=== PATIENT | female | born 1970 | race Two or more races ===

== ENCOUNTER 2024-02-08 14:56 | Inpatient (IN) | payer MEDICAID, OTHER ==
[~2024-02-08] VITALS: Ht 147.3 cm; Wt 56.4 kg
--- NOTE | 2024-02-08 15:16 | ED.PDOC ---
History of Present Illness(SKN HPI Comments A 53 YEAR OLD FEMALE PRESENTS TO THE ED WITH COMPLAINT OF WOUND OF LEFT FOOT. PATIENT STATES SHE HAS A HISTORY OF DIABETES AND HAS HAD A WOUND ON THE TOP AND BOTTOM OF HER LEFT FOOT FOR THE PAST 2 WEEKS. PATIENT REPORTS SHE IS NOT SURE HOW SHE SUSTAINED THE WOUND, BUT NOTES SHE IS NOW EXPERIENCING REDNESS, SWELLING, DISCOLORATION TO HER LEFT FOOT. PATIENT DENIES FEVER, CHILLS, SHORTNESS OF BREATH, CHEST PAIN, ABDOMINAL PAIN, NAUSEA, VOMITING, HEADACHE, OR OTHER COMPLAINTS. NO OTHER SYMPTOMS OR MODIFYING FACTORS AT THIS TIME. PATIENT IS ALERT, ORIENTED X 4, AND HAS STEADY GAIT. Chief Complaint: Lower Extremity Time Seen by MD: 14:58 History of Present Illness: Nurses Notes, Medications, Allergies Information Source: Patient Mode of Arrival: Ambulatory Severity: Moderate Timing: Weeks Duration: Since onset Prehospital treatment: None Location: Foot (LEFT FOOT) Mechanism: Preceding Wound Occurence: Indoors Object: None Condition of Object: None Retained Foreign Body: No Wound Type: Other (DIABETIC FOOT ULCER) Immunization Status of Animal: NA Tetanus: Unknown History of: Diabetes Associated Signs and Symptoms: Redness, Swelling, Pain Past Medical History PAST MEDICAL HISTORY: DM, ESRD Surgical History: Denies all surgeries GAS DESULFURIZER History: No Pertinent GAS DESULFURIZER History Family History Family History: Reviewed,noncontributory to illness Social History Smoker: Non-Smoker Alcohol: Denies ETOH Use Drugs: Denies Drug Use Lives In: Home Constitutional: denies: chills, diaphoresis, fatigue, fever, malaise, sweats, weakness, others EENTM: denies: blurred vision, double vision, ear bleeding, ear discharge, ear drainage, ear pain, ear ringing, eye pain, eye redness, hearing loss, mouth pain, mouth swelling, nasal discharge, nose bleeding, nose congestion, nose pain, photophobia, tearing, throat pain, throat swelling, voice changes, others Respiratory: denies: cough, hemoptysis, orthopnea, SOB at rest, shortness of breath, SOB with excertion, stridor, wheezing, others Cardiovascular: denies: chest pain, dizzy spells, diaphoresis, Dyspnea on exertion, edema, irregular heart beat, left arm pain, lightheadedness, pa lpitations, PND, syncope, others Gastrointestinal: denies: abdomen distended, abdominal pain, blood streaked bowels, constipated, diarrhea, dysphagia, difficulty swallowing, hematemesis, melena, nausea, poor appetite, poor fluid intake, rectal bleeding, rectal pain, vomiting, others Genitourinary: denies: abnormal vagina bleeding, burning, dyspareunia, dysuria, flank pain, frequency, hematuria, incontinence, pain, , vagina discharge, urgency, others Neurological: denies: dizziness, fainting, headache, left sided numbness, left sided weakness, numbness, paresthesia, pre-existing deficit, right sided numbness, right sided weakness, seizure, speech problems, tingling, tremors, weakness, others Musculoskeletal: denies: back pain, gout, joint pain, joint swelling, muscle pain, muscle stiffness, neck pain, others Integumetry: reports: wounds (DIABETIC FOOT ULCER OF LEFT FOOT); denies: bruises, change in color, change in hair/nails, dryness, laceration, lesions, lumps, rash, others Allergic/Immunocompromised: denies: Difficulty Healing, Frequent Infections, Hives, Itching, others Hematologic/Lymphatic: denies: anemia, blood clots, easy bleeding, easy bruising, swollen glands, others Endocrine: denies: excessive hunger, excessive sweating, excessive thirst, excessive urination, flushing, intolerance to cold, intolerance to heat, unexplained weight gain, unexplained weight loss, others Psychiatric: denies: anxiety, bipolar disorder, depression, hopeless, panic disorder, schizophrenia, sleepless, suicidal, others All Other Systems: Reviewed and Negative Physical Exam General Appearance: No Apparent Distress, Normal HEENT: Normal ENT Inspection, PERRL/EOMI, Pharynx Normal, TMs Normal Neck: Full Range of Motion, Non-Tender, Normal, Normal Inspection Respiratory: Chest Non-Tender, Lungs Clear, No Accessory Muscle Use, No Respiratory Distress, Normal Breath Sounds Cardiovascular: No Edema, No JVD, No Murmur, No Gallop, Normal Peripheral Pulses, Regular Rate/Rhythm Breast Exam: Deferred Gastrointestinal: No Organomegaly, Non Tender, No Pulsatile Mass, Normal Bowel Sounds, Soft Genitalia: Deferred Pelvic: Deferred Rectal: Deferred Extremities: Decreased range of motion, No calf tenderness, Normal capillary refill, No pedal edema, Swelling (ERYTHEMA AND SWELLING ON LEFT DORSAL FOOT WITH BRUISING.), Tender (WITH REDNESS AND BRUSING ON LEFT 4TH TOE REGION, NO OPEN WOUND SEEN, +DM FOOT ULCER AND CELLITIS OF LEFT FOOT. ) Musculoskeletal : Apperance: Normal Neurologic: Alert, marketing operations assistant II-XII nml as Tested, No Motor Deficits, Normal Affect, Normal Mood, No Sensory Deficits Cerebellar Function: Normal Reflexes: Normal Skin: Dry, Warm, Wounds (BLACKENING OF SKIN NOTED TO LEFT PLANTAR ASPECT OF FOOT, DRIED OPEN WOUND, NO DRAINAGE NOTED.) Peripheral Pulses: 2+ carotid (R), 2+ carotid (L), 2+ dorsalis pedis (R), 2+ dorsalis pedis (L) Lymphatic: No Adenopathy Was a procedure done? Was a procedure done?: No Differential Diagnosis (INTG) Differential Diagnosis: Cellulitis, Insect Envenomation, Puncture Wound, Other (DIABETIC FOOT ULCER) Differential Diagnosis: Abscess, Cellulitis, Erysipelas Differential Diagnosis: Other Abscess: N/A Differential Diagnosis: N/A X-Ray, Labs, Meds, VS Vital Signs Date Time Temp Pulse Resp B/P (MAP) Pulse Ox O2 Delivery O2 Flow Rate FiO2 02/08/24 15:36 98.5 79 16 161/61 (94) 79 98.5 02/08/24 15:36 79 97 Room Air 02/08/24 15:15 98.4 79 16 161/61 (94) 97 Lab Test 02/08/24 15:16 Range/Units White Blood Count 16.1 H 4.4-10.8 10^3/uL Red Blood Count 3.44 L 4.0-5.20 10^6/uL Hemoglobin 10.8 L 12.2-16.2 g/dL Hematocrit 32.7 L 36.0-46.0 % Mean Corpuscular Volume 95.3 80.0-100.0 fL Mean Corpuscular Hemoglobin 31.5 28.0-32.0 pg Mean Corpuscular Hemoglobin Concent 33.0 32.0-36.0 g/dL Red Cell Distribution Width 14.2 11.8-14.3 % Platelet Count 306 140-450 10^3/uL Mean Platelet Volume 9.6 6.9-10.8 fL Neutrophils (%) (Auto) 85.2 H 37.0-80.0 % Lymphocytes (%) (Auto) 7.0 L 10.0-50.0 % Monocytes (%) (Auto) 6.5 0.0-12.0 % Eosinophils (%) (Auto) 0.7 0.0-7.0 % Basophils (%) (Auto) 0.6 0.0-2.0 % Neutrophils # (Auto) 13.7 H 1.6-8.6 10 ^3/uL Lymphocytes # (Auto) 1.1 0.4-5.4 10 ^3/uL Monocytes # (Auto) 1.0 0-1.3 10 ^3/uL Eosinophils # (Auto) 0.1 0-0.8 10 ^3/uL Basophils # (Auto) 0.1 0-0.2 10 ^3/uL Nucleated Red Blood Cells 0.1 % Sodium Level 135 L 136-145 mmol/L Potassium Level 4.0 3.5-5.1 mmol/L Chloride Level 99 98-107 mmol/L Carbon Dioxide Level 25 20-31 mmol/L Anion Gap 11 5-15 Blood Urea Nitrogen 27 H 9-23 mg/dL Creatinine 4.45 H 0.550-1.02 mg/dL Glomerular Filtration Rate Calc 11 >90 mL/min BUN/Creatinine Ratio 6.1 L 10.0-20.0 Serum Glucose 315 H 74-106 mg/dL Lactic Acid Level 1.3 0.4-2.0 mmol/L Calcium Level 9.7 8.7-10.4 mg/dL Current Medications Medications (Trade) Dose Ordered Sig/Latonia Route Start Time Stop Time Status Last Admin Ceftriaxone Sodium 50 ml @ 100 mls/hr ONCE ONCE IV 02/08/24 15:45 02/08/24 16:14 DC 02/08/24 16:02 Vancomycin HCl 200 ml @ 200 mls/hr ONCE ONCE IV 02/08/24 15:45 02/08/24 16:44 DC 02/08/24 16:17 Sodium Chloride 1,000 ml @ 1,000 mls/hr Q1H ONCE IV 02/08/24 16:00 02/08/24 16:59 DC 02/08/24 16:03 CLINICAL INDICATION: DM FOOT ULCER TECHNIQUE: XY L FOOT 3 VIEW XRAY Comparison: None FINDINGS/IMPRESSION: : There is no evidence of acute fracture or dislocation. Small to moderate volume subcutaneous emphysema at the distal 4th digit. No appreciable radiopaque foreign body. Vascular atherosclerotic disease is present. ATED BY: ADOLPH BELL MD DICTATED DATE/TIME: 02/08/241542 SIGNED BY: ADOLPH BELL MD SIGNED DATE/TIME: 02/08/241542 CC: X-Ray, Labs, Meds, VS Comment LABS ORDERED: CBC, BMP, UA, LACTIC ACID W/REFLEX, BLOOD CULTURE REVIEWED AND INTERPRETED RESULTS: WBC 16.1, RBC 3.44, HGB 10.8, NA 135, BUN 27, CREATININE 4.45, GLUCOSE 315 TREATMENT: ROCEPHIN 1 G IV, VANCOMYCIN 1 G IV, NS 1L IV BOLUS, INSULIN 8 UNITS IV ACCUCHECK WAS DONE AND PATIENT'S BLOOD SUGAR MEASURED 414. A 53 YEAR OLD FEMALE PRESENTED TO THE ED C/O DIABETIC FOOT ULCER OF LEFT FOOT FOR THE PAST 2 WEEKS. UPON MY PHYSICAL EXAMINATION, THE PATIENT HAD REDNESS, SWELLING, AND BLACKENING OF THE SKIN ON HER LEFT PLANTAR ASPECT OF HER FOOT AND BRUISING OF THE TOP OF HER LEFT FOOT, BUT NO PUS DRAINAGE OR OPEN WOUND NOTED AT THIS TIME. MY DIFFERENTIAL DIAGNOSIS INCLUDES, DIABETIC FOOT ULCER, CELLULITIS, OSTEOMYELITIS, ERYSIPELAS, WOUND INFECTION, HYPERGLYCEMIA. LABS WERE ORDERED FOR THE PATIENT WHICH REVEALED AN ELEVATED WHITE BLOOD COUNT OF 16.1, BUN OF 27, CREATININE OF 4.45, AND GLUCOSE OF 315, HOWEVER THE PATIENT HAS A HISTORY OF ESRD AND IS CURRENTLY UNDERGOING DIALYSIS. AN X-RAY OF THE PATIENT'S LEFT FOOT WAS DONE AND THERE WAS NO ACUTE FINDING. PATIENT WAS MEDICATED HERE IN THE ED WITH ROCEPHIN 1 G IV AND VANCOMYCIN 1 G IV. DUE TO THE PATIENT HAVING A DIABETIC FOOT ULCER, I HAVE DETERMINED THE PATIENT SHOULD BE ADMITTED FOR FURTHER TREATMENT AND EVALUATION. THE ON-CALL ADMITTING PHYSICIAN WILL BE CONTACTED FOR ADMISSION OF THIS PATIENT. Images Reviewed?: Images reviewed and evaluated by me Time of 1ST Reevaluation: 17:00 Reevaluation 1ST: Unchanged Patient Education/Counseling: Diagnosis, Treatment Family Education/Counseling: Diagnosis, Treatment Departure 1 Departure Time of Disposition: 17:00 Impression: Primary Impression: Diabetic ulcer of left foot Qualified Codes: E11.621 - Type 2 diabetes mellitus with foot ulcer; L97.521 - Non-pressure chronic ulcer of other part of left foot limited to breakdown of skin Additional Impressions: Uncontrolled diabetes mellitus Qualified Codes: E11.65 - Type 2 diabetes mellitus with hyperglycemia ESRD (end stage renal disease) on dialysis Disposition: ADMITTED INPATIENT Admit to: Med Surg Condition: Serious Critical Care Note Critical Care Time?: No Stability Stability form required: No I personally scribed for JOSLYN HEADLEY ([email or web address]) on 02/08/24 at 15:16. Electronically submitted by Dionisio Thakkar [email or web address]). I personally scribed for JOSLYN HEADLEY ([email or web address]) on 02/08/24 at 15:35. Electronically submitted by Dionisio Thakkar ([email or web address]). I personally scribed for JOSLYN HEADLEY ([email or web address]) on 02/08/24 at 16:02. Electronically submitted by Dionisio Thakkar ([email or web address]). I personally scribed for JOSLYN HEADLEY ([email or web address]) on 02/08/24 at 16:48. Electronically submitted by Dionisio Thakkar ([email or web address]). JOSLYN HEADLEY Feb 08, 2024 15:16
[2024-02-08 15:40] LABS: Basophils # (auto) 0.1 10 ^3/uL (0-0.2); Basophils % (auto) 0.6 % (0.0-2.0); Eosinophils # (auto) 0.1 10 ^3/uL (0-0.8); Eosinophils % (auto) 0.7 % (0.0-7.0); Hematocrit 32.7 % (36.0-46.0); Hemoglobin 10.8 g/dL (12.2-16.2); Lymphocytes # (auto) 1.1 10 ^3/uL (0.4-5.4); Mean Corpuscular Hemoglobin 31.5 pg (28.0-32.0); Mean Corpuscular Volume 95.3 fL (80.0-100.0); Monocytes % (auto) 6.5 % (0.0-12.0); Neutrophils # (auto) 13.7 10 ^3/uL (1.6-8.6); Neutrophils % (auto) 85.2 % (37.0-80.0); Nucleated Red Blood Cells % 0.1 %; Platelet Count (auto) 306 10^3/uL (140-450); Red Blood Cells 3.44 10^6/uL (4.0-5.20); Red Cell Distribution Width 14.2 % (11.8-14.3); White Blood Cell 16.1 10^3/uL (4.4-10.8)
--- NOTE | 2024-02-08 15:46 | DVH ---
CLINICAL INDICATION: DM FOOT ULCER TECHNIQUE: XY L FOOT 3 VIEW XRAY Comparison: None FINDINGS/IMPRESSION: : There is no evidence of acute fracture or dislocation. Small to moderate volume subcutaneous emphysema at the distal 4th digit. No appreciable radiopaque foreign body. Vascular atherosclerotic disease is present.
[2024-02-08 15:47] LABS: Chloride 99 mmol/L (98-107); Sodium 135 mmol/L (136-145)
[2024-02-08 15:48] LABS: Anion Gap 11 (5-15); Carbon Dioxide 25 mmol/L (20-31)
[2024-02-08 15:49] LABS: Calcium 9.7 mg/dL (8.7-10.4)
[2024-02-08 15:54] LABS: BUN/Creatinine Ratio 6.1 (10.0-20.0); Blood Urea Nitrogen 27 mg/dL (9-23); Glucose 315 mg/dL (74-106)
[2024-02-08] MEDS: cefTRIAXone 1GM/50ML D5W 50 ML IV ONE (16:02)
[2024-02-08] MEDS: SODIUM CHLORIDE 0.9% 1,000 ML IV ONE (16:03)
[2024-02-08] MEDS: VANCOMYCIN 1GM/200ML PREMIX 200 ML IV ONE (16:17)
[2024-02-08] MEDS: InsuLIN REG 1unit/0.01ml Soln (100units/ml) IV ONE (18:02)
--- NOTE | 2024-02-08 23:25 | DVHHP2 ---
History of Present Illness Reason for Visit: ESRD (end stage renal disease) on dialysis History of Present Illness Patient is a 53-year-old female with past medical history of hypertension, DM, and end-stage renal disease on hemodialysis presented to [facility] ED for evaluation of left foot wound. Patient reports she has had a wound on the top and bottom of her left foot for the past 2 weeks, not sure how she sustained the wound, but notes redness, swelling, discoloration to the foot, getting worse that prompted this visit. Patient was seen and evaluated in the ED, laboratory data shows WBC 16.1, hemoglobin 10.8, hematocrit 32.7, platelets 306, sodium 135, potassium 4.0, BUN 27, creatinine 4.45, glucose 315, blood pressure 160/62, heart rate 78, temperature 98.5 F, O2 saturation 97% on room air. Left foot x- ray showed no evidence of acute fracture or dislocation. Patient was started on IV antibiotic regimen vancomycin, please see medication orders section in the computer. On my assessment, patient denied chest pain, no headache, no dizziness, no shortness of breath, no nausea, no vomiting, no fever, no chills. Patient was admitted for further evaluation medical management. Past Medical History DM, ESRD, hypertension Past Surgical History Denies all surgeries Family History Reviewed, noncontributory to the management of this case. Past Social History The patient lives at home, denies smoking, alcohol or illicit drugs abuse. Review of Systems Constitutional: No: Fever, Chills, Sweats, Weakness, Malaise, Other Eyes: No: Pain, Vision change, Conjunctivae inflammation, Eyelid inflammation, Other, Redness ENT: No: Ear pain, Ear discharge, Nose pain, Nose discharge, Nose congestion, Mouth pain, Mouth swelling, Throat pain, Throat swelling, Other Respiratory: No: Cough, Dry, Shortness of breath, SOB with excertion, Wheezing, Hemoptysis, Pleuritic Pain, Sputum, Wheezing, Other Cardiovascular: No: Chest Pain, Palpitations, Orthopnea, Paroxysmal Noc. Dyspnea, Edema, Lt Headedness, Other Gastrointestinal: No: Nausea, Vomiting, Abdominal Pain, Diarrhea, Constipation, Melena, Hematochezia, Other Genitourinary: No Dysuria, No Frequency, No Incontinence, No Hematuria, No Retention, No Other Musculoskeletal: other (Diabetic ulcer of left foot.); No: neck pain, shoulder pain, arm pain, back pain, hand pain, leg pain, foot pain Skin: No: Rash, Lesions, Jaundice, Bruising, Other Neurological: No: Weakness, Numbness, Incoordination, Change in speech, Confusion, Seizures, Other Exam Vital Signs Vital Signs Date Time Temp Pulse Resp B/P (MAP) Pulse Ox O2 Delivery O2 Flow Rate FiO2 02/08/24 15:36 98.5 79 16 161/61 (94) 79 98.5 02/08/24 15:36 Room Air General Appearance: Alert, Oriented X3, Cooperative, No acute distress HEENT: Atraumatic, PERRLA, EOMI, Mucous membr. moist/pink Respiratory: Clear to auscultation, Normal air movement Cardiovascular: Regular rate, Normal S1, Normal S2, No murmurs Abdominal: Normal bowel sounds, Soft, No tenderness, No hepatospenomegaly, No masses Extremities: No clubbing, No cyanosis, No edema, Normal pulses, No tenderness /swelling Skin: No rashes, No breakdown, No significant lesion Neuro: Normal speech, Normal tone, Sensation intact, Cranial nerves 3-12 NL, Reflexes 2+ Psych/Mental Status: Mental status NL, Mood NL Labs/Xrays Labs Test 02/08/24 17:56 02/08/24 15:16 Range/Units POC Glucose 426 *H 70-106 mg/dl White Blood Count 16.1 H 4.4-10.8 10^3/uL Red Blood Count 3.44 L 4.0-5.20 10^6/uL Hemoglobin 10.8 L 12.2-16.2 g/dL Hematocrit 32.7 L 36.0-46.0 % Mean Corpuscular Volume 95.3 80.0-100.0 fL Mean Corpuscular Hemoglobin 31.5 28.0-32.0 pg Mean Corpuscular Hemoglobin Concent 33.0 32.0-36.0 g/dL Red Cell Distribution Width 14.2 11.8-14.3 % Platelet Count 306 140-450 10^3/uL Mean Platelet Volume 9.6 6.9-10.8 fL Neutrophils (%) (Auto) 85.2 H 37.0-80.0 % Lymphocytes (%) (Auto) 7.0 L 10.0-50.0 % Monocytes (%) (Auto) 6.5 0.0-12.0 % Eosinophils (%) (Auto) 0.7 0.0-7.0 % Basophils (%) (Auto) 0.6 0.0-2.0 % Neutrophils # (Auto) 13.7 H 1.6-8.6 10 ^3/uL Lymphocytes # (Auto) 1.1 0.4-5.4 10 ^3/uL Monocytes # (Auto) 1.0 0-1.3 10 ^3/uL Eosinophils # (Auto) 0.1 0-0.8 10 ^3/uL Basophils # (Auto) 0.1 0-0.2 10 ^3/uL Nucleated Red Blood Cells 0.1 % Sodium Level 135 L 136-145 mmol/L Potassium Level 4.0 3.5-5.1 mmol/L Chloride Level 99 98-107 mmol/L Carbon Dioxide Level 25 20-31 mmol/L Anion Gap 11 5-15 Blood Urea Nitrogen 27 H 9-23 mg/dL Creatinine 4.45 H 0.550-1.02 mg/dL Glomerular Filtration Rate Calc 11 >90 mL/min BUN/Creatinine Ratio 6.1 L 10.0-20.0 Serum Glucose 315 H 74-106 mg/dL Lactic Acid Level 1.3 0.4-2.0 mmol/L Calcium Level 9.7 8.7-10.4 mg/dL PATIENT: JUVENAL GRANDA ACCT: [id number] UNIT: [id number] : 1970 LOC: ER ROOM / BED: / AGE / SEX: 53 / F ADM STATUS: REG ER SERVICE 1503 ORDERING PHYSICIAN: JOSLYN HEDALEY PROCEDURE(s): LFOOT - L FOOT 3 VIEW XRAY REASON: DM FOOT ULCER ORDER NUMBER(s): [id number], ACCESSION NUMBER(s): [id number] CLINICAL INDICATION: DM FOOT ULCER TECHNIQUE: XY L FOOT 3 VIEW XRAY Comparison: None FINDINGS/IMPRESSION: : There is no evidence of acute fracture or dislocation. Small to moderate volume subcutaneous emphysema at the distal 4th digit. No appreciable radiopaque foreign body. Vascular atherosclerotic disease is present. Assessment/Plan Assessment/Plan Diabetic ulcer of left foot Leukocytosis, unspecified Hypertension Type 2 diabetes mellitus with foot ulcer Uncontrolled diabetes mellitus Type 2 diabetes mellitus with hyperglycemia ESRD (end stage renal disease) on dialysis Plan 1. Admit to telemetry unit 2. Breathing treatment 3. Pain control management 4. IV antibiotic management 5. Management of fluids and electrolytes 6. Consultation for Nephrology 7. Diagnostic test foot x-ray 8. DVT prophylaxis-on aspirin 9. Repeat labs CBC, CMP in a.m. 10. Home medication reviewed and reconciled 11. Continue with current medical management 12. Treatment plan discussed with patient and RN. Patient verbalized understanding. Plan discussed with: Patient, Other (RN) Problem List: (1) Diabetic ulcer of left foot (2) Type 2 diabetes mellitus with foot ulcer (3) Hypertension (4) Leukocytosis, unspecified (5) Uncontrolled diabetes mellitus (6) ESRD (end stage renal disease) on dialysis (7) Type 2 diabetes mellitus with hyperglycemia Date of Service: Feb 08, 2024 Billing Provider: SRAVANI RUIZ DNP Common Visit Codes: [id number] INP/OBS CARE (HIGH) SRAVANI RUZI DNP Feb 08, 2024 23:25
[2024-02-08] MEDS ORDERED: hydrALAZINE HCL 20 MG/ML VL IV PRN (23:30)
[2024-02-08] MEDS ORDERED: VANCOMYCIN PER PHARMACY 0 MG IV SCH (23:30)
[2024-02-08] MEDS ORDERED: ONDANSETRON HCL 4 MG/2 ML VIAL IV PRN (23:30)
[2024-02-08] MEDS ORDERED: NITROGLYCERIN 0.4 MG SL TAB SL PRN (23:30)
[2024-02-08] MEDS ORDERED: DOCUSATE SOD 100 MG CAP PO PRN (23:30)
[2024-02-08] MEDS ORDERED: DEXTROSE (50%) 50ML SYRG IV PRN (23:30)
[2024-02-08] MEDS ORDERED: MORPHINE SULFATE INJ 2 MG/ml SYRG IV PRN (23:30)
[2024-02-09] VITALS (9 sets, daily range): BP systolic 148–207; BP diastolic 61–90; PULSE 67–75; RESP 18–20; TEMP 98.5–99.9; O2SAT 92–98
[2024-02-09] MEDS ORDERED: FERR1TAB17 PO (04:11)
[2024-02-09] MEDS ORDERED: CHOL500021 OR (04:11)
[2024-02-09] MEDS ORDERED: AMLO1TAB22 PO (04:11)
[2024-02-09] MEDS ORDERED: CARV-214 OR (04:11)
[2024-02-09] MEDS ORDERED: HYDR100T10 PO (04:11)
[2024-02-09] MEDS ORDERED: ONDA-155 PO (04:11)
[2024-02-09 05:36] LABS: Basophils # (auto) 0.1 10 ^3/uL (0-0.2); Basophils % (auto) 0.5 % (0.0-2.0); Eosinophils # (auto) 0.2 10 ^3/uL (0-0.8); Eosinophils % (auto) 1.1 % (0.0-7.0); Hematocrit 29.5 % (36.0-46.0); Hemoglobin 9.8 g/dL (12.2-16.2); Lymphocytes # (auto) 1.1 10 ^3/uL (0.4-5.4); Lymphocytes % (auto) 7.7 % (10.0-50.0); Mean Corpuscular Hemoglobin 31.5 pg (28.0-32.0); Mean Corpuscular Hgb Conc. 33.1 g/dL (32.0-36.0); Mean Corpuscular Volume 94.9 fL (80.0-100.0); Monocytes # (auto) 1.2 10 ^3/uL (0-1.3); Monocytes % (auto) 8.6 % (0.0-12.0); Neutrophils # (auto) 11.8 10 ^3/uL (1.6-8.6); Neutrophils % (auto) 82.1 % (37.0-80.0); Platelet Count (auto) 282 10^3/uL (140-450); Red Blood Cells 3.11 10^6/uL (4.0-5.20); Red Cell Distribution Width 14.3 % (11.8-14.3); White Blood Cell 14.4 10^3/uL (4.4-10.8)
[2024-02-09 05:56] LABS: Alanine Aminotransferase 17 U/L (7-40); Alkaline Phosphatase 111 U/L (46-116); Anion Gap 14 (5-15); BUN/Creatinine Ratio 7.2 (10.0-20.0); Blood Urea Nitrogen 36 mg/dL (9-23); Calcium 9.4 mg/dL (8.7-10.4); Carbon Dioxide 20 mmol/L (20-31); Chloride 103 mmol/L (98-107); Glucose 266 mg/dL (74-106); Potassium 3.8 mmol/L (3.5-5.1); Sodium 137 mmol/L (136-145)
[2024-02-09 05:57] LABS: Albumin 3.6 g/dL (3.2-4.8); Aspartate Aminotransferase 12 U/L (13-40); Bilirubin, Total 0.2 mg/dL (0.2-1.0); Total Protein 6.7 g/dL (5.7-8.2)
[2024-02-09] MEDS: SODIUM CHLOR 0.9% PF (SALINE LOCK) 10ML VIAL/SYR IV SCH (06:00)
[2024-02-09] MEDS: ACCU-CHEK COMFORT CURVE STRIP VI SCH (07:00)
[2024-02-09] MEDS: InsuLIN REG 1unit/0.01ml Soln (100units/ml) SC SCH ×2 (07:00→22:17)
[2024-02-09] MEDS: SEVELAMER 800 MG TAB PO SCH (08:00)
[2024-02-09] MEDS ORDERED: cefTRIAXone 1GM/50ML D5W 50 ML IV SCH (09:00)
--- NOTE | 2024-02-09 09:07 | DVH ---
CHEST RADIOGRAPH Indication: sob Technique: Single frontal view of the chest was obtained COMPARISON: None FINDINGS: Lines and Tubes: Right tunneled central venous catheter in satisfactory position. Lungs: Congestion. Pleura: No effusion. No pneumothorax. Cardiomediastinal contours: Unremarkable Bones: Unremarkable IMPRESSION: Mild congestion.
[2024-02-09] MEDS: INSULIN LANTUS (GLARGINE) 1 /0.01ml (100units/ml) SC SCH (09:45)
[2024-02-09] MEDS: CARVEDILOL 3.125 MG TAB PO SCH (10:00)
[2024-02-09] MEDS: amLODIPine BESYLATE 5 MG TAB PO SCH (10:00)
[2024-02-09 10:48] LABS: INR 1.03 (0.9-1.15); Partial Thromboplastin Time 32.7 SEC (24.5-34.5); Prothrombin Time 10.9 sec (9.3-11.8)
[2024-02-09] MEDS: PIPERACILLIN-TAZOB 2.25GM 50 ML IV SCH (11:09)
[2024-02-09] MEDS: ASPirin 81 mg TAB PO SCH (11:10)
[2024-02-09] MEDS: B-COMPLEX W/ C & FOLIC ACID(NEPHROVITE TAB) PO SCH (11:10)
[2024-02-09] MEDS: SODIUM CHL 0.9% 1000 ML BAG XX ONE (12:15)
[2024-02-09] MEDS ORDERED: hydrALAZINE HCL 20 MG/ML VL IV PRN (13:00)
--- NOTE | 2024-02-09 13:28 | DVHPNRES ---
Progress Note Date Seen: Feb 09, 2024 Resident Creating Document: GIULIANO BAR RESIDENT Medical Necessity Reason Pt with a Central, PICC or Fol: No Subjective Review of Systems JUVENAL GRANDA is a 53 years old female with a PMH of HTN, type 2 DM, ESRD on HD MWF presented to the ED for the evaluation of left foot wound ( left 4th toe and base of 4th toe metatarsal head ). Patient noted she has been noticed wound on her left foot 15 days ago but unable to recall what lead to that happened, since 1 week she has been having mild pain which is getting worse prompted her to visit ED. patient does report chills and nausea but denies fever, headache, diaphoresis, abdominal pain, shortness of breaths and other associated symptoms PMH:HTN, type 2 DM, ESRD on HD MWF PSH: Denies Family history: Reviewed, noncontributory Social history: Patient lives at home. Denies smoking, alcohol and other drug abuse Allergies: No known allergies Patient seen and examined at the bedside. Patient is reported improvement in pain since admission. Left foot x-ray showed no evidence of acute fracture or dislocation but small to moderate subcutaneous emphysema at the distal 4th digit, vascular atherosclerotic disease is present. ordered MRI left foot. Consulted Podiatry for possible surgical evaluation. Patient is currently on Zosyn and vancomycin. Continuously monitoring blood glucose. Patient reports: Feels better Objective vital signs Vital Sign Date Time Temp Pulse Resp B/P (MAP) Pulse Ox O2 Delivery O2 Flow Rate FiO2 02/09/24 10:00 74 181/78 02/09/24 09:00 98.5 18 97 98.5 02/09/24 08:00 Room Air* 0 21 Total Intake and Output 02/08/24 02/08/24 02/09/24 15:00 23:00 07:00 Intake Total 0 ml Balance 0 ml medications Current Medications Medications Dose Ordered Sig/Latonia Route Start Time Stop Time Status Last Admin Dose Admin Vancomycin HCl 0 ml @ 0 mls/hr UD IV 02/08/24 23:30 Multivit/Ca Carb/ B Cmplx/FA/Prenat 1 tab DAILY PO 02/09/24 10:00 02/09/24 11:10 1 TAB Sevelamer HCl 800 mg TIDWM PO 02/09/24 08:00 02/09/24 11:52 800 MG Amlodipine Besylate 5 mg DAILY PO 02/09/24 10:00 02/09/24 10:00 5 MG Carvedilol 3.125 mg Q12HR PO 02/09/24 10:00 02/09/24 10:00 3.125 MG Diagnostic Test (Pha) 1 strip ACHS 02/09/24 07:00 02/09/24 11:51 1 STRIP Insulin Human Regular HS SC 02/09/24 22:00 Insulin Human Regular AC SC 02/09/24 07:00 02/09/24 11:30 15 UNITS Dextrose 50 ml UD PRN IV 02/08/24 23:30 Sodium Chloride 10 ml Q8HR IV 02/09/24 06:00 Acetaminophen/ Hydrocodone Bitart 1 tab Q4HP PRN PO 02/08/24 23:30 Ondansetron HCl 4 mg Q4HP PRN IV 02/08/24 23:30 Docusate Sodium 100 mg BIDPRN PRN PO 02/08/24 23:30 Acetaminophen 650 mg Q6HP PRN PO 02/08/24 23:30 Morphine Sulfate 2 mg Q4HPRN PRN IV 02/08/24 23:30 Nitroglycerin 0.4 mg Q5MINP PRN SL 02/08/24 23:30 Morphine Sulfate 2 mg Q30M PRN IV 02/08/24 23:30 Aspirin 81 mg DAILY PO 02/09/24 10:00 02/09/24 11:10 81 MG Piperacillin Sod/ Tazobactam Sod 50 ml @ 12.5 mls/hr Q8H IV 02/09/24 10:00 02/09/24 11:09 12.5 MLS/HR Insulin Glargine 15 units QAM SC 02/09/24 09:45 02/09/24 09:45 15 UNITS Insulin Human Lispro 3 units TID SC 02/09/24 14:00 Hydralazine HCl 10 mg Q6HP PRN IV 02/09/24 13:00 Examination Pt is lying on bed General Appearance: Alert, Oriented X3, Cooperative, Not in acute distress HEENT: Atraumatic, Mucous membranes moist/pink Respiratory: Clear to auscultation, Normal air movement, No added sounds Cardiovascular: Regular rate, Normal S1, Normal S2, No murmurs Abdominal: Active bowel sounds, Soft, no distention, no tenderness Extremities: Left 4th toe and 4th metatarsal head is black, foul-smelling, warmth, tender and decreased sensation Skin: No Significant rash, except past surgical scars Neuro: Normal speech, sensorimotor deficits none Psych/Mental Status: Mental status NL, Mood NL Nurse was there as phillyne during examination laboratory and microbiology Laboratory Tests 02/09/24 05:08 Test 02/09/24 05:08 Range/Units Serum Glucose 266 H 74-106 mg/dL Labs and/or images reviewed: Labs reviewed by me, Image(s) reviewed by me Problem List/Assessment/Plan Problem List/Assessment/Plan # Left foot diabetic ulcer # left foot wet gangrene 4th toe # ? sepsis from ulcer - continuously monitor lab - currently on Zosyn and vancomycin - ordered wound culture and wound consult - ordered podiatry consult for possible surgical evaluation - NPO after midnight - ordered MRI left foot # uncontrolled type 2 diabetes mellitus With the HbA1c 11.2 - continuously monitor blood glucose - currently on 15 units Lantus and 3 units lispro t.i.d. - on moderate sliding scale # ESRD on HD MWF - consulted Nephrology it for possible dialysis # hypertensive urgency - continuously monitor - resumed home meds - giving hydralazine 10 mg p.r.n. if SBP more than 180 SCDs for now No GI be PPX NPO after midnight reconciled home meds goals of care discussed with the patient and family for more than 27 minutes: Full code status Case management discussed with Dr Martinez, patient and nurse Plan discussed with: Patient My Orders My Orders Orders - GIULIANO ABR RESIDENT Procedure Category Date Status Time Vitamin D, 25-Hydroxy LAB 02/09/24 In Process 07:58 Vitamin B12 LAB 02/09/24 In Process 07:58 Drug Screen LAB 02/09/24 Logged 07:58 * Wound Consult CONS 02/09/24 Transmitted Wound Culture W/ Gs NAGI 02/09/24 In Process 07:59 Chest Xray 1 View XY 02/09/24 Resulted 08:01 Piperacillin-Tazob PHA 02/09/24 In Process 2.25gm (Zosyn 2.25gm) 10:00 Insulin Lantus PHA 02/09/24 In Process (Glargine) (Lantus) 09:45 Mri L Foot Wo W MRI 02/09/24 Logged Contrast 11:20 *Podiatry Consult CONS 02/09/24 Transmitted Musson(Dvmg) 12:21 Npo After Midnight DIET 02/09/24 Transmitted Lunch Insulin Lispro PHA 02/09/24 In Process (Human) (Humalog) 14:00 Hydralazine Injection PHA 02/09/24 In Process (Apresoline Inject 13:00 Lactic Acid W/ Reflex LAB 02/09/24 Logged Order 13:21 Date of Service: Feb 09, 2024 Billing Provider: BISI MARTINEZ MD Common Visit Codes: [id number] INP/OBS CARE(HIGH) GIULIANO BAR RESIDENT Feb 09, 2024 13:28 BISI MARTINEZ MD Feb 09, 2024 21:38
[2024-02-09] MEDS: INSULIN LISPRO (HUMAN) 100 UNITS/ML ML SC SCH (14:00)
--- NOTE | 2024-02-09 17:06 | DVHINCON2 ---
Date of service: Feb 09, 2024 Referring Physician Shahnaz Reason for Consultation ESRD on dialysis History of Present Illness 53 y/o female with hx of ESRD on hemodialysis, HTN, and DM type 2, who presented for wound to the L foot. Hemodialysis schedule M/W/F has not missed tx. Has R chest tunneled cath. Labs upon arrival Na 135, K 4.0, BUN 27, creat 4.45. Denies cardiopulmonary issues. Past Medical History ESRD on hemodialysis, HTN, DM type 2 Allergies: Coded Allergies: No Known Drug Allergy (Verified Allergy, Unknown, 02/09/24) Home Meds Reported Medications Hydralazine Hcl (Hydralazine Hcl) 100 Mg Tab, 1 TAB PO TID, #90 TAB 5 Refills 02/09/24 Ferric Citrate (Auryxia) 210 Mg Tab, 210 MG PO, TAB 02/09/24 Cholecalciferol (VITAMIN D) 5,000 Unit Tab, 5000 UNIT OR, TAB 02/09/24 Amlodipine Besylate (Amlodipine Besylate) 5 Mg Tab, 1 TAB PO DAILY, #30 TAB 5 Refills 02/09/24 Carvedilol (COREG) 3.125 Mg Tab, 3.125 MG OR, TAB 02/09/24 Ondansetron HCl (Ondansetron) 4 Mg Tab, 4 MG PO, TAB 02/09/24 Current Medications Current Medications Medications (Trade) Dose Ordered Sig/Latonia Route PRN Reason Start Time Stop Time Status Last Admin Vancomycin HCl 0 ml @ 0 mls/hr UD IV 02/08/24 23:30 Ceftriaxone Sodium 50 ml @ 100 mls/hr DAILY@09 IV 02/09/24 09:00 02/09/24 09:42 DC Multivit/Ca Carb/ B Cmplx/FA/Prenat (Nephro-Kaylee Tablet) 1 tab DAILY PO 02/09/24 10:00 02/09/24 11:10 Sevelamer HCl (Renagel) 800 mg TIDWM PO 02/09/24 08:00 02/09/24 11:52 Amlodipine Besylate (Norvasc Tablet) 5 mg DAILY PO 02/09/24 10:00 02/09/24 10:00 Carvedilol (Coreg Tablet) 3.125 mg Q12HR PO 02/09/24 10:00 02/09/24 10:00 Hydralazine HCl (Apresoline Injection) 10 mg Q6HP PRN IV SBP>150 02/08/24 23:30 02/09/24 12:54 DC Diagnostic Test (Pha) (Accu-Chek Comfort Curve T) 1 strip ACHS 02/09/24 07:00 02/09/24 11:51 Insulin Human Regular (InsuLIN R) HS SC 02/09/24 22:00 Insulin Human Regular (InsuLIN R) AC SC 02/09/24 07:00 02/09/24 11:30 Dextrose 50 ml UD PRN IV Blood Sugar LESS THAN 60 02/08/24 23:30 Sodium Chloride (Saline Lock Ns) 10 ml Q8HR IV 02/09/24 06:00 02/09/24 14:00 Acetaminophen/ Hydrocodone Bitart ([place] 5/325MG Tab) 1 tab Q4HP PRN PO MODERATE PAIN (4-6 PAIN SCALE) 02/08/24 23:30 Ondansetron HCl (Zofran) 4 mg Q4HP PRN IV NAUSEA / VOMITING 02/08/24 23:30 Docusate Sodium (Colace Capsule) 100 mg BIDPRN PRN PO FOR CONSTIPATION 02/08/24 23:30 Acetaminophen (Tylenol Tablet) 650 mg Q6HP PRN PO PAIN SCALE 1-3 OR TEMP>100.4 02/08/24 23:30 Morphine Sulfate 2 mg Q4HPRN PRN IV SEVERE PAIN (7-10 PAIN SCALE) 02/08/24 23:30 Nitroglycerin (Ntrostat Sublingual) 0.4 mg Q5MINP PRN SL FOR CHEST PAIN 02/08/24 23:30 Morphine Sulfate 2 mg Q30M PRN IV FOR CHEST PAIN 02/08/24 23:30 Aspirin 81 mg DAILY PO 02/09/24 10:00 02/09/24 11:10 Piperacillin Sod/ Tazobactam Sod 50 ml @ 12.5 mls/hr Q8H IV 02/09/24 10:00 02/09/24 11:09 Insulin Glargine (Lantus) 15 units QAM SC 02/09/24 09:45 02/09/24 09:45 Insulin Human Lispro (HumaLOG) 3 units TID SC 02/09/24 14:00 02/09/24 14:00 Hydralazine HCl (Apresoline Injection) 10 mg Q6HP PRN IV SBP>180 02/09/24 13:00 Family History: Patient reports no known family medical history. Review of Systems 10 systems reviewed and negative except as per HPI H&P Exam Vital Signs/I&O Vital Sign Date Time Temp Pulse Resp B/P (MAP) Pulse Ox O2 Delivery O2 Flow Rate FiO2 02/09/24 15:00 68 18 148/71 (96) 97 02/09/24 13:00 98.8 98.8 02/09/24 08:00 Room Air* 0 21 Intake and Output 02/08/24 02/09/24 19:00 07:00 Intake Total 0 ml Balance 0 ml Intake Oral 0 ml Physical Exam Gen: No acute distress, appears stated age HEENT: pupils equal and reactive to light and accommodation Pulm: CTA bilaterally CVS: RRR, no rub Abd: normoactive bowel sounds, soft, nontender Ext: No edema Neuro: Alert and oriented x 4 Labs/Diagnostic Data Labs/Diagnostic Data Laboratory Tests Test 02/09/24 15:14 02/09/24 11:29 02/09/24 10:14 02/09/24 05:08 Range/Units Lactic Acid Level 1.3 0.4-2.0 mmol/L POC Glucose 391 H 70-106 mg/dl Prothrombin Time 10.9 9.3-11.8 sec Prothrombin Time INR 1.03 0.9-1.15 Activated Partial Thromboplast Time 32.7 24.5-34.5 SEC Hemoglobin A1c 11.2 H <5.7 % A1C B-Type Natriuretic Peptide 799.72 0-100 pg/mL Thyroid Stimulating Hormone (TSH) 1.37 0.55-4.78 uIU/mL Random Vancomycin Level 21.3 H 5-10 ug/mL White Blood Count 14.4 H 4.4-10.8 10^3/uL Red Blood Count 3.11 L 4.0-5.20 10^6/uL Hemoglobin 9.8 L 12.2-16.2 g/dL Hematocrit 29.5 L 36.0-46.0 % Mean Corpuscular Volume 94.9 80.0-100.0 fL Mean Corpuscular Hemoglobin 31.5 28.0-32.0 pg Mean Corpuscular Hemoglobin Concent 33.1 32.0-36.0 g/dL Red Cell Distribution Width 14.3 11.8-14.3 % Platelet Count 282 140-450 10^3/uL Mean Platelet Volume 9.8 6.9-10.8 fL Neutrophils (%) (Auto) 82.1 H 37.0-80.0 % Lymphocytes (%) (Auto) 7.7 L 10.0-50.0 % Monocytes (%) (Auto) 8.6 0.0-12.0 % Eosinophils (%) (Auto) 1.1 0.0-7.0 % Basophils (%) (Auto) 0.5 0.0-2.0 % Neutrophils # (Auto) 11.8 H 1.6-8.6 10 ^3/uL Lymphocytes # (Auto) 1.1 0.4-5.4 10 ^3/uL Monocytes # (Auto) 1.2 0-1.3 10 ^3/uL Eosinophils # (Auto) 0.2 0-0.8 10 ^3/uL Basophils # (Auto) 0.1 0-0.2 10 ^3/uL Nucleated Red Blood Cells 0.0 % Sodium Level 137 136-145 mmol/L Potassium Level 3.8 3.5-5.1 mmol/L Chloride Level 103 98-107 mmol/L Carbon Dioxide Level 20 20-31 mmol/L Anion Gap 14 5-15 Blood Urea Nitrogen 36 H 9-23 mg/dL Creatinine 5.02 H 0.550-1.02 mg/dL Glomerular Filtration Rate Calc 10 >90 mL/min BUN/Creatinine Ratio 7.2 L 10.0-20.0 Serum Glucose 266 H 74-106 mg/dL Calcium Level 9.4 8.7-10.4 mg/dL Total Bilirubin 0.2 0.2-1.0 mg/dL Aspartate Amino Transferase (AST) 12 L 13-40 U/L Alanine Aminotransferase (ALT) 17 7-40 U/L Alkaline Phosphatase 111 46-116 U/L Total Protein 6.7 5.7-8.2 g/dL Albumin 3.6 3.2-4.8 g/dL Test 02/08/24 17:56 02/08/24 17:53 02/08/24 15:16 Range/Units POC Glucose 426 *H 414 *H 70-106 mg/dl White Blood Count 16.1 H 4.4-10.8 10^3/uL Red Blood Count 3.44 L 4.0-5.20 10^6/uL Hemoglobin 10.8 L 12.2-16.2 g/dL Hematocrit 32.7 L 36.0-46.0 % Mean Corpuscular Volume 95.3 80.0-100.0 fL Mean Corpuscular Hemoglobin 31.5 28.0-32.0 pg Mean Corpuscular Hemoglobin Concent 33.0 32.0-36.0 g/dL Red Cell Distribution Width 14.2 11.8-14.3 % Platelet Count 306 140-450 10^3/uL Mean Platelet Volume 9.6 6.9-10.8 fL Neutrophils (%) (Auto) 85.2 H 37.0-80.0 % Lymphocytes (%) (Auto) 7.0 L 10.0-50.0 % Monocytes (%) (Auto) 6.5 0.0-12.0 % Eosinophils (%) (Auto) 0.7 0.0-7.0 % Basophils (%) (Auto) 0.6 0.0-2.0 % Neutrophils # (Auto) 13.7 H 1.6-8.6 10 ^3/uL Lymphocytes # (Auto) 1.1 0.4-5.4 10 ^3/uL Monocytes # (Auto) 1.0 0-1.3 10 ^3/uL Eosinophils # (Auto) 0.1 0-0.8 10 ^3/uL Basophils # (Auto) 0.1 0-0.2 10 ^3/uL Nucleated Red Blood Cells 0.1 % Sodium Level 135 L 136-145 mmol/L Potassium Level 4.0 3.5-5.1 mmol/L Chloride Level 99 98-107 mmol/L Carbon Dioxide Level 25 20-31 mmol/L Anion Gap 11 5-15 Blood Urea Nitrogen 27 H 9-23 mg/dL Creatinine 4.45 H 0.550-1.02 mg/dL Glomerular Filtration Rate Calc 11 >90 mL/min BUN/Creatinine Ratio 6.1 L 10.0-20.0 Serum Glucose 315 H 74-106 mg/dL Lactic Acid Level 1.3 0.4-2.0 mmol/L Calcium Level 9.7 8.7-10.4 mg/dL Plan/Recommendation IMP 1.) ESRD on hemodialysis M/W/F- last tx F 2.) hx HTN 3.) hx DM type 2 with hyperglycemia 4.) L foot wound REC -Hemodialysis today -Will monitor blood pressures, chemistry panels -Strict I&O -Continue phos binders -Dose vanco to desired level -Will continue to follow Thank you for the consultation Plan discussed with: Patient, Other (Dr. Alexander) EDGARDO CABRAL [facility] Feb 09, 2024 17:06
[2024-02-09] MEDS: VANCOMYCIN 500mg/100mL 100 ML IV ONE (21:47)
[2024-02-10] VITALS (9 sets, daily range): BP systolic 107–143; BP diastolic 47–67; PULSE 63–82; RESP 15–18; TEMP 98.3–101.4; O2SAT 94–100
[2024-02-10] MEDS: ACETAMINOPHEN 325 MG TAB PO PRN (01:31)
[2024-02-10 06:59] LABS: Basophils # (auto) 0.1 10 ^3/uL (0-0.2); Basophils % (auto) 0.4 % (0.0-2.0); Eosinophils # (auto) 0.2 10 ^3/uL (0-0.8); Eosinophils % (auto) 1.5 % (0.0-7.0); Hematocrit 30.3 % (36.0-46.0); Lymphocytes # (auto) 1.4 10 ^3/uL (0.4-5.4); Lymphocytes % (auto) 10.6 % (10.0-50.0); Mean Corpuscular Hemoglobin 31.7 pg (28.0-32.0); Mean Corpuscular Hgb Conc. 33.1 g/dL (32.0-36.0); Mean Corpuscular Volume 95.7 fL (80.0-100.0); Monocytes # (auto) 1.2 10 ^3/uL (0-1.3); Monocytes % (auto) 8.8 % (0.0-12.0); Neutrophils # (auto) 10.5 10 ^3/uL (1.6-8.6); Neutrophils % (auto) 78.7 % (37.0-80.0); Platelet Count (auto) 284 10^3/uL (140-450); Red Blood Cells 3.17 10^6/uL (4.0-5.20); Red Cell Distribution Width 14.1 % (11.8-14.3); White Blood Cell 13.4 10^3/uL (4.4-10.8)
[2024-02-10 07:06] LABS: Chloride 102 mmol/L (98-107); Potassium 3.9 mmol/L (3.5-5.1); Sodium 137 mmol/L (136-145)
[2024-02-10 07:07] LABS: Anion Gap 11 (5-15); Carbon Dioxide 24 mmol/L (20-31)
[2024-02-10 07:12] LABS: BUN/Creatinine Ratio 6.7 (10.0-20.0); Glucose 257 mg/dL (74-106)
[2024-02-10 07:15] LABS: Phosphorus 3.2 mg/dL (2.4-5.1)
[2024-02-10 07:21] LABS: Blood Urea Nitrogen 26 mg/dL (9-23)
--- NOTE | 2024-02-10 09:27 | DVH ---
CLINICAL INDICATION: 53 years old, Female; R/O OSTEIO. COMPARISON: Radiographs of the left foot dated 02/08/2024 TECHNIQUE: Multiplanar, multisequence MRI of the left foot was performed without intravenous contrast . Contrast: None. INTERPRETATION: Bones: No evidence of acute fracture. There is T1 hypointensity in the 4th proximal phalanx with cor responding edema, consistent with osteomyelitis. Bone marrow signal is otherwise unremarkable in the visualized foot. Joints: Joint spaces are maintained. No significant joint effusion. Soft tissues: There is soft tissue swelling about the 4th digit. There are low signal intensity foci within the soft tissues which may be related to postprocedural change or gas /ulceration. Please cor relate clinically. No obvious fluid collection. No high-grade tendon or ligament injury. Edema within the intrinsic muscles of the foot may be related to myositis or denervation. IMPRESSION: 1. Osteomyelitis in the 4th proximal phalanx of the left foot. Soft tissue swelling about the 4th dig it with additional low signal intensity foci within the soft tissues representing either postprocedur al change or ulceration and gas. Please correlate clinically. No fluid collection. 2. Edema within the intrinsic muscles of the foot may be related to myositis or denervation.
[2024-02-10 10:41] LABS: Hepatitis B Surface Antigen Negative (Negative)
[2024-02-10 11:02] LABS: Hepatitis B Core IgM Negative; Hepatitis C Antibody Negative (Negative)
[2024-02-10 11:04] LABS: Hepatitis A Ab IgM Negative
[2024-02-10] MEDS: InsuLIN REG 1unit/0.01ml Soln (100units/ml) SC SCH (11:30)
--- NOTE | 2024-02-10 11:36 | DVHPN2 ---
Progress Note Date Seen: Feb 10, 2024 Medical Necessity Reason Pt with a Central, PICC or Fol: No Subjective Patient reports: No new complaints Other Systems: Patient seen and examined by myself in follow-up today Objective vital signs Vital Sign Date Time Temp Pulse Resp B/P (MAP) Pulse Ox O2 Delivery O2 Flow Rate FiO2 02/10/24 10:27 63 138/57 02/10/24 09:22 98.3 17 96 98.3 02/09/24 20:00 Room Air* 0 21 Total Intake and Output 02/09/24 02/09/24 02/10/24 15:00 23:00 07:00 Intake Total 50 ml 1280 ml 0 ml Balance 50 ml 1280 ml 0 ml medications Current Medications Medications Dose Ordered Sig/[place] Route Start Time Stop Time Status Last Admin Dose Admin Vancomycin HCl 0 ml @ 0 mls/hr UD IV 02/08/24 23:30 Multivit/Ca Carb/ B Cmplx/FA/Prenat 1 tab DAILY PO 02/09/24 10:00 02/10/24 10:26 1 TAB Sevelamer HCl 800 mg TIDWM PO 02/09/24 08:00 02/10/24 08:23 800 MG Amlodipine Besylate 5 mg DAILY PO 02/09/24 10:00 02/10/24 10:27 5 MG Carvedilol 3.125 mg Q12HR PO 02/09/24 10:00 02/10/24 10:27 3.125 MG Diagnostic Test (Pha) 1 strip ACHS 02/09/24 07:00 02/10/24 06:03 1 STRIP Dextrose 50 ml UD PRN IV 02/08/24 23:30 Sodium Chloride 10 ml Q8HR IV 02/09/24 06:00 02/10/24 06:03 10 ML Acetaminophen/ Hydrocodone Bitart 1 tab Q4HP PRN PO 02/08/24 23:30 Ondansetron HCl 4 mg Q4HP PRN IV 02/08/24 23:30 Docusate Sodium 100 mg BIDPRN PRN PO 02/08/24 23:30 Acetaminophen 650 mg Q6HP PRN PO 02/08/24 23:30 02/10/24 01:31 650 MG Morphine Sulfate 2 mg Q4HPRN PRN IV 02/08/24 23:30 Nitroglycerin 0.4 mg Q5MINP PRN SL 02/08/24 23:30 Morphine Sulfate 2 mg Q30M PRN IV 02/08/24 23:30 Aspirin 81 mg DAILY PO 02/09/24 10:00 02/10/24 10:26 81 MG Piperacillin Sod/ Tazobactam Sod 50 ml @ 12.5 mls/hr Q8H IV 02/09/24 10:00 02/10/24 10:26 12.5 MLS/HR Insulin Glargine 17 units QAM SC 02/11/24 07:00 Insulin Human Lispro 3 units TID SC 02/10/24 14:00 Insulin Human Regular ACHS SC 02/10/24 11:30 Examination: LUNGS:Normal, CVS:Normal, MSK:Abnormal laboratory and microbiology Laboratory Tests 02/10/24 06:09 Test 02/10/24 06:09 Range/Units Serum Glucose 257 H 74-106 mg/dL Microbiology Date/Time Source Procedure Growth Status 02/08/24 15:16 Blood Blood Culture - Preliminary NO GROWTH AFTER 24 HOURS OF INCUBATION. Resulted Problem List/Assessment/Plan Problem List/Assessment/Plan ESRD on hemodialysis last hemodialysis 02/08 Diabetes mellitus type 2 Peripheral arterial disease Left foot diabetic ulcers Anemia of chronic kidney disease Recommendations Hemodialysis tomorrow Epogen 03374 IV post hemodialysis Resume home medication Fluid restrictions Renal diet Podiatry consult We will continue to follow up Plan discussed with: Patient MEY COLES MD Feb 10, 2024 11:36
--- NOTE | 2024-02-10 13:12 | DVHINCON2 ---
Date Seen: Feb 10, 2024 Reason for Consultation Left foot wound History of Present Illness Patient is a 53-year-old female with past medical history of hypertension, DM, and end-stage renal disease on hemodialysis presented to [facility] ED for evaluation of left foot wound. Patient reports she has had a wound on the top and bottom of her left foot for the past 2 weeks, not sure how she sustained the wound, but notes redness, swelling, discoloration to the foot, getting worse that prompted this visit. Patient was seen and evaluated in the ED, laboratory data shows WBC 16.1, hemoglobin 10.8, hematocrit 32.7, platelets 306, sodium 135, potassium 4.0, BUN 27, creatinine 4.45, glucose 315, blood pressure 160/62, heart rate 78, temperature 98.5 F, O2 saturation 97% on room air. Left foot x- ray showed no evidence of acute fracture or dislocation. Patient was started on IV antibiotic regimen vancomycin, please see medication orders section in the computer. On my assessment, patient denied chest pain, no headache, no dizziness, no shortness of breath, no nausea, no vomiting, no fever, no chills. Patient was admitted for further evaluation medical management. Past Medical History See H&P Past Surgical History See H&P Family History: Patient reports no known family medical history. Allergies: Coded Allergies: No Known Drug Allergy (Verified Allergy, Unknown, 02/09/24) Home Meds Reported Medications Hydralazine Hcl (Hydralazine Hcl) 100 Mg Tab, 1 TAB PO TID, #90 TAB 5 Refills 02/09/24 Ferric Citrate (Auryxia) 210 Mg Tab, 210 MG PO, TAB 02/09/24 Cholecalciferol (VITAMIN D) 5,000 Unit Tab, 5000 UNIT OR, TAB 02/09/24 Amlodipine Besylate (Amlodipine Besylate) 5 Mg Tab, 1 TAB PO DAILY, #30 TAB 5 Refills 02/09/24 Carvedilol (COREG) 3.125 Mg Tab, 3.125 MG OR, TAB 02/09/24 Ondansetron HCl (Ondansetron) 4 Mg Tab, 4 MG PO, TAB 02/09/24 Current Medications Current Medications Medications (Trade) Dose Ordered Sig/[place] Route PRN Reason Start Time Stop Time Status Last Admin Insulin Human Regular (InsuLIN R) HS SC 02/09/24 22:00 02/10/24 08:33 DC 02/09/24 22:17 Insulin Human Lispro (HumaLOG) 3 units TID DE 02/09/24 14:00 02/10/24 08:32 DC 02/10/24 06:00 Insulin Glargine (Lantus) 17 units QAM DE 02/11/24 07:00 Insulin Human Lispro (HumaLOG) 3 units TID DE 02/10/24 14:00 Insulin Human Regular (InsuLIN R) ACHS DE 02/10/24 11:30 Vital Signs Vital Signs Date Time Temp Pulse Resp B/P (MAP) Pulse Ox O2 Delivery O2 Flow Rate FiO2 02/10/24 10:27 63 138/57 02/10/24 09:22 98.3 17 96 98.3 02/10/24 08:00 Room Air* 0 21 Physical Exam DERMATOLOGIC EXAM: - Skin is dry and cool to the touch dry bilaterally. - Nails 1-5 of the bilateral foot are thickened, discolored, dystrophic, and tender to palpate with subungual debris - Hair loss noted to bilateral feet - farzaneh necrosis of the left 4th toe with malodor and purulent drainage VASCULAR EXAM: - DP and PT pulses are palpable bilaterally. - ON SITE NURSE is brisk to all digits. - Feet are cool to touch compared to lower legs bilaterally. NEUROLOGIC EXAM: - Normal light touch sensation to the superficial peroneal, deep peroneal, sural, saphenous, and tibial nerve branches. - Protective sensation is diminished as tested with a 5.07 10g Arrey-Giorgio bilaterally. MUSCULOSKELETAL EXAM: - No gross deformities - Muscle strength is 5/5 and active motion is pain-free and symmetrical bilaterally - No pain or crepitation with passive range of motion bilaterally to all major pedal joints Labs/Diagnostic Data Labs Test 02/10/24 12:05 02/10/24 06:09 02/09/24 15:14 02/09/24 10:14 Range/Units POC Glucose 83 70-106 mg/dl White Blood Count 13.4 H 4.4-10.8 10^3/uL Red Blood Count 3.17 L 4.0-5.20 10^6/uL Hemoglobin 10.0 L 12.2-16.2 g/dL Hematocrit 30.3 L 36.0-46.0 % Mean Corpuscular Volume 95.7 80.0-100.0 fL Mean Corpuscular Hemoglobin 31.7 28.0-32.0 pg Mean Corpuscular Hemoglobin Concent 33.1 32.0-36.0 g/dL Red Cell Distribution Width 14.1 11.8-14.3 % Platelet Count 284 140-450 10^3/uL Mean Platelet Volume 9.6 6.9-10.8 fL Neutrophils (%) (Auto) 78.7 37.0-80.0 % Lymphocytes (%) (Auto) 10.6 10.0-50.0 % Monocytes (%) (Auto) 8.8 0.0-12.0 % Eosinophils (%) (Auto) 1.5 0.0-7.0 % Basophils (%) (Auto) 0.4 0.0-2.0 % Neutrophils # (Auto) 10.5 H 1.6-8.6 10 ^3/uL Lymphocytes # (Auto) 1.4 0.4-5.4 10 ^3/uL Monocytes # (Auto) 1.2 0-1.3 10 ^3/uL Eosinophils # (Auto) 0.2 0-0.8 10 ^3/uL Basophils # (Auto) 0.1 0-0.2 10 ^3/uL Nucleated Red Blood Cells 0.0 % Sodium Level 137 136-145 mmol/L Potassium Level 3.9 3.5-5.1 mmol/L Chloride Level 102 98-107 mmol/L Carbon Dioxide Level 24 20-31 mmol/L Anion Gap 11 5-15 Blood Urea Nitrogen 26 #H 9-23 mg/dL Creatinine 3.90 H 0.550-1.02 mg/dL Glomerular Filtration Rate Calc 13 >90 mL/min BUN/Creatinine Ratio 6.7 L 10.0-20.0 Serum Glucose 257 H 74-106 mg/dL Calcium Level 9.0 8.7-10.4 mg/dL Phosphorus Level 3.2 2.4-5.1 mg/dL Random Vancomycin Level 26.0 H 5-10 ug/mL Lactic Acid Level 1.3 0.4-2.0 mmol/L Prothrombin Time 10.9 9.3-11.8 sec Prothrombin Time INR 1.03 0.9-1.15 Activated Partial Thromboplast Time 32.7 24.5-34.5 SEC Hemoglobin A1c 11.2 H <5.7 % A1C B-Type Natriuretic Peptide 799.72 0-100 pg/mL Thyroid Stimulating Hormone (TSH) 1.37 0.55-4.78 uIU/mL Test 02/09/24 05:08 Range/Units Total Bilirubin 0.2 0.2-1.0 mg/dL Aspartate Amino Transferase (AST) 12 L 13-40 U/L Alanine Aminotransferase (ALT) 17 7-40 U/L Alkaline Phosphatase 111 46-116 U/L Total Protein 6.7 5.7-8.2 g/dL Albumin 3.6 3.2-4.8 g/dL Hepatitis A IgM Antibody Negative Hepatitis B Surface Antigen Negative Negative Hepatitis B Core IgM Antibody Negative Hepatitis C Antibody Negative Negative Microbiology Date/Time Source Procedure Growth Status 02/09/24 09:30 Foot Gram Stain - Final Resulted 02/09/24 09:30 Foot Wound Culture - Preliminary Resulted 02/08/24 15:16 Blood Blood Culture - Preliminary NO GROWTH AFTER 24 HOURS OF INCUBATION. Resulted Problems(with codes): (1) Diabetic ulcer of left foot (2) Uncontrolled diabetes mellitus (3) ESRD (end stage renal disease) on dialysis (4) Hypertension (5) Leukocytosis, unspecified (6) Type 2 diabetes mellitus with foot ulcer (7) Type 2 diabetes mellitus with hyperglycemia Plan/Recommendation ASSESSMENT: Patient is a 53 year old who was seen on the floor for a gangrenous left 4th toe PLAN: - The patients chart was reviewed, clinical findings were discussed with the patient, the etiologies of the conditions were discussed in detail, and a treatment plan was agreed to at this time, with both oral and written instructions provided. - discussed with the patient there was farzaneh necrosis of the left 4th toe - discussed that there is no salvaging the toe - recommend that we take the patient to the OR today for left 4th toe amputation - patient has been NPO since midnight - we will get cultures - patient will go back on was a for a closure All questions were answered and concerns addressed to the patient's satisfaction. The patient was given the phone number to the clinic and was told how to make contact with the clinic should any concerns or questions arise. Patient understands that if any questions or concerns arise prior to the next appointment, we should be contacted immediately. FOLLOW-UP: Continue to follow while inpatient Plan discussed with: Patient Date of Service: Feb 10, 2024 Billing Provider: SANA EMMANUEL DPM Common Visit Codes: [id number] INP/OBS CARE (MOD) SANA EMMANUEL DPM Feb 10, 2024 13:12
[2024-02-10] MEDS ORDERED: PROPOFOL 10 MG/ML 20 ML IV ONE (13:24)
[2024-02-10] MEDS ORDERED: fentaNYL CITRATE 100 MCG/2 ML VL ONE (13:24)
[2024-02-10] MEDS: INSULIN LISPRO (HUMAN) 100 UNITS/ML ML SC SCH (14:00)
[2024-02-10] MEDS ORDERED: ONDANSETRON HCL 4 MG/2 ML VIAL ONE (14:33)
--- NOTE | 2024-02-10 15:15 | DVHPNRES ---
Progress Note Date Seen: Feb 10, 2024 Resident Creating Document: GIULIANO BAR RESIDENT Medical Necessity Reason Pt with a Central, PICC or Fol: No Subjective Review of Systems JUVENAL GRANDA is a 53 years old female with a PMH of HTN, type 2 DM, ESRD on HD MWF presented to the ED for the evaluation of left foot wound ( left 4th toe and base of 4th toe metatarsal head ). Patient seen and examined at the bedside. Patient is reported improvement in pain since admission. Preliminary wound culture showing possible staph aureus and Enterococcus species ordered MRI left foot. Consulted Podiatry for possible surgical evaluation. Patient is currently on Zosyn and vancomycin. Continuously monitoring blood glucose. Objective vital signs Vital Sign Date Time Temp Pulse Resp B/P (MAP) Pulse Ox O2 Delivery O2 Flow Rate FiO2 02/10/24 13:00 98.6 68 17 107/65 (79) 94 98.6 02/10/24 08:00 Room Air* 0 21 Total Intake and Output 02/09/24 02/09/24 02/10/24 15:00 23:00 07:00 Intake Total 50 ml 1280 ml 0 ml Balance 50 ml 1280 ml 0 ml medications Current Medications Medications Dose Ordered Sig/Latonia Route Start Time Stop Time Status Last Admin Dose Admin Vancomycin HCl 0 ml @ 0 mls/hr UD IV 02/08/24 23:30 Multivit/Ca Carb/ B Cmplx/FA/Prenat 1 tab DAILY PO 02/09/24 10:00 02/10/24 10:26 1 TAB Sevelamer HCl 800 mg TIDWM PO 02/09/24 08:00 02/10/24 12:12 800 MG Amlodipine Besylate 5 mg DAILY PO 02/09/24 10:00 02/10/24 10:27 5 MG Carvedilol 3.125 mg Q12HR PO 02/09/24 10:00 02/10/24 10:27 3.125 MG Diagnostic Test (Pha) 1 strip ACHS 02/09/24 07:00 02/10/24 12:15 1 STRIP Dextrose 50 ml UD PRN IV 02/08/24 23:30 Sodium Chloride 10 ml Q8HR IV 02/09/24 06:00 02/10/24 14:00 10 ML Acetaminophen/ Hydrocodone Bitart 1 tab Q4HP PRN PO 02/08/24 23:30 Ondansetron HCl 4 mg Q4HP PRN IV 02/08/24 23:30 Docusate Sodium 100 mg BIDPRN PRN PO 02/08/24 23:30 Acetaminophen 650 mg Q6HP PRN PO 02/08/24 23:30 02/10/24 01:31 650 MG Morphine Sulfate 2 mg Q4HPRN PRN IV 02/08/24 23:30 Nitroglycerin 0.4 mg Q5MINP PRN SL 02/08/24 23:30 Morphine Sulfate 2 mg Q30M PRN IV 02/08/24 23:30 Aspirin 81 mg DAILY PO 02/09/24 10:00 02/10/24 10:26 81 MG Piperacillin Sod/ Tazobactam Sod 50 ml @ 12.5 mls/hr Q8H IV 02/09/24 10:00 02/10/24 10:26 12.5 MLS/HR Insulin Glargine 17 units QAM SC 02/11/24 07:00 Insulin Human Lispro 3 units TID SC 02/10/24 14:00 Insulin Human Regular ACHS SC 02/10/24 11:30 Examination Pt is lying on bed General Appearance: Alert, Oriented X3, Cooperative, Not in acute distress HEENT: Atraumatic, Mucous membranes moist/pink Respiratory: Clear to auscultation, Normal air movement, No added sounds Cardiovascular: Regular rate, Normal S1, Normal S2, No murmurs Abdominal: Active bowel sounds, Soft, no distention, no tenderness Extremities: Left 4th toe and 4th metatarsal head is black, foul-smelling, warmth, tender and decreased sensation Skin: No Significant rash, except past surgical scars Neuro: Normal speech, sensorimotor deficits none Psych/Mental Status: Mental status NL, Mood NL Nurse was there as sharperone during examination laboratory and microbiology Laboratory Tests 02/10/24 06:09 Test 02/10/24 06:09 Range/Units Serum Glucose 257 H 74-106 mg/dL Microbiology Date/Time Source Procedure Growth Status 02/09/24 09:30 Foot Gram Stain - Final Resulted 02/09/24 09:30 Foot Wound Culture - Preliminary Resulted 02/08/24 15:16 Blood Blood Culture - Preliminary NO GROWTH AFTER 24 HOURS OF INCUBATION. Resulted Labs and/or images reviewed: Labs reviewed by me, Image(s) reviewed by me Problem List/Assessment/Plan Problem List/Assessment/Plan # Left foot diabetic ulcer # left foot wet gangrene 4th toe # ? sepsis from ulcer # Peripheral arterial disease # Osteomyelitis in the 4th proximal phalanx of the left foot. - continuously monitor lab - currently on Zosyn and vancomycin - ordered wound culture and wound consult - preliminary wound culture showing possible staph aureus and Enterococcus species - podiatry consult for possible surgical evaluation - MRI left foot showe Osteomyelitis in the 4th proximal phalanx of the left foot. Soft tissue swelling representing either postprocedural change or ulceration and gas. # uncontrolled type 2 diabetes mellitus With the HbA1c 11.2 - continuously monitor blood glucose - currently on 17 units Lantus and 3 units lispro t.i.d. - on moderate sliding scale # Anemia of chronic kidney disease # ESRD on HD MWF - consulted Nephrology it for possible dialysis - finishing 1 session yesterday and scheduled for tomorrow - Epogen 63057 IV post hemodialysis # hypertensive urgency - continuously monitor - resumed home meds - giving hydralazine 10 mg p.r.n. if SBP more than 180 SCDs for now No GI be PPX NPO after midnight Reconciled home meds Goals of care discussed with the patient and family for more than 27 minutes: Full code status Case management discussed with Dr Martinez, patient and nurse Plan discussed with: Patient My Orders My Orders Orders - GIULIANO BAR Procedure Category Date Status Time Discontinue Tele REJI 02/10/24 In Process 08:18 Transfer Orders XFER 02/10/24 Transmitted 08:18 Date of Service: Feb 10, 2024 Billing Provider: BISI MARTINEZ MD Common Visit Codes: [id number] INP/OBS CARE(HIGH) GIULIANO BAR Feb 10, 2024 15:15 BISI MARTINEZ MD Feb 10, 2024 20:00
--- NOTE | 2024-02-10 15:54 | DVHOP2 ---
Operative Report - 2 Report Details Date: 02/10/24 Preop Diagnosis: 1. Left foot gas gangrene 2. Left foot osteoemyelitis 3. Left foot abscess 4. Left foot wound Postop Diagnosis: Same as preop Surgeon: Sana Emmanuel MD Anesthesiologist: Anesthesia Anesthesia: General Consent: The patient was informed of the risks and benefits of the procedure. These include but are not limited to complications of anesthesia, postoperative infection, incomplete relief of symptoms, recurrence of symptoms, damage to blood vessels, nerves and tendons, deep venous thrombosis, pulmonary embolism and possible need for repeat surgery in the future. Complications: None Estimated Blood Loss: Minimal Fluids: See anesthesia Findings: Approximately 5 cc of purulent drainage Indications for Surgery: Worsening left foot wound Name of Procedure Performed 1. Left foot I&D bone (60278) 2. Left foot 4th toe amputation (04012) 3. Left foot bone biopsy () Procedure Details Procedure Details: PRE-PROCEDURE INFORMATION: In the pre-op holding area, the extremity to be operated on was clearly marked and the patient verified correct laterality of the marking. The patient was transferred to the OR table and placed in a supine position. A timeout was performed in which identification of the correct patient, procedure, location, and materials was done. The left foot and leg were prepped and draped in normal sterile fashion. DESCRIPTION OF PROCEDURE: Attention was directed to the left 4th toe area of fluctuance was noted. An incision was made over this area and was deepened through blunt dissection. The incision was deepened to the level of abscess and bone. Care was taken to the dissection to avoid any neurovascular and tendinous structures. The incision was deepened to the abscess. The abscess appeared to be purulent fluid consistent with pus, proximally 3 cc. After the abscess was drained, the area was irrigated with 3 L normal saline using cysto tubing. Deep cultures were then obtained from the toe. At that time it was recommended that we amputate the toe at the MPJ. Using a #15 blade, the toe was then excised at the level of the 1st MPJ. The bone was then sent to pathology to determine osteomyelitis. Using a rongeur the remaining necrotic tissue was then removed. The wound was packed we closed with a later date All surgical wounds were irrigated copiously with saline and closed in layers with the aforementioned suture material. A dry sterile dressing was placed on the surgical extremity. The patient was placed in a post shoe. POSTOPERATIVE INFORMATION: The patient tolerated the above noted procedure and anesthesia well and was transferred to the PACU with vital signs stable, and vascular status intact with capillary refill intact to all digits. Patient will return to the floor and continue IV antibiotics. Cultures were taken. Patient will have to go back on Saturday for another follow up procedure. Condition Good Disposition Still a Patient SANA EMMANUEL DPM Feb 10, 2024 15:54
[2024-02-10] MEDS: MORPHINE SULFATE INJ 2 MG/ml SYRG IV PRN (17:42)
[2024-02-11] VITALS (9 sets, daily range): BP systolic 122–187; BP diastolic 54–84; PULSE 61–95; RESP 16–18; TEMP 97.8–102.8; O2SAT 93–97
[2024-02-11 06:16] LABS: Basophils # (auto) 0.1 10 ^3/uL (0-0.2); Basophils % (auto) 0.4 % (0.0-2.0); Eosinophils # (auto) 0.2 10 ^3/uL (0-0.8); Eosinophils % (auto) 1.2 % (0.0-7.0); Hematocrit 30.7 % (36.0-46.0); Hemoglobin 10.2 g/dL (12.2-16.2); Lymphocytes # (auto) 0.9 10 ^3/uL (0.4-5.4); Lymphocytes % (auto) 6.1 % (10.0-50.0); Mean Corpuscular Hemoglobin 31.5 pg (28.0-32.0); Mean Corpuscular Hgb Conc. 33.1 g/dL (32.0-36.0); Mean Corpuscular Volume 95.1 fL (80.0-100.0); Monocytes # (auto) 0.9 10 ^3/uL (0-1.3); Neutrophils # (auto) 12.9 10 ^3/uL (1.6-8.6); Neutrophils % (auto) 86.3 % (37.0-80.0); Platelet Count (auto) 299 10^3/uL (140-450); Red Blood Cells 3.22 10^6/uL (4.0-5.20); Red Cell Distribution Width 13.7 % (11.8-14.3)
[2024-02-11] MEDS: INSULIN LANTUS (GLARGINE) 1 /0.01ml (100units/ml) SC SCH (07:07)
[2024-02-11 07:12] LABS: Chloride 100 mmol/L (98-107); Potassium 4.2 mmol/L (3.5-5.1); Sodium 134 mmol/L (136-145)
[2024-02-11 07:13] LABS: Anion Gap 11 (5-15); Calcium 9.2 mg/dL (8.7-10.4); Carbon Dioxide 23 mmol/L (20-31)
[2024-02-11 07:18] LABS: BUN/Creatinine Ratio 7.1 (10.0-20.0); Glucose 277 mg/dL (74-106)
[2024-02-11 07:20] LABS: Blood Urea Nitrogen 38 mg/dL (9-23)
--- NOTE | 2024-02-11 08:43 | DVHPNRES ---
Progress Note Date Seen: Feb 11, 2024 Resident Creating Document: GIULIANO BAR RESIDENT Medical Necessity Reason Pt with a Central, PICC or Fol: No Subjective Review of Systems JUVENAL GRANDA is a 53 years old female with a PMH of HTN, type 2 DM, ESRD on HD MWF presented to the ED for the evaluation of left foot wound ( left 4th toe and base of 4th toe metatarsal head ). Patient seen and examined at the bedside. Postoperative day 1 status post Left foot I&D bone with 4th toe amputation, sent to bone biopsy, patient tolerated the procedure well. Patient reported improvement in the pain since admission.culture showing possible staph aureus and Enterococcus species. Patient is currently on Zosyn and vancomycin. Continuously monitoring blood glucose. Patient will have to go back on Saturday for another follow up procedure. Patient reports: No new complaints, Feels better Objective vital signs Vital Sign Date Time Temp Pulse Resp B/P (MAP) Pulse Ox O2 Delivery O2 Flow Rate FiO2 02/11/24 05:00 98.0 69 18 164/68 (100) 96 98.0 02/10/24 20:00 Room Air* 0 21 Total Intake and Output 02/10/24 02/10/24 02/11/24 15:00 23:00 07:00 Intake Total 50 ml 74 ml 600 ml Balance 50 ml 74 ml 600 ml medications Current Medications Medications Dose Ordered Sig/Latonia Route Start Time Stop Time Status Last Admin Dose Admin Vancomycin HCl 0 ml @ 0 mls/hr UD IV 02/08/24 23:30 Multivit/Ca Carb/ B Cmplx/FA/Prenat 1 tab DAILY PO 02/09/24 10:00 02/10/24 10:26 1 TAB Sevelamer HCl 800 mg TIDWM PO 02/09/24 08:00 02/11/24 08:20 800 MG Amlodipine Besylate 5 mg DAILY PO 02/09/24 10:00 02/10/24 10:27 5 MG Carvedilol 3.125 mg Q12HR PO 02/09/24 10:00 02/10/24 10:27 3.125 MG Diagnostic Test (Pha) 1 strip ACHS 02/09/24 07:00 02/11/24 07:08 1 STRIP Dextrose 50 ml UD PRN IV 02/08/24 23:30 Sodium Chloride 10 ml Q8HR IV 02/09/24 06:00 02/11/24 07:01 10 ML Acetaminophen/ Hydrocodone Bitart 1 tab Q4HP PRN PO 02/08/24 23:30 Ondansetron HCl 4 mg Q4HP PRN IV 02/08/24 23:30 Docusate Sodium 100 mg BIDPRN PRN PO 02/08/24 23:30 Acetaminophen 650 mg Q6HP PRN PO 02/08/24 23:30 02/10/24 16:48 650 MG Morphine Sulfate 2 mg Q4HPRN PRN IV 02/08/24 23:30 02/10/24 17:42 2 MG Nitroglycerin 0.4 mg Q5MINP PRN SL 02/08/24 23:30 Morphine Sulfate 2 mg Q30M PRN IV 02/08/24 23:30 Aspirin 81 mg DAILY PO 02/09/24 10:00 02/10/24 10:26 81 MG Piperacillin Sod/ Tazobactam Sod 50 ml @ 12.5 mls/hr Q8H IV 02/09/24 10:00 02/11/24 01:41 12.5 MLS/HR Insulin Glargine 17 units QAM SC 02/11/24 07:00 02/11/24 07:07 17 UNITS Insulin Human Lispro 3 units TID SC 02/10/24 14:00 02/11/24 06:59 3 UNITS Insulin Human Regular ACHS SC 02/10/24 11:30 02/11/24 07:00 8 UNITS Examination Pt is lying on bed General Appearance: Alert, Oriented X3, Cooperative, Not in acute distress HEENT: Atraumatic, Mucous membranes moist/pink Respiratory: Clear to auscultation, Normal air movement, No added sounds Cardiovascular: Regular rate, Normal S1, Normal S2, No murmurs Abdominal: Active bowel sounds, Soft, no distention, no tenderness Extremities: Surgery was done yesterday, wound is wrapped in sterile dressing Skin: No Significant rash, except past surgical scars Neuro: Normal speech, sensorimotor deficits none Psych/Mental Status: Mental status NL, Mood NL Nurse was there as sharperone during examination laboratory and microbiology Laboratory Tests 02/11/24 05:48 02/11/24 05:41 Test 02/11/24 05:41 Range/Units Serum Glucose 277 H 74-106 mg/dL Microbiology Date/Time Source Procedure Growth Status 02/09/24 09:30 Foot Gram Stain - Final Resulted 02/09/24 09:30 Foot Wound Culture - Preliminary Resulted 02/08/24 15:16 Blood Blood Culture - Preliminary NO GROWTH AFTER 48 HOURS OF INCUBATION. Resulted Labs and/or images reviewed: Labs reviewed by me, Image(s) reviewed by me Problem List/Assessment/Plan Problem List/Assessment/Plan # Left foot diabetic ulcer and abscess # Left foot wet/gas gangrene 4th toe # ? Sepsis from ulcer # Peripheral arterial disease # Osteomyelitis in the 4th proximal phalanx of the left foot. - continuously monitor lab - currently on Zosyn and vancomycin - preliminary wound culture showing possible staph aureus and Enterococcus species - MRI left foot showe Osteomyelitis in the 4th proximal phalanx of the left foot. Soft tissue swelling representing either postprocedural change or ulceration and gas. - Postoperative day 1 status post Left foot I&D bone with 4th toe amputation, sent to bone biopsy, patient tolerated the procedure well. - Patient will have to go back on Saturday for another follow up procedure # Uncontrolled type 2 diabetes mellitus With the HbA1c 11.2 - continuously monitor blood glucose - currently on 17 units Lantus and 3 units lispro t.i.d. - on moderate sliding scale # Anemia of chronic kidney disease # ESRD on HD MWF - consulted Nephrology it for possible dialysis - finishing 1 session yesterday and scheduled for tomorrow - Epogen 01536 IV post hemodialysis # hypertensive urgency - continuously monitor - resumed home meds - giving hydralazine 10 mg p.r.n. if SBP more than 180 SCDs for now No GI be PPX NPO after midnight Reconciled home meds Goals of care discussed with the patient and family for more than 27 minutes: Full code status Case management discussed with Dr Martinez, patient and nurse. Postoperative day 1 status post Left foot I&D bone with 4th toe amputation, sent to bone biopsy, patient tolerated the procedure well. Patient will have to go back on Saturday for another follow up procedure. Plan discussed with: Patient My Orders My Orders Orders - GIULIANO BAR RESIDENT Procedure Category Date Status Time * Picc Line Consult CONS 02/10/24 Transmitted 19:20 Date of Service: Feb 11, 2024 Billing Provider: BISI MARTINEZ MD Common Visit Codes: [id number] INP/OBS CARE(HIGH) GIULIANO BAR RESIDENT Feb 11, 2024 08:43 BISI MARTINEZ MD Feb 13, 2024 22:04
[2024-02-11] MEDS: SODIUM CHL 0.9% 1000 ML BAG XX ONE (12:00)
--- NOTE | 2024-02-11 12:29 | DVHPN2 ---
Progress Note Date Seen: Feb 11, 2024 Medical Necessity Reason Pt with a Central, PICC or Fol: No Subjective Patient reports: No new complaints Other Systems: Patient seen and examined by myself on follow-up today Patient examined hemodialysis, blood pressure stable Objective vital signs Vital Sign Date Time Temp Pulse Resp B/P (MAP) Pulse Ox O2 Delivery O2 Flow Rate FiO2 02/11/24 09:00 98.4 66 16 133/55 (81) 96 98.4 02/10/24 20:00 Room Air* 0 21 Total Intake and Output 02/10/24 02/10/24 02/11/24 14:59 22:59 06:59 Intake Total 50 ml 74 ml 600 ml Balance 50 ml 74 ml 600 ml medications Current Medications Medications Dose Ordered Sig/[place] Route Start Time Stop Time Status Last Admin Dose Admin Vancomycin HCl 0 ml @ 0 mls/hr UD IV 02/08/24 23:30 Multivit/Ca Carb/ B Cmplx/FA/Prenat 1 tab DAILY PO 02/09/24 10:00 02/11/24 10:43 1 TAB Sevelamer HCl 800 mg TIDWM PO 02/09/24 08:00 02/11/24 08:20 800 MG Amlodipine Besylate 5 mg DAILY PO 02/09/24 10:00 02/10/24 10:27 5 MG Carvedilol 3.125 mg Q12HR PO 02/09/24 10:00 02/10/24 10:27 3.125 MG Diagnostic Test (Pha) 1 strip ACHS 02/09/24 07:00 02/11/24 07:08 1 STRIP Dextrose 50 ml UD PRN IV 02/08/24 23:30 Sodium Chloride 10 ml Q8HR IV 02/09/24 06:00 02/11/24 07:01 10 ML Acetaminophen/ Hydrocodone Bitart 1 tab Q4HP PRN PO 02/08/24 23:30 Ondansetron HCl 4 mg Q4HP PRN IV 02/08/24 23:30 Docusate Sodium 100 mg BIDPRN PRN PO 02/08/24 23:30 Acetaminophen 650 mg Q6HP PRN PO 02/08/24 23:30 02/10/24 16:48 650 MG Morphine Sulfate 2 mg Q4HPRN PRN IV 02/08/24 23:30 02/10/24 17:42 2 MG Nitroglycerin 0.4 mg Q5MINP PRN SL 02/08/24 23:30 Morphine Sulfate 2 mg Q30M PRN IV 02/08/24 23:30 Aspirin 81 mg DAILY PO 02/09/24 10:00 02/11/24 10:54 81 MG Piperacillin Sod/ Tazobactam Sod 50 ml @ 12.5 mls/hr Q8H IV 02/09/24 10:00 02/11/24 10:44 12.5 MLS/HR Insulin Glargine 17 units QAM HI 02/11/24 07:00 02/11/24 07:07 17 UNITS Insulin Human Lispro 3 units TID HI 02/10/24 14:00 02/11/24 06:59 3 UNITS Insulin Human Regular ACHS HI 02/10/24 11:30 02/11/24 07:00 8 UNITS Examination: LUNGS:Normal, CVS:Normal, MSK:Abnormal laboratory and microbiology Laboratory Tests 02/11/24 05:48 02/11/24 05:41 Test 02/11/24 05:41 Range/Units Serum Glucose 277 H 74-106 mg/dL Microbiology Date/Time Source Procedure Growth Status 02/10/24 14:40 Foot Left Gram Stain - Final Resulted 02/10/24 14:40 Foot Left Anaerobic Culture - Preliminary Resulted 02/10/24 14:40 Foot Left Aerobic Culture - Preliminary Resulted 02/08/24 15:16 Blood Blood Culture - Preliminary NO GROWTH AFTER 48 HOURS OF INCUBATION. Resulted Problem List/Assessment/Plan Problem List/Assessment/Plan ESRD on hemodialysis last hemodialysis 02/08 Diabetes mellitus type 2 Peripheral arterial disease Left foot diabetic ulcers Anemia of chronic kidney disease Recommendations Continue with UF to 3 L as tolerated Epogen 00987 IV post hemodialysis Resume home medication Fluid restrictions Renal diet Podiatry consult We will continue to follow up Plan discussed with: Patient My Orders My Orders Orders - MEY COLES MD Procedure Category Date Status Time Communication Order ORDERS 02/10/24 Transmitted 19:35 MEY COLES MD Feb 11, 2024 12:29
--- NOTE | 2024-02-11 13:31 | DVHPN2 ---
Subjective Patient is a 53-year-old female with past medical history of hypertension, DM, and end-stage renal disease on hemodialysis presented to [facility] ED for evaluation of left foot wound. Patient reports she has had a wound on the top and bottom of her left foot for the past 2 weeks, not sure how she sustained the wound, but notes redness, swelling, discoloration to the foot, getting worse that prompted this visit. Patient was seen and evaluated in the ED, laboratory data shows WBC 16.1, hemoglobin 10.8, hematocrit 32.7, platelets 306, sodium 135, potassium 4.0, BUN 27, creatinine 4.45, glucose 315, blood pressure 160/62, heart rate 78, temperature 98.5 F, O2 saturation 97% on room air. Left foot x- ray showed no evidence of acute fracture or dislocation. Patient was started on IV antibiotic regimen vancomycin, please see medication orders section in the computer. On my assessment, patient denied chest pain, no headache, no dizziness, no shortness of breath, no nausea, no vomiting, no fever, no chills. Patient was admitted for further evaluation medical management. Changes from previous H/P or p: No Changes Eyes: No Pain, No Vision change, No Conjunctivae inflammation, No Eyelid inflammation, No Other, No Redness ENT: No Ear pain, No Ear discharge, No Nose pain, No Nose discharge, No Nose congestion, No Mouth pain, No Mouth swelling, No Throat pain, No Throat swelling, No Other Cardiovascular: No Chest Pain, No Palpitations, No Orthopnea, No Paroxysmal Noc. Dyspnea, No Edema, No Lt Headedness, No Other Respiratory: No Cough, No Dry, No Shortness of breath, No SOB with excertion, No Wheezing, No Hemoptysis, No Pleuritic Pain, No Sputum, No Other Gastrointestinal: No Nausea, No Vomiting, No Abdominal Pain, No Diarrhea, No Constipation, No Melena, No Hematochezia, No Other Genitourinary: No Dysuria, No Frequency, No Incontinence, No Hematuria, No Retention, No Other Musculoskeletal: other (Diabetic ulcer of left foot.); No neck pain, No shoulder pain, No arm pain, No back pain, No hand pain, No leg pain, No foot pain Skin: No Rash, No Lesions, No Jaundice, No Bruising, No Other Objective Vitals Vital Signs Date Time Temp Pulse Resp B/P (MAP) Pulse Ox O2 Delivery O2 Flow Rate FiO2 02/11/24 09:00 98.4 66 16 133/55 (81) 96 98.4 02/10/24 20:00 Room Air* 0 21 Intake/Output Intake and Output 02/11/24 07:00 Intake Total 724 ml Balance 724 ml Intake Oral 600 ml IV Total 124 ml # Bowel Movements 1 Exam DERMATOLOGIC EXAM: - Skin is dry and cool to the touch dry bilaterally. - Nails 1-5 of the bilateral foot are thickened, discolored, dystrophic, and tender to palpate with subungual debris - Hair loss noted to bilateral feet - farzaneh necrosis of the left 4th toe with malodor and purulent drainage VASCULAR EXAM: - DP and PT pulses are palpable bilaterally. - COLLECTIONS REP is brisk to all digits. - Feet are cool to touch compared to lower legs bilaterally. NEUROLOGIC EXAM: - Normal light touch sensation to the superficial peroneal, deep peroneal, sural, saphenous, and tibial nerve branches. - Protective sensation is diminished as tested with a 5.07 10g [place] bilaterally. MUSCULOSKELETAL EXAM: - No gross deformities - Muscle strength is 5/5 and active motion is pain-free and symmetrical bilaterally - No pain or crepitation with passive range of motion bilaterally to all major pedal joints Medications Current Medications Medications Dose Ordered Sig/[place] Route Start Time Stop Time Status Last Admin Dose Admin Vancomycin HCl 0 ml @ 0 mls/hr UD IV 02/08/24 23:30 Multivit/Ca Carb/ B Cmplx/FA/Prenat 1 tab DAILY PO 02/09/24 10:00 02/11/24 10:43 1 TAB Sevelamer HCl 800 mg TIDWM PO 02/09/24 08:00 02/11/24 08:20 800 MG Amlodipine Besylate 5 mg DAILY PO 02/09/24 10:00 02/10/24 10:27 5 MG Carvedilol 3.125 mg Q12HR PO 02/09/24 10:00 02/10/24 10:27 3.125 MG Diagnostic Test (Pha) 1 strip ACHS 02/09/24 07:00 02/11/24 12:36 1 STRIP Dextrose 50 ml UD PRN IV 02/08/24 23:30 Sodium Chloride 10 ml Q8HR IV 02/09/24 06:00 02/11/24 07:01 10 ML Acetaminophen/ Hydrocodone Bitart 1 tab Q4HP PRN PO 02/08/24 23:30 Ondansetron HCl 4 mg Q4HP PRN IV 02/08/24 23:30 Docusate Sodium 100 mg BIDPRN PRN PO 02/08/24 23:30 Acetaminophen 650 mg Q6HP PRN PO 02/08/24 23:30 02/10/24 16:48 650 MG Morphine Sulfate 2 mg Q4HPRN PRN IV 02/08/24 23:30 02/10/24 17:42 2 MG Nitroglycerin 0.4 mg Q5MINP PRN SL 02/08/24 23:30 Morphine Sulfate 2 mg Q30M PRN IV 02/08/24 23:30 Aspirin 81 mg DAILY PO 02/09/24 10:00 02/11/24 10:54 81 MG Piperacillin Sod/ Tazobactam Sod 50 ml @ 12.5 mls/hr Q8H IV 02/09/24 10:00 02/11/24 10:44 12.5 MLS/HR Insulin Glargine 17 units QAM SC 02/11/24 07:00 02/11/24 07:07 17 UNITS Insulin Human Lispro 3 units TID SC 02/10/24 14:00 02/11/24 06:59 3 UNITS Insulin Human Regular ACHS SC 02/10/24 11:30 02/11/24 12:39 4 UNITS Laboratory Results Laboratory Tests 02/11/24 05:41 02/11/24 05:48 Chemistry Test 02/11/24 05:41 Calcium Level 9.2 mg/dL (8.7-10.4) Microbiology Microbiology Date/Time Source Procedure Growth Status 02/10/24 14:40 Foot Left Gram Stain - Final Resulted 02/10/24 14:40 Foot Left Anaerobic Culture - Preliminary Resulted 02/10/24 14:40 Foot Left Aerobic Culture - Preliminary Resulted 02/08/24 15:16 Blood Blood Culture - Preliminary NO GROWTH AFTER 48 HOURS OF INCUBATION. Resulted Assessment/Plan Assessment/Plan ASSESSMENT: Patient is a 53 year old who was seen on the floor follow up from a 1 day s/p for left 4th toe amputation PLAN: - The patients chart was reviewed, clinical findings were discussed with the patient, the etiologies of the conditions were discussed in detail, and a treatment plan was agreed to at this time, with both oral and written instructions provided. - discussed with the patient that the plan is to take her back tomorrow to closer - discussed that the surgery went well - patient will be NPO at midnight - we will take her back for surgery around noon - patient can weightbear as tolerated in a postoperative shoe All questions were answered and concerns addressed to the patient's satisfaction. The patient was given the phone number to the clinic and was told how to make contact with the clinic should any concerns or questions arise. Patient understands that if any questions or concerns arise prior to the next appointment, we should be contacted immediately. FOLLOW-UP: Continue to follow while inpatient Plan discussed with: Patient My Orders Orders - SANA EMMANUEL DPM Procedure Category Date Status Time Anaerobic Culture NAGI 02/10/24 In Process 14:43 Routine Bacterial NAGI 02/10/24 In Process Culture 14:43 Gram Stain NAGI 02/10/24 In Process 14:43 Consistent DIET 02/10/24 Transmitted Carb(Ccho)Diabetes Dinner Problem List: (1) Diabetic ulcer of left foot (2) Uncontrolled diabetes mellitus (3) ESRD (end stage renal disease) on dialysis (4) Hypertension (5) Leukocytosis, unspecified (6) Type 2 diabetes mellitus with foot ulcer (7) Type 2 diabetes mellitus with hyperglycemia Date of Service: Feb 11, 2024 Billing Provider: SANA EMMANUEL DPM Common Visit Codes: [id number] INP/OBS CARE(MOD) SANA EMMANUEL DPM Feb 11, 2024 13:31
[2024-02-11] MEDS ORDERED: VANCOMYCIN 500mg/100mL 100 ML IV ONE (14:00)
--- NOTE | 2024-02-11 15:01 | MEDREC ---
[facility] ASP Intervention Section I [facility] ASP Intervention: Deescalate AB based on CS (PLEASE CONSIDER DE-ESCALATION BASED ON CULTURE RESULTS) JANINE PISANO PHARMACIST Feb 11, 2024 15:01
[2024-02-11] MEDS: VANCOMYCIN 500mg/100mL 100 ML IV ONE (16:20)
[2024-02-11] MEDS: EPOETIN ALFA-EPBX 10,000 UNIT/1ML VIAL SC ONE (21:30)
[2024-02-12] VITALS (9 sets, daily range): BP systolic 113–168; BP diastolic 55–77; PULSE 67–78; RESP 13–20; TEMP 98.1–98.9; O2SAT 94–97
[2024-02-12] MEDS: INSULIN LANTUS (GLARGINE) 1 /0.01ml (100units/ml) SC SCH (05:55)
[2024-02-12] MEDS: INSULIN LISPRO (HUMAN) 100 UNITS/ML ML SC SCH (06:00)
[2024-02-12] MEDS: hydrALAZINE HCL 20 MG/ML VL IV PRN (06:39)
[2024-02-12 07:05] LABS: Anion Gap 12 (5-15); Calcium 9.5 mg/dL (8.7-10.4); Carbon Dioxide 22 mmol/L (20-31); Chloride 99 mmol/L (98-107); Potassium 4.2 mmol/L (3.5-5.1); Sodium 133 mmol/L (136-145)
[2024-02-12 07:11] LABS: BUN/Creatinine Ratio 7.2 (10.0-20.0); Blood Urea Nitrogen 33 mg/dL (9-23); Glucose 224 mg/dL (74-106)
[2024-02-12 07:15] LABS: Basophils # (auto) 0.1 10 ^3/uL (0-0.2); Basophils % (auto) 0.4 % (0.0-2.0); Eosinophils # (auto) 0.2 10 ^3/uL (0-0.8); Hemoglobin 9.6 g/dL (12.2-16.2); Lymphocytes # (auto) 1.5 10 ^3/uL (0.4-5.4); Lymphocytes % (auto) 9.6 % (10.0-50.0); Mean Corpuscular Hemoglobin 31.6 pg (28.0-32.0); Mean Corpuscular Hgb Conc. 33.2 g/dL (32.0-36.0); Mean Corpuscular Volume 95.2 fL (80.0-100.0); Monocytes # (auto) 1.5 10 ^3/uL (0-1.3); Monocytes % (auto) 9.7 % (0.0-12.0); Neutrophils # (auto) 12.4 10 ^3/uL (1.6-8.6); Neutrophils % (auto) 79.3 % (37.0-80.0); Nucleated Red Blood Cells % 0.1 %; Platelet Count (auto) 318 10^3/uL (140-450); Red Blood Cells 3.05 10^6/uL (4.0-5.20); Red Cell Distribution Width 13.6 % (11.8-14.3); White Blood Cell 15.7 10^3/uL (4.4-10.8)
[2024-02-12] MEDS: amLODIPine BESYLATE 5 MG TAB PO SCH (09:46)
[2024-02-12] MEDS: CARVEDILOL 3.125 MG TAB PO SCH (09:46)
[2024-02-12] MEDS: BUPIVACAINE 0.5% P/F INJ 10 ML VIAL ONE (11:17)
--- NOTE | 2024-02-12 11:50 | DVHPN2 ---
Progress Note Date Seen: Feb 12, 2024 Medical Necessity Reason Pt with a Central, PICC or Fol: No Subjective Patient reports: No new complaints Other Systems: Patient seen and examined by myself today in follow-up Objective vital signs Vital Sign Date Time Temp Pulse Resp B/P (MAP) Pulse Ox O2 Delivery O2 Flow Rate FiO2 02/12/24 08:39 98.2 71 20 126/55 (78) 95 98.2 02/11/24 20:30 Room Air* 0 21 Total Intake and Output 02/11/24 02/11/24 02/12/24 15:00 23:00 07:00 Intake Total 300 ml 730 ml 240 ml Balance 300 ml 730 ml 240 ml medications Current Medications Medications Dose Ordered Sig/[place] Route Start Time Stop Time Status Last Admin Dose Admin Vancomycin HCl 0 ml @ 0 mls/hr UD IV 02/08/24 23:30 Multivit/Ca Carb/ B Cmplx/FA/Prenat 1 tab DAILY PO 02/09/24 10:00 02/11/24 10:43 1 TAB Sevelamer HCl 800 mg TIDWM PO 02/09/24 08:00 02/11/24 18:58 800 MG Diagnostic Test (Pha) 1 strip ACHS 02/09/24 07:00 02/12/24 06:00 1 STRIP Dextrose 50 ml UD PRN IV 02/08/24 23:30 Sodium Chloride 10 ml Q8HR IV 02/09/24 06:00 02/12/24 06:01 10 ML Acetaminophen/ Hydrocodone Bitart 1 tab Q4HP PRN PO 02/08/24 23:30 Ondansetron HCl 4 mg Q4HP PRN IV 02/08/24 23:30 Docusate Sodium 100 mg BIDPRN PRN PO 02/08/24 23:30 Acetaminophen 650 mg Q6HP PRN PO 02/08/24 23:30 02/12/24 00:03 650 MG Morphine Sulfate 2 mg Q4HPRN PRN IV 02/08/24 23:30 02/11/24 23:55 2 MG Nitroglycerin 0.4 mg Q5MINP PRN SL 02/08/24 23:30 Morphine Sulfate 2 mg Q30M PRN IV 02/08/24 23:30 Aspirin 81 mg DAILY PO 02/09/24 10:00 02/11/24 10:54 81 MG Piperacillin Sod/ Tazobactam Sod 50 ml @ 12.5 mls/hr Q8H IV 02/09/24 10:00 02/12/24 09:42 12.5 MLS/HR Insulin Human Regular ACHS SC 02/10/24 11:30 02/11/24 21:46 6 UNITS Insulin Glargine 20 units QAM SC 02/12/24 07:00 02/12/24 05:55 20 UNITS Insulin Human Lispro 5 units TID SC 02/12/24 06:00 Amlodipine Besylate 10 mg DAILY PO 02/12/24 10:00 Carvedilol 6.25 mg Q12HR PO 02/12/24 10:00 Examination: LUNGS:Normal, CVS:Normal, MSK:Abnormal laboratory and microbiology Laboratory Tests 02/12/24 06:14 Test 02/12/24 06:14 Range/Units Serum Glucose 224 H 74-106 mg/dL Microbiology Date/Time Source Procedure Growth Status 02/10/24 14:40 Foot Left Gram Stain - Final Resulted 02/10/24 14:40 Foot Left Anaerobic Culture - Preliminary Resulted 02/10/24 14:40 Foot Left Aerobic Culture - Preliminary Resulted 02/08/24 15:16 Blood Blood Culture - Preliminary NO GROWTH AFTER 72 HOURS OF INCUBATION. Resulted Problem List/Assessment/Plan Problem List/Assessment/Plan ESRD on hemodialysis last hemodialysis 02/08 Diabetes mellitus type 2 Peripheral arterial disease Left foot diabetic ulcers, infection Anemia of chronic kidney disease Recommendations Hemodialysis tomorrow Epogen 70304 IV post hemodialysis Resume home medication Fluid restrictions Renal diet Podiatry consult Patient was cleared from Nephrology for discharge on follow-up her outpatient hemodialysis schedule Plan discussed with: Patient MEY COLES MD Feb 12, 2024 11:50
[2024-02-12] MEDS ORDERED: fentaNYL CITRATE 100 MCG/2 ML VL ONE (12:05)
[2024-02-12] MEDS ORDERED: MIDAZOLAM HCL 2MG/2ML 2ml VIAL (1mg/ml) ONE (12:05)
[2024-02-12] MEDS ORDERED: PROPOFOL 10 MG/ML 20 ML IV ONE (12:21)
[2024-02-12] MEDS ORDERED: DexAMETHasone SOD PHOS 10MG/1ML VIAL INJ ONE (12:21)
[2024-02-12] MEDS: VANCOMYCIN HCL 1000 MG VL ONE (12:30)
--- NOTE | 2024-02-12 12:37 | DVHPN2 ---
Subjective Patient is a 53-year-old female with past medical history of hypertension, DM, and end-stage renal disease on hemodialysis presented to [facility] ED for evaluation of left foot wound. Patient reports she has had a wound on the top and bottom of her left foot for the past 2 weeks, not sure how she sustained the wound, but notes redness, swelling, discoloration to the foot, getting worse that prompted this visit. Patient was seen and evaluated in the ED, laboratory data shows WBC 16.1, hemoglobin 10.8, hematocrit 32.7, platelets 306, sodium 135, potassium 4.0, BUN 27, creatinine 4.45, glucose 315, blood pressure 160/62, heart rate 78, temperature 98.5 F, O2 saturation 97% on room air. Left foot x- ray showed no evidence of acute fracture or dislocation. Patient was started on IV antibiotic regimen vancomycin, please see medication orders section in the computer. On my assessment, patient denied chest pain, no headache, no dizziness, no shortness of breath, no nausea, no vomiting, no fever, no chills. Patient was admitted for further evaluation medical management. Changes from previous H/P or p: No Changes Eyes: No Pain, No Vision change, No Conjunctivae inflammation, No Eyelid inflammation, No Other, No Redness ENT: No Ear pain, No Ear discharge, No Nose pain, No Nose discharge, No Nose congestion, No Mouth pain, No Mouth swelling, No Throat pain, No Throat swelling, No Other Cardiovascular: No Chest Pain, No Palpitations, No Orthopnea, No Paroxysmal Noc. Dyspnea, No Edema, No Lt Headedness, No Other Respiratory: No Cough, No Dry, No Shortness of breath, No SOB with excertion, No Wheezing, No Hemoptysis, No Pleuritic Pain, No Sputum, No Other Gastrointestinal: No Nausea, No Vomiting, No Abdominal Pain, No Diarrhea, No Constipation, No Melena, No Hematochezia, No Other Genitourinary: No Dysuria, No Frequency, No Incontinence, No Hematuria, No Retention, No Other Musculoskeletal: other (Diabetic ulcer of left foot.); No neck pain, No shoulder pain, No arm pain, No back pain, No hand pain, No leg pain, No foot pain Skin: No Rash, No Lesions, No Jaundice, No Bruising, No Other Objective Vitals Vital Signs Date Time Temp Pulse Resp B/P (MAP) Pulse Ox O2 Delivery O2 Flow Rate FiO2 02/12/24 08:39 98.2 71 20 126/55 (78) 95 98.2 02/11/24 20:30 Room Air* 0 21 Intake/Output Intake and Output 02/12/24 07:00 Intake Total 1270 ml Balance 1270 ml Intake Oral 1040 ml IV Total 230 ml # Voids 1 Exam DERMATOLOGIC EXAM: - Skin is dry and cool to the touch dry bilaterally. - Nails 1-5 of the bilateral foot are thickened, discolored, dystrophic, and tender to palpate with subungual debris - Hair loss noted to bilateral feet - farzaneh necrosis of the left 4th toe with malodor and purulent drainage VASCULAR EXAM: - DP and PT pulses are palpable bilaterally. 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 - Feet are cool to touch compared to lower legs bilaterally. NEUROLOGIC EXAM: - Normal light touch sensation to the superficial peroneal, deep peroneal, sural, saphenous, and tibial nerve branches. - Protective sensation is diminished as tested with a 5.07 10g [place] bilaterally. MUSCULOSKELETAL EXAM: - No gross deformities - Muscle strength is 5/5 and active motion is pain-free and symmetrical bilaterally - No pain or crepitation with passive range of motion bilaterally to all major pedal joints Medications Current Medications Medications Dose Ordered Sig/[place] Route Start Time Stop Time Status Last Admin Dose Admin Vancomycin HCl 0 ml @ 0 mls/hr UD IV 02/08/24 23:30 Multivit/Ca Carb/ B Cmplx/FA/Prenat 1 tab DAILY PO 02/09/24 10:00 02/11/24 10:43 1 TAB Sevelamer HCl 800 mg TIDWM PO 02/09/24 08:00 02/11/24 18:58 800 MG Diagnostic Test (Pha) 1 strip ACHS 02/09/24 07:00 02/12/24 11:30 1 STRIP Dextrose 50 ml UD PRN IV 02/08/24 23:30 Sodium Chloride 10 ml Q8HR IV 02/09/24 06:00 02/12/24 06:01 10 ML Acetaminophen/ Hydrocodone Bitart 1 tab Q4HP PRN PO 02/08/24 23:30 Ondansetron HCl 4 mg Q4HP PRN IV 02/08/24 23:30 Docusate Sodium 100 mg BIDPRN PRN PO 02/08/24 23:30 Acetaminophen 650 mg Q6HP PRN PO 02/08/24 23:30 02/12/24 00:03 650 MG Morphine Sulfate 2 mg Q4HPRN PRN IV 02/08/24 23:30 02/11/24 23:55 2 MG Nitroglycerin 0.4 mg Q5MINP PRN SL 02/08/24 23:30 Morphine Sulfate 2 mg Q30M PRN IV 02/08/24 23:30 Aspirin 81 mg DAILY PO 02/09/24 10:00 02/11/24 10:54 81 MG Piperacillin Sod/ Tazobactam Sod 50 ml @ 12.5 mls/hr Q8H IV 02/09/24 10:00 02/12/24 09:42 12.5 MLS/HR Insulin Human Regular ACHS SC 02/10/24 11:30 02/12/24 11:30 3 UNITS Insulin Glargine 20 units QAM SC 02/12/24 07:00 02/12/24 05:55 20 UNITS Insulin Human Lispro 5 units TID SC 02/12/24 06:00 Amlodipine Besylate 10 mg DAILY PO 02/12/24 10:00 Carvedilol 6.25 mg Q12HR PO 02/12/24 10:00 Laboratory Results Laboratory Tests 02/12/24 06:14 Chemistry Test 02/12/24 06:14 Calcium Level 9.5 mg/dL (8.7-10.4) Microbiology Microbiology Date/Time Source Procedure Growth Status 02/10/24 14:40 Foot Left Gram Stain - Final Resulted 02/10/24 14:40 Foot Left Anaerobic Culture - Preliminary Resulted 02/10/24 14:40 Foot Left Aerobic Culture - Preliminary Resulted 02/08/24 15:16 Blood Blood Culture - Preliminary NO GROWTH AFTER 72 HOURS OF INCUBATION. Resulted Assessment/Plan Assessment/Plan ASSESSMENT: Patient is a 53 year old who was seen on the floor follow up from a 2 day s/p for left 4th toe amputation PLAN: - The patients chart was reviewed, clinical findings were discussed with the patient, the etiologies of the conditions were discussed in detail, and a treatment plan was agreed to at this time, with both oral and written instructions provided. - discussed with the patient that the plan is to take her back tomorrow to closer - discussed that the surgery went well - patient will be NPO since midnight - we will take her back for surgery around noon today - patient can weightbear as tolerated in a postoperative shoe All questions were answered and concerns addressed to the patient's satisfaction. The patient was given the phone number to the clinic and was told how to make contact with the clinic should any concerns or questions arise. Patient understands that if any questions or concerns arise prior to the next appointment, we should be contacted immediately. FOLLOW-UP: Continue to follow while inpatient Plan discussed with: Patient My Orders Orders - SANA EMMANUEL DPM Procedure Category Date Status Time Npo After Midnight DIET 02/11/24 Transmitted Dinner Obtain Consent For: ORDERS 02/11/24 Transmitted 13:36 Problem List: (1) Diabetic ulcer of left foot (2) Uncontrolled diabetes mellitus (3) ESRD (end stage renal disease) on dialysis (4) Hypertension (5) Leukocytosis, unspecified (6) Type 2 diabetes mellitus with foot ulcer (7) Type 2 diabetes mellitus with hyperglycemia Date of Service: Feb 12, 2024 Billing Provider: SANA EMMANUEL DPM Common Visit Codes: [id number] INP/OBS CARE (MOD) SANA EMMANUEL DPM Feb 12, 2024 12:37
--- NOTE | 2024-02-12 12:41 | DVHOP2 ---
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 Left foot abscess 4. Left foot wound Postop Diagnosis: Same as preop Surgeon: Sana Emmanuel MD Anesthesiologist: Anesthesia Anesthesia: Mac Consent: The patient was informed of the risks and benefits of the procedure. These include but are not limited to complications of anesthesia, postoperative infection, incomplete relief of symptoms, recurrence of symptoms, damage to blood vessels, nerves and tendons, deep venous thrombosis, pulmonary embolism and possible need for repeat surgery in the future. Complications: None Estimated Blood Loss: Minimal Fluids: See anesthesia Findings: Consistent with diagnosis Indications for Surgery: Worsening left foot wound Name of Procedure Performed 1. Left foot I&D bone (73513) 2. Left foot 4th metatarsal head (69321) 3. Left foot delayed closure (17225) Procedure Details Procedure Details: PRE-PROCEDURE INFORMATION: In the pre-op holding area, the extremity to be operated on was clearly marked and the patient verified correct laterality of the marking. The patient was transferred to the OR table and placed in a supine position. A timeout was performed in which identification of the correct patient, procedure, location, and materials was done. The left foot and leg were prepped and draped in normal sterile fashion. DESCRIPTION OF PROCEDURE: Attention was directed to the left 4th toe area where previous incision was made An incision was made over this area and was deepened through blunt dissection. The incision was deepened to the level of abscess and bone. Care was taken to the dissection to avoid any neurovascular and tendinous structures. The incision was deepened to the abscess. The abscess appeared to be purulent fluid consistent with pus, proximally 3 cc. After the abscess was drained, the area was irrigated with 3 L normal saline using cysto tubing. The remaining 4th metatarsal head appeared to be dry and necrotic so partial head amputation was performed. A delayed closure was then performed with a 2. 0 nylon. Approximately 1 g of vancomycin powder. Patient was placed in a postop shoe All surgical wounds were irrigated copiously with saline and closed in layers with the aforementioned suture material. A dry sterile dressing was placed on the surgical extremity. The patient was placed in a post shoe. POSTOPERATIVE INFORMATION: The patient tolerated the above noted procedure and anesthesia well and was transferred to the PACU with vital signs stable, and vascular status intact with capillary refill intact to all digits. Patient will return to the floor and continue IV antibiotics. Recommend patient has 6 weeks of IV antibiotics. Patient will follow up with me a week after procedure Condition Good Disposition Still a Patient SANA EMMANUEL DPM Feb 12, 2024 12:41
--- NOTE | 2024-02-12 18:09 | DVHPNRES ---
Progress Note Date Seen: Feb 12, 2024 Resident Creating Document: GIULIANO BAR RESIDENT Medical Necessity Reason Pt with a Central, PICC or Fol: No Subjective Review of Systems JUVENAL GRANDA is a 53 years old female with a PMH of HTN, type 2 DM, ESRD on HD MWF presented to the ED for the evaluation of left foot wound ( left 4th toe and base of 4th toe metatarsal head ). Patient seen and examined at the bedside. Postoperative day 0(second procedure) status post Left foot I&D bone with 4th toe amputation, delayed closure, patient tolerated the procedure well. Patient reported improvement in the pain since admission. Final culture showing possible staph aureus and Enterococcus faecalis sensitive to vancomycin, discontinued Zosyn. Continuously monitoring blood glucose. Recommend patient has 6 weeks of IV antibiotics, we will get antibiotics during hemodialysis session through the catheter. Consulted social worker assistant. Patient will follow up podiatry after a week after. Objective vital signs Vital Sign Date Time Temp Pulse Resp B/P (MAP) Pulse Ox O2 Delivery O2 Flow Rate FiO2 02/12/24 17:09 98.9 67 20 138/66 (90) 94 98.9 02/12/24 12:40 Room Air 0 97 Total Intake and Output 02/11/24 02/11/24 02/12/24 15:00 23:00 07:00 Intake Total 300 ml 730 ml 240 ml Balance 300 ml 730 ml 240 ml medications Current Medications Medications Dose Ordered Sig/Latonia Route Start Time Stop Time Status Last Admin Dose Admin Vancomycin HCl 0 ml @ 0 mls/hr UD IV 02/08/24 23:30 Multivit/Ca Carb/ B Cmplx/FA/Prenat 1 tab DAILY PO 02/09/24 10:00 02/11/24 10:43 1 TAB Sevelamer HCl 800 mg TIDWM PO 02/09/24 08:00 02/11/24 18:58 800 MG Diagnostic Test (Pha) 1 strip ACHS 02/09/24 07:00 02/12/24 11:30 1 STRIP Dextrose 50 ml UD PRN IV 02/08/24 23:30 Sodium Chloride 10 ml Q8HR IV 02/09/24 06:00 02/12/24 14:00 10 ML Acetaminophen/ Hydrocodone Bitart 1 tab Q4HP PRN PO 02/08/24 23:30 Ondansetron HCl 4 mg Q4HP PRN IV 02/08/24 23:30 Docusate Sodium 100 mg BIDPRN PRN PO 02/08/24 23:30 Acetaminophen 650 mg Q6HP PRN PO 02/08/24 23:30 02/12/24 00:03 650 MG Morphine Sulfate 2 mg Q4HPRN PRN IV 02/08/24 23:30 02/11/24 23:55 2 MG Nitroglycerin 0.4 mg Q5MINP PRN SL 02/08/24 23:30 Morphine Sulfate 2 mg Q30M PRN IV 02/08/24 23:30 Aspirin 81 mg DAILY PO 02/09/24 10:00 02/11/24 10:54 81 MG Piperacillin Sod/ Tazobactam Sod 50 ml @ 12.5 mls/hr Q8H IV 02/09/24 10:00 02/12/24 09:42 12.5 MLS/HR Insulin Human Regular ACHS SC 02/10/24 11:30 02/12/24 11:30 3 UNITS Insulin Glargine 20 units QAM SC 02/12/24 07:00 02/12/24 05:55 20 UNITS Insulin Human Lispro 5 units TID SC 02/12/24 06:00 02/12/24 14:00 5 UNITS Amlodipine Besylate 10 mg DAILY PO 02/12/24 10:00 Carvedilol 6.25 mg Q12HR PO 02/12/24 10:00 Examination Pt is lying on bed General Appearance: Alert, Oriented X3, Cooperative, Not in acute distress HEENT: Atraumatic, Mucous membranes moist/pink Respiratory: Clear to auscultation, Normal air movement, No added sounds Cardiovascular: Regular rate, Normal S1, Normal S2, No murmurs Abdominal: Active bowel sounds, Soft, no distention, no tenderness Extremities: Surgery was done yesterday, wound is wrapped in sterile dressing Skin: No Significant rash, except past surgical scars Neuro: Normal speech, sensorimotor deficits none Psych/Mental Status: Mental status NL, Mood NL Nurse was there as sharperone during examination laboratory and microbiology Laboratory Tests 02/12/24 06:14 Test 02/12/24 06:14 Range/Units Serum Glucose 224 H 74-106 mg/dL Microbiology Date/Time Source Procedure Growth Status 02/10/24 14:40 Foot Left Gram Stain - Final Resulted 02/10/24 14:40 Foot Left Anaerobic Culture - Preliminary Resulted 02/10/24 14:40 Aerobic Culture - Final Staphylococcus aureus Enterococcus faecalis Resulted 02/08/24 15:16 Blood Blood Culture - Preliminary NO GROWTH AFTER 72 HOURS OF INCUBATION. Resulted Labs and/or images reviewed: Labs reviewed by me, Image(s) reviewed by me Problem List/Assessment/Plan Problem List/Assessment/Plan # Left foot diabetic ulcer and abscess # Left foot wet/gas gangrene 4th toe # ? Sepsis from ulcer # Peripheral arterial disease # Osteomyelitis in the 4th proximal phalanx of the left foot. - continuously monitor lab - Final culture showing possible staph aureus and Enterococcus faecalis sensitive to vancomycin, discontinued Zosyn. - MRI left foot showe Osteomyelitis in the 4th proximal phalanx of the left foot. Soft tissue swelling representing either postprocedural change or ulceration and gas. - Postoperative day 2 ( 1st procedure) status post Left foot I&D bone with 4th toe amputation, sent to bone biopsy, patient tolerated the procedure well. - Postoperative day 0(second procedure) status post Left foot I&D bone with 4th toe amputation, delayed closure, patient tolerated the procedure well. - Recommend patient has 6 weeks of IV antibiotics, we will get antibiotics during hemodialysis session through the catheter. Consulted social worker assistant. # Uncontrolled type 2 diabetes mellitus With the HbA1c 11.2 - continuously monitor blood glucose - currently on 17 units Lantus and 3 units lispro t.i.d. - on moderate sliding scale # Anemia of chronic kidney disease # ESRD on HD MWF - consulted Nephrology it for possible dialysis - Epogen 15810 IV post hemodialysis # hypertensive urgency - continuously monitor - resumed home meds - giving hydralazine 10 mg p.r.n. if SBP more than 180 SCDs for now No GI be PPX NPO after midnight Reconciled home meds Goals of care discussed with the patient and family for more than 27 minutes: Full code status Case management discussed with Dr Martinez, patient and nurse. Plan discussed with: Patient My Orders My Orders Orders - GIULIANO BAR Procedure Category Date Status Time * Financial Aid Officer CONS 02/12/24 Transmitted Consult Date of Service: Feb 14, 2024 Billing Provider: BISI MARTINEZ MD Common Visit Codes: [id number] INP/OBS CARE(HIGH) GIULIANO BAR RESIDENT Feb 12, 2024 18:09 BISI MARTINEZ MD Feb 13, 2024 22:04
[2024-02-12] MEDS: HYDROcodone-ACET 5/325MG TAB PO PRN (18:29)
[2024-02-13] VITALS (8 sets, daily range): BP systolic 143–163; BP diastolic 66–81; PULSE 63–79; RESP 13–17; TEMP 97.9–98.3; O2SAT 93–100
[2024-02-13] MEDS ORDERED: DEXTROSE (50%) 50ML SYRG IV PRN (01:45)
[2024-02-13] MEDS: INSULIN LISPRO (HUMAN) 100 UNITS/ML ML SC ONE (02:05)
[2024-02-13 06:04] LABS: Basophils # (auto) 0.1 10 ^3/uL (0-0.2); Basophils % (auto) 0.5 % (0.0-2.0); Eosinophils # (auto) 0 10 ^3/uL (0-0.8); Hematocrit 31.3 % (36.0-46.0); Hemoglobin 10.3 g/dL (12.2-16.2); Lymphocytes # (auto) 0.9 10 ^3/uL (0.4-5.4); Lymphocytes % (auto) 4.6 % (10.0-50.0); Mean Corpuscular Hemoglobin 31.4 pg (28.0-32.0); Monocytes # (auto) 1.5 10 ^3/uL (0-1.3); Monocytes % (auto) 7.9 % (0.0-12.0); Neutrophils # (auto) 16.7 10 ^3/uL (1.6-8.6); Platelet Count (auto) 369 10^3/uL (140-450); Red Blood Cells 3.29 10^6/uL (4.0-5.20); Red Cell Distribution Width 13.8 % (11.8-14.3); White Blood Cell 19.3 10^3/uL (4.4-10.8)
[2024-02-13 06:20] LABS: Potassium 4.2 mmol/L (3.5-5.1)
[2024-02-13 06:21] LABS: Anion Gap 12 (5-15); Calcium 9.6 mg/dL (8.7-10.4); Carbon Dioxide 22 mmol/L (20-31)
[2024-02-13 06:26] LABS: BUN/Creatinine Ratio 8.6 (10.0-20.0)
[2024-02-13 06:45] LABS: Blood Urea Nitrogen 52 mg/dL (9-23); Chloride 97 mmol/L (98-107); Glucose 363 mg/dL (74-106); Sodium 131 mmol/L (136-145)
[2024-02-13] MEDS: InsuLIN REG 1unit/0.01ml Soln (100units/ml) SC SCH ×2 (06:53→21:43)
[2024-02-13] MEDS: SODIUM CHL 0.9% 1000 ML BAG XX ONE (07:00)
--- NOTE | 2024-02-13 14:31 | DVHPN2 ---
Progress Note Date Seen: Feb 13, 2024 Medical Necessity Reason Pt with a Central, PICC or Fol: No Subjective Patient reports: No new complaints Review of Systems: HEENT:Normal, CVS:Normal, RESPIRATORY:Normal, GI:Normal, :Normal, MSK:Abnormal, NEURO:Normal Objective vital signs Vital Sign Date Time Temp Pulse Resp B/P (MAP) Pulse Ox O2 Delivery O2 Flow Rate FiO2 02/13/24 11:03 70 189/70 02/13/24 08:45 98.3 17 99 98.3 02/13/24 08:00 Room Air* 0 21 Total Intake and Output 02/12/24 02/12/24 02/13/24 15:00 23:00 07:00 Intake Total 60 ml 105 ml 345 ml Balance 60 ml 105 ml 345 ml medications Current Medications Medications Dose Ordered Sig/Lat[place] Route Start Time Stop Time Status Last Admin Dose Admin Vancomycin HCl 0 ml @ 0 mls/hr UD IV 02/08/24 23:30 Multivit/Ca Carb/ B Cmplx/FA/Prenat 1 tab DAILY PO 02/09/24 10:00 02/13/24 10:00 1 TAB Sevelamer HCl 800 mg TIDWM PO 02/09/24 08:00 02/13/24 13:24 800 MG Sodium Chloride 10 ml Q8HR IV 02/09/24 06:00 02/13/24 13:24 10 ML Acetaminophen/ Hydrocodone Bitart 1 tab Q4HP PRN PO 02/08/24 23:30 02/12/24 18:29 1 TAB Ondansetron HCl 4 mg Q4HP PRN IV 02/08/24 23:30 Docusate Sodium 100 mg BIDPRN PRN PO 02/08/24 23:30 Acetaminophen 650 mg Q6HP PRN PO 02/08/24 23:30 02/12/24 00:03 650 MG Morphine Sulfate 2 mg Q4HPRN PRN IV 02/08/24 23:30 02/11/24 23:55 2 MG Nitroglycerin 0.4 mg Q5MINP PRN SL 02/08/24 23:30 Morphine Sulfate 2 mg Q30M PRN IV 02/08/24 23:30 Aspirin 81 mg DAILY PO 02/09/24 10:00 02/13/24 10:03 81 MG Insulin Human Lispro 5 units TID SC 02/12/24 06:00 02/13/24 13:28 5 UNITS Amlodipine Besylate 10 mg DAILY PO 02/12/24 10:00 02/13/24 10:04 10 MG Carvedilol 6.25 mg Q12HR PO 02/12/24 10:00 02/13/24 10:03 6.25 MG Insulin Human Regular HS SC 02/13/24 22:00 Insulin Human Regular AC SC 02/13/24 07:00 02/13/24 13:26 9 UNITS Dextrose 50 ml UD PRN IV 02/13/24 01:45 Insulin Glargine 30 units QAM SC 02/14/24 07:00 Examination: GENERAL:Normal, HEENT:Normal, NECK:Normal, LUNGS:Normal, CVS:Normal, ABDOMEN:Normal, MSK:Abnormal, SKIN:Abnormal, NEURO:Normal, :Normal laboratory and microbiology Laboratory Tests 02/13/24 05:39 Test 02/13/24 05:39 Range/Units Serum Glucose 363 H 74-106 mg/dL Microbiology Date/Time Source Procedure Growth Status 02/10/24 14:40 Foot Left Gram Stain - Final Resulted 02/10/24 14:40 Foot Left Anaerobic Culture - Preliminary Resulted 02/10/24 14:40 Aerobic Culture - Final Staphylococcus aureus Enterococcus faecalis Resulted 02/08/24 15:16 Blood Blood Culture - Preliminary NO GROWTH AFTER 72 HOURS OF INCUBATION. Resulted Problem List/Assessment/Plan Problem List/Assessment/Plan ESRD on hemodialysis Diabetes mellitus type 2 Peripheral arterial disease Left foot diabetic ulcers, Anemia of chronic kidney disease recs seen on HD today iv abx gfr dosing recommended Plan discussed with: Patient, Other MIKAYLA FERRARI MD Feb 13, 2024 14:31
--- NOTE | 2024-02-13 15:28 | DVHPNRES ---
Progress Note Date Seen: Feb 13, 2024 Resident Creating Document: GIULIANO BAR RESIDENT Medical Necessity Reason Pt with a Central, PICC or Fol: No Subjective Review of Systems JUVENAL GRANDA is a 53 years old female with a PMH of HTN, type 2 DM, ESRD on HD MWF presented to the ED for the evaluation of left foot wound ( left 4th toe and base of 4th toe metatarsal head ). Patient seen and examined at the bedside. Postoperative day 1(second procedure) status post Left foot I&D bone with 4th toe amputation, delayed closure, patient tolerated the procedure well. Patient reported improvement in the pain since admission. Final culture showing possible staph aureus and Enterococcus faecalis sensitive to vancomycin, discontinued Zosyn. Continuously monitoring blood glucose. Recommend patient has 6 weeks of IV antibiotics, we will get antibiotics during hemodialysis session through the catheter. Consulted director of social media marketing. Patient will follow up podiatry after a week after. Hemodialysis today Due to uncontrolled diabetes mellitus we added 10 units more insulin to current regimen Patient reports: No new complaints Objective vital signs Vital Sign Date Time Temp Pulse Resp B/P (MAP) Pulse Ox O2 Delivery O2 Flow Rate FiO2 02/13/24 13:00 63 155/76 (102) 02/13/24 08:45 98.3 17 99 98.3 02/13/24 08:00 Room Air* 0 21 Total Intake and Output 02/12/24 02/12/24 02/13/24 15:00 23:00 07:00 Intake Total 60 ml 105 ml 345 ml Balance 60 ml 105 ml 345 ml medications Current Medications Medications Dose Ordered Sig/Latonia Route Start Time Stop Time Status Last Admin Dose Admin Vancomycin HCl 0 ml @ 0 mls/hr UD IV 02/08/24 23:30 Multivit/Ca Carb/ B Cmplx/FA/Prenat 1 tab DAILY PO 02/09/24 10:00 02/13/24 10:00 1 TAB Sevelamer HCl 800 mg TIDWM PO 02/09/24 08:00 02/13/24 13:24 800 MG Sodium Chloride 10 ml Q8HR IV 02/09/24 06:00 02/13/24 13:24 10 ML Acetaminophen/ Hydrocodone Bitart 1 tab Q4HP PRN PO 02/08/24 23:30 02/12/24 18:29 1 TAB Ondansetron HCl 4 mg Q4HP PRN IV 02/08/24 23:30 Docusate Sodium 100 mg BIDPRN PRN PO 02/08/24 23:30 Acetaminophen 650 mg Q6HP PRN PO 02/08/24 23:30 02/12/24 00:03 650 MG Morphine Sulfate 2 mg Q4HPRN PRN IV 02/08/24 23:30 02/11/24 23:55 2 MG Nitroglycerin 0.4 mg Q5MINP PRN SL 02/08/24 23:30 Morphine Sulfate 2 mg Q30M PRN IV 02/08/24 23:30 Aspirin 81 mg DAILY PO 02/09/24 10:00 02/13/24 10:03 81 MG Insulin Human Lispro 5 units TID SC 02/12/24 06:00 02/13/24 13:28 5 UNITS Amlodipine Besylate 10 mg DAILY PO 02/12/24 10:00 02/13/24 10:04 10 MG Carvedilol 6.25 mg Q12HR PO 02/12/24 10:00 02/13/24 10:03 6.25 MG Insulin Human Regular HS SC 02/13/24 22:00 Insulin Human Regular AC SC 02/13/24 07:00 02/13/24 13:26 9 UNITS Dextrose 50 ml UD PRN IV 02/13/24 01:45 Insulin Glargine 30 units QAM SC 02/14/24 07:00 Examination Pt is lying on bed General Appearance: Alert, Oriented X3, Cooperative, Not in acute distress HEENT: Atraumatic, Mucous membranes moist/pink Respiratory: Clear to auscultation, Normal air movement, No added sounds Cardiovascular: Regular rate, Normal S1, Normal S2, No murmurs Abdominal: Active bowel sounds, Soft, no distention, no tenderness Extremities: wound is wrapped in sterile dressing Skin: No Significant rash, except past surgical scars Neuro: Normal speech, sensorimotor deficits none Psych/Mental Status: Mental status NL, Mood NL Nurse was there as phillyne during examination laboratory and microbiology Laboratory Tests 02/13/24 05:39 Test 02/13/24 05:39 Range/Units Serum Glucose 363 H 74-106 mg/dL Microbiology Date/Time Source Procedure Growth Status 02/10/24 14:40 Foot Left Gram Stain - Final Resulted 02/10/24 14:40 Foot Left Anaerobic Culture - Preliminary Resulted 02/10/24 14:40 Aerobic Culture - Final Staphylococcus aureus Enterococcus faecalis Resulted 02/08/24 15:16 Blood Blood Culture - Preliminary NO GROWTH AFTER 72 HOURS OF INCUBATION. Resulted Labs and/or images reviewed: Labs reviewed by me, Image(s) reviewed by me Problem List/Assessment/Plan Problem List/Assessment/Plan # Left foot diabetic ulcer and abscess # Left foot wet/gas gangrene 4th toe # ? Sepsis from ulcer # Peripheral arterial disease # Osteomyelitis in the 4th proximal phalanx of the left foot. - Continuously monitor lab - Final culture showing possible staph aureus and Enterococcus faecalis sensitive to vancomycin, discontinued Zosyn. - MRI left foot showe Osteomyelitis in the 4th proximal phalanx of the left foot. Soft tissue swelling representing either postprocedural change or ulceration and gas. - Postoperative day 3 ( 1st procedure) status post Left foot I&D bone with 4th toe amputation, sent to bone biopsy, patient tolerated the procedure well. - Postoperative day 1(second procedure) status post Left foot I&D bone with 4th toe amputation, delayed closure, patient tolerated the procedure well. - Recommend patient has 6 weeks of IV antibiotics, we will get antibiotics during hemodialysis session through the catheter. - Consulted director of social media marketing. # Uncontrolled type 2 diabetes mellitus With the HbA1c 11.2 - continuously monitor blood glucose - currently on 17 units Lantus and 3 units lispro t.i.d. - on moderate sliding scale # Anemia of chronic kidney disease # ESRD on HD MWF - consulted Nephrology it for possible dialysis - Epogen 88000 IV post hemodialysis - HD today # hypertensive urgency - continuously monitor - resumed home meds - giving hydralazine 10 mg p.r.n. if SBP more than 180 SCDs for now No GI be PPX NPO after midnight Reconciled home meds Goals of care discussed with the patient and family for more than 27 minutes: Full code status Case management discussed with Dr Martinez, patient and nurse. Plan discussed with: Patient Date of Service: Feb 13, 2024 Billing Provider: BISI MARTINEZ MD Common Visit Codes: [id number] INP/OBS CARE(HIGH) GIULIANO BAR RESIDENT Feb 13, 2024 15:28 BISI MARTINEZ MD Feb 13, 2024 22:05
[2024-02-13] MEDS: EPOETIN ALFA-EPBX 10,000 UNIT/1ML VIAL SC ONE (21:00)
[2024-02-14] VITALS (8 sets, daily range): BP systolic 130–151; BP diastolic 62–71; PULSE 65–74; RESP 12–20; TEMP 97.8–98.8; O2SAT 96–98
[2024-02-14 06:57] LABS: Basophils # (auto) 0.1 10 ^3/uL (0-0.2); Basophils % (auto) 0.4 % (0.0-2.0); Eosinophils # (auto) 0.2 10 ^3/uL (0-0.8); Eosinophils % (auto) 1.4 % (0.0-7.0); Hematocrit 29.2 % (36.0-46.0); Hemoglobin 9.7 g/dL (12.2-16.2); Lymphocytes # (auto) 1.9 10 ^3/uL (0.4-5.4); Lymphocytes % (auto) 13.8 % (10.0-50.0); Mean Corpuscular Hemoglobin 31.8 pg (28.0-32.0); Mean Corpuscular Hgb Conc. 33.3 g/dL (32.0-36.0); Mean Corpuscular Volume 95.3 fL (80.0-100.0); Monocytes # (auto) 1.3 10 ^3/uL (0-1.3); Monocytes % (auto) 9.3 % (0.0-12.0); Neutrophils # (auto) 10.3 10 ^3/uL (1.6-8.6); Neutrophils % (auto) 75.1 % (37.0-80.0); Platelet Count (auto) 394 10^3/uL (140-450); Red Blood Cells 3.06 10^6/uL (4.0-5.20); Red Cell Distribution Width 13.8 % (11.8-14.3); White Blood Cell 13.8 10^3/uL (4.4-10.8)
[2024-02-14 07:09] LABS: Chloride 99 mmol/L (98-107); Potassium 4.5 mmol/L (3.5-5.1); Sodium 137 mmol/L (136-145)
[2024-02-14 07:10] LABS: Anion Gap 10 (5-15); Calcium 9.3 mg/dL (8.7-10.4); Carbon Dioxide 28 mmol/L (20-31)
[2024-02-14 07:15] LABS: BUN/Creatinine Ratio 9.1 (10.0-20.0)
[2024-02-14] MEDS: INSULIN LANTUS (GLARGINE) 1 /0.01ml (100units/ml) SC SCH (07:16)
[2024-02-14 07:17] LABS: Blood Urea Nitrogen 38 mg/dL (9-23); Glucose 222 mg/dL (74-106)
--- NOTE | 2024-02-14 15:49 | DVHPNRES ---
Progress Note Date Seen: Feb 14, 2024 Resident Creating Document: GIULIANO BAR RESIDENT Medical Necessity Reason Pt with a Central, PICC or Fol: No Subjective Review of Systems JUVENAL GRANDA is a 53 years old female with a PMH of HTN, type 2 DM, ESRD on HD MWF presented to the ED for the evaluation of left foot wound ( left 4th toe and base of 4th toe metatarsal head ). Patient seen and examined at the bedside. Postoperative day 1(second procedure) status post Left foot I&D bone with 4th toe amputation, delayed closure, patient tolerated the procedure well. Patient reported improvement in the pain since admission. Currently on vancomycin. Continuously monitoring blood glucose. Recommend patient has 6 weeks of IV antibiotics, we will get antibiotics during hemodialysis session through the catheter. Consulted medical social consultant, pending case management work for home health for IV antibiotics Patient reports: No new complaints Changes from previous H/P or p: No Changes Objective vital signs Vital Sign Date Time Temp Pulse Resp B/P (MAP) Pulse Ox O2 Delivery O2 Flow Rate FiO2 02/14/24 13:00 98.1 71 18 151/69 (96) 98 98.1 02/14/24 08:00 Room Air* 0 21 Total Intake and Output 02/13/24 02/13/24 02/14/24 15:00 23:00 07:00 Intake Total 600 ml 150 ml Output Total 0 ml Balance 600 ml 150 ml medications Current Medications Medications Dose Ordered Sig/Lat[place] Route Start Time Stop Time Status Last Admin Dose Admin Vancomycin HCl 0 ml @ 0 mls/hr UD IV 02/08/24 23:30 Multivit/Ca Carb/ B Cmplx/FA/Prenat 1 tab DAILY PO 02/09/24 10:00 02/14/24 09:08 1 TAB Sevelamer HCl 800 mg TIDWM PO 02/09/24 08:00 02/14/24 12:00 800 MG Sodium Chloride 10 ml Q8HR IV 02/09/24 06:00 02/14/24 11:24 10 ML Acetaminophen/ Hydrocodone Bitart 1 tab Q4HP PRN PO 02/08/24 23:30 02/13/24 21:45 1 TAB Ondansetron HCl 4 mg Q4HP PRN IV 02/08/24 23:30 Docusate Sodium 100 mg BIDPRN PRN PO 02/08/24 23:30 Acetaminophen 650 mg Q6HP PRN PO 02/08/24 23:30 02/12/24 00:03 650 MG Morphine Sulfate 2 mg Q4HPRN PRN IV 02/08/24 23:30 02/11/24 23:55 2 MG Nitroglycerin 0.4 mg Q5MINP PRN SL 02/08/24 23:30 Morphine Sulfate 2 mg Q30M PRN IV 02/08/24 23:30 Aspirin 81 mg DAILY PO 02/09/24 10:00 02/14/24 09:09 81 MG Insulin Human Lispro 5 units TID SC 02/12/24 06:00 02/14/24 07:15 5 UNITS Amlodipine Besylate 10 mg DAILY PO 02/12/24 10:00 02/14/24 09:09 10 MG Carvedilol 6.25 mg Q12HR PO 02/12/24 10:00 02/14/24 09:09 6.25 MG Insulin Human Regular HS SC 02/13/24 22:00 02/13/24 21:43 6 UNITS Insulin Human Regular AC SC 02/13/24 07:00 02/14/24 07:14 6 UNITS Dextrose 50 ml UD PRN IV 02/13/24 01:45 Insulin Glargine 30 units QAM SC 02/14/24 07:00 02/14/24 07:16 30 UNITS Examination Pt is lying on bed General Appearance: Alert, Oriented X3, Cooperative, Not in acute distress HEENT: Atraumatic, Mucous membranes moist/pink Respiratory: Clear to auscultation, Normal air movement, No added sounds Cardiovascular: Regular rate, Normal S1, Normal S2, No murmurs Abdominal: Active bowel sounds, Soft, no distention, no tenderness Extremities: wound is wrapped in sterile dressing Skin: No Significant rash, except past surgical scars Neuro: Normal speech, sensorimotor deficits none Psych/Mental Status: Mental status NL, Mood NL Nurse was there as sharpm[place]ne during examination laboratory and microbiology Laboratory Tests 02/14/24 06:04 Test 02/14/24 06:04 Range/Units Serum Glucose 222 H 74-106 mg/dL Microbiology Date/Time Source Procedure Growth Status 02/10/24 14:40 Foot Left Gram Stain - Final Resulted 02/10/24 14:40 Foot Left Anaerobic Culture - Preliminary Resulted 02/10/24 14:40 Aerobic Culture - Final Staphylococcus aureus Enterococcus faecalis Resulted 02/08/24 15:16 Blood Blood Culture - Final NO GROWTH AFTER 5 DAYS OF INCUBATION. Complete Labs and/or images reviewed: Labs reviewed by me, Image(s) reviewed by me Problem List/Assessment/Plan Problem List/Assessment/Plan # Left foot diabetic ulcer and abscess # Left foot wet/gas gangrene 4th toe # ? Sepsis from ulcer # Peripheral arterial disease # Osteomyelitis in the 4th proximal phalanx of the left foot. - Continuously monitor lab - Final culture showing possible staph aureus and Enterococcus faecalis sensitive to vancomycin, discontinued Zosyn. - MRI left foot showe Osteomyelitis in the 4th proximal phalanx of the left foot. Soft tissue swelling representing either postprocedural change or ulceration and gas. - Postoperative day 4 ( 1st procedure) status post Left foot I&D bone with 4th toe amputation, sent to bone biopsy, patient tolerated the procedure well. - Postoperative day 2(second procedure) status post Left foot I&D bone with 4th toe amputation, delayed closure, patient tolerated the procedure well. - Recommend patient has 6 weeks of IV antibiotics, we will get antibiotics during hemodialysis session through the catheter. - Consulted medical social consultant. # Uncontrolled type 2 diabetes mellitus With the HbA1c 11.2 - continuously monitor blood glucose - currently on 30 units Lantus and 3 units lispro t.i.d. - on moderate sliding scale # Anemia of chronic kidney disease # ESRD on HD MWF - consulted Nephrology it for possible dialysis - Epogen 50362 IV post hemodialysis - HD today # hypertensive urgency - continuously monitor - resumed home meds - giving hydralazine 10 mg p.r.n. if SBP more than 180 SCDs for now No GI be PPX NPO after midnight Reconciled home meds Goals of care discussed with the patient and family for more than 27 minutes: Full code status Case management discussed with Dr Martinez, patient and nurse. pending case management work for home health for IV antibiotics Plan discussed with: Patient Date of Service: Feb 14, 2024 Billing Provider: BISI MARTINEZ MD Common Visit Codes: [id number] INP/OBS CARE(HIGH) DIPIKAPAYAL MARTINEZKHADIJAH RESIDENT Feb 14, 2024 15:49 BISI MARTINEZ MD Feb 15, 2024 23:03
[2024-02-14] MEDS: VANCOMYCIN 500mg/100mL 100 ML IV ONE ×3 (17:45→22:19)
--- NOTE | 2024-02-14 21:02 | DVHPN2 ---
Progress Note Date Seen: Feb 14, 2024 Medical Necessity Reason Pt with a Central, PICC or Fol: No Subjective Patient reports: No new complaints Review of Systems: Deferred Objective vital signs Vital Sign Date Time Temp Pulse Resp B/P (MAP) Pulse Ox O2 Delivery O2 Flow Rate FiO2 02/14/24 17:00 98.1 73 18 138/68 (91) 96 98.1 02/14/24 08:00 Room Air* 0 21 Total Intake and Output 02/13/24 02/13/24 02/14/24 15:00 23:00 07:00 Intake Total 600 ml 150 ml Output Total 0 ml Balance 600 ml 150 ml medications Current Medications Medications Dose Ordered Sig/[place] Route Start Time Stop Time Status Last Admin Dose Admin Vancomycin HCl 0 ml @ 0 mls/hr UD IV 02/08/24 23:30 Multivit/Ca Carb/ B Cmplx/FA/Prenat 1 tab DAILY PO 02/09/24 10:00 02/14/24 09:08 1 TAB Sevelamer HCl 800 mg TIDWM PO 02/09/24 08:00 02/14/24 17:39 800 MG Sodium Chloride 10 ml Q8HR IV 02/09/24 06:00 02/14/24 11:24 10 ML Acetaminophen/ Hydrocodone Bitart 1 tab Q4HP PRN PO 02/08/24 23:30 02/14/24 16:03 1 TAB Ondansetron HCl 4 mg Q4HP PRN IV 02/08/24 23:30 Docusate Sodium 100 mg BIDPRN PRN PO 02/08/24 23:30 Acetaminophen 650 mg Q6HP PRN PO 02/08/24 23:30 02/12/24 00:03 650 MG Morphine Sulfate 2 mg Q4HPRN PRN IV 02/08/24 23:30 02/11/24 23:55 2 MG Nitroglycerin 0.4 mg Q5MINP PRN SL 02/08/24 23:30 Morphine Sulfate 2 mg Q30M PRN IV 02/08/24 23:30 Aspirin 81 mg DAILY PO 02/09/24 10:00 02/14/24 09:09 81 MG Insulin Human Lispro 5 units TID SC 02/12/24 06:00 02/14/24 07:15 5 UNITS Amlodipine Besylate 10 mg DAILY PO 02/12/24 10:00 02/14/24 09:09 10 MG Carvedilol 6.25 mg Q12HR PO 02/12/24 10:00 02/14/24 09:09 6.25 MG Insulin Human Regular HS SC 02/13/24 22:00 02/13/24 21:43 6 UNITS Insulin Human Regular AC SC 02/13/24 07:00 02/14/24 16:06 9 UNITS Dextrose 50 ml UD PRN IV 02/13/24 01:45 Insulin Glargine 30 units QAM SC 02/14/24 07:00 02/14/24 07:16 30 UNITS Examination: MSK:Abnormal, SKIN:Abnormal, NEURO:Normal laboratory and microbiology Laboratory Tests 02/14/24 06:04 Test 02/14/24 06:04 Range/Units Serum Glucose 222 H 74-106 mg/dL Microbiology Date/Time Source Procedure Growth Status 02/10/24 14:40 Foot Left Gram Stain - Final Resulted 02/10/24 14:40 Foot Left Anaerobic Culture - Preliminary Resulted 02/10/24 14:40 Aerobic Culture - Final Staphylococcus aureus Enterococcus faecalis Resulted 02/08/24 15:16 Blood Blood Culture - Final NO GROWTH AFTER 5 DAYS OF INCUBATION. Complete Problem List/Assessment/Plan Problem List/Assessment/Plan ESRD on hemodialysis Diabetes mellitus type 2 Peripheral arterial disease Left foot diabetic ulcers, Anemia of chronic kidney disease recs HD tomorrow iv abx gfr dosing recommended Plan discussed with: Patient Dietary Evaluation Review Recommendations by RD: Protein Supplementation, Add Supplement Feedings Comments: 1. Consider a renal standard, CCHO 60g diet. 2. Add Prostat @ 1 pk bid. Expected Outcomes/Goals: Patient labs and appetite to improve Patient wound to improve MIKAYLA FERRARI MD Feb 14, 2024 21:02
[2024-02-14] MEDS ORDERED: VANCOMYCIN 500mg/100mL 100 ML IV ONE (21:45)
[2024-02-15] VITALS (11 sets, daily range): BP systolic 131–161; BP diastolic 56–75; PULSE 64–78; RESP 16–18; TEMP 97.9–98.9; O2SAT 95–100
[2024-02-15 06:13] LABS: Basophils # (auto) 0.1 10 ^3/uL (0-0.2); Basophils % (auto) 0.6 % (0.0-2.0); Eosinophils # (auto) 0.2 10 ^3/uL (0-0.8); Eosinophils % (auto) 1.2 % (0.0-7.0); Hematocrit 28.1 % (36.0-46.0); Hemoglobin 9.3 g/dL (12.2-16.2); Lymphocytes # (auto) 1.6 10 ^3/uL (0.4-5.4); Lymphocytes % (auto) 12.7 % (10.0-50.0); Mean Corpuscular Hemoglobin 31.5 pg (28.0-32.0); Mean Corpuscular Hgb Conc. 33.3 g/dL (32.0-36.0); Mean Corpuscular Volume 94.7 fL (80.0-100.0); Monocytes # (auto) 1.3 10 ^3/uL (0-1.3); Monocytes % (auto) 9.8 % (0.0-12.0); Neutrophils # (auto) 9.7 10 ^3/uL (1.6-8.6); Neutrophils % (auto) 75.7 % (37.0-80.0); Nucleated Red Blood Cells % 0.1 %; Platelet Count (auto) 387 10^3/uL (140-450); Red Blood Cells 2.96 10^6/uL (4.0-5.20); Red Cell Distribution Width 13.7 % (11.8-14.3); White Blood Cell 12.8 10^3/uL (4.4-10.8)
[2024-02-15 06:22] LABS: Anion Gap 14 (5-15); Carbon Dioxide 23 mmol/L (20-31); Chloride 98 mmol/L (98-107)
[2024-02-15 06:24] LABS: Calcium 8.8 mg/dL (8.7-10.4)
[2024-02-15 06:28] LABS: BUN/Creatinine Ratio 11.8 (10.0-20.0)
[2024-02-15 06:36] LABS: Blood Urea Nitrogen 61 mg/dL (9-23); Glucose 139 mg/dL (74-106); Sodium 135 mmol/L (136-145)
[2024-02-15 06:37] LABS: Potassium 5.6 mmol/L (3.5-5.1)
--- NOTE | 2024-02-15 09:09 | DVHPNRES ---
Progress Note Date Seen: Feb 15, 2024 Resident Creating Document: GIULIANO BAR RESIDENT Medical Necessity Reason Pt with a Central, PICC or Fol: No Subjective Review of Systems JUVENAL GRANDA is a 53 years old female with a PMH of HTN, type 2 DM, ESRD on HD MWF presented to the ED for the evaluation of left foot wound ( left 4th toe and base of 4th toe metatarsal head ). Patient seen and examined at the bedside. Postoperative day 1(second procedure) status post Left foot I&D bone with 4th toe amputation, delayed closure, patient tolerated the procedure well. Patient reported improvement in the pain since admission. Currently on vancomycin. Continuously monitoring blood glucose. Recommend patient has 6 weeks of IV antibiotics, we will get antibiotics during hemodialysis session through the catheter. Consulted social media assistant, pending case management work for home health for IV antibiotics. Patient reports: No new complaints, Feels better Objective vital signs Vital Sign Date Time Temp Pulse Resp B/P (MAP) Pulse Ox O2 Delivery O2 Flow Rate FiO2 02/15/24 08:56 64 166/69 02/15/24 05:00 98.8 18 97 98.8 02/14/24 20:00 Room Air* 0 21 Total Intake and Output 02/14/24 02/14/24 02/15/24 15:00 23:00 07:00 Intake Total 1594 ml 800 ml Balance 1594 ml 800 ml medications Current Medications Medications Dose Ordered Sig/Latonia Route Start Time Stop Time Status Last Admin Dose Admin Vancomycin HCl 0 ml @ 0 mls/hr UD IV 02/08/24 23:30 Multivit/Ca Carb/ B Cmplx/FA/Prenat 1 tab DAILY PO 02/09/24 10:00 02/15/24 08:56 1 TAB Sevelamer HCl 800 mg TIDWM PO 02/09/24 08:00 02/15/24 08:56 800 MG Sodium Chloride 10 ml Q8HR IV 02/09/24 06:00 02/15/24 06:29 10 ML Acetaminophen/ Hydrocodone Bitart 1 tab Q4HP PRN PO 02/08/24 23:30 02/15/24 07:03 1 TAB Ondansetron HCl 4 mg Q4HP PRN IV 02/08/24 23:30 Docusate Sodium 100 mg BIDPRN PRN PO 02/08/24 23:30 Acetaminophen 650 mg Q6HP PRN PO 02/08/24 23:30 02/12/24 00:03 650 MG Morphine Sulfate 2 mg Q4HPRN PRN IV 02/08/24 23:30 02/11/24 23:55 2 MG Nitroglycerin 0.4 mg Q5MINP PRN SL 02/08/24 23:30 Morphine Sulfate 2 mg Q30M PRN IV 02/08/24 23:30 Aspirin 81 mg DAILY PO 02/09/24 10:00 02/15/24 08:56 81 MG Insulin Human Lispro 5 units TID SC 02/12/24 06:00 02/15/24 06:34 5 UNITS Amlodipine Besylate 10 mg DAILY PO 02/12/24 10:00 02/15/24 08:56 10 MG Carvedilol 6.25 mg Q12HR PO 02/12/24 10:00 02/15/24 08:56 6.25 MG Insulin Human Regular HS SC 02/13/24 22:00 02/14/24 22:54 8 UNITS Insulin Human Regular AC SC 02/13/24 07:00 02/15/24 06:37 2 UNITS Dextrose 50 ml UD PRN IV 02/13/24 01:45 Insulin Glargine 30 units QAM SC 02/14/24 07:00 02/15/24 06:41 30 UNITS Examination Pt is lying on bed General Appearance: Alert, Oriented X3, Cooperative, Not in acute distress HEENT: Atraumatic, Mucous membranes moist/pink Respiratory: Clear to auscultation, Normal air movement, No added sounds Cardiovascular: Regular rate, Normal S1, Normal S2, No murmurs Abdominal: Active bowel sounds, Soft, no distention, no tenderness Extremities: wound is wrapped in sterile dressing Skin: No Significant rash, except past surgical scars Neuro: Normal speech, sensorimotor deficits none Psych/Mental Status: Mental status NL, Mood NL Nurse was there as sharperone during examination laboratory and microbiology Laboratory Tests 02/15/24 05:46 Test 02/15/24 05:46 Range/Units Serum Glucose 139 H 74-106 mg/dL Microbiology Date/Time Source Procedure Growth Status 02/10/24 14:40 Foot Left Gram Stain - Final Resulted 02/10/24 14:40 Foot Left Anaerobic Culture - Preliminary Resulted 11/25/24 14:40 Aerobic Culture - Final Staphylococcus aureus Enterococcus faecalis Resulted 02/08/24 15:16 Blood Blood Culture - Final NO GROWTH AFTER 5 DAYS OF INCUBATION. Complete Labs and/or images reviewed: Labs reviewed by me, Image(s) reviewed by me Problem List/Assessment/Plan Problem List/Assessment/Plan # Left foot diabetic ulcer and abscess # Left foot wet/gas gangrene 4th toe # ? Sepsis from ulcer # Peripheral arterial disease # Osteomyelitis in the 4th proximal phalanx of the left foot. - Continuously monitor lab - Final culture showing possible staph aureus and Enterococcus faecalis sensitive to vancomycin, discontinued Zosyn. - MRI left foot showe Osteomyelitis in the 4th proximal phalanx of the left foot. Soft tissue swelling representing either postprocedural change or ulceration and gas. - Postoperative day 4 ( 1st procedure) status post Left foot I&D bone with 4th toe amputation, sent to bone biopsy, patient tolerated the procedure well. - Postoperative day 2(second procedure) status post Left foot I&D bone with 4th toe amputation, delayed closure, patient tolerated the procedure well. - Recommend patient has 6 weeks of IV antibiotics, we will get antibiotics during hemodialysis session through the catheter. - Consulted social media assistant. # Uncontrolled type 2 diabetes mellitus With the HbA1c 11.2 - continuously monitor blood glucose - currently on 30 units Lantus and 3 units lispro t.i.d. - on moderate sliding scale # Anemia of chronic kidney disease # ESRD on HD MWF # Hyperkalemia - consulted Nephrology it for possible dialysis - Epogen [id number] IV post hemodialysis - HD today # hypertensive urgency - continuously monitor - resumed home meds - giving hydralazine 10 mg p.r.n. if SBP more than 180 SCDs for now No GI be PPX NPO after midnight Reconciled home meds Goals of care discussed with the patient and family for more than 27 minutes: Full code status Case management discussed with Dr Stinson, patient and nurse. Pending case management work for home health for IV antibiotics Plan discussed with: Patient My Orders My Orders Orders - GIULIANO BAR RESIDENT Procedure Category Date Status Time Notify Provider NOTICE 02/14/24 Transmitted Malnutrition 16:28 Dietary NOTICE 02/14/24 Transmitted Recommendations 16:28 Dietary Evaluation Review Recommendations by RD: Protein Supplementation, Add Supplement Feedings Comments: 1. Consider a renal standard, CCHO 60g diet. 2. Add Prostat @ 1 pk bid. Expected Outcomes/Goals: Patient labs and appetite to improve Patient wound to improve Date of Service: Feb 15, 2024 Billing Provider: DOT STINSON MD Common Visit Codes: [id number] INP/OBS CARE(HIGH) GIULIANO BAR RESIDENT Feb 15, 2024 09:09 DOT STINSON MD Feb 15, 2024 21:22
[2024-02-15] MEDS: ALBUTEROL SULF 2.5 MG/0.5ML(0.5%) NEB SOLN NEB ONE (09:15)
[2024-02-15] MEDS: InsuLIN REG 1unit/0.01ml Soln (100units/ml) IV ONE (09:15)
[2024-02-15] MEDS: ALBUTEROL SULF 2.5 MG/0.5ML(0.5%) NEB SOLN ONE (09:21)
--- NOTE | 2024-02-15 17:03 | DVHSR ---
APPROVED REPORT EXAM: Two-dimensional and M-mode echocardiogram with Doppler and color Doppler. Blood Pressure: 156/62 mmHg INDICATION SOB RISK FACTORS Height: 4'10", Weight: 123 DIMENSIONS LVDd3.9 (3.8-5.7cm)LA (2D)3.8 (1.9-4.0cm)Aortic Root2.6 (2.0-3.7cm) LVDs2.4 (2.5-4.0cm)LA (MM) (1.9-4.0cm)Aortic Cusp Exc1.3 (1.5-2.0cm) EF (%) 60.0 (55-70%)Rt. Atrium3.2 (1.9-4.0cm)Asc. Aorta cm IVSd1.5 (0.7-1.1cm)RV (D)3.1 (1.8-2.4cm) PWd1.3 (0.7-1.1cm) Mitral Valve MitralMitral Stenosis E wave1.19m/sMV Mean GR.3mmHg A wave1.16m/sMV Peak GR.6mmHg E/A ratio1.02D MVAcm2 DECEL [id number] 1/2 [id number] IVRTmsDop MVA2.90cm2 Aortic Valve Aortic ValveAortic Stenosis V11.60m/Kd Mean GR.12mmHg V22.20m/Kd Peak GR.19mmHg LVOT Diameter1.7 (1.8-2.4cm)Doppler AVA1.65cm2 Pulmonic Valve V21.16m/s Tricuspid Valve TR Velocity2.72m/s [id number] Conclusion lvef 70% by visual estimate severe LVH mild aortic stenosis no severe valve abnormalities noted normal rv function trivial to small pericardial effusion noted
--- NOTE | 2024-02-15 19:53 | DVHPN2 ---
Progress Note Date Seen: Feb 15, 2024 Medical Necessity Reason Pt with a Central, PICC or Fol: No Subjective Patient reports: No new complaints Review of Systems: HEENT:Normal, CVS:Normal, RESPIRATORY:Normal, GI:Normal, :Normal, MSK:Normal, NEURO:Normal Objective vital signs Vital Sign Date Time Temp Pulse Resp B/P (MAP) Pulse Ox O2 Delivery O2 Flow Rate FiO2 02/15/24 17:00 97.9 64 17 131/56 (81) 95 97.9 02/15/24 10:00 Room Air 0.0 02/15/24 09:24 21 Total Intake and Output 02/14/24 02/14/24 02/15/24 15:00 23:00 07:00 Intake Total 1594 ml 800 ml Balance 1594 ml 800 ml medications Current Medications Medications Dose Ordered Sig/Latonia Route Start Time Stop Time Status Last Admin Dose Admin Vancomycin HCl 0 ml @ 0 mls/hr UD IV 02/08/24 23:30 Multivit/Ca Carb/ B Cmplx/FA/Prenat 1 tab DAILY PO 02/09/24 10:00 02/15/24 08:56 1 TAB Sevelamer HCl 800 mg TIDWM PO 02/09/24 08:00 02/15/24 16:36 800 MG Sodium Chloride 10 ml Q8HR IV 02/09/24 06:00 02/15/24 14:27 10 ML Acetaminophen/ Hydrocodone Bitart 1 tab Q4HP PRN PO 02/08/24 23:30 02/15/24 11:47 1 TAB Ondansetron HCl 4 mg Q4HP PRN IV 02/08/24 23:30 Docusate Sodium 100 mg BIDPRN PRN PO 02/08/24 23:30 Acetaminophen 650 mg Q6HP PRN PO 02/08/24 23:30 02/12/24 00:03 650 MG Morphine Sulfate 2 mg Q4HPRN PRN IV 02/08/24 23:30 02/11/24 23:55 2 MG Nitroglycerin 0.4 mg Q5MINP PRN SL 02/08/24 23:30 Morphine Sulfate 2 mg Q30M PRN IV 02/08/24 23:30 Aspirin 81 mg DAILY PO 02/09/24 10:00 02/15/24 08:56 81 MG Insulin Human Lispro 5 units TID SC 02/12/24 06:00 02/15/24 14:28 5 UNITS Amlodipine Besylate 10 mg DAILY PO 02/12/24 10:00 02/15/24 08:56 10 MG Carvedilol 6.25 mg Q12HR PO 02/12/24 10:00 02/15/24 08:56 6.25 MG Insulin Human Regular HS SC 02/13/24 22:00 02/14/24 22:54 8 UNITS Insulin Human Regular AC SC 02/13/24 07:00 02/15/24 16:41 3 UNITS Dextrose 50 ml UD PRN IV 02/13/24 01:45 Insulin Glargine 30 units QAM SC 02/14/24 07:00 02/15/24 06:41 30 UNITS Examination: GENERAL:Normal, HEENT:Normal, NECK:Normal, LUNGS:Normal, CVS:Normal, ABDOMEN:Normal, MSK:Abnormal, SKIN:Normal, NEURO:Normal, :Normal laboratory and microbiology Laboratory Tests 02/15/24 13:00 02/15/24 05:46 Test 02/15/24 05:46 Range/Units Serum Glucose 139 H 74-106 mg/dL Microbiology Date/Time Source Procedure Growth Status 02/10/24 14:40 Foot Left Gram Stain - Final Resulted 02/10/24 14:40 Foot Left Anaerobic Culture - Preliminary Resulted 02/10/24 14:40 Aerobic Culture - Final Staphylococcus aureus Enterococcus faecalis Resulted 02/08/24 15:16 Blood Blood Culture - Final NO GROWTH AFTER 5 DAYS OF INCUBATION. Complete Problem List/Assessment/Plan Problem List/Assessment/Plan ESRD on hemodialysis Diabetes mellitus type 2 Peripheral arterial disease Left foot diabetic ulcers, Anemia of chronic kidney disease Hyperkalemia recs HD today iv abx gfr dosing recommended Plan discussed with: Patient My Orders My Orders Orders - MIKAYLA FERRARI MD Procedure Category Date Status Time Hemodialysis Orders ORDERS 02/15/24 Transmitted 04:00 Epoetin Damian-Epbx PHA 02/15/24 In Process (Retacrit) 21:00 Dietary Evaluation Review Recommendations by RD: Protein Supplementation, Add Supplement Feedings Comments: 1. Consider a renal standard, CCHO 60g diet. 2. Add Prostat @ 1 pk bid. Expected Outcomes/Goals: Patient labs and appetite to improve Patient wound to improve MIKAYLA FERRARI MD Feb 15, 2024 19:53
[2024-02-15] MEDS: EPOETIN ALFA-EPBX 4,000 UNIT/ML VIAL SC ONE (21:00)
[2024-02-15] MEDS: SODIUM CHL 0.9% 1000 ML BAG XX ONE (21:26)
[2024-02-16] VITALS (11 sets, daily range): BP systolic 128–161; BP diastolic 58–85; PULSE 70–84; RESP 16–20; TEMP 98.3–99.2; O2SAT 93–98
[2024-02-16 06:58] LABS: Basophils # (auto) 0.1 10 ^3/uL (0-0.2); Basophils % (auto) 0.4 % (0.0-2.0); Eosinophils # (auto) 0.1 10 ^3/uL (0-0.8); Eosinophils % (auto) 0.7 % (0.0-7.0); Hematocrit 28.8 % (36.0-46.0); Hemoglobin 9.4 g/dL (12.2-16.2); Lymphocytes # (auto) 1.4 10 ^3/uL (0.4-5.4); Lymphocytes % (auto) 11.2 % (10.0-50.0); Mean Corpuscular Hemoglobin 31.3 pg (28.0-32.0); Mean Corpuscular Hgb Conc. 32.5 g/dL (32.0-36.0); Mean Corpuscular Volume 96.2 fL (80.0-100.0); Monocytes % (auto) 7.9 % (0.0-12.0); Neutrophils # (auto) 10.2 10 ^3/uL (1.6-8.6); Neutrophils % (auto) 79.8 % (37.0-80.0); Nucleated Red Blood Cells % 0.2 %; Platelet Count (auto) 410 10^3/uL (140-450); Red Blood Cells 2.99 10^6/uL (4.0-5.20); Red Cell Distribution Width 13.7 % (11.8-14.3); White Blood Cell 12.8 10^3/uL (4.4-10.8)
[2024-02-16 07:09] LABS: Anion Gap 9 (5-15); Sodium 138 mmol/L (136-145)
[2024-02-16 07:10] LABS: Calcium 8.8 mg/dL (8.7-10.4)
[2024-02-16 07:15] LABS: BUN/Creatinine Ratio 11.1 (10.0-20.0)
[2024-02-16 07:34] LABS: Blood Urea Nitrogen 45 mg/dL (9-23); Carbon Dioxide 33 mmol/L (20-31); Chloride 96 mmol/L (98-107); Glucose 315 mg/dL (74-106); Potassium 5.5 mmol/L (3.5-5.1)
[2024-02-16] MEDS: BUPIVACAINE 0.5% P/F INJ 10 ML VIAL ONE (08:02)
[2024-02-16] MEDS: ALBUTEROL SULF 2.5 MG/0.5ML(0.5%) NEB SOLN NEB ONE (09:39)
[2024-02-16] MEDS: DEXTROSE (50%) 50ML SYRG IV ONE (12:21)
[2024-02-16] MEDS: SODIUM BICARB 8.4% 50Meq/50ml SYR INJ IV ONE (12:21)
[2024-02-16] MEDS: InsuLIN REG 1unit/0.01ml Soln (100units/ml) IV ONE (12:40)
[2024-02-16] MEDS: VANCOMYCIN 500mg/100mL 100 ML IV ONE (13:18)
--- NOTE | 2024-02-16 14:52 | DVHPNRES ---
Progress Note Date Seen: Feb 16, 2024 Resident Creating Document: KELLY VU RESIDENT Medical Necessity Reason Pt with a Central, PICC or Fol: No Subjective Review of Systems Mesha Crouch is a 53 year-old female patient who presents to ED with chief complaint of painful and nonhealing left foot wound. Denies any trauma, palpitation, syncope, chest pain, dyspnea, abdominal pain, nausea, vomiting, diarrhea, constipation, recent travel, sick contacts, dysuria, bleeding and motor or sensory deficits. Past medical history: HTN, type 2 DM, ESRD on HD MWF Surgical history: Right tunneled catheter placed in internal jugular vein Family history: Noncontributory Social history: Lives in [place] with family. Denies current tobacco, alcohol and other drug abuse Allergies: Denies Home medication: Per EMR Patient seen and examined at the bedside. Currently status post left 4th toe amputation and posterior delayed closure intervention, continue with IV antibiotic (vancomycin). Arranging for IV antibiotics as outpatient (she will receive vancomycin during her hemodialysis session for six weeks) Objective vital signs Vital Sign Date Time Temp Pulse Resp B/P (MAP) Pulse Ox O2 Delivery O2 Flow Rate FiO2 02/16/24 09:50 84 18 96 02/16/24 09:40 Room Air* 0 21 02/16/24 09:00 99.2 144/66 (92) 99.2 Total Intake and Output 02/15/24 02/15/24 02/16/24 15:00 23:00 07:00 Intake Total 1000 ml 105 ml Output Total 350 ml Balance 1000 ml -245 ml medications Current Medications Medications Dose Ordered Sig/Latonia Route Start Time Stop Time Status Last Admin Dose Admin Vancomycin HCl 0 ml @ 0 mls/hr UD IV 02/08/24 23:30 Multivit/Ca Carb/ B Cmplx/FA/Prenat 1 tab DAILY PO 02/09/24 10:00 02/16/24 08:54 1 TAB Sevelamer HCl 800 mg TIDWM PO 02/09/24 08:00 02/16/24 12:20 800 MG Sodium Chloride 10 ml Q8HR IV 02/09/24 06:00 02/16/24 06:20 10 ML Acetaminophen/ Hydrocodone Bitart 1 tab Q4HP PRN PO 02/08/24 23:30 02/16/24 11:22 1 TAB Ondansetron HCl 4 mg Q4HP PRN IV 02/08/24 23:30 Docusate Sodium 100 mg BIDPRN PRN PO 02/08/24 23:30 Acetaminophen 650 mg Q6HP PRN PO 02/08/24 23:30 02/12/24 00:03 650 MG Morphine Sulfate 2 mg Q4HPRN PRN IV 02/08/24 23:30 02/11/24 23:55 2 MG Nitroglycerin 0.4 mg Q5MINP PRN SL 02/08/24 23:30 Morphine Sulfate 2 mg Q30M PRN IV 02/08/24 23:30 Aspirin 81 mg DAILY PO 02/09/24 10:00 02/16/24 08:56 81 MG Insulin Human Lispro 5 units TID SC 02/12/24 06:00 02/16/24 06:22 5 UNITS Amlodipine Besylate 10 mg DAILY PO 02/12/24 10:00 02/16/24 08:55 10 MG Carvedilol 6.25 mg Q12HR PO 02/12/24 10:00 02/16/24 08:55 6.25 MG Insulin Human Regular HS SC 02/13/24 22:00 02/14/24 22:54 8 UNITS Insulin Human Regular AC SC 02/13/24 07:00 02/16/24 12:41 4 UNITS Dextrose 50 ml UD PRN IV 02/13/24 01:45 Insulin Glargine 30 units QAM SC 02/14/24 07:00 02/16/24 06:19 30 UNITS Examination Patient lying in bed, in no acute distress General: Lucid, afebrile, mucosae are moist Cardiovascular: Normal S1 and S2. No murmurs, gallops or rubs Respiratory: Normal ventilation mechanics. Clear lung sounds on auscultation Abdomen: Soft, nontender, no organomegaly, normal bowel sounds MSK/skin: Mobilizes 4 limbs. Skin is dry and warm. Fourth left toe amputation, no signs of erythema nor secretion. Presents right internal jugular vein tunneled catheter Neurological: Oriented in 3 spheres. No motor no sensitive deficits. Pupils are isocoric and reactive laboratory and microbiology Laboratory Tests 02/16/24 13:37 02/16/24 05:47 Test 02/16/24 05:47 Range/Units Serum Glucose 315 H 74-106 mg/dL Microbiology Date/Time Source Procedure Growth Status 02/10/24 14:40 Foot Left Gram Stain - Final Complete 02/10/24 14:40 Foot Left Anaerobic Culture - Final Complete 02/10/24 14:40 Aerobic Culture - Final Staphylococcus aureus Enterococcus faecalis Complete 02/08/24 15:16 Blood Blood Culture - Final NO GROWTH AFTER 5 DAYS OF INCUBATION. Complete Problem List/Assessment/Plan Problem List/Assessment/Plan Left foot diabetic foot complicated with gangrene and osteomyelitis of 4th toe - status post amputation and delayed closure Completed x-ray and MRI of foot which evidence osteomyelitis 4th proximal phalanx of left foot, soft tissue swelling representing either postprocedural change or ulceration and gas. Podiatry on board: Completed left foot incision and drainage and amputation of 4th toe. Posteriorly completed delayed closure. Procedure well-tolerated Surgical and wound culture present Staphylococcus aureus and Enterococcus faecalis Identity Management Consultant on board: Planning discharge with home health for prolonged IV treatment with vancomycin. Patient should receive IV vancomycin during the last hour of her hemodialysis session through hemodialysis catheter, with weekly troughs of serum vancomycin. Sepsis from left foot osteomyelitis due to Staphylococcus aureus and Enterococcus faecalis Continue prolonged adjusted IV antibiotic (vancomycin) Peripheral arterial disease Currently on aspirin atorvastatin Uncontrolled type 2 diabetes mellitus (HbA1c 11.2) Currently on 30 units Lantus and 3 units lispro t.i.d. On moderate sliding scale Anemia of chronic kidney disease Monitor Nephrology on board: Epogen [id number] IV post hemodialysis ESRD on HD MWF Nephrology on board. Planning discharge to receive IV antibiotics during hemodialysis session through hemodialysis catheter Hyperkalemia Patient is dependent on hemodialysis. Indicated in multiple occasions hyperkalemia protocol Last session of hemodialysis on 02/15/2024 Hypertensive urgency Resumed home meds Giving hydralazine 10 mg p.r.n. if SBP more than 180 Goals of care discussed with the patient and family for more than 27 minutes: Full code status Case management discussed with Dr Stinson, patient and nurse: Patient currently status post 4th toe amputation and delayed closure, medically cleared to be discharged home. Pending arrangement of IV antibiotic for six weeks due to osteomyelitis, we will indicate antibiotics through tunneled catheter during last hour of hemodialysis session. Have discussed plan with patient, agrees with plan of care Plan discussed with: Patient, Spouse, Other (Nurses) My Orders My Orders Orders - KELLY VU RESIDENT Procedure Category Date Status Time * Identity Management Consultant CONS 02/16/24 Transmitted Consult 11:00 Dietary Evaluation Review Recommendations by RD: Protein Supplementation, Add Supplement Feedings Comments: 1. Consider a renal standard, CCHO 60g diet. 2. Add Prostat @ 1 pk bid. Expected Outcomes/Goals: Patient labs and appetite to improve Patient wound to improve Date of Service: Feb 16, 2024 Billing Provider: DOT STINSON MD Common Visit Codes: [id number] INP/OBS CARE(HIGH) KELLY VU RESIDENT Feb 16, 2024 14:52 DOT STINSON MD Feb 16, 2024 23:05
--- NOTE | 2024-02-16 17:17 | DVHPN2 ---
Progress Note Date Seen: Feb 16, 2024 Medical Necessity Reason Pt with a Central, PICC or Fol: No Subjective Patient reports: No new complaints Review of Systems: Deferred Objective vital signs Vital Sign Date Time Temp Pulse Resp B/P (MAP) Pulse Ox O2 Delivery O2 Flow Rate FiO2 02/16/24 14:32 128/58 (81) 02/16/24 13:00 99.1 82 16 95 99.1 02/16/24 09:40 Room Air* 0 21 Total Intake and Output 02/15/24 02/15/24 02/16/24 15:00 23:00 07:00 Intake Total 1000 ml 105 ml Output Total 350 ml Balance 1000 ml -245 ml medications Current Medications Medications Dose Ordered Sig/Latonia Route Start Time Stop Time Status Last Admin Dose Admin Vancomycin HCl 0 ml @ 0 mls/hr UD IV 02/08/24 23:30 Multivit/Ca Carb/ B Cmplx/FA/Prenat 1 tab DAILY PO 02/09/24 10:00 02/16/24 08:54 1 TAB Sevelamer HCl 800 mg TIDWM PO 02/09/24 08:00 02/16/24 12:20 800 MG Sodium Chloride 10 ml Q8HR IV 02/09/24 06:00 02/16/24 15:19 10 ML Acetaminophen/ Hydrocodone Bitart 1 tab Q4HP PRN PO 02/08/24 23:30 02/16/24 11:22 1 TAB Ondansetron HCl 4 mg Q4HP PRN IV 02/08/24 23:30 Docusate Sodium 100 mg BIDPRN PRN PO 02/08/24 23:30 Acetaminophen 650 mg Q6HP PRN PO 02/08/24 23:30 02/12/24 00:03 650 MG Morphine Sulfate 2 mg Q4HPRN PRN IV 02/08/24 23:30 02/11/24 23:55 2 MG Nitroglycerin 0.4 mg Q5MINP PRN SL 02/08/24 23:30 Morphine Sulfate 2 mg Q30M PRN IV 02/08/24 23:30 Aspirin 81 mg DAILY PO 02/09/24 10:00 02/16/24 08:56 81 MG Insulin Human Lispro 5 units TID SC 02/12/24 06:00 02/16/24 15:49 5 UNITS Amlodipine Besylate 10 mg DAILY PO 02/12/24 10:00 02/16/24 08:55 10 MG Carvedilol 6.25 mg Q12HR PO 02/12/24 10:00 02/16/24 08:55 6.25 MG Insulin Human Regular HS SC 02/13/24 22:00 02/14/24 22:54 8 UNITS Insulin Human Regular AC SC 02/13/24 07:00 02/16/24 12:41 4 UNITS Dextrose 50 ml UD PRN IV 02/13/24 01:45 Insulin Glargine 30 units QAM SC 02/14/24 07:00 02/16/24 06:19 30 UNITS Atorvastatin Calcium 20 mg HS PO 02/16/24 22:00 Examination: LUNGS:Abnormal, MSK:Abnormal, SKIN:Abnormal laboratory and microbiology Laboratory Tests 02/16/24 13:37 02/16/24 05:47 Test 02/16/24 05:47 Range/Units Serum Glucose 315 H 74-106 mg/dL Microbiology Date/Time Source Procedure Growth Status 02/10/24 14:40 Foot Left Gram Stain - Final Complete 02/10/24 14:40 Foot Left Anaerobic Culture - Final Complete 02/10/24 14:40 Aerobic Culture - Final Staphylococcus aureus Enterococcus faecalis Complete 02/08/24 15:16 Blood Blood Culture - Final NO GROWTH AFTER 5 DAYS OF INCUBATION. Complete Problem List/Assessment/Plan Problem List/Assessment/Plan ESRD on hemodialysis Diabetes mellitus type 2 Peripheral arterial disease Left foot diabetic ulcers, Anemia of chronic kidney disease Hyperkalemia recs HD next tomorrow vs saturday iv abx gfr dosing recommended Plan discussed with: Patient My Orders My Orders Orders - MIKAYLA FERRARI MD Procedure Category Date Status Time Consistent DIET 02/16/24 Transmitted Carb(Ccho)Diabetes Breakfast Dietary Evaluation Review Recommendations by RD: Protein Supplementation, Add Supplement Feedings Comments: 1. Consider a renal standard, CCHO 60g diet. 2. Add Prostat @ 1 pk bid. Expected Outcomes/Goals: Patient labs and appetite to improve Patient wound to improve MIKAYLA FERRARI MD Feb 16, 2024 17:17
[2024-02-16] MEDS: BUMETANIDE 2.5mg/10ml (0.25 mg/ml) INJ IV SCH (19:34)
[2024-02-16] MEDS: ATORVASTATIN 20 MG TAB PO SCH (21:26)
[2024-02-17] VITALS (8 sets, daily range): BP systolic 119–155; BP diastolic 56–74; PULSE 64–79; RESP 16–20; TEMP 98–98.8; O2SAT 95–97
[2024-02-17 06:58] LABS: Basophils # (auto) 0.1 10 ^3/uL (0-0.2); Basophils % (auto) 0.5 % (0.0-2.0); Eosinophils # (auto) 0.1 10 ^3/uL (0-0.8); Eosinophils % (auto) 1.1 % (0.0-7.0); Hematocrit 28.9 % (36.0-46.0); Hemoglobin 9.6 g/dL (12.2-16.2); Lymphocytes # (auto) 1.2 10 ^3/uL (0.4-5.4); Lymphocytes % (auto) 10.5 % (10.0-50.0); Mean Corpuscular Hemoglobin 31.6 pg (28.0-32.0); Mean Corpuscular Hgb Conc. 33.2 g/dL (32.0-36.0); Mean Corpuscular Volume 95.1 fL (80.0-100.0); Monocytes # (auto) 0.7 10 ^3/uL (0-1.3); Monocytes % (auto) 5.6 % (0.0-12.0); Neutrophils # (auto) 9.8 10 ^3/uL (1.6-8.6); Neutrophils % (auto) 82.3 % (37.0-80.0); Nucleated Red Blood Cells % 0.1 %; Platelet Count (auto) 374 10^3/uL (140-450); Red Blood Cells 3.04 10^6/uL (4.0-5.20); Red Cell Distribution Width 13.8 % (11.8-14.3); White Blood Cell 11.9 10^3/uL (4.4-10.8)
[2024-02-17 07:07] LABS: Anion Gap 8 (5-15); Potassium 3.7 mmol/L (3.5-5.1); Sodium 140 mmol/L (136-145)
[2024-02-17 07:09] LABS: Calcium 9.4 mg/dL (8.7-10.4)
[2024-02-17 07:14] LABS: BUN/Creatinine Ratio 10.6 (10.0-20.0)
[2024-02-17 07:23] LABS: Blood Urea Nitrogen 23 mg/dL (9-23); Carbon Dioxide 35 mmol/L (20-31); Chloride 97 mmol/L (98-107); Glucose 132 mg/dL (74-106); Phosphorus 1.8 mg/dL (2.4-5.1)
--- NOTE | 2024-02-17 09:34 | DVHPN2 ---
Progress Note - Dictate Date Seen: Feb 17, 2024 Medical Necessity Reason Pt with a Central, PICC or Fol: No Subjective tolerated treatment vital signs Vital Sign Date Time Temp Pulse Resp B/P (MAP) Pulse Ox O2 Delivery O2 Flow Rate FiO2 02/17/24 09:08 71 130/70 02/17/24 08:30 16 Room Air* 0 21 02/17/24 00:56 98.0 96 98.0 Total Intake and Output 02/16/24 02/16/24 02/17/24 15:00 23:00 07:00 Intake Total 100 ml 940 ml 100 ml Balance 100 ml 940 ml 100 ml medications Current Medications Medications Dose Ordered Sig/Latonia Route Start Time Stop Time Status Last Admin Dose Admin Vancomycin HCl 0 ml @ 0 mls/hr UD IV 02/08/24 23:30 Multivit/Ca Carb/ B Cmplx/FA/Prenat 1 tab DAILY PO 02/09/24 10:00 02/17/24 09:04 1 TAB Sevelamer HCl 800 mg TIDWM PO 02/09/24 08:00 02/17/24 09:04 800 MG Sodium Chloride 10 ml Q8HR IV 02/09/24 06:00 02/17/24 05:25 10 ML Acetaminophen/ Hydrocodone Bitart 1 tab Q4HP PRN PO 02/08/24 23:30 02/16/24 11:22 1 TAB Ondansetron HCl 4 mg Q4HP PRN IV 02/08/24 23:30 Docusate Sodium 100 mg BIDPRN PRN PO 02/08/24 23:30 Acetaminophen 650 mg Q6HP PRN PO 02/08/24 23:30 02/12/24 00:03 650 MG Morphine Sulfate 2 mg Q4HPRN PRN IV 02/08/24 23:30 02/11/24 23:55 2 MG Nitroglycerin 0.4 mg Q5MINP PRN SL 02/08/24 23:30 Morphine Sulfate 2 mg Q30M PRN IV 02/08/24 23:30 Aspirin 81 mg DAILY PO 02/09/24 10:00 02/17/24 09:04 81 MG Insulin Human Lispro 5 units TID SC 02/12/24 06:00 02/17/24 06:47 5 UNITS Amlodipine Besylate 10 mg DAILY PO 02/12/24 10:00 02/17/24 09:05 10 MG Carvedilol 6.25 mg Q12HR PO 02/12/24 10:00 02/17/24 09:08 6.25 MG Insulin Human Regular HS SC 02/13/24 22:00 02/16/24 21:26 3 UNITS Insulin Human Regular AC SC 02/13/24 07:00 02/17/24 06:48 3 UNITS Dextrose 50 ml UD PRN IV 02/13/24 01:45 Insulin Glargine 30 units QAM SC 02/14/24 07:00 02/17/24 06:49 30 UNITS Atorvastatin Calcium 20 mg HS PO 02/16/24 22:00 02/16/24 21:26 20 MG Bumetanide 2 mg BIDD IV 02/16/24 18:00 02/16/24 19:34 2 MG objective LUNGS:Abnormal, MSK:Abnormal, SKIN:Abnormal laboratory and microbiology Laboratory Tests 02/17/24 05:58 Test 02/17/24 05:58 Range/Units Serum Glucose 132 H 74-106 mg/dL Assessment/Plan ESRD on hemodialysis Diabetes mellitus type 2 Peripheral arterial disease Left foot diabetic ulcers, Anemia of chronic kidney disease Hyperkalemia hd today ABX epogen if hb < 10 Dietary Evaluation Review Recommendations by RD: Protein Supplementation, Add Supplement Feedings Comments: 1. Consider a renal standard, CCHO 60g diet. 2. Add Prostat @ 1 pk bid. Expected Outcomes/Goals: Patient labs and appetite to improve Patient wound to improve Plan discussed with: Patient LIV RODRIGUEZ MD Feb 17, 2024 09:34
[2024-02-17] MEDS: hydrALAZINE HCL 20 MG/ML VL IV ONE (13:15)
--- NOTE | 2024-02-17 13:20 | DVHDSRES ---
Discharge Summary Date of Admission Resident Creating Document: GIULIANO BAR RESIDENT Feb 08, 2024 at 23:18 Date of Discharge: Feb 17, 2024 Admitting Diagnosis Left 4th toe wound Labs/Diagnostic Data: Laboratory Results Test 02/17/24 11:19 02/17/24 05:58 02/16/24 05:47 02/09/24 15:14 POC Glucose 281 mg/dl (70-106) White Blood Count 11.9 10^3/uL (4.4-10.8) Red Blood Count 3.04 10^6/uL (4.0-5.20) Hemoglobin 9.6 g/dL (12.2-16.2) Hematocrit 28.9 % (36.0-46.0) Mean Corpuscular Volume 95.1 fL (80.0-100.0) Mean Corpuscular Hemoglobin 31.6 pg (28.0-32.0) Mean Corpuscular Hemoglobin Concent 33.2 g/dL (32.0-36.0) Red Cell Distribution Width 13.8 % (11.8-14.3) Platelet Count 374 10^3/uL (140-450) Mean Platelet Volume 8.9 fL (6.9-10.8) Neutrophils (%) (Auto) 82.3 % (37.0-80.0) Lymphocytes (%) (Auto) 10.5 % (10.0-50.0) Monocytes (%) (Auto) 5.6 % (0.0-12.0) Eosinophils (%) (Auto) 1.1 % (0.0-7.0) Basophils (%) (Auto) 0.5 % (0.0-2.0) Neutrophils # (Auto) 9.8 10 ^3/uL (1.6-8.6) Lymphocytes # (Auto) 1.2 10 ^3/uL (0.4-5.4) Monocytes # (Auto) 0.7 10 ^3/uL (0-1.3) Eosinophils # (Auto) 0.1 10 ^3/uL (0-0.8) Basophils # (Auto) 0.1 10 ^3/uL (0-0.2) Nucleated Red Blood Cells 0.1 % Sodium Level 140 mmol/L (136-145) Potassium Level 3.7 mmol/L (3.5-5.1) Chloride Level 97 mmol/L (98-107) Carbon Dioxide Level 35 mmol/L (20-31) Anion Gap 8 (5-15) Blood Urea Nitrogen 23 mg/dL (9-23) Creatinine 2.16 mg/dL (0.550-1.02) Glomerular Filtration Rate Calc 27 mL/min (>90) BUN/Creatinine Ratio 10.6 (10.0-20.0) Serum Glucose 132 mg/dL (74-106) Calcium Level 9.4 mg/dL (8.7-10.4) Phosphorus Level 1.8 mg/dL (2.4-5.1) Magnesium Level 2.0 mg/dL (1.6-2.6) Random Vancomycin Level 14.1 ug/mL (5-10) Lactic Acid Level 1.3 mmol/L (0.4-2.0) Test 02/09/24 10:14 02/09/24 05:08 Prothrombin Time 10.9 sec (9.3-11.8) Prothrombin Time INR 1.03 (0.9-1.15) Activated Partial Thromboplast Time 32.7 SEC (24.5-34.5) Hemoglobin A1c 11.2 % A1C (<5.7) B-Type Natriuretic Peptide 799.72 pg/mL (0-100) Vitamin B12 Level 1887 pg/mL (211-911) Vitamin D 25-Hydroxy 14.2 ng/mL (30.0-100) Thyroid Stimulating Hormone (TSH) 1.37 uIU/mL (0.55-4.78) Total Bilirubin 0.2 mg/dL (0.2-1.0) Aspartate Amino Transferase (AST) 12 U/L (13-40) Alanine Aminotransferase (ALT) 17 U/L (7-40) Alkaline Phosphatase 111 U/L (46-116) Total Protein 6.7 g/dL (5.7-8.2) Albumin 3.6 g/dL (3.2-4.8) Hepatitis A IgM Antibody Negative Hepatitis B Surface Antigen Negative (Negative) Hepatitis B Core IgM Antibody Negative Hepatitis C Antibody Negative (Negative) Other Laboratory Tests 02/17/24 05:58 Brief Hx & Hospital Course: JUVENAL GRANDA is a 53 years old female with a PMH of HTN, type 2 DM, ESRD on HD MWF presented to the ED for the evaluation of left foot wound ( left 4th toe and base of 4th toe metatarsal head ). Patient noted she has been noticed wound on her left foot 15 days ago but unable to recall what lead to that happened, since 1 week she has been having mild pain which is getting worse prompted her to visit ED. patient does report chills and nausea but denies fever, headache, diaphoresis, abdominal pain, shortness of breaths and other associated symptoms. Patient required hospital admission for further evaluation and management of wound. MRI left foot showed Osteomyelitis in the 4th proximal phalanx of the left foot. Soft tissue swelling representing either postprocedural change or ulceration and gas. And preliminary wound culture showed Staph aureus and Enterococcus Initially given Zosyn and vancomycin, after final wound culture results which showed Staph aureus and Enterococcus faecalis which is sensitive to vancomycin so discontinued Zosyn. Podiatric economic consultant evaluated the patient performed incision and drainage, with 4th toe amputation, sent to bone biopsy, and wound closure was in 2 sessions on 02/10/24 and 02/12/2024 , advised 6 weeks antibiotic course and follow up on outpatient. Due to uncontrolled type 2 diabetes mellitus and hypertension we continuously monitored, adjusted insulin dose as needed. Continuously monitored the lab. Due to ESRD on HD we consulted Nephrology for continuity of care. Patient condition was improved, hemodynamically stable and in condition to be discharged home with IV vancomycin for 6 weeks. Discharge plan discussed with the patient and agreed with the plan. Patient advised about healthy lifestyle habits including diet and exercise and to follow up with PCP and Podiatry. Pt is lying on bed General Appearance: Alert, Oriented X3, Cooperative, Not in acute distress HEENT: Atraumatic, Mucous membranes moist/pink Respiratory: Clear to auscultation, Normal air movement, No added sounds Cardiovascular: Regular rate, Normal S1, Normal S2, No murmurs Abdominal: Active bowel sounds, Soft, no distention, no tenderness Extremities: wound is wrapped in sterile dressing Skin: No Significant rash, except past surgical scars Neuro: Normal speech, sensorimotor deficits none Psych/Mental Status: Mental status NL, Mood NL Nurse was there as sharperone during examination Operations or Procedures Date: 02/10/24 Preop Diagnosis: 1. Left foot gas gangrene 2. Left foot osteoemyelitis 3. Left foot abscess 4. Left foot wound Postop Diagnosis: Same as preop Surgeon: Liu Ortiz MD Name of Procedure Performed 1. Left foot I&D bone (04624) 2. Left foot 4th toe amputation (92155) 3. Left foot bone biopsy () DESCRIPTION OF PROCEDURE: Attention was directed to the left 4th toe area of fluctuance was noted. An incision was made over this area and was deepened through blunt dissection. The incision was deepened to the level of abscess and bone. Care was taken to the dissection to avoid any neurovascular and tendinous structures. The incision was deepened to the abscess. The abscess appeared to be purulent fluid consistent with pus, proximally 3 cc. After the abscess was drained, the area was irrigated with 3 L normal saline using cysto tubing. Deep cultures were then obtained from the toe. At that time it was recommended that we amputate the toe at the MPJ. Using a #15 blade, the toe was then excised at the level of the 1st MPJ. The bone was then sent to pathology to determine osteomyelitis. Using a rongeur the remaining necrotic tissue was then removed. The wound was packed we closed with a later date All surgical wounds were irrigated copiously with saline and closed in layers with the aforementioned suture material. A dry sterile dressing was placed on the surgical extremity. The patient was placed in a post shoe. POSTOPERATIVE INFORMATION: The patient tolerated the above noted procedure and anesthesia well and was transferred to the PACU with vital signs stable, and vascular status intact with capillary refill intact to all digits. Patient will return to the floor and continue IV antibiotics. Cultures were taken. Patient will have to go back on Saturday for another follow up procedure. 02/12/24 Preop Diagnosis: 1. Left foot gas gangrene 2. Left foot osteoemyelitis 3. Left foot abscess 4. Left foot wound Postop Diagnosis: Same as preop Surgeon: Liu Ortiz MD Name of Procedure Performed 1. Left foot I&D bone (35766) 2. Left foot 4th metatarsal head (23738) 3. Left foot delayed closure ([id number]) Procedure Details DESCRIPTION OF PROCEDURE: Attention was directed to the left 4th toe area where previous incision was made An incision was made over this area and was deepened through blunt dissection. The incision was deepened to the level of abscess and bone. Care was taken to the dissection to avoid any neurovascular and tendinous structures. The incision was deepened to the abscess. The abscess appeared to be purulent fluid consistent with pus, proximally 3 cc. After the abscess was drained, the area was irrigated with 3 L normal saline using cysto tubing. The remaining 4th metatarsal head appeared to be dry and necrotic so partial head amputation was performed. A delayed closure was then performed with a 2. 0 nylon. Approximately 1 g of vancomycin powder. Patient was placed in a postop shoe All surgical wounds were irrigated copiously with saline and closed in layers with the aforementioned suture material. A dry sterile dressing was placed on the surgical extremity. The patient was placed in a post shoe. POSTOPERATIVE INFORMATION: The patient tolerated the above noted procedure and anesthesia well and was transferred to the PACU with vital signs stable, and vascular status intact with capillary refill intact to all digits. Patient will return to the floor and continue IV antibiotics. Recommend patient has 6 weeks of IV antibiotics. Patient will follow up with me a week after procedure FOOT MRI 1. Osteomyelitis in the 4th proximal phalanx of the left foot. Soft tissue swelling about the 4th digit with additional low signal intensity foci within the soft tissues representing either postprocedural change or ulceration and gas. Please correlate clinically. No fluid collection. 2. Edema within the intrinsic muscles of the foot may be related to myositis or denervation. TECHNIQUE: XY L FOOT 3 VIEW XRAY FINDINGS/IMPRESSION: : There is no evidence of acute fracture or dislocation. Small to moderate volume subcutaneous emphysema at the distal 4th digit. No appreciable radiopaque foreign body. Vascular atherosclerotic disease is present. ECHO Conclusion lvef 70% by visual estimate severe LVH mild aortic stenosis no severe valve abnormalities noted normal rv function trivial to small pericardial effusion noted Condition at Discharge: Stable Final Diagnosis/Problems List # Left foot diabetic foot complicated with gangrene and osteomyelitis of 4th toe - status post amputation and delayed closure # Left foot wet/gas gangrene 4th toe # ? Sepsis from ulcer(Staphylococcus aureus and Enterococcus faecalis) # Peripheral arterial disease # Osteomyelitis in the 4th proximal phalanx of the left foot. # Uncontrolled type 2 diabetes mellitus With the HbA1c 11.2 # Anemia of chronic kidney disease # ESRD on HD MWF # Hyperkalemia # hypertensive urgency Discharge Disposition: Home with Health Services Discharge Instruct/Medications Diet: Consistent carbohydrate, Cardiac 2g Na,low cholest Activity: No Restrictions, As Tolerated Follow Up/Referral: PCP and nephro for HD Medications: Vancomycin IV while dialysis and continue home meds as prescribed Discharge Statement: "Patient was advised to return to the ER or call 911 if any headaches, dizziness, shortness of breath, chest pain, abdominal pain, bleeding, fevers, or worsening of medical condition. Patient was counseled about treatment plan, medications, possible side effects, patientverbalized understanding. All questions were answered to the best of my ability. This discharge took greater then 30 minutes in planning, reviewing documentation, counseling the patient, and discussing with other team members." ASSESSMENT ASSESSMENT Assessment Left toe osteomyelitis and gangrene GIULIANO BAR RESIDENT Feb 17, 2024 13:20
[2024-02-17] MEDS ORDERED: AML5T PO (13:39)
[2024-02-17] MEDS ORDERED: INSLANTI SC (13:39)
[2024-02-17] MEDS ORDERED: ASPI-325 PO (13:39)
[2024-02-17] MEDS ORDERED: ATOR20TA50 PO (13:39)
[2024-02-17] MEDS ORDERED: CARV-214 PO (13:39)
[2024-02-17] MEDS ORDERED: INSLISPI SC (13:39)
[2024-02-17] MEDS ORDERED: ACET-1882 PO (13:39)
[2024-02-17] MEDS ORDERED: SEVE800T7 PO (13:39)
[2024-02-17] MEDS ORDERED: VANCOMYCIN 500mg/100mL 100 ML IV ONE (18:00)
== END 2024-02-17 16:32 | disposition home or self-care (01) | DRG 710 ==
LOC: ER 14:56 → TELE 23:18 → TELE-E-ADS 02-09 03:51 → EAST 02-10 16:23 → TELE-E-ADS 02-11 22:47 → TELE-CENTR 02-11 23:26 → CENTRAL 02-17 08:06
PROVIDERS: ADMIT Internal Medicine Geriatric Medicine; ATTEND Internal Medicine Geriatric Medicine
PROC: 5A1D70Z Performance of Urinary Filtration, Intermittent, Less than 6 Hours Per Day (ICD-10-PCS; 2024-02-09)
PROC: 0Y6W0Z0 Detachment at Left 4th Toe, Complete, Open Approach (ICD-10-PCS; 2024-02-10)
PROC: 5A1D70Z Performance of Urinary Filtration, Intermittent, Less than 6 Hours Per Day (ICD-10-PCS; 2024-02-11)
PROC: 0Y6N0ZD Detachment at Left Foot, Partial 4th Ray, Open Approach (ICD-10-PCS; principal; 2024-02-12 12:08)
DX: A41.01 Sepsis due to Methicillin susceptible Staphylococcus aureus (principal); E11.52 Type 2 diabetes mellitus with diabetic peripheral angiopathy with gangrene; I12.0 Hypertensive chronic kidney disease with stage 5 chronic kidney disease or end stage renal disease; A48.0 Gas gangrene; D63.1 Anemia in chronic kidney disease; N18.6 End stage renal disease; M86.8X7 Other osteomyelitis, ankle and foot; E11.22 Type 2 diabetes mellitus with diabetic chronic kidney disease; E11.621 Type 2 diabetes mellitus with foot ulcer; E11.65 Type 2 diabetes mellitus with hyperglycemia; I16.0 Hypertensive urgency; E11.69 Type 2 diabetes mellitus with other specified complication; L02.612 Cutaneous abscess of left foot; E87.5 Hyperkalemia; Z99.2 Dependence on renal dialysis
CPT/HCPCS: 36415; 71045; 73630; 73718; 80048; 80053; 80074; 80202; 82306; 82607; 82962; 83036; 83605; 83735; 83880; 84100; 84132; 84443; 85025; 85610; 85730; 86850; 86900; 86901; 87040; 87070; 87075; 87077; 87186; 87205; 90935; 93306; 94640; G0378; J1100; J1642; J1815; J2250; J2405; J2543; J2704; J3490

== ENCOUNTER 2024-03-10 21:47 | Inpatient (IN) | payer MEDICAID ==
[~2024-03-10] VITALS: Ht 157.5 cm; Wt 57.2 kg
[~2024-03-10 21:47] MED LIST: ACET-1882 PO; AML5T PO; ASPI-325 PO; ATOR20TA50 PO; CARV-214 PO; CHOL500021 OR; FERR1TAB17 PO; HYDR100T10 PO; INSLANTI SC; INSLISPI SC; ONDA-155 PO; SEVE800T7 PO
--- NOTE | 2024-03-10 22:01 | ED.PDOC ---
History of Present Illness HPI Comments 53 y/o F, Hx of DM type II, ESRD on HD MWF, HTN, and previous left foot digit amputation, is BIBA for hospital transfer, today. Per EMS report, patient is a Georgian speaker and is being transferred from [facility] ED after being evaluated, initially, for uncontrolled left-foot wound bleeding following complication during in-office appointment toe-amputation procedure with her container packer operator, earlier today. Patient is stated to have been transfer for hospital admission and surgery, due to her container packer operator being associated with [facility],.Prior to transfer, patient was stated to have been given pain medications and Tylenol and wound stitched and bleeding controlled at [facility] facility. EMS notes on finding the patient, initially, with a temperature of 103.1F and a blood pressure of 160/82. At time of assessment, patient denies having any pain, numbness, tingling, active bleeding, or other associated symptoms or modifiers at this time. Time Seen by MD: 21:45 Reviewed Notes: Nurses Notes, Auto Clutch Rebuilder Notes, Medications, Allergies Allergies: Coded Allergies: No Known Drug Allergy (Verified Allergy, Unknown, 02/09/24) Home Meds Active Scripts Sevelamer Hydrochloride (Renagel) 800 Mg Tab, 800 MG PO TIDWM for 10 Days, #30 TAB Prov:KELLY VU 02/17/24 Insulin Lispro (Human) (Humalog) 100 Unit/Ml Inj, 5 UNITS SC TID for 30 Days, #10 INJ Prov:KELLY VU 02/17/24 Insulin Glargine (Lantus) 100 Unit/Ml Inj, 30 UNITS SC QAM for 30 Days, #10 INJ Prov:KELLY VU 02/17/24 Carvedilol (COREG) 3.125 Mg Tab, 6.25 MG PO Q12HR for 30 Days, #120 TAB Prov:KELLY VU 02/17/24 Atorvastatin Calcium (ATORVASTATIN CALCIUM) 20 Mg Tab, 20 MG PO HS for 30 Days, #30 TAB Prov:KELLY VU 02/17/24 Aspirin (Aspirin Low Dose) 81 Mg Tab, 81 MG PO DAILY for 30 Days, #30 TAB Prov:KELLY VU 02/17/24 Amlodipine Besylate (NORVASC TABLET) 5 Mg Tb, 10 MG PO DAILY for 30 Days, #60 TAB Prov:KELLY VU RESIDENT 02/17/24 Acetaminophen (Acetaminophen) 325 Mg Tab, 650 MG PO Q6HP PRN for 10 Days, #80 TAB Prov:TIKAYARELYKELLY MIDDLETON RESIDENT 02/17/24 Reported Medications Hydralazine Hcl (Hydralazine Hcl) 100 Mg Tab, 1 TAB PO TID, #90 TAB 5 Refills 02/09/24 Ferric Citrate (Auryxia) 210 Mg Tab, 210 MG PO, TAB 02/09/24 Cholecalciferol (VITAMIN D) 5,000 Unit Tab, 5000 UNIT OR, TAB 02/09/24 Ondansetron HCl (Ondansetron) 4 Mg Tab, 4 MG PO, TAB 02/09/24 Information Source: Patient, Emergency Med Personnel Mode of Arrival: EMS Severity: Moderate Timing: Hours Duration: Since onset Prehospital treatment: 12 Lead EKG, Freezer Worker Past Medical History PAST MEDICAL HISTORY: DM, ESRD, HTN Surgical History (Other): previous digit amputation to left foot CAR RENTAL CLERK History: No Pertinent CAR RENTAL CLERK History Family History Family History: Reviewed,noncontributory to illness Social History Smoker: Non-Smoker Alcohol: Denies ETOH Use Drugs: Denies Drug Use Lives In: Home Integumetry: reports: wounds (left foot) All Other Systems: Reviewed and Negative (negative unless otherwise stated above or in HPI) Physical Exam General Appearance: No Apparent Distress, Normal HEENT: Normal ENT Inspection, Pharynx Normal, TMs Normal Neck: Full Range of Motion, Non-Tender, Normal, Normal Inspection Respiratory: Chest Non-Tender, Lungs Clear, No Accessory Muscle Use, No Respiratory Distress, Normal Breath Sounds Cardiovascular: No Edema, No JVD, No Murmur, No Gallop, Normal Peripheral Pulses, Regular Rate/Rhythm Breast Exam: Deferred Gastrointestinal: No Organomegaly, Non Tender, No Pulsatile Mass, Normal Bowel Sounds, Soft Genitalia: Deferred Pelvic: Deferred Rectal: Deferred Extremities: Other (Left foot with 4 toe amputation, necrotic other toes, erythema warmth) Musculoskeletal : Apperance: Normal Neurologic: Alert, substation operator II-XII nml as Tested, No Motor Deficits, Normal Affect, Normal Mood, No Sensory Deficits Cerebellar Function: Normal Reflexes: Normal Skin: Dry, Normal Color, Warm Lymphatic: No Adenopathy Was a procedure done? Was a procedure done?: No Differential Dx Considerations may include: post-op complication, sepsis, hospital transfer X-Ray, Labs, Meds, VS Vital Signs Date Time Temp Pulse Resp B/P (MAP) Pulse Ox O2 Delivery O2 Flow Rate FiO2 03/10/24 22:48 101.4 82 17 154/67 (96) 92 101.4 03/10/24 21:58 103.1 85 17 160/82 (108) 89 Lab Test 03/10/24 23:59 03/10/24 22:29 03/10/24 22:20 Range/Units Troponin I High Sensitivity 58 *H 56 *H </=34 ng/L White Blood Count 13.1 H 4.4-10.8 10^3/uL Red Blood Count 2.72 L 4.0-5.20 10^6/uL Hemoglobin 8.3 L 12.2-16.2 g/dL Hematocrit 25.5 L 36.0-46.0 % Mean Corpuscular Volume 93.8 80.0-100.0 fL Mean Corpuscular Hemoglobin 30.5 28.0-32.0 pg Mean Corpuscular Hemoglobin Concent 32.6 32.0-36.0 g/dL Red Cell Distribution Width 14.8 H 11.8-14.3 % Platelet Count 224 140-450 10^3/uL Mean Platelet Volume 10.2 6.9-10.8 fL Neutrophils (%) (Auto) 87.8 H 37.0-80.0 % Lymphocytes (%) (Auto) 4.9 L 10.0-50.0 % Monocytes (%) (Auto) 6.5 0.0-12.0 % Eosinophils (%) (Auto) 0.4 0.0-7.0 % Basophils (%) (Auto) 0.4 0.0-2.0 % Neutrophils # (Auto) 11.5 H 1.6-8.6 10 ^3/uL Lymphocytes # (Auto) 0.6 0.4-5.4 10 ^3/uL Monocytes # (Auto) 0.9 0-1.3 10 ^3/uL Eosinophils # (Auto) 0 0-0.8 10 ^3/uL Basophils # (Auto) 0 0-0.2 10 ^3/uL Nucleated Red Blood Cells 0.0 % Sodium Level 137 136-145 mmol/L Potassium Level 4.1 3.5-5.1 mmol/L Chloride Level 101 98-107 mmol/L Carbon Dioxide Level 22 20-31 mmol/L Anion Gap 14 5-15 Blood Urea Nitrogen 62 H 9-23 mg/dL Creatinine 6.20 H 0.550-1.02 mg/dL Glomerular Filtration Rate Calc 8 >90 mL/min BUN/Creatinine Ratio 10.0 10.0-20.0 Serum Glucose 218 H 74-106 mg/dL Calcium Level 8.9 8.7-10.4 mg/dL Lactic Acid Level 0.8 0.4-2.0 mmol/L Current Medications Medications (Trade) Dose Ordered Sig/[place] Route Start Time Stop Time Status Last Admin Ketorolac Tromethamine (Toradol Injection) 15 mg ONCE ONCE IV 03/10/24 23:00 03/10/24 23:01 DC 03/10/24 22:55 Time of 1ST Reevaluation: 22:15 Reevaluation 1ST: Unchanged Patient Education/Counseling: Diagnosis, Treatment Family Education/Counseling: No Family Present Additional Information - I reviewed the following notes from patient's past medical encounters: previous hospital admission discharge summary on 02/17/24 - The following tests were ordered, and results were reviewed by me: microbiology blood culture, troponin, urinalysis, lactic acid, CBC, BMP, left foot X-ray, CXR - Additional information was gathered from interviewing the following independent Historian: EMT - I reviewed and agreed with the following test results read by other provider: left foot X-ray, CXR - I discussed treatments and results with medical personnel Departure 1 Departure Time of Disposition: 00:49 (Patient with worsening infection of her foot. Patient was transferred here from [facility] for admission have antibiotics and podiatry consult.) Impression: Primary Impression: Ulcer of foot with necrosis of muscle Qualified Codes: L97.523 - Non-pressure chronic ulcer of other part of left foot with necrosis of muscle Additional Impressions: Fever Qualified Codes: R50.9 - Fever, unspecified Cellulitis Qualified Codes: L03.116 - Cellulitis of left lower limb Disposition: ADMITTED INPATIENT Admit to: Med Surg Condition: Serious Critical Care Note Critical Care Time?: No Stability Stability form required: No Heart Score Heart Score: Heart Score Response (Comments) Value History N/A 0 EKG N/A 0 Age N/A 0 Risk Factors N/A 0 Troponin N/A 0 Total 0 I personally scribed for LITA GOMEZ MD ([email or web address]) on 03/10/24 at 22:01. Electronically submitted by Marco Arroyo ([email or web address]). I personally scribed for LITA GOMEZ MD ([email or web address]) on 03/10/24 at 22:07. Electronically submitted by Marco Arroyo ([email or web address]). LITA GOEMZ MD Mar 10, 2024 22:01
--- NOTE | 2024-03-10 22:18 | DVH ---
EXAM: XY CHEST PORTABLE CLINICAL HISTORY: fever TECHNIQUE: Single AP view of the chest WID: COMPARISON: XY CHEST XRAY 1 VIEW on DOS: 02/09/24 FINDINGS: Lines and tubes: Right IJ central venous catheter projects over the upper right atrium. Chest: Mild cardiomegaly and pulmonary vascular congestion. No pleural effusion, pneumothorax, or consolidation. The osseous structures are grossly intact. Multilevel thoracic spondylosis. IMPRESSION: Mild cardiomegaly and pulmonary vascular congestion.
--- NOTE | 2024-03-10 22:22 | DVH ---
CLINICAL INDICATION: left foot pain s/p toe amputation TECHNIQUE: XY L FOOT 3 VIEW XRAY Comparison: XY L FOOT 3 VIEW XRAY on DOS: 02/08/24 report from left foot radiograph dated 02/24/2024 FINDINGS/IMPRESSION: : 1. Interval amputation of the 4th digit at the level of the mid 4th metatarsal. Smooth bony margins. 2. There appears to be impacted mildly displaced fracture of the base of the 5th proximal phalanx. 3. Calcified atherosclerosis. 4. Normal mineralization and alignment. Joint spaces preserved.
[2024-03-10 22:54] LABS: Basophils % (auto) 0.4 % (0.0-2.0); Eosinophils # (auto) 0 10 ^3/uL (0-0.8); Hemoglobin 8.3 g/dL (12.2-16.2); Lymphocytes # (auto) 0.6 10 ^3/uL (0.4-5.4); Mean Corpuscular Hemoglobin 30.5 pg (28.0-32.0); Red Blood Cells 2.72 10^6/uL (4.0-5.20); White Blood Cell 13.1 10^3/uL (4.4-10.8)
[2024-03-10] MEDS: KETOROLAC TROMETH 30 MG/ML 1ML VIAL IV ONE (22:55)
[2024-03-10 22:56] LABS: Basophils # (auto) 0 10 ^3/uL (0-0.2); Eosinophils % (auto) 0.4 % (0.0-7.0); Hematocrit 25.5 % (36.0-46.0); Lymphocytes % (auto) 4.9 % (10.0-50.0); Mean Corpuscular Hgb Conc. 32.6 g/dL (32.0-36.0); Mean Corpuscular Volume 93.8 fL (80.0-100.0); Monocytes # (auto) 0.9 10 ^3/uL (0-1.3); Monocytes % (auto) 6.5 % (0.0-12.0); Neutrophils # (auto) 11.5 10 ^3/uL (1.6-8.6); Neutrophils % (auto) 87.8 % (37.0-80.0); Platelet Count (auto) 224 10^3/uL (140-450); Red Cell Distribution Width 14.8 % (11.8-14.3)
[2024-03-10 22:57] LABS: Chloride 101 mmol/L (98-107); Potassium 4.1 mmol/L (3.5-5.1); Sodium 137 mmol/L (136-145)
[2024-03-10 22:58] LABS: Anion Gap 14 (5-15); Carbon Dioxide 22 mmol/L (20-31)
[2024-03-10 22:59] LABS: Calcium 8.9 mg/dL (8.7-10.4)
[2024-03-10 23:23] LABS: Glucose 218 mg/dL (74-106)
[2024-03-10 23:24] LABS: Blood Urea Nitrogen 62 mg/dL (9-23)
[2024-03-11] VITALS (8 sets, daily range): BP systolic 109–133; BP diastolic 40–66; PULSE 69–74; RESP 17–19; TEMP 97.6–98.2; O2SAT 94–100
[2024-03-11] MEDS ORDERED: VANCOMYCIN PER PHARMACY 0 MG IV SCH (03:15)
[2024-03-11] MEDS ORDERED: DEXTROSE (50%) 50ML SYRG IV PRN (03:15)
--- NOTE | 2024-03-11 03:19 | DVHHPRES ---
History of Present Illness Resident Creating Document: CLAUDIA WYATT RESIDENT History of Present Illness This is a 53-year-old female with past medical history of hypertension, type 2 diabetes mellitus, ESRD on hemodialysis 3 times a week, osteomyelitis and status post left 4th digit amputation brought in hospital by EMS for hospital transfer from [place]. Patient is being transferred from [facility] ED after being evaluated for uncontrolled left foot wound bleeding started status post in office wound debridement with her sales property manager clint alfaro today. She also mentioned she has been transferred for hospital admission and surgery due to her sales property manager being associated with [facility]. Prior to transfer, patient was given pain medications and Tylenol and wound stitched and bleeding controlled at previous hospital facility . Past Medical History Hypertension, type 2 diabetes mellitus, ESRD on hemodialysis, osteomyelitis Past Surgical History Left foot 4th digit amputation Family History None Past Social History Lives with family Nonsmoker, nonalcoholic and never tried any drugs Review of Systems Constitutional: Yes: Fever, Malaise; No: Chills, Sweats, Weakness, Other Eyes: No: Pain, Vision change, Conjunctivae inflammation, Eyelid inflammation, Other, Redness ENT: No: Ear pain, Ear discharge, Nose pain, Nose discharge, Nose congestion, Mouth pain, Mouth swelling, Throat pain, Throat swelling, Other Respiratory: No: Cough, Dry, Shortness of breath, SOB with excertion, Wheezing, Hemoptysis, Pleuritic Pain, Sputum, Wheezing, Other Cardiovascular: No: Chest Pain, Palpitations, Orthopnea, Paroxysmal Noc. Dyspnea, Edema, Lt Headedness, Other Gastrointestinal: No: Nausea, Vomiting, Abdominal Pain, Diarrhea, Constipation, Melena, Hematochezia, Other Genitourinary: No Dysuria, No Frequency, No Incontinence, No Hematuria, No Retention, No Other Musculoskeletal: foot pain; No: other, neck pain, shoulder pain, arm pain, back pain, hand pain, leg pain Skin: No: Rash, Lesions, Jaundice, Bruising, Other Neurological: No: Weakness, Numbness, Incoordination, Change in speech, Confusion, Seizures, Other Allergies: Coded Allergies: No Known Drug Allergy (Verified Allergy, Unknown, 02/09/24) Medications Current Medications Medications Dose Ordered Sig/Latonia Route Start Time Stop Time Status Last Admin Dose Admin Cefepime HCl 50 ml @ 12.5 mls/hr DAILY IV 03/12/24 10:00 UNV Vancomycin HCl 0 ml @ 0 mls/hr UD IV 03/11/24 03:15 UNV Atorvastatin Calcium 40 mg HS PO 03/11/24 22:00 Diagnostic Test (Pha) 1 strip ACHS 03/11/24 07:00 Insulin Human Regular HS SC 03/11/24 22:00 Insulin Human Regular AC SC 03/11/24 07:00 Dextrose 50 ml UD PRN IV 03/11/24 03:15 Insulin Glargine 30 units QAM SC 03/11/24 07:00 UNV Exam Vital Signs Vital Signs Date Time Temp Pulse Resp B/P (MAP) Pulse Ox O2 Delivery O2 Flow Rate FiO2 03/11/24 00:52 98.6 68 16 138/64 (88) 100 98.6 03/11/24 00:43 Nasal Cannula* 2 28 Exam Physical examination: General Appearance: Alert, Oriented X3, Cooperative, No acute distress HEENT: Atraumatic, PERRLA, EOMI, Mucous membrane moist/pink Respiratory: Clear to auscultation, Normal air movement Cardiovascular: Regular rate, Normal S1, Normal S2, No murmurs, no chest wall tenderness Abdominal: Normal bowel sounds, Soft, No tenderness, No hepatospenomegaly, No masses Extremities: Surgical dressing on the left foot, No clubbing, No cyanosis, No edema, Normal pulses. Skin: No rashes, No breakdown, No significant lesion Neuro: Normal gait, Normal speech, Strength at 5/5 X4 ext, Normal tone, Sensation intact, Cranial nerves 3-12 NL, Reflexes 2+ Psych/Mental Status: Mental status NL, Mood NL Labs/Xrays Labs Test 03/11/24 02:10 03/10/24 22:29 03/10/24 22:20 Range/Units White Blood Count 13.1 H 4.4-10.8 10^3/uL Red Blood Count 2.72 L 4.0-5.20 10^6/uL Hemoglobin 8.3 L 12.2-16.2 g/dL Hematocrit 25.5 L 36.0-46.0 % Mean Corpuscular Volume 93.8 80.0-100.0 fL Mean Corpuscular Hemoglobin 30.5 28.0-32.0 pg Mean Corpuscular Hemoglobin Concent 32.6 32.0-36.0 g/dL Red Cell Distribution Width 14.8 H 11.8-14.3 % Platelet Count 224 140-450 10^3/uL Mean Platelet Volume 10.2 6.9-10.8 fL Neutrophils (%) (Auto) 87.8 H 37.0-80.0 % Lymphocytes (%) (Auto) 4.9 L 10.0-50.0 % Monocytes (%) (Auto) 6.5 0.0-12.0 % Eosinophils (%) (Auto) 0.4 0.0-7.0 % Basophils (%) (Auto) 0.4 0.0-2.0 % Neutrophils # (Auto) 11.5 H 1.6-8.6 10 ^3/uL Lymphocytes # (Auto) 0.6 0.4-5.4 10 ^3/uL Monocytes # (Auto) 0.9 0-1.3 10 ^3/uL Eosinophils # (Auto) 0 0-0.8 10 ^3/uL Basophils # (Auto) 0 0-0.2 10 ^3/uL Nucleated Red Blood Cells 0.0 % Sodium Level 137 136-145 mmol/L Potassium Level 4.1 3.5-5.1 mmol/L Chloride Level 101 98-107 mmol/L Carbon Dioxide Level 22 20-31 mmol/L Anion Gap 14 5-15 Blood Urea Nitrogen 62 H 9-23 mg/dL Creatinine 6.20 H 0.550-1.02 mg/dL Glomerular Filtration Rate Calc 8 >90 mL/min BUN/Creatinine Ratio 10.0 10.0-20.0 Serum Glucose 218 H 74-106 mg/dL Calcium Level 8.9 8.7-10.4 mg/dL Lactic Acid Level 0.8 0.4-2.0 mmol/L Assessment/Plan Assessment/Plan Assessment and plan: # Sepsis likely due to diabetic foot ulcer, s/p amputation of Lt 4th digit - Ordered U/A, urine C/S and blood C/S - IV cefepime 1 g daily and IV vancomycin as per pharmacy - Monitor vitals closely. # History of osteomyelitis of the left foot, s/p amputation of Lt 4th digit - MRI of the Lt foot on 02/08 revealed Osteomyelitis in the 4th proximal phalanx of the left foot and Soft tissue swelling about the 4th digit with additional low signal intensity foci within the soft tissues representing either postprocedural change or ulceration and gas. - Consulted podiatry # NSTEMI type 2 secondary to above - EKG revealed normal study - Troponin trends are 56>57>62 # ESRD on hemodialysis 3 times a week - Serum creatinine is 6.2 - Continue Sevelamer 800 mg PO TID - Consulted nephrology # Uncontrolled type 2 diabetes mellitus, HbA1C 11.2 on 02/08 - Started Lantus 30 units at q.a.m. - Moderate sliding scale of insulin # Hypertensive urgency - IV hydralazine 10 mg q.6 p.r.n. - Continue amlodipine 10 mg p.o. daily and carvedilol 6.25 mg p.o. b.i.d. # Possible anemia of chronic disease - Ordered iron panel and ferritin - Monitor CBC # PUD prophylaxis - Protonix 40 mg PO daily. # DVT prophylaxis - Heparin 5000 units SC b.i.d. Goal of care discussed with the patient for more than 17 minutes full code Plan of treatment discussed with Dr. Canela Plan discussed with: Patient, Other My Orders Orders - CLAUDIA WYATT RESIDENT Procedure Category Date Status Time Admit ADMIT 03/11/24 Transmitted 03:01 Cefepime 2gm/50ml Ns PHA 03/11/24 Logged (Maxipime 2gm/50ml) 03:15 Cefepime 1gm/ 50ml PHA 03/12/24 Logged (Maxipime 1gm/50ml) 10:00 Vancomycin Per PHA 03/11/24 Logged Pharmacy 03:15 Urine Bacterial NAGI 03/11/24 Logged Culture 03:09 Atorvastatin (Lipitor) PHA 03/11/24 In Process 22:00 *Podiatry Consult CONS 03/11/24 Transmitted [facility](Dvmg) 03:09 *[facility] CONS 03/11/24 Transmitted -[place] 03:09 Glucose Blood PHA 03/11/24 In Process (Accu-Chek Comfort 07:00 Insulin R (Human) PHA 03/11/24 In Process (Insulin R) 22:00 Insulin R (Human) PHA 03/11/24 In Process (Insulin R) 07:00 Dextrose 50% Syringe PHA 03/11/24 In Process 03:15 Insulin Lantus PHA 03/11/24 Logged (Glargine) (Lantus) 07:00 Amlodipine Tablet PHA 03/11/24 Transmitted (Norvasc Tablet) 10:00 Carvedilol Tablet PHA 03/11/24 Transmitted (Coreg Tablet) 10:00 Sevelamer (Renagel) PHA 03/11/24 Transmitted 08:00 Date of Service: Mar 11, 2024 Billing Provider: KADIE CANELA MD Common Visit Codes: [id number] INP/OBS CARE (HIGH) GINOPABLOSAGRARIOCLAUDIA RESIDENT Mar 11, 2024 03:19 KADIE CANELA MD Mar 11, 2024 11:19
[2024-03-11] MEDS ORDERED: VANCOMYCIN 1.75GM/350ML 350 ML IV ONE (03:45)
[2024-03-11] MEDS ORDERED: VANCOMYCIN 1.75GM/350ML 350 ML IV PRN (03:45)
[2024-03-11] MEDS: CEFEPIME 1GM/ 50ML 50 ML IV ONE (04:53)
[2024-03-11] MEDS: CEFEPIME HCL-DEXTROSE 50 ML IV ONE (04:53)
[2024-03-11] MEDS: hydrALAZINE HCL 20 MG/ML VL IV PRN (05:15)
[2024-03-11] MEDS: INSULIN LANTUS (GLARGINE) 1 /0.01ml (100units/ml) SC SCH (06:20)
[2024-03-11] MEDS: InsuLIN REG 1unit/0.01ml Soln (100units/ml) SC SCH ×2 (06:20→22:59)
[2024-03-11] MEDS: ACCU-CHEK COMFORT CURVE STRIP VI SCH (06:20)
--- NOTE | 2024-03-11 06:39 | ECG ---
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
[2024-03-11 06:59] LABS: Basophils # (auto) 0.1 10 ^3/uL (0-0.2); Basophils % (auto) 0.5 % (0.0-2.0); Eosinophils # (auto) 0.1 10 ^3/uL (0-0.8); Eosinophils % (auto) 0.8 % (0.0-7.0); Mean Corpuscular Hgb Conc. 32.8 g/dL (32.0-36.0); Nucleated Red Blood Cells % 0.1 %; Platelet Count (auto) 202 10^3/uL (140-450)
[2024-03-11 07:01] LABS: Calcium 9.1 mg/dL (8.7-10.4); Potassium 3.7 mmol/L (3.5-5.1)
[2024-03-11 07:02] LABS: Anion Gap 13 (5-15); Carbon Dioxide 22 mmol/L (20-31); Hemoglobin 8.2 g/dL (12.2-16.2); Lymphocytes # (auto) 1.3 10 ^3/uL (0.4-5.4); Lymphocytes % (auto) 11.2 % (10.0-50.0); Mean Corpuscular Hemoglobin 31.3 pg (28.0-32.0); Mean Corpuscular Volume 95.3 fL (80.0-100.0); Monocytes # (auto) 0.8 10 ^3/uL (0-1.3); Monocytes % (auto) 7.2 % (0.0-12.0); Neutrophils # (auto) 9.2 10 ^3/uL (1.6-8.6); Neutrophils % (auto) 80.3 % (37.0-80.0); Red Blood Cells 2.63 10^6/uL (4.0-5.20); Red Cell Distribution Width 14.5 % (11.8-14.3); White Blood Cell 11.5 10^3/uL (4.4-10.8)
[2024-03-11 07:07] LABS: % Iron Saturation 18.4 % (15-50); BUN/Creatinine Ratio 9.4 (10.0-20.0)
[2024-03-11 07:10] LABS: Chloride 98 mmol/L (98-107); Sodium 133 mmol/L (136-145)
[2024-03-11 07:23] LABS: Blood Urea Nitrogen 64 mg/dL (9-23); Glucose 411 mg/dL (74-106)
--- NOTE | 2024-03-11 09:13 | DVHINCON2 ---
Date of service: Mar 11, [address] Ridley Reason for Consultation End-stage renal disease to manage hemodialysis History of Present Illness Patient is a 53-year-old female with past medical history of end-stage renal disease on hemodialysis every Saturday and Saturday, diabetes mellitus, hypertension and peripheral arterial disease who had outpatient procedure left foot subsequently patient was bleeding profusely patient was seen at [place] [facility] for bleeding with stabilize and stopped patient was admitted to [facility] for further evaluation Past Medical History PAST MEDICAL HISTORY: DM, ESRD, HTN Past Surgical History Surgical History (Other): previous digit amputation to left foot Tunneled IJ hemodialysis catheter Allergies: Coded Allergies: No Known Drug Allergy (Verified Allergy, Unknown, 02/09/24) Home Meds Active Scripts Sevelamer Hydrochloride (Renagel) 800 Mg Tab, 800 MG PO TIDWM for 10 Days, #30 TAB Prov:[facility] 02/17/24 Insulin Lispro (Human) (Humalog) 100 Unit/Ml Inj, 5 UNITS SC TID for 30 Days, #10 INJ Prov:[facility] 02/17/24 Insulin Glargine (Lantus) 100 Unit/Ml Inj, 30 UNITS SC QAM for 30 Days, #10 INJ Prov:[facility] 02/17/24 Carvedilol (COREG) 3.125 Mg Tab, 6.25 MG PO Q12HR for 30 Days, #120 TAB Prov:[facility] 02/17/24 Atorvastatin Calcium (ATORVASTATIN CALCIUM) 20 Mg Tab, 20 MG PO HS for 30 Days, #30 TAB Prov:[facility] 02/17/24 Aspirin (Aspirin Low Dose) 81 Mg Tab, 81 MG PO DAILY for 30 Days, #30 TAB Prov:[facility] 02/17/24 Amlodipine Besylate (NORVASC TABLET) 5 Mg Tb, 10 MG PO DAILY for 30 Days, #60 TAB Prov:[facility] 02/17/24 Acetaminophen (Acetaminophen) 325 Mg Tab, 650 MG PO Q6HP PRN for 10 Days, #80 TAB Prov:[facility] 02/17/24 Reported Medications Hydralazine Hcl (Hydralazine Hcl) 100 Mg Tab, 1 TAB PO TID, #90 TAB 5 Refills 02/09/24 Ferric Citrate (Auryxia) 210 Mg Tab, 210 MG PO, TAB 02/09/24 Cholecalciferol (VITAMIN D) 5,000 Unit Tab, 5000 UNIT OR, TAB 02/09/24 Ondansetron HCl (Ondansetron) 4 Mg Tab, 4 MG PO, TAB 02/09/24 Current Medications Current Medications Medications (Trade) Dose Ordered Sig/Latonia Route PRN Reason Start Time Stop Time Status Last Admin Cefepime HCl 50 ml @ 12.5 mls/hr DAILY IV 03/12/24 10:00 Vancomycin HCl 0 ml @ 0 mls/hr UD IV 03/11/24 03:15 UNV Atorvastatin Calcium (Lipitor) 40 mg HS PO 03/11/24 22:00 Diagnostic Test (Pha) (Accu-Chek Comfort Curve T) 1 strip ACHS 03/11/24 07:00 03/11/24 06:20 Insulin Human Regular (InsuLIN R) HS SC 03/11/24 22:00 Insulin Human Regular (InsuLIN R) AC SC 03/11/24 07:00 03/11/24 06:20 Dextrose 50 ml UD PRN IV Blood Sugar LESS THAN 60 03/11/24 03:15 Insulin Glargine (Lantus) 30 units QAM SC 03/11/24 07:00 03/11/24 06:20 Amlodipine Besylate (Norvasc Tablet) 10 mg DAILY PO 03/11/24 10:00 Carvedilol (Coreg Tablet) 6.25 mg Q12HR PO 03/11/24 10:00 Sevelamer HCl (Renagel) 800 mg TIDWM PO 03/11/24 08:00 Vancomycin HCl 350 ml @ 233.333 mls/hr ONCE PRN IV AFTER DIALYSIS 03/11/24 03:45 Hydralazine HCl (Apresoline Injection) 10 mg Q6HP PRN IV SBP>150 03/11/24 05:15 03/11/24 05:15 Heparin Sodium (Porcine) 5,000 units Q12HR SC 03/11/24 10:00 Pantoprazole Sodium (Protonix Tablet) 40 mg DAILY PO 03/11/24 10:00 Iron Sucrose 110 ml @ 110 mls/hr DAILY@1200 IV 03/11/24 12:00 03/15/24 12:59 Family History: Patient reports no known family medical history. Review of Systems All 12 item review of systems reviewed with the patient nonsignificant except what is mentioned in the history of present illness H&P Exam Vital Signs/I&O Vital Sign Date Time Temp Pulse Resp B/P (MAP) Pulse Ox O2 Delivery O2 Flow Rate FiO2 03/11/24 07:50 Room Air* 0 21 03/11/24 05:15 169/73 03/11/24 04:52 69 03/11/24 04:35 14 100 03/11/24 03:00 98.6 98.6 Physical Exam Patient is awake alert appeared in no acute distress Lungs clear to auscultation bilaterally Cardiac exam regular rate and rhythm GI soft nontender was normal Extremity dressing over left foot Neuro nonfocal Labs/Diagnostic Data Labs/Diagnostic Data Laboratory Tests Test 03/11/24 06:13 03/11/24 06:09 03/11/24 02:10 03/10/24 23:59 Range/Units White Blood Count 11.5 H 4.4-10.8 10^3/uL Red Blood Count 2.63 L 4.0-5.20 10^6/uL Hemoglobin 8.2 L 12.2-16.2 g/dL Hematocrit 25.0 L 36.0-46.0 % Mean Corpuscular Volume 95.3 80.0-100.0 fL Mean Corpuscular Hemoglobin 31.3 28.0-32.0 pg Mean Corpuscular Hemoglobin Concent 32.8 32.0-36.0 g/dL Red Cell Distribution Width 14.5 H 11.8-14.3 % Platelet Count 202 140-450 10^3/uL Mean Platelet Volume 10.4 6.9-10.8 fL Neutrophils (%) (Auto) 80.3 H 37.0-80.0 % Lymphocytes (%) (Auto) 11.2 10.0-50.0 % Monocytes (%) (Auto) 7.2 0.0-12.0 % Eosinophils (%) (Auto) 0.8 0.0-7.0 % Basophils (%) (Auto) 0.5 0.0-2.0 % Neutrophils # (Auto) 9.2 H 1.6-8.6 10 ^3/uL Lymphocytes # (Auto) 1.3 0.4-5.4 10 ^3/uL Monocytes # (Auto) 0.8 0-1.3 10 ^3/uL Eosinophils # (Auto) 0.1 0-0.8 10 ^3/uL Basophils # (Auto) 0.1 0-0.2 10 ^3/uL Nucleated Red Blood Cells 0.1 % Sodium Level 133 L 136-145 mmol/L Potassium Level 3.7 3.5-5.1 mmol/L Chloride Level 98 98-107 mmol/L Carbon Dioxide Level 22 20-31 mmol/L Anion Gap 13 5-15 Blood Urea Nitrogen 64 H 9-23 mg/dL Creatinine 6.82 H 0.550-1.02 mg/dL Glomerular Filtration Rate Calc 7 >90 mL/min BUN/Creatinine Ratio 9.4 L 10.0-20.0 Serum Glucose 411 *H 74-106 mg/dL Calcium Level 9.1 8.7-10.4 mg/dL Iron Level 38 L 50-170 ug/dL Total Iron Binding Capacity 207 L 250-425 ug/dL Percent Iron Saturation 18.4 15-50 % B-Type Natriuretic Peptide 346.13 0-100 pg/mL POC Glucose 379 H 70-106 mg/dl Troponin I High Sensitivity 62 *H 58 *H </=34 ng/L Test 03/10/24 22:29 03/10/24 22:20 Range/Units White Blood Count 13.1 H 4.4-10.8 10^3/uL Red Blood Count 2.72 L 4.0-5.20 10^6/uL Hemoglobin 8.3 L 12.2-16.2 g/dL Hematocrit 25.5 L 36.0-46.0 % Mean Corpuscular Volume 93.8 80.0-100.0 fL Mean Corpuscular Hemoglobin 30.5 28.0-32.0 pg Mean Corpuscular Hemoglobin Concent 32.6 32.0-36.0 g/dL Red Cell Distribution Width 14.8 H 11.8-14.3 % Platelet Count 224 140-450 10^3/uL Mean Platelet Volume 10.2 6.9-10.8 fL Neutrophils (%) (Auto) 87.8 H 37.0-80.0 % Lymphocytes (%) (Auto) 4.9 L 10.0-50.0 % Monocytes (%) (Auto) 6.5 0.0-12.0 % Eosinophils (%) (Auto) 0.4 0.0-7.0 % Basophils (%) (Auto) 0.4 0.0-2.0 % Neutrophils # (Auto) 11.5 H 1.6-8.6 10 ^3/uL Lymphocytes # (Auto) 0.6 0.4-5.4 10 ^3/uL Monocytes # (Auto) 0.9 0-1.3 10 ^3/uL Eosinophils # (Auto) 0 0-0.8 10 ^3/uL Basophils # (Auto) 0 0-0.2 10 ^3/uL Nucleated Red Blood Cells 0.0 % Sodium Level 137 136-145 mmol/L Potassium Level 4.1 3.5-5.1 mmol/L Chloride Level 101 98-107 mmol/L Carbon Dioxide Level 22 20-31 mmol/L Anion Gap 14 5-15 Blood Urea Nitrogen 62 H 9-23 mg/dL Creatinine 6.20 H 0.550-1.02 mg/dL Glomerular Filtration Rate Calc 8 >90 mL/min BUN/Creatinine Ratio 10.0 10.0-20.0 Serum Glucose 218 H 74-106 mg/dL Calcium Level 8.9 8.7-10.4 mg/dL Troponin I High Sensitivity 56 *H </=34 ng/L Lactic Acid Level 0.8 0.4-2.0 mmol/L Assessment End-stage renal disease on hemodialysis Diabetes mellitus type 2 Hypertension Peripheral arterial disease Left foot cellulitis Recommendations Resume home medications Patient is scheduled scheduled [place] [facility] [place] Insulin sliding scale Renal diet Patient seen and examined by myself. I discussed my plan of care with the patient and primary nurse at the bedside I would like to thank for the consult, will follow up Plan discussed with: Patient MEY COLES MD Mar 11, 2024 09:13
[2024-03-11 09:38] LABS: INR 0.98 (0.9-1.15); Prothrombin Time 10.4 sec (9.3-11.8)
[2024-03-11] MEDS: HEPARIN SODIUM (PORCINE) 5000 UNITS/ML 1ML VIAL SC SCH (10:00)
[2024-03-11] MEDS: SEVELAMER 800 MG TAB PO SCH (10:10)
[2024-03-11] MEDS: POTASSIUM EFFERVESENT TAB 25 MEQ PO ONE (10:11)
[2024-03-11] MEDS: VANCOMYCIN 1GM/250ML KIT 250 ML IV ONE (10:12)
[2024-03-11] MEDS: PANTOPRAZOLE 40 MG TAB PO SCH (10:13)
[2024-03-11] MEDS: amLODIPine BESYLATE 5 MG TAB PO SCH (10:14)
[2024-03-11] MEDS: CARVEDILOL 3.125 MG TAB PO SCH (10:15)
[2024-03-11] MEDS: IRON SUCROSE COMPLEX 110 ML IV SCH (11:52)
[2024-03-11] MEDS ORDERED: LEVO500T91 PO (11:58)
[2024-03-11] MEDS ORDERED: AMOX500T86 PO (14:26)
--- NOTE | 2024-03-11 14:34 | DVHPNRES ---
Progress Note Date Seen: Mar 11, 2024 Resident Creating Document: SANTA TRAMMELL RESIDENT Medical Necessity Reason Pt with a Central, PICC or Fol: No Subjective Review of Systems 53-year-old female patient with past medical history of diabetes mellitus, hypertension, end-stage chronic kidney disease, requiring hemodialysis 3 times a week, and osteomyelitis in the left foot. Patient presented to the hospital from [facility] after being evaluated for uncontrolled bleeding that started after wound debridement with her scrap wheeler yesterday 03/10/2024. Patient was examined at bedside, living in the left foot trace noticeable, 3rd and 5th toe are likely necrotic. Patient is scheduled for hemodialysis tomorrow as an outpatient, based on her current clinical status and recent blood culture resulted showed Gram-negative bacteria growing patient will need to stay hospitalized to continue current antibiotic therapy. Patient will be evaluated tomorrow by Podiatry and Nephrology. Most recent echocardiogram (02/14) showed left ventricular ejection fraction 70% and severe left ventricular hypertrophy. Review of systems Constitutional: No: Fever, Chills, Sweats, Weakness, Malaise, Other Eyes: No: Pain, Vision change, Conjunctivae inflammation, Eyelid inflammation, Other, Redness ENT: No: Ear pain, Ear discharge, Nose pain, Nose discharge, Nose congestion, Mouth pain, Mouth swelling, Throat pain, Throat swelling, Other Respiratory: No Wheezing, Hemoptysis, Pleuritic Pain, Sputum, Wheezing, Other Cardiovascular: No: Chest Pain, Palpitations, Orthopnea, Paroxysmal Noc. Dyspnea, Edema, Lt Headedness, Other Gastrointestinal: No: Nausea, Vomiting, Abdominal Pain, Diarrhea, Constipation, Melena, Hematochezia, Other Musculoskeletal: No: other, neck pain, shoulder pain, arm pain, back pain, hand pain, leg pain, foot pain Neurological:yes: numbness in soles No: Weakness, Numbness, Incoordination, Change in speech, Confusion, Seizures Patient reports: Feels better Changes from previous H/P or p: Changes Objective vital signs Vital Sign Date Time Temp Pulse Resp B/P (MAP) Pulse Ox O2 Delivery O2 Flow Rate FiO2 03/11/24 13:16 97.6 69 19 97 03/11/24 13:00 111/55 (73) 03/11/24 07:50 Room Air* 0 21 medications Current Medications Medications Dose Ordered Sig/Latonia Route Start Time Stop Time Status Last Admin Dose Admin Cefepime HCl 50 ml @ 12.5 mls/hr DAILY IV 03/12/24 10:00 Vancomycin HCl 0 ml @ 0 mls/hr UD IV 03/11/24 03:15 Atorvastatin Calcium 40 mg HS PO 03/11/24 22:00 Diagnostic Test (Pha) 1 strip ACHS 03/11/24 07:00 03/11/24 11:41 1 STRIP Insulin Human Regular HS SC 03/11/24 22:00 Insulin Human Regular AC SC 03/11/24 07:00 03/11/24 11:55 6 UNITS Dextrose 50 ml UD PRN IV 03/11/24 03:15 Insulin Glargine 30 units QAM SC 03/11/24 07:00 03/11/24 06:20 30 UNITS Amlodipine Besylate 10 mg DAILY PO 03/11/24 10:00 03/11/24 10:14 10 MG Carvedilol 6.25 mg Q12HR PO 03/11/24 10:00 03/11/24 10:15 6.25 MG Sevelamer HCl 800 mg TIDWM PO 03/11/24 08:00 03/11/24 11:52 800 MG Vancomycin HCl 350 ml @ 233.333 mls/hr ONCE PRN IV 03/11/24 03:45 Cancel Hydralazine HCl 10 mg Q6HP PRN IV 03/11/24 05:15 03/11/24 05:15 10 MG Heparin Sodium (Porcine) 5,000 units Q12HR SC 03/11/24 10:00 Pantoprazole Sodium 40 mg DAILY PO 03/11/24 10:00 03/11/24 10:13 40 MG Iron Sucrose 110 ml @ 110 mls/hr DAILY@1200 IV 03/11/24 12:00 03/15/24 12:59 Examination Examination General Appearance: Alert, Oriented X3, Cooperative, No acute distress Respiratory: Clear to auscultation, Normal air movement Cardiovascular: Regular rate, Normal S1, Normal S2 Abdominal: Normal bowel sounds Extremities: History of 4th digit amputation , 3rd and 5th digit necrosis Skin: No rashes, No breakdown Neuro: Normal gait, Normal speech, Strength at 5/5 X4 ext, Normal tone, Sensation intact, Cranial nerves 3-12 NL, Reflexes 2+ Psych/Mental Status: Mental status NL, Mood NL laboratory and microbiology Laboratory Tests 03/11/24 06:13 Test 03/11/24 06:13 Range/Units Serum Glucose 411 *H 74-106 mg/dL Microbiology Date/Time Source Procedure Growth Status 03/10/24 22:29 Blood Blood Culture - Preliminary Resulted Problem List/Assessment/Plan Problem List/Assessment/Plan # Septicemia due to gram negative bacteremia likely due to osteomyelitis - IV cefepime 1 g daily and IV vancomycin as per pharmacy - Monitor vitals closely. - wound care consult - podiatry consult - NPO since midnight - blood culture # History of osteomyelitis of the left foot, s/p amputation of Lt 4th digit - MRI of the Lt foot on 02/08 revealed Osteomyelitis in the 4th proximal phalanx of the left foot and Soft tissue swelling about the 4th digit with additional low signal intensity foci within the soft tissues representing either postprocedural change or ulceration and gas. - Consulted podiatry # NSTEMI type 2 secondary to above - EKG revealed normal study - Troponin trends are 56>57>62 # ESRD on hemodialysis 3 times a week - Continue Sevelamer 800 mg PO TID - Consulted nephrology - hemodyalisis scheduled for tomorrow # Uncontrolled type 2 diabetes mellitus, HbA1C 11.2 on 02/08 - Started Lantus 30 units at q.a.m. - Moderate sliding scale of insulin - Accuchecks # Hypertensive urgency - IV hydralazine 10 mg q.6 p.r.n. - Continue amlodipine 10 mg p.o. daily - carvedilol 6.25 mg p.o. b.i.d. # Possible anemia of chronic disease - Ordered iron panel and ferritin - Monitor CBC # PUD prophylaxis - Protonix 40 mg PO daily. # DVT prophylaxis - Heparin 5000 units SC b.i.d. case discussed with Dr. Li Goals of care discussed with the patient for 36 minutes Code status: Full code Plan discussed with: Patient My Orders My Orders Orders - SANTA TRAMMELL RESIDENT Procedure Category Date Status Time Iron Sucrose Complex PHA 03/11/24 In Process (Venofer) 12:00 Renal Specific DIET 03/11/24 Transmitted Diet(Renal) Lunch Date of Service: Mar 11, 2024 Billing Provider: KADIE LI MD Common Visit Codes: [id number] INP/OBS CARE(HIGH) SANTA TRAMMELL RESIDENT Mar 11, 2024 14:34 KADIE LI MD Mar 12, 2024 11:53
[2024-03-11] MEDS: ATORVASTATIN 20 MG TAB PO SCH (22:57)
[2024-03-12 01:00] VITALS: BP 117/60; PULSE 68; RESP 18; TEMP 97.6; O2SAT 96
[2024-03-12 05:00] VITALS: BP 122/72; PULSE 85; RESP 18; TEMP 98.3; O2SAT 97
[2024-03-12 06:16] LABS: Basophils # (auto) 0 10 ^3/uL (0-0.2); Eosinophils # (auto) 0.2 10 ^3/uL (0-0.8); Monocytes # (auto) 0.9 10 ^3/uL (0-1.3); Neutrophils # (auto) 4.9 10 ^3/uL (1.6-8.6)
[2024-03-12 06:19] LABS: Basophils % (auto) 0.5 % (0.0-2.0); Eosinophils % (auto) 2.9 % (0.0-7.0); Hematocrit 21.1 % (36.0-46.0); Hemoglobin 7.1 g/dL (12.2-16.2); Lymphocytes # (auto) 1.8 10 ^3/uL (0.4-5.4); Mean Corpuscular Hemoglobin 31.6 pg (28.0-32.0); Mean Corpuscular Hgb Conc. 33.4 g/dL (32.0-36.0); Mean Corpuscular Volume 94.4 fL (80.0-100.0); Monocytes % (auto) 11.4 % (0.0-12.0); Neutrophils % (auto) 62.2 % (37.0-80.0); Nucleated Red Blood Cells % 0.1 %; Platelet Count (auto) 201 10^3/uL (140-450); Red Blood Cells 2.24 10^6/uL (4.0-5.20); Red Cell Distribution Width 14.5 % (11.8-14.3); White Blood Cell 7.8 10^3/uL (4.4-10.8)
[2024-03-12 06:23] LABS: Chloride 99 mmol/L (98-107); Potassium 3.9 mmol/L (3.5-5.1)
[2024-03-12 06:24] LABS: Anion Gap 13 (5-15); Carbon Dioxide 22 mmol/L (20-31)
[2024-03-12 06:25] LABS: Calcium 8.8 mg/dL (8.7-10.4)
[2024-03-12 06:30] LABS: BUN/Creatinine Ratio 10.4 (10.0-20.0)
[2024-03-12 06:35] LABS: Glucose 180 mg/dL (74-106); Sodium 134 mmol/L (136-145)
[2024-03-12 06:38] LABS: Blood Urea Nitrogen 82 mg/dL (9-23)
[2024-03-12 08:50] VITALS: BP 124/52; PULSE 66; RESP 16; TEMP 98.1; O2SAT 98
[2024-03-12] MEDS: CEFEPIME 1GM/ 50ML 50 ML IV SCH (10:00)
--- NOTE | 2024-03-12 10:41 | DVHPN2 ---
Progress Note Date Seen: Mar 12, 2024 Medical Necessity Reason Pt with a Central, PICC or Fol: No Subjective Patient reports: No new complaints Other Systems: Patient seen and examined by myself today in follow-up Patient examined hemodialysis, blood pressure stable Objective vital signs Vital Sign Date Time Temp Pulse Resp B/P (MAP) Pulse Ox O2 Delivery O2 Flow Rate FiO2 03/12/24 08:50 98.1 66 16 124/52 (76) 98 98.1 03/12/24 08:00 Room Air* 0 21 Total Intake and Output 03/11/24 03/11/24 03/12/24 15:00 23:00 07:00 Intake Total 250 ml 480 ml 500 ml Output Total 400 ml 400 ml Balance 250 ml 80 ml 100 ml medications Current Medications Medications Dose Ordered Sig/[place] Route Start Time Stop Time Status Last Admin Dose Admin Cefepime HCl 50 ml @ 12.5 mls/hr DAILY IV 03/12/24 10:00 Vancomycin HCl 0 ml @ 0 mls/hr UD IV 03/11/24 03:15 Atorvastatin Calcium 40 mg HS PO 03/11/24 22:00 03/11/24 22:57 40 MG Diagnostic Test (Pha) 1 strip ACHS 03/11/24 07:00 03/12/24 06:55 1 STRIP Insulin Human Regular HS SC 03/11/24 22:00 03/11/24 22:59 8 UNITS Insulin Human Regular AC SC 03/11/24 07:00 03/12/24 06:56 3 UNITS Dextrose 50 ml UD PRN IV 03/11/24 03:15 Insulin Glargine 30 units QAM SC 03/11/24 07:00 03/12/24 06:55 30 UNITS Amlodipine Besylate 10 mg DAILY PO 03/11/24 10:00 03/11/24 10:14 10 MG Carvedilol 6.25 mg Q12HR PO 03/11/24 10:00 03/11/24 22:58 6.25 MG Sevelamer HCl 800 mg TIDWM PO 03/11/24 08:00 03/12/24 08:07 800 MG Vancomycin HCl 350 ml @ 233.333 mls/hr ONCE PRN IV 03/11/24 03:45 Cancel Hydralazine HCl 10 mg Q6HP PRN IV 03/11/24 05:15 03/11/24 05:15 10 MG Heparin Sodium (Porcine) 5,000 units Q12HR SC 03/11/24 10:00 03/11/24 22:59 5,000 UNITS Pantoprazole Sodium 40 mg DAILY PO 03/11/24 10:00 03/11/24 10:13 40 MG Iron Sucrose 110 ml @ 110 mls/hr DAILY@1200 IV 03/11/24 12:00 03/15/24 12:59 Examination: LUNGS:Normal, CVS:Normal, MSK:Abnormal laboratory and microbiology Laboratory Tests 03/12/24 04:36 Test 03/12/24 04:36 Range/Units Serum Glucose 180 H 74-106 mg/dL Microbiology Date/Time Source Procedure Growth Status 03/10/24 22:29 Blood Blood Culture - Preliminary Resulted Problem List/Assessment/Plan Problem List/Assessment/Plan End-stage renal disease on hemodialysis Diabetes mellitus type 2 Hypertension Chronic diastolic Congestive heart failure Peripheral arterial disease Left foot cellulitis status post surgical debridement Gram-negative bacteremia Recommendations Continue with UF 2 to 3 L as tolerated Epogen 24851 IV post hemodialysis Epogen with hemodialysis Insulin sliding scale Renal diet IV antibiotics Podiatry consult We will continue to follow up Plan discussed with: Patient My Orders My Orders Orders - MEY COLES MD Procedure Category Date Status Time Hepatitis B Surface LAB 03/12/24 In Process Antigen 10:18 Hemodialysis REJI 03/12/24 In Process Treatment Order 10:33 Heparin Sodium PHA 03/12/24 Logged (Porcine) 10:45 Heparin Sodium PHA 03/12/24 Logged (Porcine) 10:45 MEY COLES MD Mar 12, 2024 10:41
[2024-03-12] MEDS ORDERED: HEPARIN SODIUM (PORCINE) 5000 UNITS/ML 1ML VIAL IV ONE (10:45)
[2024-03-12] MEDS ORDERED: HEPARIN 1,000 UNITS/ml 1ML VIAL IV ONE (10:45)
[2024-03-12 11:07] LABS: Magnesium 2.5 mg/dL (1.6-2.6)
[2024-03-12 11:09] LABS: Phosphorus 4.6 mg/dL (2.4-5.1)
--- NOTE | 2024-03-12 11:32 | DVHPNRES ---
Progress Note Date Seen: Mar 12, 2024 Resident Creating Document: SANTA TRAMMELL RESIDENT Medical Necessity Reason Pt with a Central, PICC or Fol: No Subjective Review of Systems 53-year-old female patient with past medical history of diabetes mellitus, hypertension, end-stage chronic kidney disease, requiring hemodialysis 3 times a week, and osteomyelitis in the left foot. Patient presented to the hospital from [facility] after being evaluated for uncontrolled bleeding that started after wound debridement with her quarrying specialist yesterday 03/10/2024. Patient was examined at bedside, living in the left foot trace noticeable, 3rd and 5th toe are likely necrotic. Patient is scheduled for hemodialysis tomorrow as an outpatient, based on her current clinical status and recent blood culture resulted showed Gram-negative bacteria growing patient will need to stay hospitalized to continue current antibiotic therapy. Patient will be evaluated tomorrow by Podiatry and Nephrology. Most recent echocardiogram (02/14) showed left ventricular ejection fraction 70% and severe left ventricular hypertrophy. Podiatry consult: suggest vascular consultation to approach vascular evaluation before proceed with the surgical intervention in the 3rd and 5th necrotic toes, for which vascular consultation is pending. Nephrology consult: Patient will receive dialysis today. Patient examined at bedside, she reports not having new complaint she was advised to follow-up with nephrology podiatry and vascular surgery and with us at the clinic to continue further management . She reports no acute complaints or symptoms, vital signs are stable , white blood cell count from 13.1-7.8. Patient reports: Feels better Changes from previous H/P or p: Changes Objective vital signs Vital Sign Date Time Temp Pulse Resp B/P (MAP) Pulse Ox O2 Delivery O2 Flow Rate FiO2 03/12/24 08:50 98.1 66 16 124/52 (76) 98 98.1 03/12/24 08:00 Room Air* 0 21 Total Intake and Output 03/11/24 03/11/24 03/12/24 15:00 23:00 07:00 Intake Total 250 ml 480 ml 500 ml Output Total 400 ml 400 ml Balance 250 ml 80 ml 100 ml medications Current Medications Medications Dose Ordered Sig/Latonia Route Start Time Stop Time Status Last Admin Dose Admin Cefepime HCl 50 ml @ 12.5 mls/hr DAILY IV 03/12/24 10:00 Vancomycin HCl 0 ml @ 0 mls/hr UD IV 03/11/24 03:15 Atorvastatin Calcium 40 mg HS PO 03/11/24 22:00 03/11/24 22:57 40 MG Diagnostic Test (Pha) 1 strip ACHS 03/11/24 07:00 03/12/24 11:17 1 STRIP Insulin Human Regular HS SC 03/11/24 22:00 03/11/24 22:59 8 UNITS Insulin Human Regular AC SC 03/11/24 07:00 03/12/24 06:56 3 UNITS Dextrose 50 ml UD PRN IV 03/11/24 03:15 Insulin Glargine 30 units QAM SC 03/11/24 07:00 03/12/24 06:55 30 UNITS Amlodipine Besylate 10 mg DAILY PO 03/11/24 10:00 03/11/24 10:14 10 MG Carvedilol 6.25 mg Q12HR PO 03/11/24 10:00 03/11/24 22:58 6.25 MG Sevelamer HCl 800 mg TIDWM PO 03/11/24 08:00 03/12/24 08:07 800 MG Vancomycin HCl 350 ml @ 233.333 mls/hr ONCE PRN IV 03/11/24 03:45 Cancel Hydralazine HCl 10 mg Q6HP PRN IV 03/11/24 05:15 03/11/24 05:15 10 MG Heparin Sodium (Porcine) 5,000 units Q12HR SC 03/11/24 10:00 03/11/24 22:59 5,000 UNITS Pantoprazole Sodium 40 mg DAILY PO 03/11/24 10:00 03/11/24 10:13 40 MG Iron Sucrose 110 ml @ 110 mls/hr DAILY@1200 IV 03/11/24 12:00 03/15/24 12:59 Examination General Appearance: Alert, Oriented X3, Cooperative, No acute distress Respiratory: Clear to auscultation, Normal air movement Cardiovascular: Regular rate, Normal S1, Normal S2 Abdominal: Normal bowel sounds Extremities: History of 4th digit amputation , 3rd and 5th digit necrosis Skin: No rashes, No breakdown Neuro: Normal gait, Normal speech, Strength at 5/5 X4 ext, Normal tone, Sensation intact, Cranial nerves 3-12 NL, Reflexes 2+ Psych/Mental Status: Mental status NL, Mood NL laboratory and microbiology Laboratory Tests 03/12/24 04:36 Test 03/12/24 04:36 Range/Units Serum Glucose 180 H 74-106 mg/dL Microbiology Date/Time Source Procedure Growth Status 03/10/24 22:29 Blood Blood Culture - Preliminary Resulted Problem List/Assessment/Plan Problem List/Assessment/Plan # Septicemia due to gram negative bacteremia likely due to osteomyelitis , resolved - IV cefepime 1 g daily and IV vancomycin as per pharmacy - Monitor vitals closely. - wound care consult - podiatry consult - vascular surgery consult - NPO since midnight - blood culture # History of osteomyelitis of the left foot, s/p amputation of Lt 4th digit - MRI of the Lt foot on 02/08 revealed Osteomyelitis in the 4th proximal phalanx of the left foot and Soft tissue swelling about the 4th digit with additional low signal intensity foci within the soft tissues representing either postprocedural change or ulceration and gas. - Consulted podiatry - vascular surgery consult # NSTEMI type 2 secondary to above - EKG revealed normal study - Troponin trends are 56>57>62 # ESRD on hemodialysis 3 times a week - Continue Sevelamer 800 mg PO TID - Consulted nephrology - hemodyalisis scheduled for today # Uncontrolled type 2 diabetes mellitus, HbA1C 11.2 - Started Lantus 35 units at q.a.m. - Moderate sliding scale of insulin - Accuchecks # Hypertensive urgency - IV hydralazine 10 mg q.6 p.r.n. - Continue amlodipine 10 mg p.o. daily - carvedilol 6.25 mg p.o. b.i.d. # Possible anemia of chronic disease - Ordered iron panel and ferritin - Monitor CBC - Epogen on hemodialysis # PUD prophylaxis - Protonix 40 mg PO daily. # DVT prophylaxis - Heparin 5000 units SC b.i.d. case discussed with Dr. Li Goals of care discussed with the patient for 36 minutes Code status: Full code Plan discussed with: Patient, Spouse My Orders My Orders Orders - SANTA TRAMMELL RESIDENT Procedure Category Date Status Time Blood Culture NAGI 03/11/24 In Process 17:22 Accucheck ED NURSING 03/11/24 Transmitted Communication Order ORDERS 03/11/24 Transmitted 14:31 * Wound Consult CONS 03/11/24 Transmitted Consult CONS 03/12/24 Transmitted Vascular/Endovascular 09:26 Renal Specific DIET 03/12/24 Transmitted Diet(Renal) Lunch Date of Service: Mar 12, 2024 Billing Provider: KADIE LI MD Common Visit Codes: [id number] INP/OBS CARE(HIGH) SANTA TRAMMELL RESIDENT Mar 12, 2024 11:32 KADIE LI MD Mar 12, 2024 18:11
[2024-03-12 13:00] VITALS: BP 127/69; PULSE 65; RESP 17; TEMP 98; O2SAT 98
[2024-03-12] MEDS ORDERED: ERGO1CAP23 PO (15:41)
--- NOTE | 2024-03-12 15:52 | DVHDSRES ---
Discharge Summary Date of Admission Resident Creating Document: SANTA TRAMMELL RESIDENT Mar 11, 2024 at 03:01 Date of Discharge: Mar 11, 2024 Admitting Diagnosis Septicemia due to osteomyelitis Labs/Diagnostic Data: Laboratory Results Test 03/12/24 14:16 03/12/24 11:52 03/12/24 04:36 03/11/24 15:46 POC Glucose 85 mg/dl (70-106) Vitamin D 25-Hydroxy 12.9 ng/mL (30.0-100) White Blood Count 7.8 10^3/uL (4.4-10.8) Red Blood Count 2.24 10^6/uL (4.0-5.20) Hemoglobin 7.1 g/dL (12.2-16.2) Hematocrit 21.1 % (36.0-46.0) Mean Corpuscular Volume 94.4 fL (80.0-100.0) Mean Corpuscular Hemoglobin 31.6 pg (28.0-32.0) Mean Corpuscular Hemoglobin Concent 33.4 g/dL (32.0-36.0) Red Cell Distribution Width 14.5 % (11.8-14.3) Platelet Count 201 10^3/uL (140-450) Mean Platelet Volume 10.8 fL (6.9-10.8) Neutrophils (%) (Auto) 62.2 % (37.0-80.0) Lymphocytes (%) (Auto) 23.0 % (10.0-50.0) Monocytes (%) (Auto) 11.4 % (0.0-12.0) Eosinophils (%) (Auto) 2.9 % (0.0-7.0) Basophils (%) (Auto) 0.5 % (0.0-2.0) Neutrophils # (Auto) 4.9 10 ^3/uL (1.6-8.6) Lymphocytes # (Auto) 1.8 10 ^3/uL (0.4-5.4) Monocytes # (Auto) 0.9 10 ^3/uL (0-1.3) Eosinophils # (Auto) 0.2 10 ^3/uL (0-0.8) Basophils # (Auto) 0 10 ^3/uL (0-0.2) Nucleated Red Blood Cells 0.1 % Sodium Level 134 mmol/L (136-145) Potassium Level 3.9 mmol/L (3.5-5.1) Chloride Level 99 mmol/L (98-107) Carbon Dioxide Level 22 mmol/L (20-31) Anion Gap 13 (5-15) Blood Urea Nitrogen 82 mg/dL (9-23) Creatinine 7.88 mg/dL (0.550-1.02) Glomerular Filtration Rate Calc 6 mL/min (>90) BUN/Creatinine Ratio 10.4 (10.0-20.0) Serum Glucose 180 mg/dL (74-106) Calcium Level 8.8 mg/dL (8.7-10.4) Phosphorus Level 4.6 mg/dL (2.4-5.1) Magnesium Level 2.5 mg/dL (1.6-2.6) Parathyroid Hormone (Intact) 207.7 pg/mL (18.4-80.1) Random Vancomycin Level 25.3 ug/mL (5-10) Hepatitis B Surface Antigen Negative (Negative) Activated Partial Thromboplast Time 32.8 SEC (24.5-34.5) Test 03/11/24 06:13 03/11/24 02:10 03/10/24 22:20 Prothrombin Time 10.4 sec (9.3-11.8) Prothrombin Time INR 0.98 (0.9-1.15) Iron Level 38 ug/dL (50-170) Total Iron Binding Capacity 207 ug/dL (250-425) Percent Iron Saturation 18.4 % (15-50) Ferritin 1249.4 ng/mL (10-291) B-Type Natriuretic Peptide 346.13 pg/mL (0-100) Troponin I High Sensitivity 62 ng/L (</=34) Lactic Acid Level 0.8 mmol/L (0.4-2.0) Other Laboratory Tests 03/12/24 04:36 Brief Hx & Hospital Course: HPI: 53-year-old female patient with past medical history of type 2 diabetes, hypertension, ESRD on hemodialysis 3 times a week, osteomyelitis in the left foot, she presented to the hospital from [facility] due to uncontrolled bleeding that occurred after wound debridement given the complexity of her case, the need for a podiatry evaluation and treatment was identified. The patient was transferred to [facility] to receive specialized care under the supervision of our hospital's ward clerk. Hospital course: On bedside examination necrosis was observed the 3rd and 5th toes of the left foot. Recent blood culture revealed Gram-negative bacteremia in one bottle, possibly contamination??? Consultation with Podiatry recommend vascular evaluation prior to proceeding with surgical intervention 3rd and 5th necrotic toes as outpatient. Consultation with Nephrology patient is on hemodialysis which was performed today. Following a thorough assessment, the ward clerk determined that the patient required evaluation by a vascular surgeon prior to proceeding with any surgical intervention. The recommendation for vascular surgery was based on the need to assess and optimize the vascular supply to the affected areas, ensuring a favorable outcome for subsequent ward clerk surgical procedure. Patient has been advised to follow-up in our discharge clinic in 1 week, we will establish a multidisciplinary plan in close communication with specialties including vascular surgery and Podiatry to ensure the patient received appropriate and coordinated treatment. This patient will need to continue antibiotic due to Gram-negative bacteremia possibly due to blood culture contamination for which patient will need to repeat a blood culture in 2-3 days with dialysis. Disposition: Patient is clinically stable no new complaints or acute issues, patient will be discharged with the recommendation to follow up with Nephrology, Podiatry, vascular surgery, primary care, Cardiology and continue prescribed medications. Avoid weight-bearing on the affected foot until further evaluation by Podiatry. Case discussed with Dr. Canela Goals of care discussed with the patient for 28 minutes Code status: Full code Consults/Reason for consult Podiatry: Necrosis seen 3rd and 5th toes, and sepsis due to osteomyelitis in the setting of diabetic foot ulcer Nephrology: ESRD on dialysis Operations or Procedures [place] [id number] Ph: [phone] DIAGNOSTIC IMAGING Diagnostic Imaging Report : [id number] Signed PATIENT: JUVENAL GRANDA ACCT: [id number] UNIT: [id number] : 1970 LOC: ER ROOM / BED: / AGE / SEX: 53 / F ADM STATUS: REG ER SERVICE 47 ORDERING PHYSICIAN: LITA GOMEZ MD PROCEDURE(s): CXRP - CHEST PORTABLE REASON: fever ORDER NUMBER(s): [id number], ACCESSION NUMBER(s): [id number] EXAM: XY CHEST PORTABLE CLINICAL HISTORY: fever TECHNIQUE: Single AP view of the chest WID: COMPARISON: XY CHEST XRAY 1 VIEW on DOS: 02/09/24 FINDINGS: Lines and tubes: Right IJ central venous catheter projects over the upper right atrium. Chest: Mild cardiomegaly and pulmonary vascular congestion. No pleural effusion, pneumothorax, or consolidation. The osseous structures are grossly intact. Multilevel thoracic spondylosis. IMPRESSION: Mild cardiomegaly and pulmonary vascular congestion. ATED BY: JOSÉ ANTONIO BLISS MD DICTATED DATE/TIME: 03/10/242214 SIGNED BY: JOSÉ ANTONIO BLISS MD SIGNED DATE/TIME: 03/10/242214 CC: [place] [id number] Ph: [phone] DIAGNOSTIC IMAGING Diagnostic Imaging Report : [id number] Signed PATIENT: JUVENAL GRANDA ACCT: [id number] UNIT: [id number] : 1970 LOC: ER ROOM / BED: / AGE / SEX: 53 / F ADM STATUS: REG ER SERVICE 47 ORDERING PHYSICIAN: LITA GOMEZ MD PROCEDURE(s): LFOOT - L FOOT 3 VIEW XRAY REASON: left foot pain s/p toe amputation ORDER NUMBER(s): [id number], ACCESSION NUMBER(s): [id number] CLINICAL INDICATION: left foot pain s/p toe amputation TECHNIQUE: XY L FOOT 3 VIEW XRAY Comparison: XY L FOOT 3 VIEW XRAY on DOS: 02/08/24 report from left foot radiograph dated 02/24/2024 FINDINGS/IMPRESSION: : 1. Interval amputation of the 4th digit at the level of the mid 4th metatarsal. Smooth bony margins. 2. There appears to be impacted mildly displaced fracture of the base of the 5th proximal phalanx. 3. Calcified atherosclerosis. 4. Normal mineralization and alignment. Joint spaces preserved. ATED BY: JOSÉ ANTONIO BLISS MD DICTATED DATE/TIME: 03/10/242219 SIGNED BY: JOSÉ ANTONIO BLISS MD SIGNED DATE/TIME: 03/10/242219 CC: Condition at Discharge: Fair Final Diagnosis/Problems List # Septicemia due to gram negative bacteremia likely due to osteomyelitis , resolved # History of osteomyelitis of the left foot, s/p amputation of Lt 4th digit # NSTEMI type 2 secondary to above # ESRD on hemodialysis 3 times a week # Uncontrolled type 2 diabetes mellitus, HbA1C 11.2 # Hypertensive urgency # Possible anemia of chronic disease Discharge Disposition: Home SNF Discharge Will this Physician continue t: No Discharge Instruct/Medications Diet: Renal Activity: Light activity Follow Up/Referral: patient has an stablished ward clerk Dr. Ortiz , patient need a vascular evaluation as an outpatient. patient will need cardiology follow up evaluation here with Dr. Hernandez as an outpatient follow up with qualitative executive researcher within one week follow up with pcp within 2 weeks Medications: script to pharmacy Discharge Statement: "Patient was advised to return to the ER or call 911 if any headaches, dizziness, shortness of breath, chest pain, abdominal pain, bleeding, fevers, or worsening of medical condition. Patient was counseled about treatment plan, medications, possible side effects, patientverbalized understanding. All questions were answered to the best of my ability. This discharge took greater then 30 minutes in planning, reviewing documentation, counseling the patient, and discussing with other team members." ASSESSMENT ASSESSMENT Assessment sepsis due to osteomyelitis End stage renal disease uncontrolled diabetes Date of Service: Mar 12, 2024 Billing Provider: KADIE CANELA MD Common Visit Codes: [id number] DISCH DAY >30min SANTA TRAMMELL RESIDENT Mar 12, 2024 15:52 KADIE CANELA MD Mar 12, 2024 18:17
[2024-03-13] MEDS ORDERED: INSULIN LANTUS (GLARGINE) 1 /0.01ml (100units/ml) SC SCH (07:00)
== END 2024-03-12 16:33 | disposition home or self-care (01) | DRG 720 ==
LOC: EDBD 21:47 → ER 21:47 → OVERFLOW 03-11 03:01 → CENTRAL 03-11 05:36
PROVIDERS: ATTEND Internal Medicine
DX: A41.50 Gram-negative sepsis, unspecified (principal); I21.A1 Myocardial infarction type 2; I13.2 Hypertensive heart and chronic kidney disease with heart failure and with stage 5 chronic kidney disease, or end stage renal disease; D63.8 Anemia in other chronic diseases classified elsewhere; L97.523 Non-pressure chronic ulcer of other part of left foot with necrosis of muscle; N18.6 End stage renal disease; M86.8X7 Other osteomyelitis, ankle and foot; E11.69 Type 2 diabetes mellitus with other specified complication; E11.22 Type 2 diabetes mellitus with diabetic chronic kidney disease; L03.116 Cellulitis of left lower limb; E11.51 Type 2 diabetes mellitus with diabetic peripheral angiopathy without gangrene; E11.621 Type 2 diabetes mellitus with foot ulcer; I16.0 Hypertensive urgency; I50.32 Chronic diastolic (congestive) heart failure; Z99.2 Dependence on renal dialysis; Z89.432 Acquired absence of left foot
CPT/HCPCS: 36415; 71045; 73630; 80048; 80202; 82306; 82728; 82962; 83540; 83550; 83605; 83735; 83880; 83970; 84100; 84484; 85025; 85610; 85730; 87040; 87077; 87186; 87340; 90935; 93005; 96374; G0378; J1642; J1756; J1815; J1885

== ENCOUNTER 2024-03-27 01:42 | Inpatient (IN) | payer MEDICAID ==
[2024-03-27] VITALS (11 sets, daily range): BP systolic 91–130; BP diastolic 55–79; PULSE 59–97; RESP 15–18; TEMP 98–98.3; O2SAT 60–99
[~2024-03-27] VITALS: Ht 152.4 cm; Wt 53.8 kg
[~2024-03-27 01:42] MED LIST changes: +AMOX500T86 PO; +ERGO1CAP23 PO
--- NOTE | 2024-03-27 02:15 | ED.PDOC ---
History of Present Illness HPI Comments 53-year-old female brought in by EMS, transferred from [facility] for generalized weakness. Patient has history of hypertension, diabetes, end-stage renal disease on dialysis Saturday, Saturday, Saturday. Patient states she recently underwent amputation of 2nd toe of the left foot and since then she has been feeling generally weak and dizzy. Patient was seen at [facility], underwent workup for the weakness, and was found to be anemic with a hemoglobin of 7.0. Her previous hemoglobin there was reportedly 11. Patient reported black stools. Plan was to admit the patient for GI evaluation, however [facility] does not have the capability of performing routine dialysis, and the patient requires dialysis today. She was transferred here for both GI evaluation of the drop in hemoglobin, and for hemodialysis. On arrival to the ER, she denies any pain, nausea, vomiting, shortness a breath or acute bleeding. Chief Complaint: Weakness Time Seen by MD: 02:14 Reviewed Notes: Nurses Notes Allergies: Coded Allergies: No Known Drug Allergy (Verified Allergy, Unknown, 02/09/24) Home Meds Active Scripts Ergocalciferol (VITAMIN D 02885 UNIT) 50,000 [place], [address] UNIT PO QWEEKLY for 90 Days, #12 CAP Prov:ELENA PRECIADO RESIDENT 03/12/24 Amoxicillin & Pot Clavulanate (Augmentin) 500 Mg Tab, 500 MG PO BID for 7 Days, #14 TAB Prov:ELENA PRECIAOD RESIDENT 03/11/24 Sevelamer Hydrochloride (Renagel) 800 Mg Tab, 800 MG PO TIDWM for 10 Days, #30 TAB Prov:KELLY VU RESIDENT 02/17/24 Insulin Lispro (Human) (Humalog) 100 Unit/Ml Inj, 5 UNITS SC TID for 30 Days, #10 INJ Prov:KELLY VU 02/17/24 Insulin Glargine (Lantus) 100 Unit/Ml Inj, 30 UNITS SC QAM for 30 Days, #10 INJ Prov:KELLY VU RESIDENT 02/17/24 Carvedilol (COREG) 3.125 Mg Tab, 6.25 MG PO Q12HR for 30 Days, #120 TAB Prov:KELLY VU RESIDENT 02/17/24 Atorvastatin Calcium (ATORVASTATIN CALCIUM) 20 Mg Tab, 20 MG PO HS for 30 Days, #30 TAB Prov:KELLY VU [facility] 02/17/24 Aspirin (Aspirin Low Dose) 81 Mg Tab, 81 MG PO DAILY for 30 Days, #30 TAB Prov:KELLY VU [facility] 02/17/24 Amlodipine Besylate (NORVASC TABLET) 5 Mg Tb, 10 MG PO DAILY for 30 Days, #60 TAB Prov:KELLY VU [facility] 02/17/24 Acetaminophen (Acetaminophen) 325 Mg Tab, 650 MG PO Q6HP PRN for 10 Days, #80 TAB Prov:KELLY VU [facility] 02/17/24 Reported Medications Hydralazine Hcl (Hydralazine Hcl) 100 Mg Tab, 1 TAB PO TID, #90 TAB 5 Refills 02/09/24 Ferric Citrate (Auryxia) 210 Mg Tab, 210 MG PO, TAB 02/09/24 Cholecalciferol (VITAMIN D) 5,000 Unit Tab, 5000 UNIT OR, TAB 02/09/24 Ondansetron HCl (Ondansetron) 4 Mg Tab, 4 MG PO, TAB 02/09/24 Information Source: Patient, Emergency Med Personnel Mode of Arrival: EMS Severity: Moderate Timing: Hours Duration: Intermittent Prehospital treatment: None Past Medical History PAST MEDICAL HISTORY: DM, ESRD, HTN Surgical History (Other): Dialysis every Saturday, status post amputation of 2nd toe left foot 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[employer]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 Family History Family History: Reviewed,noncontributory to illness Social History Smoker: Non-Smoker Alcohol: Denies ETOH Use Drugs: Denies Drug Use Lives In: Home Constitutional: denies: chills, diaphoresis, fatigue, fever, malaise, sweats, weakness, others EENTM: denies: blurred vision, double vision, ear bleeding, ear discharge, ear drainage, ear pain, ear ringing, eye pain, eye redness, hearing loss, mouth pain, mouth swelling, nasal discharge, nose bleeding, nose congestion, nose pain, photophobia, tearing, throat pain, throat swelling, voice changes, others Respiratory: denies: cough, hemoptysis, orthopnea, SOB at rest, shortness of breath, SOB with excertion, stridor, wheezing, others Cardiovascular: denies: chest pain, dizzy spells, diaphoresis, Dyspnea on exertion, edema, irregular heart beat, left arm pain, lightheadedness, pal pitations, PND, syncope, others Gastrointestinal: denies: abdomen distended, abdominal pain, blood streaked bowels, constipated, diarrhea, dysphagia, difficulty swallowing, hematemesis, melena, nausea, poor appetite, poor fluid intake, rectal bleeding, rectal pain, vomiting, others Genitourinary: denies: abnormal vagina bleeding, burning, dyspareunia, dysuria, flank pain, frequency, hematuria, incontinence, pain, , vagina discharge, urgency, others Neurological: reports: dizziness, weakness; denies: fainting, headache, left sided numbness, left sided weakness, numbness, paresthesia, pre-existing deficit, right sided numbness, right sided weakness, seizure, speech problems, tingling, tremors, others Musculoskeletal: denies: back pain, gout, joint pain, joint swelling, muscle pain, muscle stiffness, neck pain, others Integumetry: denies: bruises, change in color, change in hair/nails, dryness, laceration, lesions, lumps, rash, wounds, others Allergic/Immunocompromised: denies: Difficulty Healing, Frequent Infections, Hives, Itching, others Hematologic/Lymphatic: denies: anemia, blood clots, easy bleeding, easy bruising, swollen glands, others Endocrine: denies: excessive hunger, excessive sweating, excessive thirst, excessive urination, flushing, intolerance to cold, intolerance to heat, une xplained weight gain, unexplained weight loss, others Psychiatric: denies: anxiety, bipolar disorder, depression, hopeless, panic disorder, schizophrenia, sleepless, suicidal, others Physical Exam General Appearance: No Apparent Distress HEENT: Other (Pupils symmetric, moist mucous membranes) Neck: Full Range of Motion, Normal Inspection Respiratory: Lungs Clear, No Accessory Muscle Use, No Respiratory Distress, Normal Breath Sounds Cardiovascular: No Edema, No JVD, Regular Rate/Rhythm Breast Exam: Deferred Gastrointestinal: Non Tender, Soft Genitalia: Deferred Pelvic: Deferred Rectal: Deferred Extremities: Normal inspection, Normal range of motion, Non-tender, No pedal edema Neurologic: Alert (Oriented x4), Normal Affect, Normal Mood, Other (Moves all extremities. No gross focal deficit.) Cerebellar Function: NOT DONE Reflexes: NOT DONE Skin: Dry, Pallor, Warm Lymphatic: NOT DONE Was a procedure done? Was a procedure done?: No Differential Dx Considerations may include: GI loss, anemia of chronic disease, electrolyte imbalance, CVA, TIA, among others X-Ray, Labs, Meds, VS Vital Signs Date Time Temp Pulse Resp B/P (MAP) Pulse Ox O2 Delivery O2 Flow Rate FiO2 03/27/24 06:00 61 17 130/60 (83) 96 03/27/24 05:00 63 17 127/58 (81) 95 03/27/24 03:00 64 17 134/64 (87) 96 03/27/24 02:01 98.7 64 15 141/61 (87) 97 98.7 03/27/24 02:01 64 15 97 Nasal Cannula* 1 24 03/27/24 01:54 98.2 62 20 136/62 (86) 96 Lab Test 03/27/24 04:55 Range/Units White Blood Count Pending Red Blood Count Pending Hemoglobin Pending Hematocrit Pending Mean Corpuscular Volume Pending Mean Corpuscular Hemoglobin Pending Mean Corpuscular Hemoglobin Concent Pending Red Cell Distribution Width Pending Platelet Count Pending Mean Platelet Volume Pending Neutrophils (%) (Auto) Pending Lymphocytes (%) (Auto) Pending Monocytes (%) (Auto) Pending Basophils (%) (Auto) Pending Neutrophils # (Auto) Pending Lymphocytes # (Auto) Pending Monocytes # (Auto) Pending Prothrombin Time Pending Prothrombin Time INR Pending Activated Partial Thromboplast Time Pending Sodium Level 130 L 136-145 mmol/L Potassium Level 3.4 L 3.5-5.1 mmol/L Chloride Level 97 L 98-107 mmol/L Carbon Dioxide Level 24 20-31 mmol/L Anion Gap 9 5-15 Blood Urea Nitrogen Pending Creatinine Pending Glomerular Filtration Rate Calc Pending BUN/Creatinine Ratio Pending Serum Glucose Pending Calcium Level Pending X-Ray, Labs, Meds, VS Comment 53-year-old female with a history of hypertension, diabetes, end-stage renal disease on dialysis complaining of generalized weakness Vitals unremarkable Exam remarkable for pallor Transfer records reviewed CBC, basic metabolic panel, coag panel, type and screen pending Rhythm strip independently interpreted by me: Sinus rhythm, rate 65, no ectopy. Plan is to admit the patient for GI evaluation, hemoglobin trend, and hemodialysis. Time of 1ST Reevaluation: 02:06 Reevaluation 1ST: Unchanged Patient Education/Counseling: Diagnosis, Treatment Family Education/Counseling: No Family Present Departure 1 Departure Time of Disposition: 04:30 Impression: Primary Impression: Severe anemia Additional Impressions: Generalized weakness Hemodialysis patient Disposition: 09 ADMITTED INPATIENT Admit to: Tele Condition: Guarded Critical Care Note Critical Care Time?: No Stability Stability form required: No Heart Score Heart Score: Heart Score Response (Comments) Value History N/A 0 EKG N/A 0 Age N/A 0 Risk Factors N/A 0 Troponin N/A 0 Total 0 I personally scribed for AVELINO CARABALLO MD ([facility] on 03/27/24 at 02:14. Electronically submitted by Jacky Willis ([facility]). AVELINO CARABALLO MD Mar 27, 2024 02:14
[2024-03-27 06:28] LABS: Anion Gap 9 (5-15); Carbon Dioxide 24 mmol/L (20-31)
[2024-03-27 06:29] LABS: Basophils # (auto) 0.1 10 ^3/uL (0-0.2); Calcium 8.8 mg/dL (8.7-10.4); Chloride 97 mmol/L (98-107); Eosinophils # (auto) 0.1 10 ^3/uL (0-0.8); Eosinophils % (auto) 1.5 % (0.0-7.0); Monocytes # (auto) 0.9 10 ^3/uL (0-1.3); Potassium 3.4 mmol/L (3.5-5.1); Sodium 130 mmol/L (136-145); White Blood Cell 9.4 10^3/uL (4.4-10.8)
[2024-03-27 06:33] LABS: Basophils % (auto) 0.7 % (0.0-2.0); Hematocrit 19.8 % (36.0-46.0); Lymphocytes # (auto) 1.4 10 ^3/uL (0.4-5.4); Lymphocytes % (auto) 15.2 % (10.0-50.0); Mean Corpuscular Hemoglobin 32.3 pg (28.0-32.0); Mean Corpuscular Hgb Conc. 33.6 g/dL (32.0-36.0); Monocytes % (auto) 9.7 % (0.0-12.0); Neutrophils # (auto) 6.8 10 ^3/uL (1.6-8.6); Neutrophils % (auto) 72.9 % (37.0-80.0); Nucleated Red Blood Cells % 0.3 %; Platelet Count (auto) 290 10^3/uL (140-450); Red Blood Cells 2.07 10^6/uL (4.0-5.20); Red Cell Distribution Width 16.6 % (11.8-14.3)
[2024-03-27 06:34] LABS: BUN/Creatinine Ratio 9.1 (10.0-20.0)
[2024-03-27 06:40] LABS: Blood Urea Nitrogen 49 mg/dL (9-23)
[2024-03-27 06:41] LABS: Glucose 420 mg/dL (74-106)
[2024-03-27 06:47] LABS: Hemoglobin 6.7 g/dL (12.2-16.2)
[2024-03-27 07:03] LABS: INR 1.04 (0.9-1.15); Partial Thromboplastin Time 33.4 SEC (24.5-34.5)
[2024-03-27] MEDS: InsuLIN REG 1unit/0.01ml Soln (100units/ml) IV ONE (07:04)
[2024-03-27] MEDS ORDERED: ONDANSETRON HCL 4 MG/2 ML VIAL IV PRN (08:00)
[2024-03-27] MEDS ORDERED: DEXTROSE (50%) 50ML SYRG IV PRN (08:00)
[2024-03-27] MEDS ORDERED: MORPHINE SULFATE INJ 2 MG/ml SYRG IV PRN (08:00)
[2024-03-27] MEDS ORDERED: ERGO1CAP12 PO (08:51)
[2024-03-27] MEDS: SEVELAMER 800 MG TAB PO SCH (09:34)
[2024-03-27] MEDS: amLODIPine BESYLATE 5 MG TAB PO SCH (09:35)
[2024-03-27] MEDS: cefTRIAXone 1GM/50ML D5W 50 ML IV SCH (09:35)
[2024-03-27] MEDS: CARVEDILOL 3.125 MG TAB PO SCH (09:37)
[2024-03-27] MEDS: POTASSIUM CHL 20 Meq TABLET PO ONE (09:37)
--- NOTE | 2024-03-27 10:31 | DVHHP2 ---
History of Present Illness Reason for Visit: abdominal pain and left foot pain History of Present Illness Mesha Crouch is a 53-year-old female with past medical history of hypertension, diabetes, end-stage renal disease on HD (M/W/F), left 2nd digit amputation, status post left 4th digit amputation, osteomyelitis, and who presents to the ED for nausea, abdominal pain and left toe pain. Patient reports that her abdominal pain is 5/10 constant and pressure-like. Patient also reports that she has left toe pain which was amputated a month ago with reported blood loss, per spouse at bedside about 1 L blood loss. Patient denies any vomiting, diarrhea, bloody or dark stools, chest pain, shortness of breath, lightheadedness, weakness, paresthesia, dizziness, headaches, fever, and chills. Cardiovascular: HTN Renal/: Chronic renal failure Endocrine: Diabetes Past Medical History Osteomyelitis Past Surgical History: Smoke: No ALCOHOL: none Drugs: None Lives: with Family Domestic Violence: Neg Review of Systems Constitutional: No: Fever, Chills, Sweats, Weakness, Malaise, Other Eyes: No: Pain, Vision change, Conjunctivae inflammation, Eyelid inflammation, Other, Redness ENT: No: Ear pain, Ear discharge, Nose pain, Nose discharge, Nose congestion, Mouth pain, Mouth swelling, Throat pain, Throat swelling, Other Respiratory: No: Cough, Dry, Shortness of breath, SOB with excertion, Wheezing, Hemoptysis, Pleuritic Pain, Sputum, Wheezing, Other Cardiovascular: No: Chest Pain, Palpitations, Orthopnea, Paroxysmal Noc. Dyspnea, Edema, Lt Headedness, Other Gastrointestinal: Nausea, Abdominal Pain; No: Vomiting, Diarrhea, Constipation, Melena, Hematochezia, Other Genitourinary: No Dysuria, No Frequency, No Incontinence, No Hematuria, No Retention, No Other Musculoskeletal: foot pain; No: other, neck pain, shoulder pain, arm pain, back pain, hand pain, leg pain Skin: No: Rash, Lesions, Jaundice, Bruising, Other Neurological: No: Weakness, Numbness, Incoordination, Change in speech, Confusion, Seizures, Other Allergies: Coded Allergies: No Known Drug Allergy (Verified Allergy, Unknown, 02/09/24) Medications Current Medications Medications Dose Ordered Sig/Latonia Route Start Time Stop Time Status Last Admin Dose Admin Acetaminophen/ Hydrocodone Bitart 1 tab Q4HP PRN PO 03/27/24 08:00 Ondansetron HCl 4 mg Q4HP PRN IV 03/27/24 08:00 Acetaminophen 650 mg Q6HP PRN PO 03/27/24 08:00 Morphine Sulfate 2 mg Q4HPRN PRN IV 03/27/24 08:00 Diagnostic Test (Pha) 1 strip ACHS 03/27/24 11:30 Insulin Human Regular ACHS SC 03/27/24 11:30 Dextrose 50 ml UD PRN IV 03/27/24 08:00 Ceftriaxone Sodium 50 ml @ 100 mls/hr DAILY@09 IV 03/27/24 09:00 03/27/24 09:35 100 MLS/HR Amlodipine Besylate 10 mg DAILY PO 03/27/24 10:00 03/27/24 09:35 10 MG Atorvastatin Calcium 20 mg HS PO 03/27/24 22:00 Carvedilol 6.25 mg Q12HR PO 03/27/24 10:00 03/27/24 09:37 6.25 MG Sevelamer HCl 800 mg TIDWM PO 03/27/24 08:00 03/27/24 09:34 800 MG Hydralazine HCl 100 mg TID PO 03/27/24 14:00 Exam Vital Signs Vital Signs Date Time Temp Pulse Resp B/P (MAP) Pulse Ox O2 Delivery O2 Flow Rate FiO2 03/27/24 09:37 60 132/59 03/27/24 07:42 17 98 Room Air* 0 21 03/27/24 07:42 97.9 97.9 General Appearance: Alert, Oriented X3, Cooperative, No acute distress HEENT: Atraumatic, PERRLA, EOMI, Mucous membr. moist/pink Respiratory: Clear to auscultation, Normal air movement Cardiovascular: Normal S1, Normal S2, No murmurs Abdominal: Normal bowel sounds, Soft, No hepatospenomegaly, No masses Neuro: Normal speech, Normal tone, Sensation intact Psych/Mental Status: Mental status NL, Mood NL Labs/Xrays Labs Test 03/27/24 07:01 03/27/24 04:55 Range/Units POC Glucose 416 *H 70-106 mg/dl White Blood Count 9.4 4.4-10.8 10^3/uL Red Blood Count 2.07 L 4.0-5.20 10^6/uL Hemoglobin 6.7 *L 12.2-16.2 g/dL Hematocrit 19.8 L 36.0-46.0 % Mean Corpuscular Volume 96.0 80.0-100.0 fL Mean Corpuscular Hemoglobin 32.3 H 28.0-32.0 pg Mean Corpuscular Hemoglobin Concent 33.6 32.0-36.0 g/dL Red Cell Distribution Width 16.6 H 11.8-14.3 % Platelet Count 290 140-450 10^3/uL Mean Platelet Volume 9.9 6.9-10.8 fL Neutrophils (%) (Auto) 72.9 37.0-80.0 % Lymphocytes (%) (Auto) 15.2 10.0-50.0 % Monocytes (%) (Auto) 9.7 0.0-12.0 % Eosinophils (%) (Auto) 1.5 0.0-7.0 % Basophils (%) (Auto) 0.7 0.0-2.0 % Neutrophils # (Auto) 6.8 1.6-8.6 10 ^3/uL Lymphocytes # (Auto) 1.4 0.4-5.4 10 ^3/uL Monocytes # (Auto) 0.9 0-1.3 10 ^3/uL Eosinophils # (Auto) 0.1 0-0.8 10 ^3/uL Basophils # (Auto) 0.1 0-0.2 10 ^3/uL Nucleated Red Blood Cells 0.3 % Prothrombin Time 11.0 9.3-11.8 sec Prothrombin Time INR 1.04 0.9-1.15 Activated Partial Thromboplast Time 33.4 24.5-34.5 SEC Sodium Level 130 L 136-145 mmol/L Potassium Level 3.4 L 3.5-5.1 mmol/L Chloride Level 97 L 98-107 mmol/L Carbon Dioxide Level 24 20-31 mmol/L Anion Gap 9 5-15 Blood Urea Nitrogen 49 H 9-23 mg/dL Creatinine 5.41 H 0.550-1.02 mg/dL Glomerular Filtration Rate Calc 9 >90 mL/min BUN/Creatinine Ratio 9.1 L 10.0-20.0 Serum Glucose 420 *H 74-106 mg/dL Calcium Level 8.8 8.7-10.4 mg/dL CLINICAL INDICATION: 53 years old, Female; LEFT TOES GANGRENE. TECHNIQUE: Noncontrast CT of the left foot was performed. Sagittal and coronal reformatted images are provided. COMPARISON: MRI MRI L FOOT WO CONTRAST on DOS: 02/10/24 CT Dose: CTDI volume is 24.76 mGy. Dose-length product is 582.96 mGy*cm FINDINGS: There is abnormal lucency in the 5th proximal, middle and distal phalanx compatible with necrosis. Abnormal soft tissue swelling and gas noted in the lateral forefoot. There is a large soft tissue defect at the level of the 4th toe. Patient is status post amputation at the level of the distal 4th metatarsal bone. The joint spaces are maintained. No abnormal alignment. Diffuse vascular calcifications noted. IMPRESSION: 1. Necrosis in the 5th proximal, middle and distal phalanx. Soft tissue swelling and gas in the lateral forefoot adjacent to the 5th toe compatible with infection. CT ABDOMEN AND PELVIS WITHOUT CONTRAST CLINICAL HISTORY: abd pain TECHNIQUE: Multiple contiguous axial images of the abdomen and pelvis without intravenous contrast. The images were reformatted degenerate coronal and sagittal reconstructions. All CT scans at this medical facility are performed using dose modulation techniques as appropriate to a performed exam including the following:Automated exposure control was utilized; adjustment of the MA and/or KV according to patient size; and use of iterative reconstruction technique. Radiation Dose Information: CT Dose: CTDI volume is 7.8 mGy. Dose-length product is 422 mGy*cm Comparison: None FINDINGS: Evaluation of the abdomen and pelvis is limited without intravenous contrast. There are several small nonspecific dystrophic calcifications along the dome of the liver and along the falciform ligament. There is no suspicious appearing hepatic lesion. The gallbladder, pancreas, kidneys, adrenal glands, and spleen appear within normal limits. There is no gross evidence of abdominal lymphadenopathy. There is no free fluid or free air. The stomach grossly appears unremarkable. The small and large bowel loops dem onstrate normal caliber. The appendix is not readily seen in the right lower quadrant abdomen. There are no secondary signs of acute appendicitis. The abdominal aorta and IVC appear within normal limits. The bladder appears unremarkable for the degree of distention. The uterus is retroverted and grossly appears unremarkable. There is free fluid in the posterior cul-de-sac.. There is no gross evidence of a pelvic mass. There is no free fluid collection. There are small bilateral pleural effusions, [id number] with scarring versus atelectasis in the lung bases. There is no acute osseous abnormality. IMPRESSION: 1. There is no acute process in the abdomen and pelvis. 2. There is nonspecific free fluid in the posterior cul-de-sac. 3. There are small bilateral pleural effusions with scarring versus atelectasis in the lung bases. EXAM: XY L FOOT 2 VIEW XRAY CLINICAL INDICATION: left toe pain TECHNIQUE: XY L FOOT 2 VIEW XRAY Comparison: XY L FOOT 3 VIEW XRAY on DOS: 03/10/24, XY L FOOT 3 VIEW XRAY on DOS: 02/08/24 FINDINGS/IMPRESSION: Amputation of the 4th digit at the level of the mid 4th metatarsal. Impacted displaced fracture of the base of the 5th proximal phalanx. Diffuse soft tissue swelling. Assessment/Plan Assessment/Plan Assessment/Plan: Severe Anemia, macrocytic anemia rule out iron-deficiency anemia Hypokalemia Hyponatremia Left toe osteomyelitis status post 4th digit amputation Left 2nd digit erythema Necrotic left 5th digit bilateral pleural effusions Insulin 8 units given by ER Transfuse PRBCs if hemoglobin less than 7.0 Labs A.m. 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 Iron panel Direct Erin Haptoglobin reticulocyte count XR left toe/foot CT A/P CT Left toe ESR CRP podiatry consult IV antibiotics-cefepime and vancomycin blood cx in february growing Enterobacter cloacae Diabetes uncontrolled HgbA1c ISS and Accu-Cheks End-stage renal disease on HD (M/W/F) Nephro consult FEN/PPX Diet hl DVT ppx - held, patient anemic PUD ppx not indicated no history of GERD or GI bleed Discussed plan of care with patient and nurse Admit to [facility] Home medications reconciled Plan discussed with: Patient, Spouse My Orders Orders - SHAWN HOYT Procedure Category Date Status Time Admit ADMIT 03/27/24 Transmitted 07:48 Allergies REJI 03/27/24 In Process 07:48 Code Status CODE 03/27/24 Transmitted 07:48 Renal DIET 03/27/24 Transmitted Standard(2gna,3gk,Lopho) Breakfast Hydrocodone-Acet PHA 03/27/24 In Process 5/325mg Tab ([place] 08:00 Ondansetron Hcl PHA 03/27/24 In Process (Zofran) 08:00 Complete Blood Count LAB 03/28/24 Verified 04:00 Comprehensive LAB 03/28/24 Verified Metabolic Panel 04:00 Acetaminophen Tablet PHA 03/27/24 In Process (Tylenol Tablet) 08:00 Morphine Sulfate PHA 03/27/24 In Process Injection 08:00 Glucose Blood PHA 03/27/24 In Process (Accu-Chek Comfort 11:30 Insulin R (Human) PHA 03/27/24 In Process (Insulin R) 11:30 Dextrose 50% Syringe PHA 03/27/24 In Process 08:00 Hemoglobin A1c LAB 03/27/24 In Process 07:48 Ceftriaxone 1gm/50ml PHA 03/27/24 In Process D5w (Rocephin) 09:00 Amlodipine Tablet PHA 03/27/24 In Process (Norvasc Tablet) 10:00 Atorvastatin (Lipitor) PHA 03/27/24 In Process 22:00 Carvedilol Tablet PHA 03/27/24 In Process (Coreg Tablet) 10:00 Sevelamer (Renagel) PHA 03/27/24 In Process 08:00 Hydralazine Hcl PHA 03/27/24 In Process Tablet (Apresoline 14:00 Date of Service: Mar 27, 2024 Billing Provider: SHAWN HOYT Common Visit Codes: [id number] INP/OBS CARE (HIGH) SHWAN HOYT Mar 27, 2024 10:31
[2024-03-27 10:58] LABS: Triglycerides 140 mg/dL (< 150)
[2024-03-27 10:59] LABS: Blood Alcohol < 3.0 mg/dL (<10); LDL Cholesterol 47 mg/dL (< 100)
--- NOTE | 2024-03-27 10:59 | DVH ---
EXAM: XY L FOOT 2 VIEW XRAY CLINICAL INDICATION: left toe pain TECHNIQUE: XY L FOOT 2 VIEW XRAY Comparison: XY L FOOT 3 VIEW XRAY on DOS: 03/10/24, XY L FOOT 3 VIEW XRAY on DOS: 02/08/24 FINDINGS/IMPRESSION: Amputation of the 4th digit at the level of the mid 4th metatarsal. Impacted displaced fracture of th e base of the 5th proximal phalanx. Diffuse soft tissue swelling.
[2024-03-27 11:00] LABS: Cholesterol 102 mg/dL (< 200)
--- NOTE | 2024-03-27 11:05 | DVH ---
CT ABDOMEN AND PELVIS WITHOUT CONTRAST CLINICAL HISTORY: abd pain TECHNIQUE: Multiple contiguous axial images of the abdomen and pelvis without intravenous contrast. The images were reformatted degenerate coronal and sagittal reconstructions. All CT scans at this medical facility are performed using dose modulation techniques as appropriate t o a performed exam including the following:Automated exposure control was utilized; adjustment of the MA and/or KV according to patient size; and use of iterative reconstruction technique. Radiation Dose Information: CT Dose: CTDI volume is 7.8 mGy. Dose-length product is 422 mGy*cm Comparison: None FINDINGS: Evaluation of the abdomen and pelvis is limited without intravenous contrast. There are several small nonspecific dystrophic calcifications along the dome of the liver and along t he falciform ligament. There is no suspicious appearing hepatic lesion. The gallbladder, pancreas, kidneys, adrenal glands, and spleen appear within normal limits. There is no gross evidence of abdominal lymphadenopathy. There is no free fluid or free air. The stomach grossly appears unremarkable. The small and large bowel loops demonstrate normal caliber . The appendix is not readily seen in the right lower quadrant abdomen. There are no secondary sign s of acute appendicitis. The abdominal aorta and IVC appear within normal limits. The bladder appears unremarkable for the degree of distention. The uterus is retroverted and grossly appears unremarkable. There is free fluid in the posterior cul-de-sac.. There is no gross evidence o f a pelvic mass. There is no free fluid collection. There are small bilateral pleural effusions, [id number] with scarring versus atelectasis in the lung bases. There is no acute osseous abnormality. IMPRESSION: 1. There is no acute process in the abdomen and pelvis. 2. There is nonspecific free fluid in the posterior cul-de-sac. 3. There are small bilateral pleural effusions with scarring versus atelectasis in the lung bases. HS:Y
[2024-03-27 11:11] LABS: HDL Cholesterol 33 mg/dL (40-59)
[2024-03-27 11:26] LABS: Lipase 60 U/L (12-53)
[2024-03-27 11:28] LABS: Folate (Folic Acid) 34.03 ng/mL (>5.38)
--- NOTE | 2024-03-27 11:55 | DVH ---
CLINICAL INDICATION: 53 years old, Female; LEFT TOES GANGRENE. TECHNIQUE: Noncontrast CT of the left foot was performed. Sagittal and coronal reformatted images are provided. COMPARISON: MRI MRI L FOOT WO CONTRAST on DOS: 02/10/24 CT Dose: CTDI volume is 24.76 mGy. Dose-length product is 582.96 mGy*cm FINDINGS: There is abnormal lucency in the 5th proximal, middle and distal phalanx compatible with necrosis. Ab normal soft tissue swelling and gas noted in the lateral forefoot. There is a large soft tissue defec t at the level of the 4th toe. Patient is status post amputation at the level of the distal 4th meta tarsal bone. The joint spaces are maintained. No abnormal alignment. Diffuse vascular calcifications noted. IMPRESSION: 1. Necrosis in the 5th proximal, middle and distal phalanx. Soft tissue swelling and gas in the late ral forefoot adjacent to the 5th toe compatible with infection. All CT scans at this medical facility are performed using dose modulation techniques as appropriate t o a performed exam including the following: Automated exposure control was utilized; adjustment of th e MA and/or KV according to patient size; and use of iterative reconstruction technique. HS:Y
[2024-03-27 12:15] LABS: % Iron Saturation 33.6 % (15-50)
[2024-03-27] MEDS: ACCU-CHEK COMFORT CURVE STRIP VI SCH (12:50)
[2024-03-27] MEDS: InsuLIN REG 1unit/0.01ml Soln (100units/ml) SC SCH (12:56)
[2024-03-27] MEDS: hydrALAZINE HCL 25 MG TAB PO SCH (16:11)
[2024-03-27] MEDS: InsuLIN REG 1unit/0.01ml Soln (100units/ml) SC ONE (16:13)
[2024-03-27 16:23] LABS: Hemoglobin 8.7 g/dL (12.2-16.2)
[2024-03-27] MEDS ORDERED: VANCOMYCIN PER PHARMACY 0 MG IV SCH (16:45)
[2024-03-27 17:02] LABS: Erythrocyte Sedimentation Rate 124 mm/hr (0-20)
[2024-03-27] MEDS: VANCOMYCIN 1GM/250ML KIT 250 ML IV ONE (20:19)
[2024-03-27] MEDS: CEFEPIME 1GM/ 50ML 50 ML IV ONE (22:24)
[2024-03-27] MEDS: ATORVASTATIN 20 MG TAB PO SCH (22:31)
[2024-03-28] VITALS (7 sets, daily range): BP systolic 93–128; BP diastolic 49–62; PULSE 57–80; RESP 16–20; TEMP 97.7–98.5; O2SAT 96–99
[2024-03-28 07:28] LABS: Eosinophils # (auto) 0.2 10 ^3/uL (0-0.8); Lymphocytes # (auto) 1.8 10 ^3/uL (0.4-5.4); Lymphocytes % (auto) 17.8 % (10.0-50.0); Monocytes # (auto) 0.8 10 ^3/uL (0-1.3)
[2024-03-28 07:32] LABS: Basophils # (auto) 0.1 10 ^3/uL (0-0.2); Basophils % (auto) 0.8 % (0.0-2.0); Hematocrit 23.5 % (36.0-46.0); Mean Corpuscular Hemoglobin 32.2 pg (28.0-32.0); Mean Corpuscular Volume 94.5 fL (80.0-100.0); Monocytes % (auto) 7.9 % (0.0-12.0); Neutrophils # (auto) 7.2 10 ^3/uL (1.6-8.6); Neutrophils % (auto) 71.5 % (37.0-80.0); Nucleated Red Blood Cells % 0.2 %; Platelet Count (auto) 309 10^3/uL (140-450); Red Blood Cells 2.48 10^6/uL (4.0-5.20); Red Cell Distribution Width 16.3 % (11.8-14.3)
[2024-03-28 07:41] LABS: Albumin 3.5 g/dL (3.2-4.8); Anion Gap 11 (5-15); Aspartate Aminotransferase 15 U/L (13-40); BUN/Creatinine Ratio 10.4 (10.0-20.0); Carbon Dioxide 23 mmol/L (20-31); Potassium 4.1 mmol/L (3.5-5.1); Total Protein 6.2 g/dL (5.7-8.2)
[2024-03-28 07:43] LABS: Alanine Aminotransferase 47 U/L (7-40); Alkaline Phosphatase 145 U/L (46-116); Bilirubin, Total < 0.2 mg/dL (0.2-1.0); Blood Urea Nitrogen 68 mg/dL (9-23); Chloride 97 mmol/L (98-107); Glucose 152 mg/dL (74-106); Sodium 131 mmol/L (136-145)
[2024-03-28] MEDS: CEFEPIME 1GM/ 50ML 50 ML IV SCH (11:16)
--- NOTE | 2024-03-28 12:47 | DVHPN2 ---
Reviewed: Care Plan, H&P, Labs, Medications, Previous Orders, Radiology Changes from previous H/P or p: No Changes Eyes: No Pain, No Vision change, No Conjunctivae inflammation, No Eyelid inflammation, No Other, No Redness ENT: No Ear pain, No Ear discharge, No Nose pain, No Nose discharge, No Nose congestion, No Mouth pain, No Mouth swelling, No Throat pain, No Throat swelling, No Other Cardiovascular: No Chest Pain, No Palpitations, No Orthopnea, No Paroxysmal Noc. Dyspnea, No Edema, No Lt Headedness, No Other Respiratory: No Cough, No Dry, No Shortness of breath, No SOB with excertion, No Wheezing, No Hemoptysis, No Pleuritic Pain, No Sputum, No Other Gastrointestinal: Nausea; No Vomiting; Abdominal Pain; No Diarrhea, No Constipation, No Melena, No Hematochezia, No Other Genitourinary: No Dysuria, No Frequency, No Incontinence, No Hematuria, No Retention, No Other Musculoskeletal: No other, No neck pain, No shoulder pain, No arm pain, No back pain, No hand pain, No leg pain; foot pain Skin: No Rash, No Lesions, No Jaundice, No Bruising, No Other Objective Vitals Vital Signs Date Time Temp Pulse Resp B/P (MAP) Pulse Ox O2 Delivery O2 Flow Rate FiO2 03/28/24 11:17 58 128/56 03/28/24 09:00 98.5 20 99 98.5 03/28/24 08:15 Nasal Cannula* 2 28 Intake/Output Intake and Output 03/28/24 07:00 Intake Total 750 ml Output Total 0 ml Balance 750 ml Intake Oral 100 ml IV Total 50 ml Tube Feeding 0 ml Blood Product 600 ml Output Urine Total 0 ml Stool Total 0 ml Urine/Stool Mix 0 ml Gastric Drainage Total 0 ml Emesis 0 ml Chest Tube Drainage Total 0 ml # Bowel Movements 1 Medications Current Medications Medications Dose Ordered Sig/Latonia Route Start Time Stop Time Status Last Admin Dose Admin Acetaminophen/ Hydrocodone Bitart 1 tab Q4HP PRN PO 03/27/24 08:00 Ondansetron HCl 4 mg Q4HP PRN IV 03/27/24 08:00 Acetaminophen 650 mg Q6HP PRN PO 03/27/24 08:00 Morphine Sulfate 2 mg Q4HPRN PRN IV 03/27/24 08:00 Diagnostic Test (Pha) 1 strip ACHS 03/27/24 11:30 03/28/24 11:34 1 STRIP Insulin Human Regular ACHS SC 03/27/24 11:30 03/28/24 11:34 10 UNITS Dextrose 50 ml UD PRN IV 03/27/24 08:00 Amlodipine Besylate 10 mg DAILY PO 03/27/24 10:00 03/28/24 11:17 10 MG Atorvastatin Calcium 20 mg HS PO 03/27/24 22:00 03/27/24 22:31 20 MG Carvedilol 6.25 mg Q12HR PO 03/27/24 10:00 03/28/24 11:17 6.25 MG Sevelamer HCl 800 mg TIDWM PO 03/27/24 08:00 03/28/24 11:17 800 MG Hydralazine HCl 100 mg TID PO 03/27/24 14:00 03/27/24 22:29 100 MG Vancomycin HCl 0 ml @ 0 mls/hr UD IV 03/27/24 16:45 Cefepime HCl 50 ml @ 12.5 mls/hr DAILY IV 03/28/24 10:00 03/28/24 11:16 12.5 MLS/HR Laboratory Results Laboratory Tests 03/28/24 06:06 Chemistry Test 03/28/24 06:06 Albumin 3.5 g/dL (3.2-4.8) Calcium Level 9.0 mg/dL (8.7-10.4) Total Protein 6.2 g/dL (5.7-8.2) LFT Test 03/28/24 06:06 Alanine Aminotransferase (ALT) 47 U/L (7-40) H Alkaline Phosphatase 145 U/L (46-116) H Aspartate Amino Transferase (AST) 15 U/L (13-40) Total Bilirubin < 0.2 mg/dL (0.2-1.0) L Labs and/or images reviewed: Labs reviewed by me, Image(s) reviewed by me Assessment/Plan Assessment/Plan Sepsis secondary to left foot infection: Blood cultures wound cultures, cefepime vancomycin Acute gangrene left 5th toe: Consult for podiatric Dr. Ortiz History of amputation left 4th toe History of osteomyelitis left foot ESRD on hemodialysis : Consult for Dr. Alexander Uncontrolled diabetes A1c 11.2: Insulin sliding scale Hypertensive urgency Severe anemia hemoglobin 6.7, improved to 8.7 after 1 unit RBC transfusion Condition guarded Time spent 55 minutes Patient is full code Advanced care planning time 20 minutes Plan discussed with: Patient Date of Service: Mar 28, 2024 Billing Provider: CHARLIE RYAN MD Common Visit Codes: [id number] INP/OBS CARE(HIGH) Secondary Visit Codes: [id number] CARE PLAN 30 MINUTES CHARLIE RYAN MD Mar 28, 2024 12:47
[2024-03-28] MEDS: InsuLIN REG 1unit/0.01ml Soln (100units/ml) SC ONE (16:06)
--- NOTE | 2024-03-28 16:11 | DVHINCON2 ---
Date of service: Mar 28, 2024 Referring Physician Shelley Reason for Consultation ESRD History of Present Illness Ms. Mesha Crouch with known hx of ESRD on HD M/W/F, HTN, type 2 DM, osteomyelitis, recent amputation of the L 4th toe presents for further evaluation of weakness, foot pain, and excessive bleeding from amputation site. Pt reports HTN, and type 2 DM are not well controlled. Reports SBPs typically in the 190s range, and blood glucose in the 400s range. Reports last outpt dialysis was on Saturday. Consult received for ESRD. Labs from 03/27/24 Na 130, K+ 3.4, BUN 49, creat 5.41, hgb 6.1. Received blood transfusion. Past Medical History ESRD on HD, HTN, type 2 DM, osteomyelitis Past Surgical History recent amputation of the L 4th toe about 1 month ago Allergies: Coded Allergies: No Known Drug Allergy (Verified Allergy, Unknown, 02/09/24) Home Meds Active Scripts Ergocalciferol (VITAMIN D 52377 UNIT) 50,000 [place], [address] UNIT PO QWEEKLY for 90 Days, #12 CAP Prov:ELENA PRECIADO RESIDENT 03/12/24 Amoxicillin & Pot Clavulanate (Augmentin) 500 Mg Tab, 500 MG PO BID for 7 Days, #14 TAB Prov:ELENA PRECIADO RESIDENT 03/11/24 Sevelamer Hydrochloride (Renagel) 800 Mg Tab, 800 MG PO TIDWM for 10 Days, #30 TAB Prov:KELLY VU [facility] 02/17/24 Insulin Lispro (Human) (Humalog) 100 Unit/Ml Inj, 5 UNITS SC TID for 30 Days, #10 INJ Prov:KELLY VU [facility] 02/17/24 Insulin Glargine (Lantus) 100 Unit/Ml Inj, 30 UNITS SC QAM for 30 Days, #10 INJ Prov:KELLY VU [facility] 02/17/24 Carvedilol (COREG) 3.125 Mg Tab, 6.25 MG PO Q12HR for 30 Days, #120 TAB Prov:KELLY VU 02/17/24 Atorvastatin Calcium (ATORVASTATIN CALCIUM) 20 Mg Tab, 20 MG PO HS for 30 Days, #30 TAB Prov:KELLY VU 02/17/24 Aspirin (Aspirin Low Dose) 81 Mg Tab, 81 MG PO DAILY for 30 Days, #30 TAB Prov:KELLY VU RESIDENT 02/17/24 Amlodipine Besylate (NORVASC TABLET) 5 Mg Tb, 10 MG PO DAILY for 30 Days, #60 TAB Prov:KELLY VU RESIDENT 02/17/24 Acetaminophen (Acetaminophen) 325 Mg Tab, 650 MG PO Q6HP PRN for 10 Days, #80 TAB Prov:KELLY VU RESIDENT 02/17/24 Reported Medications Ergocalciferol (Vitamin D) 50,000 Unit Cap, 1 CAP PO QWEEKLY 03/27/24 Hydralazine Hcl (Hydralazine Hcl) 100 Mg Tab, 1 TAB PO TID, #90 TAB 5 Refills 02/09/24 Ferric Citrate (Auryxia) 210 Mg Tab, 210 MG PO, TAB 02/09/24 Cholecalciferol (VITAMIN D) 5,000 Unit Tab, 5000 UNIT OR, TAB 02/09/24 Ondansetron HCl (Ondansetron) 4 Mg Tab, 4 MG PO, TAB 02/09/24 Current Medications Current Medications Medications (Trade) Dose Ordered Sig/Lat[place] Route PRN Reason Start Time Stop Time Status Last Admin Atorvastatin Calcium (Lipitor) 20 mg HS PO 03/27/24 22:00 03/27/24 22:31 Vancomycin HCl 0 ml @ 0 mls/hr UD IV 03/27/24 16:45 Cefepime HCl 50 ml @ 12.5 mls/hr DAILY IV 03/28/24 10:00 03/28/24 11:16 Family History: Patient reports no known family medical history. Review of Systems 10 systems reviewed and negative, except as per HPI H&P Exam Vital Signs/I&O Vital Sign Date Time Temp Pulse Resp B/P (MAP) Pulse Ox O2 Delivery O2 Flow Rate FiO2 03/28/24 13:00 98.0 64 18 122/58 (79) 98 98.0 03/28/24 08:15 Nasal Cannula* 2 28 Intake and Output 03/27/24 03/28/24 19:00 07:00 Intake Total 650 ml 100 ml Output Total 0 ml Balance 650 ml 100 ml Intake Oral 0 ml 100 ml IV Total 50 ml Tube Feeding 0 ml Blood Product 600 ml Output Urine Total 0 ml Stool Total 0 ml Urine/Stool Mix 0 ml Gastric Drainage Total 0 ml Emesis 0 ml Chest Tube Drainage Total 0 ml # Bowel Movements 1 Physical Exam Gen: Appears stated age. In no acute distress HEENT:Pupils equal reactive to light and accommodation. Lungs: Bilateral air entry, no rales CVS: RRR, normal S1 and S2 Abd: BS normoactive, nontender, soft and nondistended. Ext: No edema Skin: No rash, Left 4th digit amputation Neuro: Alert and oriented x4 Labs/Diagnostic Data Labs/Diagnostic Data Laboratory Tests Test 03/28/24 11:23 03/28/24 06:06 03/28/24 06:05 03/27/24 22:06 Range/Units POC Glucose 351 H 153 H 386 H 70-106 mg/dl White Blood Count 10.0 4.4-10.8 10^3/uL Red Blood Count 2.48 L 4.0-5.20 10^6/uL Hemoglobin 8.0 L 12.2-16.2 g/dL Hematocrit 23.5 L 36.0-46.0 % Mean Corpuscular Volume 94.5 80.0-100.0 fL Mean Corpuscular Hemoglobin 32.2 H 28.0-32.0 pg Mean Corpuscular Hemoglobin Concent 34.0 32.0-36.0 g/dL Red Cell Distribution Width 16.3 H 11.8-14.3 % Platelet Count 309 140-450 10^3/uL Mean Platelet Volume 9.9 6.9-10.8 fL Neutrophils (%) (Auto) 71.5 37.0-80.0 % Lymphocytes (%) (Auto) 17.8 10.0-50.0 % Monocytes (%) (Auto) 7.9 0.0-12.0 % Eosinophils (%) (Auto) 2.0 0.0-7.0 % Basophils (%) (Auto) 0.8 0.0-2.0 % Neutrophils # (Auto) 7.2 1.6-8.6 10 ^3/uL Lymphocytes # (Auto) 1.8 0.4-5.4 10 ^3/uL Monocytes # (Auto) 0.8 0-1.3 10 ^3/uL Eosinophils # (Auto) 0.2 0-0.8 10 ^3/uL Basophils # (Auto) 0.1 0-0.2 10 ^3/uL Nucleated Red Blood Cells 0.2 % Sodium Level 131 L 136-145 mmol/L Potassium Level 4.1 3.5-5.1 mmol/L Chloride Level 97 L 98-107 mmol/L Carbon Dioxide Level 23 20-31 mmol/L Anion Gap 11 5-15 Blood Urea Nitrogen 68 #H 9-23 mg/dL Creatinine 6.54 H 0.550-1.02 mg/dL Glomerular Filtration Rate Calc 7 >90 mL/min BUN/Creatinine Ratio 10.4 10.0-20.0 Serum Glucose 152 H 74-106 mg/dL Calcium Level 9.0 8.7-10.4 mg/dL Total Bilirubin < 0.2 L 0.2-1.0 mg/dL Aspartate Amino Transferase (AST) 15 13-40 U/L Alanine Aminotransferase (ALT) 47 H 7-40 U/L Alkaline Phosphatase 145 H 46-116 U/L Total Protein 6.2 5.7-8.2 g/dL Albumin 3.5 3.2-4.8 g/dL Random Vancomycin Level 23.4 H 5-10 ug/mL Test 03/27/24 20:24 03/27/24 15:52 03/27/24 14:36 03/27/24 14:15 Range/Units POC Glucose 323 H 416 *H 70-106 mg/dl Hemoglobin 8.7 #L 12.2-16.2 g/dL Hematocrit 26.0 #L 36.0-46.0 % Erythrocyte Sedimentation Rate 124 H 0-20 mm/hr Haptoglobin 504 H 33-346 mg/dL Test 03/27/24 12:49 03/27/24 11:20 03/27/24 10:23 03/27/24 07:01 Range/Units POC Glucose 442 *H 416 *H 70-106 mg/dl Reticulocyte Count (auto) 3.96 H 0.5-1.5 % Iron Level 74 50-170 ug/dL Total Iron Binding Capacity 220 L 250-425 ug/dL Percent Iron Saturation 33.6 15-50 % Lactic Acid Level 1.3 0.4-2.0 mmol/L Test 03/27/24 04:55 Range/Units White Blood Count 9.4 4.4-10.8 10^3/uL Red Blood Count 2.07 L 4.0-5.20 10^6/uL Hemoglobin 6.7 *L 12.2-16.2 g/dL Hematocrit 19.8 L 36.0-46.0 % Mean Corpuscular Volume 96.0 80.0-100.0 fL Mean Corpuscular Hemoglobin 32.3 H 28.0-32.0 pg Mean Corpuscular Hemoglobin Concent 33.6 32.0-36.0 g/dL Red Cell Distribution Width 16.6 H 11.8-14.3 % Platelet Count 290 140-450 10^3/uL Mean Platelet Volume 9.9 6.9-10.8 fL Neutrophils (%) (Auto) 72.9 37.0-80.0 % Lymphocytes (%) (Auto) 15.2 10.0-50.0 % Monocytes (%) (Auto) 9.7 0.0-12.0 % Eosinophils (%) (Auto) 1.5 0.0-7.0 % Basophils (%) (Auto) 0.7 0.0-2.0 % Neutrophils # (Auto) 6.8 1.6-8.6 10 ^3/uL Lymphocytes # (Auto) 1.4 0.4-5.4 10 ^3/uL Monocytes # (Auto) 0.9 0-1.3 10 ^3/uL Eosinophils # (Auto) 0.1 0-0.8 10 ^3/uL Basophils # (Auto) 0.1 0-0.2 10 ^3/uL Nucleated Red Blood Cells 0.3 % Prothrombin Time 11.0 9.3-11.8 sec Prothrombin Time INR 1.04 0.9-1.15 Activated Partial Thromboplast Time 33.4 24.5-34.5 SEC Sodium Level 130 L 136-145 mmol/L Potassium Level 3.4 L 3.5-5.1 mmol/L Chloride Level 97 L 98-107 mmol/L Carbon Dioxide Level 24 20-31 mmol/L Anion Gap 9 5-15 Blood Urea Nitrogen 49 H 9-23 mg/dL Creatinine 5.41 H 0.550-1.02 mg/dL Glomerular Filtration Rate Calc 9 >90 mL/min BUN/Creatinine Ratio 9.1 L 10.0-20.0 Serum Glucose 420 *H 74-106 mg/dL Hemoglobin A1c 8.9 H <5.7 % A1C Calcium Level 8.8 8.7-10.4 mg/dL C-Reactive Protein High Sensitivity 9.53 H <1.0 mg/dL Triglycerides Level 140 < 150 mg/dL Cholesterol Level 102 < 200 mg/dL LDL Cholesterol 47 < 100 mg/dL HDL Cholesterol 33 L 40-59 mg/dL Lipase 60 H 12-53 U/L Vitamin B12 Level 1361 H 211-911 pg/mL Folic Acid 34.03 >5.38 ng/mL Thyroid Stimulating Hormone (TSH) 3.09 0.55-4.78 uIU/mL Plasma/Serum Blood Alcohol < 3.0 <10 mg/dL Assessment Plan/Recommendation IMP ESRD on HD Anemia Osteomyelitis recent left 4th toe amputation Hx of HTN- within target range Uncontrolled DM REC HD on 03/29 Agree with regular insulin sliding scale for hyperglycemia IV abx Strict I&Os Chemistry panel We will continue to follow Plan discussed with: Patient, Spouse, Other (Dr. Alexander) EDGARDO CABRAL Mar 28, 2024 16:11
[2024-03-28] MEDS: InsuLIN REG 1unit/0.01ml Soln (100units/ml) SC SCH ×2 (18:43→22:13)
[2024-03-28] MEDS: Juven Fruit Punch Powder PACKET 28.8gm PO SCH (22:00)
[2024-03-29] VITALS (7 sets, daily range): BP systolic 103–133; BP diastolic 40–66; PULSE 54–82; RESP 16–40; TEMP 97.4–101.8; O2SAT 90–98
[2024-03-29 07:28] LABS: Calcium 9.3 mg/dL (8.7-10.4)
[2024-03-29 07:29] LABS: Anion Gap 13 (5-15); Carbon Dioxide 22 mmol/L (20-31)
[2024-03-29 07:46] LABS: Chloride 95 mmol/L (98-107); Glucose 357 mg/dL (74-106); Sodium 130 mmol/L (136-145)
[2024-03-29 07:56] LABS: Blood Urea Nitrogen 89 mg/dL (9-23)
--- NOTE | 2024-03-29 09:57 | DVHPN2 ---
Reviewed: Care Plan, H&P, Labs, Medications, Previous Orders, Radiology Changes from previous H/P or p: No Changes Eyes: No Pain, No Vision change, No Conjunctivae inflammation, No Eyelid inflammation, No Other, No Redness ENT: No Ear pain, No Ear discharge, No Nose pain, No Nose discharge, No Nose congestion, No Mouth pain, No Mouth swelling, No Throat pain, No Throat swelling, No Other Cardiovascular: No Chest Pain, No Palpitations, No Orthopnea, No Paroxysmal Noc. Dyspnea, No Edema, No Lt Headedness, No Other Respiratory: No Cough, No Dry, No Shortness of breath, No SOB with excertion, No Wheezing, No Hemoptysis, No Pleuritic Pain, No Sputum, No Other Gastrointestinal: Nausea; No Vomiting; Abdominal Pain; No Diarrhea, No Constipation, No Melena, No Hematochezia, No Other Genitourinary: No Dysuria, No Frequency, No Incontinence, No Hematuria, No Retention, No Other Musculoskeletal: No other, No neck pain, No shoulder pain, No arm pain, No back pain, No hand pain, No leg pain; foot pain Skin: No Rash, No Lesions, No Jaundice, No Bruising, No Other Objective Vitals Vital Signs Date Time Temp Pulse Resp B/P (MAP) Pulse Ox O2 Delivery O2 Flow Rate FiO2 03/29/24 05:00 98.1 64 20 119/50 (73) 97 98.1 03/28/24 20:13 Nasal Cannula* 2 28 Intake/Output Intake and Output 03/29/24 07:00 Intake Total 820 ml Output Total 600 ml Balance 220 ml Intake Oral 770 ml IV Total 50 ml Output Urine Total 600 ml # Voids 2 # Bowel Movements 2 Medications Current Medications Medications Dose Ordered Sig/[place] Route Start Time Stop Time Status Last Admin Dose Admin Acetaminophen/ Hydrocodone Bitart 1 tab Q4HP PRN PO 03/27/24 08:00 Ondansetron HCl 4 mg Q4HP PRN IV 03/27/24 08:00 Acetaminophen 650 mg Q6HP PRN PO 03/27/24 08:00 Morphine Sulfate 2 mg Q4HPRN PRN IV 03/27/24 08:00 Diagnostic Test (Pha) 1 strip ACHS 03/27/24 11:30 03/29/24 05:50 1 STRIP Dextrose 50 ml UD PRN IV 03/27/24 08:00 Amlodipine Besylate 10 mg DAILY PO 03/27/24 10:00 03/28/24 11:17 10 MG Atorvastatin Calcium 20 mg HS PO 03/27/24 22:00 03/28/24 22:09 20 MG Carvedilol 6.25 mg Q12HR PO 03/27/24 10:00 03/28/24 22:09 6.25 MG Sevelamer HCl 800 mg TIDWM PO 03/27/24 08:00 03/28/24 18:25 800 MG Hydralazine HCl 100 mg TID PO 03/27/24 14:00 03/28/24 22:08 100 MG Vancomycin HCl 0 ml @ 0 mls/hr UD IV 03/27/24 16:45 Cefepime HCl 50 ml @ 12.5 mls/hr DAILY IV 03/28/24 10:00 03/28/24 11:16 12.5 MLS/HR Insulin Human Regular AC SC 03/28/24 17:00 03/29/24 06:11 16 UNITS Insulin Human Regular HS SC 03/28/24 22:00 03/28/24 22:13 3 UNITS Enteral Nutritional Formula 28.8 gm BID PO 03/28/24 22:00 Laboratory Results Laboratory Tests 03/28/24 06:06 03/29/24 06:32 Chemistry Test 03/29/24 06:32 Calcium Level 9.3 mg/dL (8.7-10.4) Labs and/or images reviewed: Labs reviewed by me, Image(s) reviewed by me Assessment/Plan Assessment/Plan Sepsis secondary to left foot infection: Blood cultures pending wound cultures pending, continue cefepime vancomycin Acute gangrene left 5th toe: Consult for podiatric Dr. Ortiz, advised vascular consult Arterial ultrasound ordered rule out peripheral arterial disease History of amputation left 4th toe History of osteomyelitis left foot ESRD on hemodialysis : Consult for Dr. Alexander Uncontrolled diabetes A1c 11.2: Insulin sliding scale Hypertensive urgency Severe anemia hemoglobin 6.7, improved to 8.7 after 1 unit RBC transfusion Condition guarded Time spent 55 minutes Patient is full code Advanced care planning time 20 minutes Plan discussed with: Patient My Orders Orders - CHARLIE RYAN MD Procedure Category Date Status Time Blood Culture NAGI 03/28/24 In Process 12:50 *Podiatry Consult CONS 03/28/24 Transmitted Diana([facility]) 12:54 * Dietary Consult CONS 03/28/24 Transmitted 13:20 Apply/Change Dressing REJI 03/28/24 In Process 10:07 Insulin R (Human) PHA 03/28/24 In Process (Insulin R) 17:00 Insulin R (Human) PHA 03/28/24 In Process (Insulin R) 22:00 Nutritional PHA 03/28/24 In Process Supplements (Luis Angel 22:00 Date of Service: Mar 29, 2024 Billing Provider: CHARLIE RYAN MD Common Visit Codes: [id number] INP/OBS CARE(HIGH) CHARLIE RYAN MD Mar 29, 2024 09:57
--- NOTE | 2024-03-29 11:10 | DVH ---
Bilateral Lower Extremity Arterial Duplex Clinical History: Nonhealing bilateral foot wounds ruled out PAD Comparison: None Technique: Duplex Doppler evaluation including color Doppler and spectral/pulsed waveform analysis of the lower extremity arteries was performed. Findings: RIGHT: Right distal superficial femoral artery peak systolic velocity of 152 centimeter/second. All other systolic velocities are less than 150 centimeter/second. The waveforms are monophasic in the dorsalis pedis. LEFT: Peak systolic velocities are less than 150 centimeter/second. The waveforms are monophasic in the dorsalis pedis.. IMPRESSION: No hemodynamically significant stenosis on the left. 20-49% stenosis of the right distal superficial femoral artery based on peak systolic velocity criter ia. Bilateral abnormal monophasic waveforms in the dorsalis pedis artery suggestive of underlying periphe ral arterial disease. REFERENCE VALUES, [facility] ([facility]) vascular Imaging Lab Criteria: Peak systolic velocity ranges (in cm/sec) are as follows: <150 cm/s - <20 % stenosis 150-200 cm/s - 20-49% stenosis 200-300 cm/s - 50-75% stenosis >300 cm/s -> 75% stenosis
--- NOTE | 2024-03-29 14:56 | DVHPN2 ---
Progress Note Date Seen: Mar 29, 2024 Medical Necessity Reason Pt with a Central, PICC or Fol: No Subjective Review of Systems HD today, tolerating well. Patient reports: No new complaints, Feels better Objective vital signs Vital Sign Date Time Temp Pulse Resp B/P (MAP) Pulse Ox O2 Delivery O2 Flow Rate FiO2 03/29/24 13:00 98.0 68 20 129/59 (82) 95 98.0 03/29/24 08:15 Nasal Cannula* 2 28 Total Intake and Output 03/28/24 03/28/24 03/29/24 15:00 23:00 07:00 Intake Total 450 ml 370 ml Output Total 600 ml Balance -150 ml 370 ml medications Current Medications Medications Dose Ordered Sig/Lat[place] Route Start Time Stop Time Status Last Admin Dose Admin Acetaminophen/ Hydrocodone Bitart 1 tab Q4HP PRN PO 03/27/24 08:00 Ondansetron HCl 4 mg Q4HP PRN IV 03/27/24 08:00 Acetaminophen 650 mg Q6HP PRN PO 03/27/24 08:00 Morphine Sulfate 2 mg Q4HPRN PRN IV 03/27/24 08:00 Diagnostic Test (Pha) 1 strip ACHS 03/27/24 11:30 03/29/24 12:31 1 STRIP Dextrose 50 ml UD PRN IV 03/27/24 08:00 Amlodipine Besylate 10 mg DAILY PO 03/27/24 10:00 03/29/24 09:51 10 MG Atorvastatin Calcium 20 mg HS PO 03/27/24 22:00 03/28/24 22:09 20 MG Carvedilol 6.25 mg Q12HR PO 03/27/24 10:00 03/29/24 09:50 6.25 MG Sevelamer HCl 800 mg TIDWM PO 03/27/24 08:00 03/29/24 12:32 800 MG Vancomycin HCl 0 ml @ 0 mls/hr UD IV 03/27/24 16:45 Cefepime HCl 50 ml @ 12.5 mls/hr DAILY IV 03/28/24 10:00 03/29/24 09:50 12.5 MLS/HR Insulin Human Regular AC SC 03/28/24 17:00 03/29/24 12:34 20 UNITS Insulin Human Regular HS SC 03/28/24 22:00 03/28/24 22:13 3 UNITS Enteral Nutritional Formula 28.8 gm BID PO 03/28/24 22:00 Insulin Glargine 30 units HS SC 03/29/24 22:00 Hydralazine HCl 100 mg DAILY PO 03/30/24 10:00 Examination Gen: Appears stated age. In no acute distress Lungs: Bilateral air entry, no rales CVS: RRR, normal S1 and S2 Ext: No edema Neuro: Alert and oriented x4 laboratory and microbiology Laboratory Tests 03/29/24 06:32 03/28/24 06:06 Test 03/29/24 06:32 Range/Units Serum Glucose 357 H 74-106 mg/dL Labs and/or images reviewed: Labs reviewed by me Problem List/Assessment/Plan Problem List/Assessment/Plan IMP ESRD on HD- last HD 03/29 Anemia-ongoing Osteomyelitis recent left 4th toe amputation- on IV abx Hx of HTN- within target range Uncontrolled DM- on R insulin sliding scale REC Next HD 03/31 Improve glycemic control Agree with regular insulin sliding scale for hyperglycemia IV abx Strict I&Os Chemistry panel We will continue to follow Plan discussed with: Patient Dietary Evaluation Review Comments: 1. Continue current diet 2. Consider Luis Angel BID (180kcal, 5 gpro) for wound healing Expected Outcomes/Goals: Pt will continue to consume >75% of estimated needs within 3-5 days CC Plasma Assessment Blood Product Administration S: 1111 EDGARDO CABRAL Mar 29, 2024 14:55
[2024-03-29] MEDS: SODIUM CHL 0.9% 1000 ML BAG XX ONE (17:38)
[2024-03-29] MEDS: EPOETIN ALFA-EPBX 10,000 UNIT/1ML VIAL SC ONE (21:00)
[2024-03-29] MEDS: INSULIN LANTUS (GLARGINE) 1 /0.01ml (100units/ml) SC SCH (21:43)
[2024-03-30] VITALS (9 sets, daily range): BP systolic 90–126; BP diastolic 49–99; PULSE 62–69; RESP 11–20; TEMP 97.9–99.5; O2SAT 95–100
--- NOTE | 2024-03-30 06:42 | DVH ---
CHEST RADIOGRAPH Indication: PRE OP Technique: Single frontal view of the chest was obtained Comparison: XY CHEST PORTABLE on DOS: 03/10/24 FINDINGS: Lines and Tubes: There is a right central venous catheter terminating in the superior vena cava. Lungs: No focal consolidation. Pleura: No effusion. No pneumothorax. Cardiomediastinal contours: Unremarkable Bones: No acute osseous abnormality. IMPRESSION: 1. Right central venous catheter terminating in the superior vena cava. No acute cardiopulmonary dis ease.
[2024-03-30 08:54] LABS: Anion Gap 11 (5-15); Carbon Dioxide 26 mmol/L (20-31); Potassium 4.1 mmol/L (3.5-5.1)
[2024-03-30 08:55] LABS: Calcium 9.4 mg/dL (8.7-10.4)
[2024-03-30 08:56] LABS: Chloride 96 mmol/L (98-107); Sodium 133 mmol/L (136-145)
[2024-03-30 09:00] LABS: BUN/Creatinine Ratio 9.1 (10.0-20.0)
[2024-03-30 09:01] LABS: Blood Urea Nitrogen 44 mg/dL (9-23); Glucose 209 mg/dL (74-106)
[2024-03-30] MEDS: hydrALAZINE HCL 25 MG TAB PO SCH (10:00)
--- NOTE | 2024-03-30 10:05 | DVHPN2 ---
Reviewed: Care Plan, H&P, Labs, Medications, Previous Orders, Radiology Changes from previous H/P or p: No Changes Eyes: No Pain, No Vision change, No Conjunctivae inflammation, No Eyelid inflammation, No Other, No Redness ENT: No Ear pain, No Ear discharge, No Nose pain, No Nose discharge, No Nose congestion, No Mouth pain, No Mouth swelling, No Throat pain, No Throat swelling, No Other Cardiovascular: No Chest Pain, No Palpitations, No Orthopnea, No Paroxysmal Noc. Dyspnea, No Edema, No Lt Headedness, No Other Respiratory: No Cough, No Dry, No Shortness of breath, No SOB with excertion, No Wheezing, No Hemoptysis, No Pleuritic Pain, No Sputum, No Other Gastrointestinal: Nausea; No Vomiting; Abdominal Pain; No Diarrhea, No Constipation, No Melena, No Hematochezia, No Other Genitourinary: No Dysuria, No Frequency, No Incontinence, No Hematuria, No Retention, No Other Musculoskeletal: No other, No neck pain, No shoulder pain, No arm pain, No back pain, No hand pain, No leg pain; foot pain Skin: No Rash, No Lesions, No Jaundice, No Bruising, No Other Objective Vitals Vital Signs Date Time Temp Pulse Resp B/P (MAP) Pulse Ox O2 Delivery O2 Flow Rate FiO2 03/30/24 05:00 98.6 62 20 126/99 (108) 98 98.6 03/29/24 20:00 Nasal Cannula* 2 28 Intake/Output Intake and Output 03/30/24 07:00 Intake Total 450 ml Output Total 600 ml Balance -150 ml Intake Oral 400 ml IV Total 50 ml Output Urine Total 600 ml # Voids 1 Medications Current Medications Medications Dose Ordered Sig/Latonia Route Start Time Stop Time Status Last Admin Dose Admin Acetaminophen/ Hydrocodone Bitart 1 tab Q4HP PRN PO 03/27/24 08:00 Ondansetron HCl 4 mg Q4HP PRN IV 03/27/24 08:00 Acetaminophen 650 mg Q6HP PRN PO 03/27/24 08:00 Morphine Sulfate 2 mg Q4HPRN PRN IV 03/27/24 08:00 Diagnostic Test (Pha) 1 strip ACHS 03/27/24 11:30 03/30/24 06:09 1 STRIP Dextrose 50 ml UD PRN IV 03/27/24 08:00 Amlodipine Besylate 10 mg DAILY PO 03/27/24 10:00 03/29/24 09:51 10 MG Atorvastatin Calcium 20 mg HS PO 03/27/24 22:00 03/29/24 21:46 20 MG Carvedilol 6.25 mg Q12HR PO 03/27/24 10:00 03/29/24 09:50 6.25 MG Sevelamer HCl 800 mg TIDWM PO 03/27/24 08:00 03/29/24 19:47 800 MG Vancomycin HCl 0 ml @ 0 mls/hr UD IV 03/27/24 16:45 Cefepime HCl 50 ml @ 12.5 mls/hr DAILY IV 03/28/24 10:00 03/29/24 09:50 12.5 MLS/HR Insulin Human Regular AC SC 03/28/24 17:00 03/30/24 06:16 8 UNITS Insulin Human Regular HS SC 03/28/24 22:00 03/29/24 21:42 6 UNITS Enteral Nutritional Formula 28.8 gm BID PO 03/28/24 22:00 Insulin Glargine 30 units HS SC 03/29/24 22:00 03/29/24 21:43 30 UNITS Hydralazine HCl 100 mg DAILY PO 03/30/24 10:00 Laboratory Results Laboratory Tests 03/28/24 06:06 03/30/24 08:00 Chemistry Test 03/30/24 08:00 Calcium Level 9.4 mg/dL (8.7-10.4) Microbiology Microbiology Date/Time Source Procedure Growth Status 03/28/24 13:54 Blood Blood Culture - Preliminary NO GROWTH AFTER 24 HOURS OF INCUBATION. Resulted Labs and/or images reviewed: Labs reviewed by me, Image(s) reviewed by me Assessment/Plan Assessment/Plan Sepsis secondary to left foot infection: Blood cultures negative , wound cultures pending, continue cefepime vancomycin Acute gangrene left 5th toe: Consult for podiatric Dr. Ortiz, appreciated Peripheral arterial disease left lower extremity ruled out 20-49 % occlusion right superficial femoral artery consult for vascular surgeon Dr. Kern History of amputation left 4th toe History of osteomyelitis left foot ESRD on hemodialysis : Consult for Dr. Alexander Uncontrolled diabetes A1c 11.2: Insulin sliding scale Hypertensive urgency Severe anemia hemoglobin 6.7, improved to 8.7 after 1 unit RBC transfusion Condition guarded Time spent 55 minutes Patient is full code Advanced care planning time 20 minutes Plan discussed with: Patient My Orders Orders - CHARLIE RYAN MD Procedure Category Date Status Time Hydralazine Hcl PHA 03/30/24 In Process Tablet (Apresoline 10:00 Date of Service: Mar 30, 2024 Billing Provider: CHARLIE RYAN MD Common Visit Codes: [id number] INP/OBS CARE(HIGH) CHARLIE RYAN MD Mar 30, 2024 10:04
[2024-03-30 10:45] LABS: Hemoglobin 8.3 g/dL (12.2-16.2)
[2024-03-30 10:46] LABS: Basophils # (auto) 0.1 10 ^3/uL (0-0.2); Basophils % (auto) 0.3 % (0.0-2.0); Eosinophils # (auto) 0.1 10 ^3/uL (0-0.8); Eosinophils % (auto) 0.8 % (0.0-7.0); Hematocrit 25.2 % (36.0-46.0); Lymphocytes % (auto) 5.5 % (10.0-50.0); Mean Corpuscular Hemoglobin 31.5 pg (28.0-32.0); Mean Corpuscular Volume 95.4 fL (80.0-100.0); Monocytes # (auto) 0.8 10 ^3/uL (0-1.3); Monocytes % (auto) 4.5 % (0.0-12.0); Neutrophils % (auto) 88.9 % (37.0-80.0); Platelet Count (auto) 280 10^3/uL (140-450); Red Blood Cells 2.64 10^6/uL (4.0-5.20); Red Cell Distribution Width 17.2 % (11.8-14.3)
[2024-03-30 11:02] LABS: Albumin 3.8 g/dL (3.2-4.8); Calcium 9.1 mg/dL (8.7-10.4); Total Protein 6.7 g/dL (5.7-8.2)
--- NOTE | 2024-03-30 11:23 | DVHPN2 ---
Progress Note Date Seen: Mar 30, 2024 Medical Necessity Reason Pt with a Central, PICC or Fol: No Subjective Patient reports: Feels better Objective vital signs Vital Sign Date Time Temp Pulse Resp B/P (MAP) Pulse Ox O2 Delivery O2 Flow Rate FiO2 03/30/24 10:00 116/53 03/30/24 10:00 62 03/30/24 09:00 98.4 18 98 98.4 03/29/24 20:00 Nasal Cannula* 2 28 Total Intake and Output 03/29/24 03/29/24 03/30/24 15:00 23:00 07:00 Intake Total 50 ml 400 ml 0 ml Output Total 600 ml Balance 50 ml -200 ml 0 ml medications Current Medications Medications Dose Ordered Sig/Latonia Route Start Time Stop Time Status Last Admin Dose Admin Acetaminophen/ Hydrocodone Bitart 1 tab Q4HP PRN PO 03/27/24 08:00 Ondansetron HCl 4 mg Q4HP PRN IV 03/27/24 08:00 Acetaminophen 650 mg Q6HP PRN PO 03/27/24 08:00 Morphine Sulfate 2 mg Q4HPRN PRN IV 03/27/24 08:00 Diagnostic Test (Pha) 1 strip ACHS 03/27/24 11:30 03/30/24 06:09 1 STRIP Dextrose 50 ml UD PRN IV 03/27/24 08:00 Amlodipine Besylate 10 mg DAILY PO 03/27/24 10:00 03/29/24 09:51 10 MG Atorvastatin Calcium 20 mg HS PO 03/27/24 22:00 03/29/24 21:46 20 MG Carvedilol 6.25 mg Q12HR PO 03/27/24 10:00 03/29/24 09:50 6.25 MG Sevelamer HCl 800 mg TIDWM PO 03/27/24 08:00 03/29/24 19:47 800 MG Vancomycin HCl 0 ml @ 0 mls/hr UD IV 03/27/24 16:45 Cefepime HCl 50 ml @ 12.5 mls/hr DAILY IV 03/28/24 10:00 03/30/24 10:39 12.5 MLS/HR Insulin Human Regular AC SC 03/28/24 17:00 03/30/24 06:16 8 UNITS Insulin Human Regular HS SC 03/28/24 22:00 03/29/24 21:42 6 UNITS Enteral Nutritional Formula 28.8 gm BID PO 03/28/24 22:00 Insulin Glargine 30 units HS SC 03/29/24 22:00 03/29/24 21:43 30 UNITS Hydralazine HCl 100 mg DAILY PO 03/30/24 10:00 Examination: GENERAL:Normal, CVS:Normal laboratory and microbiology Laboratory Tests 03/30/24 08:00 Test 03/30/24 08:00 Range/Units Serum Glucose 210 H 74-106 mg/dL Microbiology Date/Time Source Procedure Growth Status 03/28/24 13:54 Blood Blood Culture - Preliminary NO GROWTH AFTER 24 HOURS OF INCUBATION. Resulted Problem List/Assessment/Plan Problem List/Assessment/Plan ESRD on HD Anemia of ckd Osteomyelitis recent left 4th toe amputation- on IV abx Hx of HTN- within target range Uncontrolled DM- on R insulin sliding scale Next HD 03/31 epogen MWF renal diet Improve glycemic control IV abx cef and vanco will require finalization of ABX prior to DC Strict I&Os Plan discussed with: Patient Dietary Evaluation Review Comments: 1. Continue current diet 2. Consider Luis Angel BID (180kcal, 5 gpro) for wound healing Expected Outcomes/Goals: Pt will continue to consume >75% of estimated needs within 3-5 days CC Plasma Assessment Blood Product Administration S: 1111 LIV RODRIGUEZ MD Mar 30, 2024 11:23
--- NOTE | 2024-03-30 11:49 | DVHINCON2 ---
Date Seen: Mar 30, 2024 Reason for Consultation Left foot wound History of Present Illness Mesha Crouch is a 53-year-old female with past medical history of hypertension, diabetes, end-stage renal disease on HD (M/W/F), left 2nd digit amputation, status post left 4th digit amputation, osteomyelitis, and who presents to the ED for nausea, abdominal pain and left toe pain. Patient reports that her abdominal pain is 5/10 constant and pressure-like. Patient also reports that she has left toe pain which was amputated a month ago with reported blood loss, per spouse at bedside about 1 L blood loss. Patient denies any vomiting, diarrhea, bloody or dark stools, chest pain, shortness of breath, lightheadedness, weakness, paresthesia, dizziness, headaches, fever, and chills. Past Medical History See H&P Past Surgical History See H&P Family History: Patient reports no known family medical history. Allergies: Coded Allergies: No Known Drug Allergy (Verified Allergy, Unknown, 02/09/24) Home Meds Active Scripts Ergocalciferol (VITAMIN D 25358 UNIT) 50,000 [place], [address] UNIT PO QWEEKLY for 90 Days, #12 CAP Prov:ELENA PRECIADO RESIDENT 03/12/24 Amoxicillin & Pot Clavulanate (Augmentin) 500 Mg Tab, 500 MG PO BID for 7 Days, #14 TAB Prov:ELENA PRECIADO RESIDENT 03/11/24 Sevelamer Hydrochloride (Renagel) 800 Mg Tab, 800 MG PO TIDWM for 10 Days, #30 TAB Prov:KELLY VU [facility] 02/17/24 Insulin Lispro (Human) (Humalog) 100 Unit/Ml Inj, 5 UNITS SC TID for 30 Days, #10 INJ Prov:KELLY VU [facility] 02/17/24 Insulin Glargine (Lantus) 100 Unit/Ml Inj, 30 UNITS SC QAM for 30 Days, #10 INJ Prov:KELLY VU [facility] 02/17/24 Carvedilol (COREG) 3.125 Mg Tab, 6.25 MG PO Q12HR for 30 Days, #120 TAB Prov:KELLY VU [facility] 02/17/24 Atorvastatin Calcium (ATORVASTATIN CALCIUM) 20 Mg Tab, 20 MG PO HS for 30 Days, #30 TAB Prov:KELLY VU [facility] 02/17/24 Aspirin (Aspirin Low Dose) 81 Mg Tab, 81 MG PO DAILY for 30 Days, #30 TAB Prov:KELLY VU [facility] 02/17/24 Amlodipine Besylate (NORVASC TABLET) 5 Mg Tb, 10 MG PO DAILY for 30 Days, #60 TAB Prov:KELLY VU [facility] 02/17/24 Acetaminophen (Acetaminophen) 325 Mg Tab, 650 MG PO Q6HP PRN for 10 Days, #80 TAB Prov:KELLY VU [facility] 02/17/24 Reported Medications Ergocalciferol (Vitamin D) 50,000 Unit Cap, 1 CAP PO QWEEKLY 03/27/24 Hydralazine Hcl (Hydralazine Hcl) 100 Mg Tab, 1 TAB PO TID, #90 TAB 5 Refills 02/09/24 Ferric Citrate (Auryxia) 210 Mg Tab, 210 MG PO, TAB 02/09/24 Cholecalciferol (VITAMIN D) 5,000 Unit Tab, 5000 UNIT OR, TAB 02/09/24 Ondansetron HCl (Ondansetron) 4 Mg Tab, 4 MG PO, TAB 02/09/24 Current Medications Current Medications Medications (Trade) Dose Ordered Sig/Latonia Route PRN Reason Start Time Stop Time Status Last Admin Insulin Glargine (Lantus) 30 units HS SC 03/29/24 22:00 03/29/24 21:43 Hydralazine HCl (Apresoline Tablet) 100 mg DAILY PO 03/30/24 10:00 Epoetin Damian-epbx (Retacrit) 10,000 unit MWF SC 04/01/24 10:00 UNV Vital Signs Vital Signs Date Time Temp Pulse Resp B/P (MAP) Pulse Ox O2 Delivery O2 Flow Rate FiO2 03/30/24 10:00 116/53 03/30/24 10:00 62 03/30/24 09:00 98.4 18 98 98.4 03/29/24 20:00 Nasal Cannula* 2 28 Physical Exam DERMATOLOGIC EXAM: - Skin is dry and cool to the touch dry bilaterally. - Nails 1-5 of the bilateral foot are thickened, discolored, dystrophic, and tender to palpate with subungual debris - Hair loss noted to bilateral feet - necrosis of digits 3-5 with open wound VASCULAR EXAM: - DP and PT pulses are palpable bilaterally. - [employer]LY[employer] is brisk to all digits. - Feet are cool to touch compared to lower legs bilaterally. NEUROLOGIC EXAM: - Normal light touch sensation to the superficial peroneal, deep peroneal, sural, saphenous, and tibial nerve branches. - Protective sensation is diminished as tested with a 5.07 10g [place]-Giorgio bilaterally. MUSCULOSKELETAL EXAM: - No gross deformities - Muscle strength is 5/5 and active motion is pain-free and symmetrical bilaterally - No pain or crepitation with passive range of motion bilaterally to all major pedal joints Labs/Diagnostic Data Labs Test 03/30/24 11:24 03/30/24 08:00 03/29/24 06:32 03/28/24 06:06 Range/Units POC Glucose 100 70-106 mg/dl White Blood Count 18.0 #H 4.4-10.8 10^3/uL Red Blood Count 2.64 L 4.0-5.20 10^6/uL Hemoglobin 8.3 L 12.2-16.2 g/dL Hematocrit 25.2 L 36.0-46.0 % Mean Corpuscular Volume 95.4 80.0-100.0 fL Mean Corpuscular Hemoglobin 31.5 28.0-32.0 pg Mean Corpuscular Hemoglobin Concent 33.0 32.0-36.0 g/dL Red Cell Distribution Width 17.2 H 11.8-14.3 % Platelet Count 280 140-450 10^3/uL Mean Platelet Volume 9.8 6.9-10.8 fL Neutrophils (%) (Auto) 88.9 H 37.0-80.0 % Lymphocytes (%) (Auto) 5.5 L 10.0-50.0 % Monocytes (%) (Auto) 4.5 0.0-12.0 % Eosinophils (%) (Auto) 0.8 0.0-7.0 % Basophils (%) (Auto) 0.3 0.0-2.0 % Neutrophils # (Auto) 16.0 H 1.6-8.6 10 ^3/uL Lymphocytes # (Auto) 1.0 0.4-5.4 10 ^3/uL Monocytes # (Auto) 0.8 0-1.3 10 ^3/uL Eosinophils # (Auto) 0.1 0-0.8 10 ^3/uL Basophils # (Auto) 0.1 0-0.2 10 ^3/uL Nucleated Red Blood Cells 0.0 % Sodium Level 133 L 136-145 mmol/L Potassium Level 4.1 3.5-5.1 mmol/L Chloride Level 96 L 98-107 mmol/L Carbon Dioxide Level 26 20-31 mmol/L Anion Gap 11 5-15 Blood Urea Nitrogen 44 #H 9-23 mg/dL Creatinine 4.91 H 0.550-1.02 mg/dL Glomerular Filtration Rate Calc 10 >90 mL/min BUN/Creatinine Ratio 9.1 L 10.0-20.0 Serum Glucose 210 H 74-106 mg/dL Calcium Level 9.1 8.7-10.4 mg/dL Aspartate Amino Transferase (AST) 12 L 13-40 U/L Alanine Aminotransferase (ALT) 41 H 7-40 U/L Alkaline Phosphatase 189 H 46-116 U/L Total Protein 6.7 5.7-8.2 g/dL Albumin 3.8 3.2-4.8 g/dL Random Vancomycin Level 16.4 H 5-10 ug/mL Total Bilirubin < 0.2 L 0.2-1.0 mg/dL Test 03/27/24 15:52 03/27/24 14:15 03/27/24 11:20 03/27/24 10:23 Range/Units Erythrocyte Sedimentation Rate 124 H 0-20 mm/hr Haptoglobin 504 H 33-346 mg/dL Reticulocyte Count (auto) 3.96 H 0.5-1.5 % Iron Level 74 50-170 ug/dL Total Iron Binding Capacity 220 L 250-425 ug/dL Percent Iron Saturation 33.6 15-50 % Lactic Acid Level 1.3 0.4-2.0 mmol/L Test 03/27/24 04:55 Range/Units Prothrombin Time 11.0 9.3-11.8 sec Prothrombin Time INR 1.04 0.9-1.15 Activated Partial Thromboplast Time 33.4 24.5-34.5 SEC Hemoglobin A1c 8.9 H <5.7 % A1C C-Reactive Protein High Sensitivity 9.53 H <1.0 mg/dL Triglycerides Level 140 < 150 mg/dL Cholesterol Level 102 < 200 mg/dL LDL Cholesterol 47 < 100 mg/dL HDL Cholesterol 33 L 40-59 mg/dL Lipase 60 H 12-53 U/L Vitamin B12 Level 1361 H 211-911 pg/mL Folic Acid 34.03 >5.38 ng/mL Thyroid Stimulating Hormone (TSH) 3.09 0.55-4.78 uIU/mL Plasma/Serum Blood Alcohol < 3.0 <10 mg/dL Microbiology Date/Time Source Procedure Growth Status 03/28/24 13:54 Blood Blood Culture - Preliminary NO GROWTH AFTER 24 HOURS OF INCUBATION. Resulted Problems(with codes): (1) Diabetic ulcer of left foot (2) Uncontrolled diabetes mellitus (3) ESRD (end stage renal disease) on dialysis (4) Hypertension (5) Leukocytosis, unspecified (6) Type 2 diabetes mellitus with foot ulcer (7) Type 2 diabetes mellitus with hyperglycemia (8) Fever (9) Cellulitis (10) Ulcer of foot with necrosis of muscle (11) Generalized weakness (12) Hemodialysis patient (13) Severe anemia Plan/Recommendation ASSESSMENT: Patient is a 53 year old seen on the floor for a worsening ulcer PLAN: - The patients chart was reviewed, clinical findings were discussed with the patient, the etiologies of the conditions were discussed in detail, and a treatment plan was agreed to at this time, with both oral and written instructions provided. - reviewed advanced imaging - discussed plan is to perform an incision and drainage with amputation of digits 3 and 5 - patient will be NPO at midnight - take him to the OR today - patient will return to the OR at a future date for closure - we will get cultures in the OR - can weightbear as tolerated in postoperative shoe All questions were answered and concerns addressed to the patient's satisfaction. The patient was given the phone number to the clinic and was told how to make contact with the clinic should any concerns or questions arise. Patient understands that if any questions or concerns arise prior to the next appointment, we should be contacted immediately. FOLLOW-UP: Continue to follow while inpatient Plan discussed with: Patient Date of Service: Mar 30, 2024 Billing Provider: SANA EMMANUEL DPM Common Visit Codes: [id number] INP/OBS CARE (HIGH) SANA EMMANUEL DPM Mar 30, 2024 11:49
[2024-03-30] MEDS ORDERED: MIDAZOLAM HCL 2MG/2ML 2ml VIAL (1mg/ml) ONE (13:15)
[2024-03-30] MEDS ORDERED: GLYCOPYRROLATE 0.2 MG/ML 1ML VIAL ONE (13:16)
[2024-03-30] MEDS ORDERED: PROPOFOL 10 MG/ML 20 ML IV ONE (13:16)
[2024-03-30] MEDS ORDERED: ONDANSETRON HCL 4 MG/2 ML VIAL ONE (13:16)
[2024-03-30] MEDS ORDERED: HYDROmorphone HCL 2 MG/ML VL/or syr IV PRN (14:45)
[2024-03-30] MEDS: ACCU-CHEK COMFORT CURVE STRIP VI ONE (14:45)
[2024-03-30] MEDS: BUPIVACAINE 0.5% P/F INJ 10 ML VIAL ONE (14:57)
[2024-03-30 16:05] LABS: Vitamin D 25-Hydroxy 38 ng/mL (.); Vitamin D-2 25-Hydroxy 26 ng/mL (.); Vitamin D-3 25-Hydroxy 12 ng/mL (.)
--- NOTE | 2024-03-30 16:22 | DVHOP2 ---
Operative Report - 2 Report Details Date: 03/30/24 Preop Diagnosis: 1. Left foot wet gangrene 2. Left digits 3 and 5 gangrene 3. Left foot chronic ulcer 4. Left foot cellulitis 4. Left foot PAD Postop Diagnosis: Same as preop Surgeon: Sana Emmanuel MD Anesthesiologist: See anesthesia Anesthesia: Mac Consent: The patient was informed of the risks and benefits of the procedure. These include but are not limited to complications of anesthesia, postoperative infection, incomplete relief of symptoms, recurrence of symptoms, damage to blood vessels, nerves and tendons, deep venous thrombosis, pulmonary embolism and possible need for repeat surgery in the future. Complications: None Estimated Blood Loss: Minimal Fluids: See anesthesia Findings: Consistent with diagnosis Indications for Surgery: Harpreet necrosis with demarcation and infection Name of Procedure Performed 1. Left foot I&D to bone (26523) 2. Left foot 3rd toe amputation (68307) 3. Left foot 5th toe amputation (66459) 4. Left foot bone biopsy x 2 () Procedure Details Procedure Details: PRE-PROCEDURE INFORMATION: In the pre-op holding area, the extremity to be operated on was clearly marked and the patient verified correct laterality of the marking. The patient was transferred to the OR table and placed in a supine position. A timeout was performed in which identification of the correct patient, procedure, location, and materials was done. The left foot and leg were prepped and draped in normal sterile fashion. DESCRIPTION OF PROCEDURE: Attention was directed to the left where previous incision was made. An incision was made over this area and was deepened through blunt dissection. The incision was deepened to the level of abscess and bone. Care was taken to the dissection to avoid any neurovascular and tendinous structures. The incision was deepened to the bone, and the abscess appeared to be purulent fluid consistent with pus. The cortices of the bone was then removed with Catalino an all necrotic tissue. Amputation of the 3rd and 5th digits were performed at the level of the MPJ. After the abscess was drained, the area was irrigated with 3 L normal saline using cysto tubing. Deep cultures were then obtained from the wound. The area was then inspected and any areas of tracking, especially along the tendons were also drained. A bone biopsy was then taken of the 3rd and 5th proximal phalanx which was deep to the muscle belly and tendons. The bone was then sent to pathology to determine the extent of osteomyelitis. The wound was packed with Betadine-soaked gauze and we will need to be closed at a later date. A dry sterile dressing was placed on the surgical extremity. The patient was placed in a _ POSTOPERATIVE INFORMATION: The patient tolerated the above noted procedure and anesthesia well and was transferred to the PACU with vital signs stable, and vascular status intact with capillary refill intact to all digits. Cultures wer e taken. Patient will return to the floor pending vascular consult. Patient will continue on antibiotics. Patient will need a dermal graft wounds appropriate blood flow has been achieved. Specimen: Third and 5th proximal phalanx toe Disposition Still a Patient SANA EMMANUEL DPM Mar 30, 2024 16:22
[2024-03-30] MEDS: VANCOMYCIN 500mg/100mL 100 ML IV ONE (19:24)
--- NOTE | 2024-03-30 20:28 | DVHINCON2 ---
Consultation - Surgical Date Seen: Mar 30, 2024 Referring Physician Referring Physician dr. john Reason for Consultation Peripheral vascular disease History of Present Illness History of Present Illness Mesha Crouch is a 53-year-old female with past medical history of hypertension, diabetes, end-stage renal disease on HD (M/W/F), left 2nd digit amputation, status post left 4th digit amputation, osteomyelitis, and who presents to the ED for nausea, abdominal pain and left toe pain. Patient reports that her abdominal pain is 5/10 constant and pressure-like. Patient also reports that she has left toe pain which was amputated a month ago with reported blood loss, per spouse at bedside about 1 L blood loss. Patient denies any vomiting, diarrhea, bloody or dark stools, chest pain, shortness of breath, lightheadedness, weakness, paresthesia, dizziness, headaches, fever, and chills. Patient today underwent a amputation of several digits of the left foot. Patient is resting comfortably in the bed. Asked to see patient regarding ultrasound findings please see below. Past Medical/Surgical History Past Medical/Surgical History hypertension, diabetes, end-stage renal disease on HD (M/W/F), left 2nd digit amputation, status post left 4th digit amputation, osteomyelitis, Family and Social History Family and Social History Family history noncontributory Nonsmoker nondrinker. Allergies and medications Allergies: Coded Allergies: No Known Drug Allergy (Verified Allergy, Unknown, 02/09/24) Home Meds Active Scripts Ergocalciferol (VITAMIN D 63258 UNIT) 50,000 [place], [address] UNIT PO QWEEKLY for 90 Days, #12 CAP Prov:ELENA PRECIADO RESIDENT 03/12/24 Amoxicillin & Pot Clavulanate (Augmentin) 500 Mg Tab, 500 MG PO BID for 7 Days, #14 TAB Prov:ELENA PRECIADO RESIDENT 03/11/24 Sevelamer Hydrochloride (Renagel) 800 Mg Tab, 800 MG PO TIDWM for 10 Days, #30 TAB Prov:KELLY VU RESIDENT 02/17/24 Insulin Lispro (Human) (Humalog) 100 Unit/Ml Inj, 5 UNITS SC TID for 30 Days, #10 INJ Prov:KELLY VU RESIDENT 02/17/24 Insulin Glargine (Lantus) 100 Unit/Ml Inj, 30 UNITS SC QAM for 30 Days, #10 INJ Prov:KELLY VU [facility] 02/17/24 Carvedilol (COREG) 3.125 Mg Tab, 6.25 MG PO Q12HR for 30 Days, #120 TAB Prov:KELLY VU [facility] 02/17/24 Atorvastatin Calcium (ATORVASTATIN CALCIUM) 20 Mg Tab, 20 MG PO HS for 30 Days, #30 TAB [facility] 02/17/24 Aspirin (Aspirin Low Dose) 81 Mg Tab, 81 MG PO DAILY for 30 Days, #30 TAB [facility] 02/17/24 Amlodipine Besylate (NORVASC TABLET) 5 Mg Tb, 10 MG PO DAILY for 30 Days, #60 TAB [facility] 02/17/24 Acetaminophen (Acetaminophen) 325 Mg Tab, 650 MG PO Q6HP PRN for 10 Days, #80 TAB Prov:TIKAZACHARYKELLY [facility] 02/17/24 Reported Medications Ergocalciferol (Vitamin D) 50,000 Unit Cap, 1 CAP PO QWEEKLY 03/27/24 Hydralazine Hcl (Hydralazine Hcl) 100 Mg Tab, 1 TAB PO TID, #90 TAB 5 Refills 02/09/24 Ferric Citrate (Auryxia) 210 Mg Tab, 210 MG PO, TAB 02/09/24 Cholecalciferol (VITAMIN D) 5,000 Unit Tab, 5000 UNIT OR, TAB 02/09/24 Ondansetron HCl (Ondansetron) 4 Mg Tab, 4 MG PO, TAB 02/09/24 Review of systems Review of Systems: HEENT:Normal, CVS:Normal, RESPIRATORY:Normal, GI:Normal, :Normal, MSK:Normal, MSK:Abnormal (Left foot wrap status post podiatry surgery) Examination Vital signs Vital Signs Date Time Temp Pulse Resp B/P (MAP) Pulse Ox O2 Delivery O2 Flow Rate FiO2 03/30/24 17:00 98.2 63 16 124/53 (76) 97 98.2 03/30/24 14:38 Room Air 0 95 Medications Current Medications Medications (Trade) Dose Ordered Sig/Latonia Route PRN Reason Start Time Stop Time Status Last Admin Insulin Glargine (Lantus) 30 units HS SC 03/29/24 22:00 03/29/24 21:43 Hydralazine HCl (Apresoline Tablet) 100 mg DAILY PO 03/30/24 10:00 Epoetin Damian-epbx (Retacrit) 10,000 unit MWF@2100 SC 03/30/24 21:00 Hydromorphone HCl (Dilaudid Injection) 0.25 mg Q10M PRN IV MODERATE PAIN (4-6 PAIN SCALE) 03/30/24 14:45 03/30/24 15:22 DC Laboratory Labs Test 03/30/24 17:10 03/30/24 08:00 03/29/24 06:32 03/28/24 06:06 Range/Units POC Glucose 156 H 70-106 mg/dl White Blood Count 18.0 #H 4.4-10.8 10^3/uL Red Blood Count 2.64 L 4.0-5.20 10^6/uL Hemoglobin 8.3 L 12.2-16.2 g/dL Hematocrit 25.2 L 36.0-46.0 % Mean Corpuscular Volume 95.4 80.0-100.0 fL Mean Corpuscular Hemoglobin 31.5 28.0-32.0 pg Mean Corpuscular Hemoglobin Concent 33.0 32.0-36.0 g/dL Red Cell Distribution Width 17.2 H 11.8-14.3 % Platelet Count 280 140-450 10^3/uL Mean Platelet Volume 9.8 6.9-10.8 fL Neutrophils (%) (Auto) 88.9 H 37.0-80.0 % Lymphocytes (%) (Auto) 5.5 L 10.0-50.0 % Monocytes (%) (Auto) 4.5 0.0-12.0 % Eosinophils (%) (Auto) 0.8 0.0-7.0 % Basophils (%) (Auto) 0.3 0.0-2.0 % Neutrophils # (Auto) 16.0 H 1.6-8.6 10 ^3/uL Lymphocytes # (Auto) 1.0 0.4-5.4 10 ^3/uL Monocytes # (Auto) 0.8 0-1.3 10 ^3/uL Eosinophils # (Auto) 0.1 0-0.8 10 ^3/uL Basophils # (Auto) 0.1 0-0.2 10 ^3/uL Nucleated Red Blood Cells 0.0 % Sodium Level 133 L 136-145 mmol/L Potassium Level 4.1 3.5-5.1 mmol/L Chloride Level 96 L 98-107 mmol/L Carbon Dioxide Level 26 20-31 mmol/L Anion Gap 11 5-15 Blood Urea Nitrogen 44 #H 9-23 mg/dL Creatinine 4.91 H 0.550-1.02 mg/dL Glomerular Filtration Rate Calc 10 >90 mL/min BUN/Creatinine Ratio 9.1 L 10.0-20.0 Serum Glucose 210 H 74-106 mg/dL Calcium Level 9.1 8.7-10.4 mg/dL Aspartate Amino Transferase (AST) 12 L 13-40 U/L Alanine Aminotransferase (ALT) 41 H 7-40 U/L Alkaline Phosphatase 189 H 46-116 U/L Total Protein 6.7 5.7-8.2 g/dL Albumin 3.8 3.2-4.8 g/dL Random Vancomycin Level 16.4 H 5-10 ug/mL Total Bilirubin < 0.2 L 0.2-1.0 mg/dL Test 03/27/24 15:52 03/27/24 14:15 03/27/24 11:20 03/27/24 10:23 Range/Units Erythrocyte Sedimentation Rate 124 H 0-20 mm/hr Haptoglobin 504 H 33-346 mg/dL Reticulocyte Count (auto) 3.96 H 0.5-1.5 % Iron Level 74 50-170 ug/dL Total Iron Binding Capacity 220 L 250-425 ug/dL Percent Iron Saturation 33.6 15-50 % Lactic Acid Level 1.3 0.4-2.0 mmol/L Test 03/27/24 04:55 Range/Units Prothrombin Time 11.0 9.3-11.8 sec Prothrombin Time INR 1.04 0.9-1.15 Activated Partial Thromboplast Time 33.4 24.5-34.5 SEC Hemoglobin A1c 8.9 H <5.7 % A1C C-Reactive Protein High Sensitivity 9.53 H <1.0 mg/dL Triglycerides Level 140 < 150 mg/dL Cholesterol Level 102 < 200 mg/dL LDL Cholesterol 47 < 100 mg/dL HDL Cholesterol 33 L 40-59 mg/dL Lipase 60 H 12-53 U/L Vitamin B12 Level 1361 H 211-911 pg/mL Vitamin D 25-Hydroxy 38 . ng/mL 25-Hydroxy Vitamin D2 26 . ng/mL 25-Hydroxy Vitamin D3 12 . ng/mL Folic Acid 34.03 >5.38 ng/mL Thyroid Stimulating Hormone (TSH) 3.09 0.55-4.78 uIU/mL Plasma/Serum Blood Alcohol < 3.0 <10 mg/dL Microbiology Date/Time Source Procedure Growth Status 03/28/24 13:54 Blood Blood Culture - Preliminary NO GROWTH AFTER 48 HOURS OF INCUBATION. Resulted Bilateral Lower Extremity Arterial Duplex Clinical History: Nonhealing bilateral foot wounds ruled out PAD Comparison: None Technique: Duplex Doppler evaluation including color Doppler and spectral/pulsed waveform analysis of the lower extremity arteries was performed. Findings: RIGHT: Right distal superficial femoral artery peak systolic velocity of 152 centimeter/second. All other systolic velocities are less than 150 centimeter/second. The waveforms are monophasic in the dorsalis pedis. LEFT: Peak systolic velocities are less than 150 centimeter/second. The waveforms are monophasic in the dorsalis pedis.. IMPRESSION: No hemodynamically significant stenosis on the left. 20-49% stenosis of the right distal superficial femoral artery based on peak systolic velocity criteria. Bilateral abnormal monophasic waveforms in the dorsalis pedis artery suggestive of underlying peripheral arterial disease. Examination: GENERAL:Normal, HEENT:Normal, NECK:Normal, LUNGS:Normal, CVS:Normal, ABDOMEN:Normal, MSK:Normal (Left foot wrapped status post podiatry surgery. Popliteal artery pulse palpable bilateral femoral pulses palpable), NEURO:Normal Problem List/Assessment/Plan Problems: (1) Type 2 diabetes mellitus with foot ulcer (2) Diabetic ulcer of left foot Assessment and Plan 53-year-old history of end-stage renal disease with left diabetic foot ulcer status post amputation of toes. Mild peripheral vascular disease based on duplex ultrasound and physical exam. Appears to have adequate circulation to heal the amputation at which was already performed today. Follow up as needed Plan discussed with Plan discussed with: Patient, Spouse Visit Coding Surgery Date of Service if different f: Mar 30, 2024 Billing Provider: SELIN VALENCIA Jr., MD Surgery Visit Codes: [id number] - INP CONSULT <80 MIN SELIN VALENCIA Jr., MD Mar 30, 2024 20:28
[2024-03-30] MEDS: EPOETIN ALFA-EPBX 10,000 UNIT/1ML VIAL SC SCH (21:27)
[2024-03-31 05:00] VITALS: BP 127/65; PULSE 65; RESP 18; TEMP 98.1; O2SAT 96
[2024-03-31 06:57] LABS: Chloride 98 mmol/L (98-107); Potassium 4.8 mmol/L (3.5-5.1)
[2024-03-31 06:58] LABS: Anion Gap 8 (5-15); Carbon Dioxide 27 mmol/L (20-31)
[2024-03-31 06:59] LABS: Calcium 8.8 mg/dL (8.7-10.4)
[2024-03-31 07:03] LABS: BUN/Creatinine Ratio 9.6 (10.0-20.0)
[2024-03-31 07:15] LABS: Blood Urea Nitrogen 58 mg/dL (9-23); Glucose 224 mg/dL (74-106); Sodium 133 mmol/L (136-145)
[2024-03-31 08:00] VITALS: PULSE 68; RESP 16; O2SAT 97
[2024-03-31] MEDS: BUPIVACAINE 0.5% P/F INJ 10 ML VIAL ONE (08:46)
[2024-03-31 09:00] VITALS: BP 115/64; PULSE 68; RESP 16; TEMP 97.5; O2SAT 97
--- NOTE | 2024-03-31 09:21 | DVHPN2 ---
Reviewed: Care Plan, H&P, Labs, Medications, Previous Orders, Radiology Changes from previous H/P or p: No Changes Eyes: No Pain, No Vision change, No Conjunctivae inflammation, No Eyelid inflammation, No Other, No Redness ENT: No Ear pain, No Ear discharge, No Nose pain, No Nose discharge, No Nose congestion, No Mouth pain, No Mouth swelling, No Throat pain, No Throat swelling, No Other Cardiovascular: No Chest Pain, No Palpitations, No Orthopnea, No Paroxysmal Noc. Dyspnea, No Edema, No Lt Headedness, No Other Respiratory: No Cough, No Dry, No Shortness of breath, No SOB with excertion, No Wheezing, No Hemoptysis, No Pleuritic Pain, No Sputum, No Other Gastrointestinal: Nausea; No Vomiting; Abdominal Pain; No Diarrhea, No Constipation, No Melena, No Hematochezia, No Other Genitourinary: No Dysuria, No Frequency, No Incontinence, No Hematuria, No Retention, No Other Musculoskeletal: No other, No neck pain, No shoulder pain, No arm pain, No back pain, No hand pain, No leg pain; foot pain Skin: No Rash, No Lesions, No Jaundice, No Bruising, No Other Objective Vitals Vital Signs Date Time Temp Pulse Resp B/P (MAP) Pulse Ox O2 Delivery O2 Flow Rate FiO2 03/31/24 05:00 98.1 65 18 127/65 (85) 96 98.1 03/30/24 20:00 Room Air* 2 N/A Nasal Cannula* Intake/Output Intake and Output 03/31/24 07:00 Intake Total 890 ml Balance 890 ml Intake Oral 790 ml IV Total 100 ml # Voids 3 Medications Current Medications Medications Dose Ordered Sig/Latonia Route Start Time Stop Time Status Last Admin Dose Admin Acetaminophen/ Hydrocodone Bitart 1 tab Q4HP PRN PO 03/27/24 08:00 Ondansetron HCl 4 mg Q4HP PRN IV 03/27/24 08:00 Acetaminophen 650 mg Q6HP PRN PO 03/27/24 08:00 Morphine Sulfate 2 mg Q4HPRN PRN IV 03/27/24 08:00 Diagnostic Test (Pha) 1 strip ACHS 03/27/24 11:30 03/31/24 06:15 1 STRIP Dextrose 50 ml UD PRN IV 03/27/24 08:00 Amlodipine Besylate 10 mg DAILY PO 03/27/24 10:00 03/29/24 09:51 10 MG Atorvastatin Calcium 20 mg HS PO 03/27/24 22:00 03/30/24 21:24 20 MG Carvedilol 6.25 mg Q12HR PO 03/27/24 10:00 03/29/24 09:50 6.25 MG Sevelamer HCl 800 mg TIDWM PO 03/27/24 08:00 03/31/24 08:45 800 MG Vancomycin HCl 0 ml @ 0 mls/hr UD IV 03/27/24 16:45 Cefepime HCl 50 ml @ 12.5 mls/hr DAILY IV 03/28/24 10:00 03/30/24 10:39 12.5 MLS/HR Insulin Human Regular AC SC 03/28/24 17:00 03/31/24 06:17 8 UNITS Insulin Human Regular HS SC 03/28/24 22:00 03/30/24 21:35 10 UNITS Enteral Nutritional Formula 28.8 gm BID PO 03/28/24 22:00 Insulin Glargine 30 units HS SC 03/29/24 22:00 03/30/24 21:38 30 UNITS Hydralazine HCl 100 mg DAILY PO 03/30/24 10:00 Epoetin Damian-epbx 10,000 unit MWF@2100 SC 03/30/24 21:00 03/30/24 21:27 10,000 UNIT Laboratory Results Laboratory Tests 03/30/24 08:00 03/31/24 05:37 Chemistry Test 03/31/24 05:37 Calcium Level 8.8 mg/dL (8.7-10.4) Microbiology Microbiology Date/Time Source Procedure Growth Status 03/30/24 14:25 Foot Left Gram Stain - Final Resulted 03/30/24 14:25 Foot Left Wound Culture - Preliminary Resulted 03/28/24 13:54 Blood Blood Culture - Preliminary NO GROWTH AFTER 48 HOURS OF INCUBATION. Resulted Labs and/or images reviewed: Labs reviewed by me, Image(s) reviewed by me Assessment/Plan Assessment/Plan Sepsis secondary to left foot infection: Blood cultures negative , wound cultures pending, continue cefepime vancomycin Acute gangrene left 3rd and 5th toes status post incision and drainage, amputation by Dr. Ortiz, left foot bone biopsy result pending Peripheral arterial disease left lower extremity ruled out Mild peripheral arterial disease right lower extremity consult by vascular surgeon , no intervention needed History of amputation left 4th toe History of osteomyelitis left foot ESRD on hemodialysis : Consult for Dr. Alexander appreciated Uncontrolled diabetes A1c 11.2: Insulin sliding scale Hypertensive urgency Severe anemia hemoglobin 6.7, improved to 8.7 after 1 unit RBC transfusion Condition guarded Time spent 55 minutes Patient is full code Advanced care planning time 20 minutes Plan discussed with: Patient My Orders Orders - CHARLIE RYAN MD Procedure Category Date Status Time Consult CONS 03/30/24 Transmitted Vascular/Endovascular 09:52 Renal DIET 03/30/24 Transmitted Standard(2gna,3gk,Lopho) Dinner Date of Service: Mar 31, 2024 Billing Provider: CHARLIE RYAN MD Common Visit Codes: [id number] CARE 30-74 MIN CHARLIE RYAN MD Mar 31, 2024 09:21
--- NOTE | 2024-03-31 11:22 | DVHPN2 ---
Progress Note Date Seen: Mar 31, 2024 Medical Necessity Reason Pt with a Central, PICC or Fol: No Subjective Patient reports: No new complaints Objective vital signs Vital Sign Date Time Temp Pulse Resp B/P (MAP) Pulse Ox O2 Delivery O2 Flow Rate FiO2 03/31/24 10:39 141/57 03/31/24 10:38 69 03/31/24 05:00 98.1 18 96 98.1 03/30/24 20:00 Room Air* 2 N/A Nasal Cannula* Total Intake and Output 03/30/24 03/30/24 03/31/24 15:00 23:00 07:00 Intake Total 100 ml 0 ml 790 ml Balance 100 ml 0 ml 790 ml medications Current Medications Medications Dose Ordered Sig/Latonia Route Start Time Stop Time Status Last Admin Dose Admin Acetaminophen/ Hydrocodone Bitart 1 tab Q4HP PRN PO 03/27/24 08:00 Ondansetron HCl 4 mg Q4HP PRN IV 03/27/24 08:00 Acetaminophen 650 mg Q6HP PRN PO 03/27/24 08:00 Morphine Sulfate 2 mg Q4HPRN PRN IV 03/27/24 08:00 Diagnostic Test (Pha) 1 strip ACHS 03/27/24 11:30 03/31/24 06:15 1 STRIP Dextrose 50 ml UD PRN IV 03/27/24 08:00 Amlodipine Besylate 10 mg DAILY PO 03/27/24 10:00 03/31/24 10:39 10 MG Atorvastatin Calcium 20 mg HS PO 03/27/24 22:00 03/30/24 21:24 20 MG Carvedilol 6.25 mg Q12HR PO 03/27/24 10:00 03/31/24 10:38 6.25 MG Sevelamer HCl 800 mg TIDWM PO 03/27/24 08:00 03/31/24 08:45 800 MG Vancomycin HCl 0 ml @ 0 mls/hr UD IV 03/27/24 16:45 Cefepime HCl 50 ml @ 12.5 mls/hr DAILY IV 03/28/24 10:00 03/31/24 10:38 12.5 MLS/HR Insulin Human Regular AC SC 03/28/24 17:00 03/31/24 06:17 8 UNITS Insulin Human Regular HS SC 03/28/24 22:00 03/30/24 21:35 10 UNITS Enteral Nutritional Formula 28.8 gm BID PO 03/28/24 22:00 03/31/24 10:00 28.8 GM Insulin Glargine 30 units HS SC 03/29/24 22:00 03/30/24 21:38 30 UNITS Hydralazine HCl 100 mg DAILY PO 03/30/24 10:00 03/31/24 10:39 100 MG Epoetin Damian-epbx 10,000 unit MWF@2100 SC 03/30/24 21:00 03/30/24 21:27 10,000 UNIT Examination: GENERAL:Normal laboratory and microbiology Laboratory Tests 03/31/24 05:37 03/30/24 08:00 Test 03/31/24 05:37 Range/Units Serum Glucose 224 H 74-106 mg/dL Microbiology Date/Time Source Procedure Growth Status 03/30/24 14:25 Foot Left Gram Stain - Final Resulted 03/30/24 14:25 Foot Left Wound Culture - Preliminary Resulted 03/28/24 13:54 Blood Blood Culture - Preliminary NO GROWTH AFTER 48 HOURS OF INCUBATION. Resulted Problem List/Assessment/Plan Problem List/Assessment/Plan ESRD on HD Anemia of ckd Osteomyelitis recent left 4th toe amputation- on IV abx Hx of HTN- within target range Uncontrolled DM- on R insulin sliding scale HD 03/31 today epogen MWF renal diet Improve glycemic control Strict I&Os Place PICC line for extended ABX therapy and arrange home health Plan discussed with: Patient My Orders My Orders Orders - LIV RODRIGUEZ MD Procedure Category Date Status Time Epoetin Damian-Epbx PHA 03/30/24 In Process (Retacrit) 21:00 Hemodialysis Orders ORDERS 03/31/24 Transmitted 08:01 Dietary Evaluation Review Comments: 1. Continue current diet 2. Consider Luis Angel BID (180kcal, 5 gpro) for wound healing Expected Outcomes/Goals: Pt will continue to consume >75% of estimated needs within 3-5 days CC Plasma Assessment Blood Product Administration S: 1111 LIV RODRIGUEZ MD Mar 31, 2024 11:22
[2024-03-31 13:00] VITALS: BP 117/54; PULSE 68; RESP 16; TEMP 98.7; O2SAT 96
--- NOTE | 2024-03-31 13:34 | DVHPN2 ---
Mesha Aburto is a 53-year-old female with past medical history of hypertension, diabetes, end-stage renal disease on HD (M/W/F), left 2nd digit amputation, status post left 4th digit amputation, osteomyelitis, and who presents to the ED for nausea, abdominal pain and left toe pain. Patient reports that her abdominal pain is 5/10 constant and pressure-like. Patient also reports that she has left toe pain which was amputated a month ago with reported blood loss, per spouse at bedside about 1 L blood loss. Patient denies any vomiting, diarrhea, bloody or dark stools, chest pain, shortness of breath, lightheadedness, weakness, paresthesia, dizziness, headaches, fever, and chills. Reviewed: Care Plan, H&P, Labs, Medications, Previous Orders, Radiology Changes from previous H/P or p: No Changes Eyes: No Pain, No Vision change, No Conjunctivae inflammation, No Eyelid inflammation, No Other, No Redness ENT: No Ear pain, No Ear discharge, No Nose pain, No Nose discharge, No Nose congestion, No Mouth pain, No Mouth swelling, No Throat pain, No Throat swelling, No Other Cardiovascular: No Chest Pain, No Palpitations, No Orthopnea, No Paroxysmal Noc. Dyspnea, No Edema, No Lt Headedness, No Other Respiratory: No Cough, No Dry, No Shortness of breath, No SOB with excertion, No Wheezing, No Hemoptysis, No Pleuritic Pain, No Sputum, No Other Gastrointestinal: Nausea; No Vomiting; Abdominal Pain; No Diarrhea, No Constipation, No Melena, No Hematochezia, No Other Genitourinary: No Dysuria, No Frequency, No Incontinence, No Hematuria, No Retention, No Other Musculoskeletal: No other, No neck pain, No shoulder pain, No arm pain, No back pain, No hand pain, No leg pain; foot pain Skin: No Rash, No Lesions, No Jaundice, No Bruising, No Other Objective Vitals Vital Signs Date Time Temp Pulse Resp B/P (MAP) Pulse Ox O2 Delivery O2 Flow Rate FiO2 03/31/24 11:38 69 130/56 03/31/24 08:00 16 97 Room Air* 0 21 03/31/24 05:00 98.1 98.1 Intake/Output Intake and Output 03/31/24 07:00 Intake Total 890 ml Balance 890 ml Intake Oral 790 ml IV Total 100 ml # Voids 3 Exam DERMATOLOGIC EXAM: - Skin is dry and cool to the touch dry bilaterally. - Nails 1-5 of the bilateral foot are thickened, discolored, dystrophic, and tender to palpate with subungual debris - Hair loss noted to bilateral feet - necrosis of digits 3-5 with open wound VASCULAR EXAM: - DP and PT pulses are palpable bilaterally. - [employer] SAL[employer] is brisk to all digits. - Feet are cool to touch compared to lower legs bilaterally. NEUROLOGIC EXAM: - Normal light touch sensation to the superficial peroneal, deep peroneal, sural, saphenous, and tibial nerve branches. - Protective sensation is diminished as tested with a 5.07 10g Smock-Giorgio bilaterally. MUSCULOSKELETAL EXAM: - No gross deformities - Muscle strength is 5/5 and active motion is pain-free and symmetrical bilaterally - No pain or crepitation with passive range of motion bilaterally to all major pedal joints Medications Current Medications Medications Dose Ordered Sig/Latonia Route Start Time Stop Time Status Last Admin Dose Admin Acetaminophen/ Hydrocodone Bitart 1 tab Q4HP PRN PO 03/27/24 08:00 Ondansetron HCl 4 mg Q4HP PRN IV 03/27/24 08:00 Acetaminophen 650 mg Q6HP PRN PO 03/27/24 08:00 Morphine Sulfate 2 mg Q4HPRN PRN IV 03/27/24 08:00 Diagnostic Test (Pha) 1 strip ACHS 03/27/24 11:30 03/31/24 11:30 1 STRIP Dextrose 50 ml UD PRN IV 03/27/24 08:00 Amlodipine Besylate 10 mg DAILY PO 03/27/24 10:00 03/31/24 10:39 10 MG Atorvastatin Calcium 20 mg HS PO 03/27/24 22:00 03/30/24 21:24 20 MG Carvedilol 6.25 mg Q12HR PO 03/27/24 10:00 03/31/24 10:38 6.25 MG Sevelamer HCl 800 mg TIDWM PO 03/27/24 08:00 03/31/24 12:12 800 MG Vancomycin HCl 0 ml @ 0 mls/hr UD IV 03/27/24 16:45 Cefepime HCl 50 ml @ 12.5 mls/hr DAILY IV 03/28/24 10:00 03/31/24 10:38 12.5 MLS/HR Insulin Human Regular AC SC 03/28/24 17:00 03/31/24 12:15 8 UNITS Insulin Human Regular HS SC 03/28/24 22:00 03/30/24 21:35 10 UNITS Enteral Nutritional Formula 28.8 gm BID PO 03/28/24 22:00 03/31/24 10:00 28.8 GM Insulin Glargine 30 units HS SC 03/29/24 22:00 03/30/24 21:38 30 UNITS Hydralazine HCl 100 mg DAILY PO 03/30/24 10:00 03/31/24 10:39 100 MG Epoetin Damian-epbx 10,000 unit MWF@2100 SC 03/30/24 21:00 03/30/24 21:27 10,000 UNIT Laboratory Results Laboratory Tests 03/30/24 08:00 03/31/24 05:37 Chemistry Test 03/31/24 05:37 Calcium Level 8.8 mg/dL (8.7-10.4) Microbiology Microbiology Date/Time Source Procedure Growth Status 03/30/24 14:25 Foot Left Gram Stain - Final Resulted 03/30/24 14:25 Foot Left Wound Culture - Preliminary Resulted 03/28/24 13:54 Blood Blood Culture - Preliminary NO GROWTH AFTER 48 HOURS OF INCUBATION. Resulted Assessment/Plan Assessment/Plan ASSESSMENT: Patient is a year old seen on the floor 1 day s/p from a left foot 3rd and 5th toe amputation PLAN: - The patients chart was reviewed, clinical findings were discussed with the patient, the etiologies of the conditions were discussed in detail, and a treatment plan was agreed to at this time, with both oral and written instructions provided. - reviewed advanced imaging - discussed plan is to perform an another incision and drainage - patient will be NPO at midnight - take her to the OR tomorrow - patient will return to the OR at a future date for closure - can weightbear as tolerated in postoperative shoe - vascular cleared patient for appropriate wound healing All questions were answered and concerns addressed to the patient's satisfaction. The patient was given the phone number to the clinic and was told how to make contact with the clinic should any concerns or questions arise. Patient understands that if any questions or concerns arise prior to the next appointment, we should be contacted immediately. FOLLOW-UP: Continue to follow while inpatient Plan discussed with: Patient My Orders Orders - SANA EMMANUEL DPM Procedure Category Date Status Time Routine Bacterial NAGI 03/30/24 In Process Culture 14:48 Anaerobic Culture NAGI 03/30/24 In Process 14:48 Gram Stain NAGI 03/30/24 In Process 14:48 Problem List: (1) Generalized weakness (2) Hemodialysis patient (3) Severe anemia (4) Fever (5) Cellulitis (6) Hypertension (7) Uncontrolled diabetes mellitus (8) Leukocytosis, unspecified (9) ESRD (end stage renal disease) on dialysis (10) Type 2 diabetes mellitus with hyperglycemia (11) Type 2 diabetes mellitus with foot ulcer (12) Diabetic ulcer of left foot (13) Ulcer of foot with necrosis of muscle Date of Service: Mar 31, 2024 Billing Provider: SANA EMMANUEL DPM Common Visit Codes: [id number] INP/OBS CARE(MOD) SANA EMMANUEL DPM Mar 31, 2024 13:34
[2024-03-31] MEDS ORDERED: KETAMINE 50mg/ML 1ml syringe IM ONE (14:09)
[2024-03-31 17:00] VITALS: BP 133/68; PULSE 67; RESP 16
[2024-03-31 19:28] LABS: INR 0.99 (0.9-1.15); Partial Thromboplastin Time 29.9 SEC (24.5-34.5); Prothrombin Time 10.5 sec (9.3-11.8)
[2024-04-01] VITALS (7 sets, daily range): BP systolic 99–149; BP diastolic 40–75; PULSE 60–71; RESP 17–20; TEMP 97.7–99.4; O2SAT 91–100
[2024-04-01] MEDS: HYDROcodone-ACET 5/325MG TAB PO PRN (00:09)
--- NOTE | 2024-04-01 08:39 | DVHPN2 ---
Reviewed: Care Plan, H&P, Labs, Medications, Previous Orders, Radiology Changes from previous H/P or p: No Changes Eyes: No Pain, No Vision change, No Conjunctivae inflammation, No Eyelid inflammation, No Other, No Redness ENT: No Ear pain, No Ear discharge, No Nose pain, No Nose discharge, No Nose congestion, No Mouth pain, No Mouth swelling, No Throat pain, No Throat swelling, No Other Cardiovascular: No Chest Pain, No Palpitations, No Orthopnea, No Paroxysmal Noc. Dyspnea, No Edema, No Lt Headedness, No Other Respiratory: No Cough, No Dry, No Shortness of breath, No SOB with excertion, No Wheezing, No Hemoptysis, No Pleuritic Pain, No Sputum, No Other Gastrointestinal: Nausea; No Vomiting; Abdominal Pain; No Diarrhea, No Constipation, No Melena, No Hematochezia, No Other Genitourinary: No Dysuria, No Frequency, No Incontinence, No Hematuria, No Retention, No Other Musculoskeletal: No other, No neck pain, No shoulder pain, No arm pain, No back pain, No hand pain, No leg pain; foot pain Skin: No Rash, No Lesions, No Jaundice, No Bruising, No Other Objective Vitals Vital Signs Date Time Temp Pulse Resp B/P (MAP) Pulse Ox O2 Delivery O2 Flow Rate FiO2 04/01/24 05:00 97.7 65 17 149/66 (93) 96 97.7 03/31/24 20:00 Room Air* 0 21 Intake/Output Intake and Output 04/01/24 07:00 Intake Total 800 ml Balance 800 ml Intake Oral 800 ml # Voids 1 Medications Current Medications Medications Dose Ordered Sig/Latonia Route Start Time Stop Time Status Last Admin Dose Admin Acetaminophen/ Hydrocodone Bitart 1 tab Q4HP PRN PO 03/27/24 08:00 04/01/24 00:09 1 TAB Ondansetron HCl 4 mg Q4HP PRN IV 03/27/24 08:00 Acetaminophen 650 mg Q6HP PRN PO 03/27/24 08:00 Morphine Sulfate 2 mg Q4HPRN PRN IV 03/27/24 08:00 Diagnostic Test (Pha) 1 strip ACHS 03/27/24 11:30 04/01/24 05:51 1 STRIP Dextrose 50 ml UD PRN IV 03/27/24 08:00 Amlodipine Besylate 10 mg DAILY PO 03/27/24 10:00 03/31/24 10:39 10 MG Atorvastatin Calcium 20 mg HS PO 03/27/24 22:00 03/31/24 21:05 20 MG Carvedilol 6.25 mg Q12HR PO 03/27/24 10:00 03/31/24 21:05 6.25 MG Sevelamer HCl 800 mg TIDWM PO 03/27/24 08:00 03/31/24 17:01 800 MG Vancomycin HCl 0 ml @ 0 mls/hr UD IV 03/27/24 16:45 Cefepime HCl 50 ml @ 12.5 mls/hr DAILY IV 03/28/24 10:00 03/31/24 10:38 12.5 MLS/HR Insulin Human Regular AC SC 03/28/24 17:00 04/01/24 05:52 12 UNITS Insulin Human Regular HS SC 03/28/24 22:00 03/31/24 21:03 4 UNITS Enteral Nutritional Formula 28.8 gm BID PO 03/28/24 22:00 03/31/24 10:00 28.8 GM Insulin Glargine 30 units HS SC 03/29/24 22:00 03/31/24 21:04 30 UNITS Hydralazine HCl 100 mg DAILY PO 03/30/24 10:00 03/31/24 10:39 100 MG Epoetin Damian-epbx 10,000 unit MWF@2100 SC 03/30/24 21:00 03/30/24 21:27 10,000 UNIT Laboratory Results Laboratory Tests 03/30/24 08:00 03/31/24 05:37 Coagulation Test 03/31/24 18:18 Prothrombin Time 10.5 sec (9.3-11.8) Prothrombin Time INR 0.99 (0.9-1.15) Activated Partial Thromboplast Time 29.9 SEC (24.5-34.5) Microbiology Microbiology Date/Time Source Procedure Growth Status 03/30/24 14:25 Foot Left Anaerobic Culture - Preliminary Resulted 03/28/24 13:54 Blood Blood Culture - Preliminary NO GROWTH AFTER 72 HOURS OF INCUBATION. Resulted Labs and/or images reviewed: Labs reviewed by me, Image(s) reviewed by me Assessment/Plan Assessment/Plan Sepsis secondary to left foot infection: Blood cultures negative , wound cultures pending, continue cefepime vancomycin Acute gangrene left 3rd and 5th toes status post incision and drainage, amputation by Dr. Ortiz, left foot bone biopsy result pending Peripheral arterial disease left lower extremity ruled out Mild peripheral arterial disease right lower extremity consult by vascular surgeon , no intervention needed History of amputation left 4th toe History of osteomyelitis left foot ESRD on hemodialysis : Consult for Dr. Alexander appreciated Uncontrolled diabetes A1c 11.2: Insulin sliding scale Diabetic neuropathy nephropathy vasculopathy Hypertensive urgency Severe anemia hemoglobin 6.7, improved to 8.7 after 1 unit RBC transfusion Condition guarded Time spent 55 minutes Patient is full code Plan discussed with: Patient My Orders Orders - CHARLIE RYAN MD Procedure Category Date Status Time * Picc Line Consult CONS 03/31/24 Transmitted 09:36 Date of Service: Apr 01, 2024 Billing Provider: CHARLIE RYAN MD Common Visit Codes: [id number] INP/OBS CARE(HIGH) CHARLIE RYAN MD Apr 01, 2024 08:39
--- NOTE | 2024-04-01 09:09 | DVHPN2 ---
Mesha Aburto is a 53-year-old female with past medical history of hypertension, diabetes, end-stage renal disease on HD (M/W/F), left 2nd digit amputation, status post left 4th digit amputation, osteomyelitis, and who presents to the ED for nausea, abdominal pain and left toe pain. Patient reports that her abdominal pain is 5/10 constant and pressure-like. Patient also reports that she has left toe pain which was amputated a month ago with reported blood loss, per spouse at bedside about 1 L blood loss. Patient denies any vomiting, diarrhea, bloody or dark stools, chest pain, shortness of breath, lightheadedness, weakness, paresthesia, dizziness, headaches, fever, and chills. Reviewed: Care Plan, H&P, Labs, Medications, Previous Orders, Radiology Changes from previous H/P or p: No Changes Eyes: No Pain, No Vision change, No Conjunctivae inflammation, No Eyelid inflammation, No Other, No Redness ENT: No Ear pain, No Ear discharge, No Nose pain, No Nose discharge, No Nose congestion, No Mouth pain, No Mouth swelling, No Throat pain, No Throat swelling, No Other Cardiovascular: No Chest Pain, No Palpitations, No Orthopnea, No Paroxysmal Noc. Dyspnea, No Edema, No Lt Headedness, No Other Respiratory: No Cough, No Dry, No Shortness of breath, No SOB with excertion, No Wheezing, No Hemoptysis, No Pleuritic Pain, No Sputum, No Other Gastrointestinal: Nausea; No Vomiting; Abdominal Pain; No Diarrhea, No Constipation, No Melena, No Hematochezia, No Other Genitourinary: No Dysuria, No Frequency, No Incontinence, No Hematuria, No Retention, No Other Musculoskeletal: No other, No neck pain, No shoulder pain, No arm pain, No back pain, No hand pain, No leg pain; foot pain Skin: No Rash, No Lesions, No Jaundice, No Bruising, No Other Objective Vitals Vital Signs Date Time Temp Pulse Resp B/P (MAP) Pulse Ox O2 Delivery O2 Flow Rate FiO2 04/01/24 05:00 97.7 65 17 149/66 (93) 96 97.7 03/31/24 20:00 Room Air* 0 21 Intake/Output Intake and Output 04/01/24 07:00 Intake Total 800 ml Balance 800 ml Intake Oral 800 ml # Voids 1 Exam DERMATOLOGIC EXAM: - Skin is dry and cool to the touch dry bilaterally. - Nails 1-5 of the bilateral foot are thickened, discolored, dystrophic, and tender to palpate with subungual debris - Hair loss noted to bilateral feet - necrosis of digits 3-5 with open wound VASCULAR EXAM: - DP and PT pulses are palpable bilaterally. - CLAIM [employer]IST is brisk to all digits. - Feet are cool to touch compared to lower legs bilaterally. NEUROLOGIC EXAM: - Normal light touch sensation to the superficial peroneal, deep peroneal, sural, saphenous, and tibial nerve branches. - Protective sensation is diminished as tested with a 5.07 10g Okatie-Giorgio bilaterally. MUSCULOSKELETAL EXAM: - No gross deformities - Muscle strength is 5/5 and active motion is pain-free and symmetrical bilaterally - No pain or crepitation with passive range of motion bilaterally to all major pedal joints Medications Current Medications Medications Dose Ordered Sig/Latonia Route Start Time Stop Time Status Last Admin Dose Admin Acetaminophen/ Hydrocodone Bitart 1 tab Q4HP PRN PO 03/27/24 08:00 04/01/24 00:09 1 TAB Ondansetron HCl 4 mg Q4HP PRN IV 03/27/24 08:00 Acetaminophen 650 mg Q6HP PRN PO 03/27/24 08:00 Morphine Sulfate 2 mg Q4HPRN PRN IV 03/27/24 08:00 Diagnostic Test (Pha) 1 strip ACHS 03/27/24 11:30 04/01/24 05:51 1 STRIP Dextrose 50 ml UD PRN IV 03/27/24 08:00 Amlodipine Besylate 10 mg DAILY PO 03/27/24 10:00 03/31/24 10:39 10 MG Atorvastatin Calcium 20 mg HS PO 03/27/24 22:00 03/31/24 21:05 20 MG Carvedilol 6.25 mg Q12HR PO 03/27/24 10:00 03/31/24 21:05 6.25 MG Sevelamer HCl 800 mg TIDWM PO 03/27/24 08:00 03/31/24 17:01 800 MG Vancomycin HCl 0 ml @ 0 mls/hr UD IV 03/27/24 16:45 Cefepime HCl 50 ml @ 12.5 mls/hr DAILY IV 03/28/24 10:00 03/31/24 10:38 12.5 MLS/HR Insulin Human Regular AC SC 03/28/24 17:00 04/01/24 05:52 12 UNITS Insulin Human Regular HS SC 03/28/24 22:00 03/31/24 21:03 4 UNITS Enteral Nutritional Formula 28.8 gm BID PO 03/28/24 22:00 03/31/24 10:00 28.8 GM Insulin Glargine 30 units HS SC 03/29/24 22:00 03/31/24 21:04 30 UNITS Hydralazine HCl 100 mg DAILY PO 03/30/24 10:00 03/31/24 10:39 100 MG Epoetin Damian-epbx 10,000 unit MWF@2100 SC 03/30/24 21:00 03/30/24 21:27 10,000 UNIT Laboratory Results Laboratory Tests 03/30/24 08:00 03/31/24 05:37 Coagulation Test 03/31/24 18:18 Prothrombin Time 10.5 sec (9.3-11.8) Prothrombin Time INR 0.99 (0.9-1.15) Activated Partial Thromboplast Time 29.9 SEC (24.5-34.5) Microbiology Microbiology Date/Time Source Procedure Growth Status 03/30/24 14:25 Foot Left Anaerobic Culture - Preliminary Resulted 03/28/24 13:54 Blood Blood Culture - Preliminary NO GROWTH AFTER 72 HOURS OF INCUBATION. Resulted Assessment/Plan Assessment/Plan ASSESSMENT: Patient is a year old seen on the floor 2 day s/p from a left foot 3rd and 5th toe amputation PLAN: - The patients chart was reviewed, clinical findings were discussed with the patient, the etiologies of the conditions were discussed in detail, and a treatment plan was agreed to at this time, with both oral and written instructions provided. - reviewed advanced imaging - discussed plan is to perform an another incision and drainage - patient will be NPO at midnight - take her to the OR today - patient will return to the OR for closure and placement of graft today - can weightbear as tolerated in postoperative shoe - vascular cleared patient for appropriate wound healing All questions were answered and concerns addressed to the patient's satisfaction. The patient was given the phone number to the clinic and was told how to make contact with the clinic should any concerns or questions arise. Patient understands that if any questions or concerns arise prior to the next appointment, we should be contacted immediately. FOLLOW-UP: Continue to follow while inpatient Plan discussed with: Patient My Orders Orders - SANA EMMANUEL DPM Procedure Category Date Status Time Obtain Consent For: ORDERS 03/31/24 Transmitted 13:36 Npo After Midnight DIET 03/31/24 Transmitted Dinner Problem List: (1) Generalized weakness (2) Hemodialysis patient (3) Severe anemia (4) Fever (5) Cellulitis (6) Hypertension (7) Uncontrolled diabetes mellitus (8) Leukocytosis, unspecified (9) ESRD (end stage renal disease) on dialysis (10) Type 2 diabetes mellitus with hyperglycemia (11) Type 2 diabetes mellitus with foot ulcer (12) Diabetic ulcer of left foot (13) Ulcer of foot with necrosis of muscle Date of Service: Apr 01, 2024 Billing Provider: SANA EMMANUEL DPM Common Visit Codes: [id number] INP/OBS CARE(MOD) SANA EMMANUEL DPM Apr 01, 2024 09:09
[2024-04-01 09:32] LABS: Basophils # (auto) 0.1 10 ^3/uL (0-0.2); Basophils % (auto) 0.8 % (0.0-2.0); Eosinophils # (auto) 0.2 10 ^3/uL (0-0.8); Eosinophils % (auto) 2.5 % (0.0-7.0); Hematocrit 27.3 % (36.0-46.0); Hemoglobin 9.1 g/dL (12.2-16.2); Lymphocytes # (auto) 1.2 10 ^3/uL (0.4-5.4); Lymphocytes % (auto) 13.5 % (10.0-50.0); Mean Corpuscular Hemoglobin 31.8 pg (28.0-32.0); Mean Corpuscular Hgb Conc. 33.4 g/dL (32.0-36.0); Mean Corpuscular Volume 95.3 fL (80.0-100.0); Monocytes # (auto) 1.2 10 ^3/uL (0-1.3); Monocytes % (auto) 12.7 % (0.0-12.0); Neutrophils # (auto) 6.5 10 ^3/uL (1.6-8.6); Neutrophils % (auto) 70.5 % (37.0-80.0); Nucleated Red Blood Cells % 0.1 %; Platelet Count (auto) 278 10^3/uL (140-450); Red Blood Cells 2.86 10^6/uL (4.0-5.20); Red Cell Distribution Width 16.8 % (11.8-14.3); White Blood Cell 9.2 10^3/uL (4.4-10.8)
[2024-04-01] MEDS: BUPIVACAINE HCL 50 ML ONE (09:48)
[2024-04-01] MEDS: ceFAZolin 2 GM/D5W100ml 100 ML IV ONE (11:46)
[2024-04-01] MEDS ORDERED: MIDAZOLAM HCL 2MG/2ML 2ml VIAL (1mg/ml) ONE (12:34)
[2024-04-01] MEDS: BUPIVACAINE 0.5% INJ 50ML VIAL IJ ONE (13:11)
[2024-04-01] MEDS: VANCOMYCIN HCL 1000 MG VL ONE (13:11)
[2024-04-01] MEDS: ONDANSETRON HCL 4 MG/2 ML VIAL IV ONE (13:45)
[2024-04-01] MEDS: fentaNYL CITRATE 100 MCG/2 ML VL ONE (13:56)
[2024-04-01] MEDS: fentaNYL CITRATE 100 MCG/2 ML VL IV PRN (13:57)
--- NOTE | 2024-04-01 17:02 | DVHPN2 ---
Progress Note Date Seen: Apr 01, 2024 Medical Necessity Reason Pt with a Central, PICC or Fol: No Objective vital signs Vital Sign Date Time Temp Pulse Resp B/P (MAP) Pulse Ox O2 Delivery O2 Flow Rate FiO2 04/01/24 15:42 62 159/99 04/01/24 14:15 14 94 04/01/24 13:21 97.2 97.2 04/01/24 13:21 Room Air 03/31/24 20:00 0 21 Total Intake and Output 03/31/24 03/31/24 04/01/24 15:00 23:00 07:00 Intake Total 600 ml 200 ml Balance 600 ml 200 ml medications Current Medications Medications Dose Ordered Sig/Latonia Route Start Time Stop Time Status Last Admin Dose Admin Acetaminophen/ Hydrocodone Bitart 1 tab Q4HP PRN PO 03/27/24 08:00 04/01/24 00:09 1 TAB Ondansetron HCl 4 mg Q4HP PRN IV 03/27/24 08:00 Acetaminophen 650 mg Q6HP PRN PO 03/27/24 08:00 Morphine Sulfate 2 mg Q4HPRN PRN IV 03/27/24 08:00 Diagnostic Test (Pha) 1 strip ACHS 03/27/24 11:30 04/01/24 05:51 1 STRIP Dextrose 50 ml UD PRN IV 03/27/24 08:00 Amlodipine Besylate 10 mg DAILY PO 03/27/24 10:00 04/01/24 15:41 10 MG Atorvastatin Calcium 20 mg HS PO 03/27/24 22:00 03/31/24 21:05 20 MG Carvedilol 6.25 mg Q12HR PO 03/27/24 10:00 04/01/24 15:42 6.25 MG Sevelamer HCl 800 mg TIDWM PO 03/27/24 08:00 04/01/24 15:41 800 MG Vancomycin HCl 0 ml @ 0 mls/hr UD IV 03/27/24 16:45 Cefepime HCl 50 ml @ 12.5 mls/hr DAILY IV 03/28/24 10:00 03/31/24 10:38 12.5 MLS/HR Insulin Human Regular AC SC 03/28/24 17:00 04/01/24 05:52 12 UNITS Insulin Human Regular HS SC 03/28/24 22:00 03/31/24 21:03 4 UNITS Enteral Nutritional Formula 28.8 gm BID PO 03/28/24 22:00 03/31/24 10:00 28.8 GM Insulin Glargine 30 units HS SC 03/29/24 22:00 03/31/24 21:04 30 UNITS Hydralazine HCl 100 mg DAILY PO 03/30/24 10:00 04/01/24 15:39 100 MG Epoetin Damian-epbx 10,000 unit MWF@2100 SC 03/30/24 21:00 03/30/24 21:27 10,000 UNIT Examination: GENERAL:Normal, LUNGS:Abnormal, CVS:Normal laboratory and microbiology Laboratory Tests 04/01/24 08:46 03/31/24 05:37 Test 03/31/24 05:37 Range/Units Serum Glucose 224 H 74-106 mg/dL Microbiology Date/Time Source Procedure Growth Status 03/30/24 14:25 Foot Left Anaerobic Culture - Preliminary Resulted 03/28/24 13:54 Blood Blood Culture - Preliminary NO GROWTH AFTER 72 HOURS OF INCUBATION. Resulted Problem List/Assessment/Plan Problem List/Assessment/Plan ESRD on HD Anemia of ckd Osteomyelitis recent left 4th toe amputation- on IV abx Hx of HTN- within target range Uncontrolled DM- on R insulin sliding scale HD or saturday epogen MWF renal diet Improve glycemic control Strict I&Os went to OR for procedure Place PICC line for extended ABX therapy and arrange home health Plan discussed with: Patient Dietary Evaluation Review Comments: 1. Continue current diet 2. Consider Luis Angel BID (180kcal, 5 gpro) for wound healing Expected Outcomes/Goals: Pt will continue to consume >75% of estimated needs within 3-5 days CC Plasma Assessment Blood Product Administration S: 1111 LIV RODRIGUEZ MD Apr 01, 2024 17:02
--- NOTE | 2024-04-01 18:11 | DVHOP2 ---
Operative Report - 2 Report Details Date: 04/01/24 Preop Diagnosis: 1. Left foot wet gangrene 2. Left digits 3 and 5 gangrene 3. Left foot chronic ulcer 4. Left foot cellulitis 4. Left foot PAD Postop Diagnosis: Same as preop Surgeon: Sana Emmanuel MD Anesthesiologist: See anesthesia Anesthesia: Mac Consent: The patient was informed of the risks and benefits of the procedure. These include but are not limited to complications of anesthesia, postoperative infection, incomplete relief of symptoms, recurrence of symptoms, damage to blood vessels, nerves and tendons, deep venous thrombosis, pulmonary embolism and possible need for repeat surgery in the future. Complications: None Estimated Blood Loss: Minimal Fluids: See anesthesia Findings: Consistent with the diagnosis Indications for Surgery: Worsening left foot wound Name of Procedure Performed 1. Left foot I&D to bone (34107) 2. Left foot partial 3rd metatarsal amputation (63009) 3. Left foot partial 4th metatarsal amputation (59190) 4. Left foot partial 5th metatarsal amputation (35971) 5. Left foot wound bed preparation for graft (86191) 6. Left foot application of dermal graft (01547) Procedure Details Procedure Details: PRE-PROCEDURE INFORMATION: In the pre-op holding area, the extremity to be operated on was clearly marked and the patient verified correct laterality of the marking. The patient was transferred to the OR table and placed in a supine position. A timeout was performed in which identification of the correct patient, procedure, location, and materials was done. The left foot and leg were prepped and draped in normal sterile fashion. DESCRIPTION OF PROCEDURE: Attention was directed to the left where previous incision was made. An incision was made over this area and was deepened through blunt dissection. The incision was deepened to the level of abscess and bone. Care was taken to the dissection to avoid any neurovascular and tendinous structures. The incision was deepened to the bone, and the abscess appeared to be purulent fluid consistent with pus. The cortices of the bone was then removed with Catalino an all necrotic tissue. Partial amputation of the 3rd, 4th, and 5th metatarsal were then performed using a rongeur. After the abscess was drained, the area was irrigated with 3 L normal saline using cysto tubing. Deep cultures were then obtained from the wound. The area was then inspected and any areas of tracking, especially along the tendons were also drained. The wound bed was then prepared for the placement of graft using a #15 blade to ensure adequate bleeding. An integra 5x5 graft was then on the wound and samantha were used to hold it to the foot. A dry sterile dressing was placed on the surgical extremity. The patient was placed in a post op shoes. POSTOPERATIVE INFORMATION: The patient tolerated the above noted procedure and anesthesia well and was transferred to the PACU with vital signs stable, and vascular status intact with capillary refill intact to all digits. Cultures were taken. Patient will return to the floor and continue IV antibiotics. Patient can be discharged when deemed medically cleared. Can WBAT in a post op shoe. Specimen: Third and 5th proximal phalanx toe Condition Good Disposition Still a Patient SANA EMMANUEL DPM Apr 01, 2024 18:11
[2024-04-01] MEDS: VANCOMYCIN 500mg/100mL 100 ML IV ONE (23:10)
[2024-04-02] VITALS (8 sets, daily range): BP systolic 109–149; BP diastolic 54–66; PULSE 57–86; RESP 16–20; TEMP 98.1–99.4; O2SAT 92–98
--- NOTE | 2024-04-02 08:49 | DVHPN2 ---
Reviewed: Care Plan, H&P, Labs, Medications, Previous Orders, Radiology Changes from previous H/P or p: No Changes Eyes: No Pain, No Vision change, No Conjunctivae inflammation, No Eyelid inflammation, No Other, No Redness ENT: No Ear pain, No Ear discharge, No Nose pain, No Nose discharge, No Nose congestion, No Mouth pain, No Mouth swelling, No Throat pain, No Throat swelling, No Other Cardiovascular: No Chest Pain, No Palpitations, No Orthopnea, No Paroxysmal Noc. Dyspnea, No Edema, No Lt Headedness, No Other Respiratory: No Cough, No Dry, No Shortness of breath, No SOB with excertion, No Wheezing, No Hemoptysis, No Pleuritic Pain, No Sputum, No Other Gastrointestinal: Nausea; No Vomiting; Abdominal Pain; No Diarrhea, No Constipation, No Melena, No Hematochezia, No Other Genitourinary: No Dysuria, No Frequency, No Incontinence, No Hematuria, No Retention, No Other Musculoskeletal: No other, No neck pain, No shoulder pain, No arm pain, No back pain, No hand pain, No leg pain; foot pain Skin: No Rash, No Lesions, No Jaundice, No Bruising, No Other Objective Vitals Vital Signs Date Time Temp Pulse Resp B/P (MAP) Pulse Ox O2 Delivery O2 Flow Rate FiO2 04/02/24 05:00 99.4 76 20 117/66 (83) 98 99.4 04/01/24 20:00 Room Air* 0 21 Intake/Output Intake and Output 04/02/24 07:00 Intake Total 1250 ml Balance 1250 ml Intake Oral 1050 ml IV Total 200 ml # Voids 2 # Bowel Movements 1 Medications Current Medications Medications Dose Ordered Sig/Latonia Route Start Time Stop Time Status Last Admin Dose Admin Acetaminophen/ Hydrocodone Bitart 1 tab Q4HP PRN PO 03/27/24 08:00 04/01/24 00:09 1 TAB Ondansetron HCl 4 mg Q4HP PRN IV 03/27/24 08:00 Acetaminophen 650 mg Q6HP PRN PO 03/27/24 08:00 Morphine Sulfate 2 mg Q4HPRN PRN IV 03/27/24 08:00 Diagnostic Test (Pha) 1 strip ACHS 03/27/24 11:30 04/02/24 06:33 1 STRIP Dextrose 50 ml UD PRN IV 03/27/24 08:00 Amlodipine Besylate 10 mg DAILY PO 03/27/24 10:00 04/01/24 15:41 10 MG Atorvastatin Calcium 20 mg HS PO 03/27/24 22:00 04/01/24 22:59 20 MG Carvedilol 6.25 mg Q12HR PO 03/27/24 10:00 04/01/24 23:01 6.25 MG Sevelamer HCl 800 mg TIDWM PO 03/27/24 08:00 04/01/24 17:28 800 MG Vancomycin HCl 0 ml @ 0 mls/hr UD IV 03/27/24 16:45 Cefepime HCl 50 ml @ 12.5 mls/hr DAILY IV 03/28/24 10:00 03/31/24 10:38 12.5 MLS/HR Insulin Human Regular AC SC 03/28/24 17:00 04/01/24 17:23 20 UNITS Insulin Human Regular HS SC 03/28/24 22:00 04/01/24 23:12 6 UNITS Enteral Nutritional Formula 28.8 gm BID PO 03/28/24 22:00 03/31/24 10:00 28.8 GM Insulin Glargine 30 units HS SC 03/29/24 22:00 04/01/24 23:11 30 UNITS Hydralazine HCl 100 mg DAILY PO 03/30/24 10:00 04/01/24 15:39 100 MG Epoetin Damian-epbx 10,000 unit MWF@2100 SC 03/30/24 21:00 04/01/24 22:58 10,000 UNIT Laboratory Results Laboratory Tests 03/31/24 05:37 04/01/24 08:46 Microbiology Microbiology Date/Time Source Procedure Growth Status 03/30/24 14:25 Foot Left Anaerobic Culture - Preliminary Resulted 03/28/24 13:54 Blood Blood Culture - Preliminary NO GROWTH AFTER 72 HOURS OF INCUBATION. Resulted Labs and/or images reviewed: Labs reviewed by me, Image(s) reviewed by me Assessment/Plan Assessment/Plan Sepsis secondary to left foot infection: Blood cultures negative , wound cultures growing ESBL Klebsiella, DC vancomycin and cefepime start Invanz 1 g IV daily Acute gangrene left 3rd and 5th toes status post incision and drainage, amputation by Dr. Ortiz, left foot bone biopsy result pending Status Post left 3rd 4th 5th metatarsal amputation by Dr. Ortiz Peripheral arterial disease left lower extremity ruled out Mild peripheral arterial disease right lower extremity consult by vascular surgeon , no intervention needed History of amputation left 4th toe History of osteomyelitis left foot ESRD on hemodialysis : Consult for Dr. Alexander appreciated Uncontrolled diabetes A1c 11.2: Insulin sliding scale Diabetic neuropathy nephropathy vasculopathy Hypertensive urgency Severe anemia hemoglobin 6.7, improved to 8.7 after 1 unit RBC transfusion Condition guarded Time spent 55 minutes Patient is full code Plan discussed with: Patient Date of Service: Apr 02, 2024 Billing Provider: CHARLIE RYAN MD Common Visit Codes: [id number] INP/OBS CARE(HIGH) CHARLIE RYAN MD Apr 02, 2024 08:49
--- NOTE | 2024-04-02 09:19 | DVHDS2 ---
Discharge Summary Date of Admission Mar 27, 2024 at 07:48 Date of Discharge: Apr 02, 2024 Admitting Diagnosis left Foot infection Wounds: Left foot infection Labs/Diagnostic Data: Laboratory Results Test 04/02/24 06:36 04/01/24 08:46 03/31/24 18:18 03/31/24 05:37 POC Glucose 118 mg/dl (70-106) White Blood Count 9.2 10^3/uL (4.4-10.8) Red Blood Count 2.86 10^6/uL (4.0-5.20) Hemoglobin 9.1 g/dL (12.2-16.2) Hematocrit 27.3 % (36.0-46.0) Mean Corpuscular Volume 95.3 fL (80.0-100.0) Mean Corpuscular Hemoglobin 31.8 pg (28.0-32.0) Mean Corpuscular Hemoglobin Concent 33.4 g/dL (32.0-36.0) Red Cell Distribution Width 16.8 % (11.8-14.3) Platelet Count 278 10^3/uL (140-450) Mean Platelet Volume 9.5 fL (6.9-10.8) Neutrophils (%) (Auto) 70.5 % (37.0-80.0) Lymphocytes (%) (Auto) 13.5 % (10.0-50.0) Monocytes (%) (Auto) 12.7 % (0.0-12.0) Eosinophils (%) (Auto) 2.5 % (0.0-7.0) Basophils (%) (Auto) 0.8 % (0.0-2.0) Neutrophils # (Auto) 6.5 10 ^3/uL (1.6-8.6) Lymphocytes # (Auto) 1.2 10 ^3/uL (0.4-5.4) Monocytes # (Auto) 1.2 10 ^3/uL (0-1.3) Eosinophils # (Auto) 0.2 10 ^3/uL (0-0.8) Basophils # (Auto) 0.1 10 ^3/uL (0-0.2) Nucleated Red Blood Cells 0.1 % Creatinine 4.23 mg/dL (0.550-1.02) Glomerular Filtration Rate Calc 12 mL/min (>90) Random Vancomycin Level 15.9 ug/mL (5-10) Prothrombin Time 10.5 sec (9.3-11.8) Prothrombin Time INR 0.99 (0.9-1.15) Activated Partial Thromboplast Time 29.9 SEC (24.5-34.5) Sodium Level 133 mmol/L (136-145) Potassium Level 4.8 mmol/L (3.5-5.1) Chloride Level 98 mmol/L (98-107) Carbon Dioxide Level 27 mmol/L (20-31) Anion Gap 8 (5-15) Blood Urea Nitrogen 58 mg/dL (9-23) BUN/Creatinine Ratio 9.6 (10.0-20.0) Serum Glucose 224 mg/dL (74-106) Calcium Level 8.8 mg/dL (8.7-10.4) Ferritin 1177.4 ng/mL (10-291) Test 03/30/24 08:00 03/29/24 06:32 03/28/24 06:06 03/27/24 15:52 Aspartate Amino Transferase (AST) 12 U/L (13-40) Alanine Aminotransferase (ALT) 41 U/L (7-40) Alkaline Phosphatase 189 U/L (46-116) Total Protein 6.7 g/dL (5.7-8.2) Albumin 3.8 g/dL (3.2-4.8) Total Bilirubin < 0.2 mg/dL (0.2-1.0) Erythrocyte Sedimentation Rate 124 mm/hr (0-20) Test 03/27/24 14:15 03/27/24 11:20 03/27/24 10:23 03/27/24 04:55 Haptoglobin 504 mg/dL (33-346) Reticulocyte Count (auto) 3.96 % (0.5-1.5) Iron Level 74 ug/dL (50-170) Total Iron Binding Capacity 220 ug/dL (250-425) Percent Iron Saturation 33.6 % (15-50) Lactic Acid Level 1.3 mmol/L (0.4-2.0) Hemoglobin A1c 8.9 % A1C (<5.7) C-Reactive Protein High Sensitivity 9.53 mg/dL (<1.0) Triglycerides Level 140 mg/dL (< 150) Cholesterol Level 102 mg/dL (< 200) LDL Cholesterol 47 mg/dL (< 100) HDL Cholesterol 33 mg/dL (40-59) Lipase 60 U/L (12-53) Vitamin B12 Level 1361 pg/mL (211-911) Vitamin D 25-Hydroxy 38 ng/mL (.) 25-Hydroxy Vitamin D2 26 ng/mL (.) 25-Hydroxy Vitamin D3 12 ng/mL (.) Folic Acid 34.03 ng/mL (>5.38) Thyroid Stimulating Hormone (TSH) 3.09 uIU/mL (0.55-4.78) Plasma/Serum Blood Alcohol < 3.0 mg/dL (<10) Other Laboratory Tests 04/01/24 08:46 03/31/24 05:37 Brief Hx & Hospital Course: 53-year-old female with a history of osteomyelitis of the left foot amputation of left 4th toe ESRD on hemodialysis uncontrolled diabetes hypertension anemia of chronic disease came in complaining of pain and swelling of the left foot patient had gangrene of the left 3rd and 5th toes. Underwent amputation of the left 3rd 4th 5th toes and metatarsals by Dr. Ortiz, received hemodialysis by Nephrology. Patient was started on vancomycin and cefepime wound cultures came positive for ESBL Klebsiella. Antibiotic changed to Invanz 1 g IV daily which she will receive for six weeks for osteomyelitis of the left foot. Patient being discharged home home health is being arranged for the IV antibiotics physical therapy and wound care she will follow up with the podiatric and Nephrology. 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 Ortiz Nephrology Operations or Procedures Amputation left 3rd 4th 5th toes and metatarsal Condition at Discharge: Fair Final Diagnosis/Problems List Sepsis secondary to left foot infection: Blood cultures negative , wound cultures growing ESBL Klebsiella, DC vancomycin and cefepime start Invanz 1 g IV daily Acute gangrene left 3rd and 5th toes status post incision and drainage, amputation by Dr. Ortiz, left foot bone biopsy result pending Status Post left 3rd 4th 5th metatarsal amputation by Dr. Ortiz Peripheral arterial disease left lower extremity ruled out Mild peripheral arterial disease right lower extremity consult by vascular surgeon , no intervention needed History of amputation left 4th toe History of osteomyelitis left foot ESRD on hemodialysis : Consult for Dr. Alexander appreciated Uncontrolled diabetes A1c 11.2: Insulin sliding scale Diabetic neuropathy nephropathy vasculopathy Hypertensive urgency Severe anemia hemoglobin 6.7, improved to 8.7 after 1 unit RBC transfusion Discharge Disposition: Long Term Facility Discharge Instruct/Medications Diet: Consistent carbohydrate, Cardiac 2g Na,low cholest Activity: Light activity Follow Up/Referral: Follow up with the primary Dr in one week Follow up with the Nephrology for regular dialysis Follow up with the podiatric Dr. Ortiz in one week Resume all previous home medications Medications: Invanz 1 g IV daily for six weeks for osteomyelitis 39 (Time taken for discharge summary 39 minutes) Discharge Statement: "Patient was advised to return to the ER or call 911 if any headaches, dizziness, shortness of breath, chest pain, abdominal pain, bleeding, fevers, or worsening of medical condition. Patient was counseled about treatment plan, medications, possible side effects, patientverbalized understanding. All questions were answered to the best of my ability. This discharge took greater then 30 minutes in planning, reviewing documentation, counseling the patient, and discussing with other team members." ASSESSMENT ASSESSMENT Hospital Course Improved Assessment Sepsis secondary to left foot infection: Blood cultures negative , wound cultures growing ESBL Klebsiella, DC vancomycin and cefepime start Invanz 1 g IV daily Acute gangrene left 3rd and 5th toes status post incision and drainage, amputation by Dr. Ortiz, left foot bone biopsy result pending Status Post left 3rd 4th 5th metatarsal amputation by Dr. Ortiz Peripheral arterial disease left lower extremity ruled out Mild peripheral arterial disease right lower extremity consult by vascular surgeon , no intervention needed History of amputation left 4th toe History of osteomyelitis left foot ESRD on hemodialysis : Consult for Dr. Alexander appreciated Uncontrolled diabetes A1c 11.2: Insulin sliding scale Diabetic neuropathy nephropathy vasculopathy Hypertensive urgency Severe anemia hemoglobin 6.7, improved to 8.7 after 1 unit RBC transfusion Date of Service: Apr 02, 2024 Billing Provider: CHARLIE RYAN MD Common Visit Codes: [id number] DISCH DAY >30min CHARLIE RYAN MD Apr 02, 2024 09:19
[2024-04-02] MEDS: ERTAPENEM SOD INJ 1 GM in SODIUM CHL 0.9% 50 ML IV SCH (10:04)
--- NOTE | 2024-04-02 14:09 | DVHPN2 ---
Progress Note Date Seen: Apr 02, 2024 Medical Necessity Reason Pt with a Central, PICC or Fol: No Subjective Patient reports: No new complaints Objective vital signs Vital Sign Date Time Temp Pulse Resp B/P (MAP) Pulse Ox O2 Delivery O2 Flow Rate FiO2 04/02/24 10:00 109/56 04/02/24 10:00 57 04/02/24 09:00 98.1 17 97 98.1 04/02/24 08:10 Room Air* 0 21 Total Intake and Output 04/01/24 04/01/24 04/02/24 15:00 23:00 07:00 Intake Total 100 ml 1000 ml 150 ml Balance 100 ml 1000 ml 150 ml medications Current Medications Medications Dose Ordered Sig/Latonia Route Start Time Stop Time Status Last Admin Dose Admin Acetaminophen/ Hydrocodone Bitart 1 tab Q4HP PRN PO 03/27/24 08:00 04/01/24 00:09 1 TAB Ondansetron HCl 4 mg Q4HP PRN IV 03/27/24 08:00 Acetaminophen 650 mg Q6HP PRN PO 03/27/24 08:00 Morphine Sulfate 2 mg Q4HPRN PRN IV 03/27/24 08:00 Diagnostic Test (Pha) 1 strip ACHS 03/27/24 11:30 04/02/24 11:30 1 STRIP Dextrose 50 ml UD PRN IV 03/27/24 08:00 Amlodipine Besylate 10 mg DAILY PO 03/27/24 10:00 04/01/24 15:41 10 MG Atorvastatin Calcium 20 mg HS PO 03/27/24 22:00 04/01/24 22:59 20 MG Carvedilol 6.25 mg Q12HR PO 03/27/24 10:00 04/01/24 23:01 6.25 MG Sevelamer HCl 800 mg TIDWM PO 03/27/24 08:00 04/02/24 12:27 800 MG Insulin Human Regular AC SC 03/28/24 17:00 04/02/24 12:28 12 UNITS Insulin Human Regular HS SC 03/28/24 22:00 04/01/24 23:12 6 UNITS Enteral Nutritional Formula 28.8 gm BID PO 03/28/24 22:00 04/02/24 10:00 28.8 GM Insulin Glargine 30 units HS SC 03/29/24 22:00 04/01/24 23:11 30 UNITS Hydralazine HCl 100 mg DAILY PO 03/30/24 10:00 04/01/24 15:39 100 MG Epoetin Damian-epbx 10,000 unit MWF@2100 SC 03/30/24 21:00 04/01/24 22:58 10,000 UNIT Ertapenem 0.5 gm/ Sodium Chloride 50 ml @ 100 mls/hr DAILY IV 04/03/24 10:00 Examination: GENERAL:Normal, CVS:Normal, SKIN:Abnormal laboratory and microbiology Laboratory Tests 04/01/24 08:46 03/31/24 05:37 Test 03/31/24 05:37 Range/Units Serum Glucose 224 H 74-106 mg/dL Microbiology Date/Time Source Procedure Growth Status 03/30/24 14:25 Foot Left Anaerobic Culture - Preliminary Resulted 03/28/24 13:54 Blood Blood Culture - Preliminary NO GROWTH AFTER 72 HOURS OF INCUBATION. Resulted Problem List/Assessment/Plan Problem List/Assessment/Plan ESRD on HD Anemia of ckd Osteomyelitis recent left 4th toe amputation- on IV abx Hx of HTN- within target range Uncontrolled DM- on R insulin sliding scale RECOMMEND OUTPATIENT DIALYSIS epogen MWF renal diet Improve glycemic control Strict I&Os Place PICC line for extended ABX therapy and arrange home health Plan discussed with: Patient Dietary Evaluation Review Comments: 1. Continue current diet 2. Consider Luis Angel BID (180kcal, 5 gpro) for wound healing Expected Outcomes/Goals: Pt will continue to consume >75% of estimated needs within 3-5 days CC Plasma Assessment Blood Product Administration S: 1111 LIV RODRIGUEZ MD Apr 02, 2024 14:09
[2024-04-02] MEDS: LIDOCAINE 1% (LOCAL ANESTH.) PF 5ml SDV ID ONE (14:30)
[2024-04-02] MEDS: ACETAMINOPHEN 325 MG TAB PO PRN (15:12)
[2024-04-02] MEDS: SODIUM CHLOR 0.9% PF (SALINE LOCK) 10ML VIAL/SYR IV SCH (22:23)
[2024-04-03] VITALS (8 sets, daily range): BP systolic 126–182; BP diastolic 44–91; PULSE 57–94; RESP 16–18; TEMP 97.5–98.2; O2SAT 92–98
[2024-04-03 05:55] LABS: Anion Gap 10 (5-15); Calcium 9.4 mg/dL (8.7-10.4); Carbon Dioxide 24 mmol/L (20-31)
[2024-04-03 06:18] LABS: Blood Urea Nitrogen 74 mg/dL (9-23); Chloride 97 mmol/L (98-107); Glucose 147 mg/dL (74-106); Potassium 5.3 mmol/L (3.5-5.1); Sodium 131 mmol/L (136-145)
[2024-04-03] MEDS: ERTAPENEM SOD INJ 0.5 GM in SODIUM CHL 0.9% 50 ML IV SCH (10:00)
--- NOTE | 2024-04-03 10:40 | DVHPN2 ---
Reviewed: Care Plan, H&P, Labs, Medications, Previous Orders, Radiology Changes from previous H/P or p: No Changes Eyes: No Pain, No Vision change, No Conjunctivae inflammation, No Eyelid inflammation, No Other, No Redness ENT: No Ear pain, No Ear discharge, No Nose pain, No Nose discharge, No Nose congestion, No Mouth pain, No Mouth swelling, No Throat pain, No Throat swelling, No Other Cardiovascular: No Chest Pain, No Palpitations, No Orthopnea, No Paroxysmal Noc. Dyspnea, No Edema, No Lt Headedness, No Other Respiratory: No Cough, No Dry, No Shortness of breath, No SOB with excertion, No Wheezing, No Hemoptysis, No Pleuritic Pain, No Sputum, No Other Gastrointestinal: Nausea; No Vomiting; Abdominal Pain; No Diarrhea, No Constipation, No Melena, No Hematochezia, No Other Genitourinary: No Dysuria, No Frequency, No Incontinence, No Hematuria, No Retention, No Other Musculoskeletal: No other, No neck pain, No shoulder pain, No arm pain, No back pain, No hand pain, No leg pain; foot pain Skin: No Rash, No Lesions, No Jaundice, No Bruising, No Other Objective Vitals Vital Signs Date Time Temp Pulse Resp B/P (MAP) Pulse Ox O2 Delivery O2 Flow Rate FiO2 04/03/24 09:00 98.0 57 18 148/64 (92) 98 98.0 04/02/24 20:00 Room Air* 0 21 Intake/Output Intake and Output 04/03/24 07:00 Intake Total 850 ml Balance 850 ml Intake Oral 800 ml IV Total 50 ml # Voids 3 # Bowel Movements 2 Medications Current Medications Medications Dose Ordered Sig/Latonia Route Start Time Stop Time Status Last Admin Dose Admin Acetaminophen/ Hydrocodone Bitart 1 tab Q4HP PRN PO 03/27/24 08:00 04/01/24 00:09 1 TAB Ondansetron HCl 4 mg Q4HP PRN IV 03/27/24 08:00 Acetaminophen 650 mg Q6HP PRN PO 03/27/24 08:00 04/02/24 15:12 650 MG Morphine Sulfate 2 mg Q4HPRN PRN IV 03/27/24 08:00 Diagnostic Test (Pha) 1 strip ACHS 03/27/24 11:30 04/03/24 05:33 1 STRIP Dextrose 50 ml UD PRN IV 03/27/24 08:00 Amlodipine Besylate 10 mg DAILY PO 03/27/24 10:00 04/01/24 15:41 10 MG Atorvastatin Calcium 20 mg HS PO 03/27/24 22:00 04/02/24 22:21 20 MG Carvedilol 6.25 mg Q12HR PO 03/27/24 10:00 04/02/24 22:22 6.25 MG Sevelamer HCl 800 mg TIDWM PO 03/27/24 08:00 04/02/24 17:52 800 MG Insulin Human Regular AC SC 03/28/24 17:00 04/03/24 05:31 2 UNITS Insulin Human Regular HS SC 03/28/24 22:00 04/02/24 22:00 6 UNITS Enteral Nutritional Formula 28.8 gm BID PO 03/28/24 22:00 04/02/24 10:00 28.8 GM Insulin Glargine 30 units HS SC 03/29/24 22:00 04/02/24 22:00 30 UNITS Hydralazine HCl 100 mg DAILY PO 03/30/24 10:00 04/02/24 15:50 100 MG Epoetin Damian-epbx 10,000 unit MWF@2100 SC 03/30/24 21:00 04/01/24 22:58 10,000 UNIT Ertapenem 0.5 gm/ Sodium Chloride 50 ml @ 100 mls/hr DAILY IV 04/03/24 10:00 Sodium Chloride 10 ml QSHIFT@10,22 IV 04/02/24 22:00 04/02/24 22:23 10 ML Laboratory Results Laboratory Tests 04/01/24 08:46 04/03/24 05:30 Chemistry Test 04/03/24 05:30 Calcium Level 9.4 mg/dL (8.7-10.4) Microbiology Microbiology Date/Time Source Procedure Growth Status 03/30/24 14:25 Foot Left Anaerobic Culture - Preliminary Resulted 03/28/24 13:54 Blood Blood Culture - Final NO GROWTH AFTER 5 DAYS OF INCUBATION. Complete Labs and/or images reviewed: Labs reviewed by me, Image(s) reviewed by me Assessment/Plan Assessment/Plan Sepsis secondary to left foot infection: Blood cultures negative , wound cultures growing ESBL Klebsiella, DC vancomycin and cefepime start Invanz 1 g IV daily Acute gangrene left 3rd and 5th toes status post incision and drainage, amputation by Dr. Ortiz, left foot bone biopsy result pending Status Post left 3rd 4th 5th metatarsal amputation by Dr. Ortiz Peripheral arterial disease left lower extremity ruled out Mild peripheral arterial disease right lower extremity consult by vascular surgeon , no intervention needed History of amputation left 4th toe History of osteomyelitis left foot ESRD on hemodialysis : Consult for Dr. Alexander appreciated Uncontrolled diabetes A1c 11.2: Insulin sliding scale Diabetic neuropathy nephropathy vasculopathy Hypertensive urgency Severe anemia hemoglobin 6.7, improved to 8.7 after 1 unit RBC transfusion Patient was discharged home on home health on 04/02/2024, geriatric social worker consult different home health agencies and unsuccessful Possible discharge to nursing home facility Plan discussed with: Patient My Orders Orders - CHARLIE RYAN MD Procedure Category Date Status Time Nursing Protocol Picc REJI 04/02/24 In Process 14:28 Change Dressing Prn REJI 04/02/24 In Process 14:28 PICC BD 04/02/24 Transmitted 14:28 Sodium Chloride Lock PHA 04/02/24 In Process (Saline Lock Ns) 22:00 Do Not Use Picc For [facility] 04/02/24 In Process Blood Cult 14:28 May Draw Blood From [facility] 04/02/24 In Process Picc 14:28 Ok To Use Picc [facility] 04/02/24 In Process 14:28 Change Picc Dressing [facility] 04/02/24 In Process Q7 Days 14:28 Date of Service: Apr 03, 2024 Billing Provider: CHARLIE RYAN MD Common Visit Codes: [id number] INP/OBS CARE(HIGH) CHARLIE RYAN MD Apr 03, 2024 10:40
--- NOTE | 2024-04-03 19:47 | DVHPN2 ---
Progress Note Date Seen: Apr 03, 2024 Medical Necessity Reason Pt with a Central, PICC or Fol: No Subjective Patient reports: Other Review of Systems: Deferred Objective vital signs Vital Sign Date Time Temp Pulse Resp B/P (MAP) Pulse Ox O2 Delivery O2 Flow Rate FiO2 04/03/24 19:12 62 148/60 04/03/24 17:00 97.9 18 98 97.9 04/03/24 08:00 Room Air* 0 21 Total Intake and Output 04/02/24 04/02/24 04/03/24 15:00 23:00 07:00 Intake Total 650 ml 200 ml Balance 650 ml 200 ml medications Current Medications Medications Dose Ordered Sig/Latonia Route Start Time Stop Time Status Last Admin Dose Admin Acetaminophen/ Hydrocodone Bitart 1 tab Q4HP PRN PO 03/27/24 08:00 04/01/24 00:09 1 TAB Ondansetron HCl 4 mg Q4HP PRN IV 03/27/24 08:00 Acetaminophen 650 mg Q6HP PRN PO 03/27/24 08:00 04/02/24 15:12 650 MG Morphine Sulfate 2 mg Q4HPRN PRN IV 03/27/24 08:00 Diagnostic Test (Pha) 1 strip ACHS 03/27/24 11:30 04/03/24 17:50 1 STRIP Dextrose 50 ml UD PRN IV 03/27/24 08:00 Amlodipine Besylate 10 mg DAILY PO 03/27/24 10:00 04/03/24 17:58 10 MG Atorvastatin Calcium 20 mg HS PO 03/27/24 22:00 04/02/24 22:21 20 MG Carvedilol 6.25 mg Q12HR PO 03/27/24 10:00 04/03/24 17:58 6.25 MG Sevelamer HCl 800 mg TIDWM PO 03/27/24 08:00 04/03/24 17:58 800 MG Insulin Human Regular AC SC 03/28/24 17:00 04/03/24 12:16 8 UNITS Insulin Human Regular HS SC 03/28/24 22:00 04/02/24 22:00 6 UNITS Enteral Nutritional Formula 28.8 gm BID PO 03/28/24 22:00 04/02/24 10:00 28.8 GM Insulin Glargine 30 units HS SC 03/29/24 22:00 04/02/24 22:00 30 UNITS Hydralazine HCl 100 mg DAILY PO 03/30/24 10:00 04/03/24 17:57 100 MG Epoetin Damian-epbx 10,000 unit MWF@2100 SC 03/30/24 21:00 04/01/24 22:58 10,000 UNIT Ertapenem 0.5 gm/ Sodium Chloride 50 ml @ 100 mls/hr DAILY IV 04/03/24 10:00 Sodium Chloride 10 ml QSHIFT@10,22 IV 04/02/24 22:00 04/03/24 11:13 10 ML Examination: MSK:Abnormal laboratory and microbiology Laboratory Tests 04/03/24 05:30 04/01/24 08:46 Test 04/03/24 05:30 Range/Units Serum Glucose 147 H 74-106 mg/dL Microbiology Date/Time Source Procedure Growth Status 03/30/24 14:25 Foot Left Anaerobic Culture - Preliminary Resulted 03/28/24 13:54 Blood Blood Culture - Final NO GROWTH AFTER 5 DAYS OF INCUBATION. Complete Problem List/Assessment/Plan Problem List/Assessment/Plan ESRD on HD Anemia of ckd Osteomyelitis recent left 4th toe amputation- on IV abx Hx of HTN- within target range Uncontrolled DM- on R insulin sliding scale Recommendations Dialysis today next dialysis Saturday if still here Stable for discharge from Nephrology standpoint Plan discussed with: Patient My Orders My Orders Orders - MIKAYLA FERRARI MD Procedure Category Date Status Time Hemodialysis Orders ORDERS 04/03/24 Transmitted 16:05 Dietary Evaluation Review Comments: 1. Continue current diet 2. Consider Luis Angel BID (180kcal, 5 gpro) for wound healing Expected Outcomes/Goals: Pt will continue to consume >75% of estimated needs within 3-5 days CC Plasma Assessment Blood Product Administration S: 1111 MIKAYLA FERRARI MD Apr 03, 2024 19:47
[2024-04-04 01:00] VITALS: BP 129/54; PULSE 69; RESP 18; TEMP 97.9; O2SAT 99
[2024-04-04 05:00] VITALS: BP 134/56; PULSE 66; RESP 19; TEMP 97.5; O2SAT 97
[2024-04-04 09:00] VITALS: BP 143/59; PULSE 66; RESP 16; TEMP 98; O2SAT 98
--- NOTE | 2024-04-04 10:08 | DVHPN2 ---
Reviewed: Care Plan, H&P, Labs, Medications, Previous Orders, Radiology Changes from previous H/P or p: No Changes Eyes: No Pain, No Vision change, No Conjunctivae inflammation, No Eyelid inflammation, No Other, No Redness ENT: No Ear pain, No Ear discharge, No Nose pain, No Nose discharge, No Nose congestion, No Mouth pain, No Mouth swelling, No Throat pain, No Throat swelling, No Other Cardiovascular: No Chest Pain, No Palpitations, No Orthopnea, No Paroxysmal Noc. Dyspnea, No Edema, No Lt Headedness, No Other Respiratory: No Cough, No Dry, No Shortness of breath, No SOB with excertion, No Wheezing, No Hemoptysis, No Pleuritic Pain, No Sputum, No Other Gastrointestinal: Nausea; No Vomiting; Abdominal Pain; No Diarrhea, No Constipation, No Melena, No Hematochezia, No Other Genitourinary: No Dysuria, No Frequency, No Incontinence, No Hematuria, No Retention, No Other Musculoskeletal: No other, No neck pain, No shoulder pain, No arm pain, No back pain, No hand pain, No leg pain; foot pain Skin: No Rash, No Lesions, No Jaundice, No Bruising, No Other Objective Vitals Vital Signs Date Time Temp Pulse Resp B/P (MAP) Pulse Ox O2 Delivery O2 Flow Rate FiO2 04/04/24 08:33 143/59 04/04/24 08:33 66 04/04/24 05:00 97.5 19 97 97.5 04/03/24 20:00 Room Air* 0 21 Intake/Output Intake and Output 04/04/24 07:00 Intake Total 1280 ml Output Total 5 ml Balance 1275 ml Intake Oral 1280 ml Stool Total 5 ml # Voids 5 Medications Current Medications Medications Dose Ordered Sig/Latonia Route Start Time Stop Time Status Last Admin Dose Admin Acetaminophen/ Hydrocodone Bitart 1 tab Q4HP PRN PO 03/27/24 08:00 04/01/24 00:09 1 TAB Ondansetron HCl 4 mg Q4HP PRN IV 03/27/24 08:00 Acetaminophen 650 mg Q6HP PRN PO 03/27/24 08:00 04/02/24 15:12 650 MG Morphine Sulfate 2 mg Q4HPRN PRN IV 03/27/24 08:00 Diagnostic Test (Pha) 1 strip ACHS 03/27/24 11:30 04/04/24 05:39 1 STRIP Dextrose 50 ml UD PRN IV 03/27/24 08:00 Amlodipine Besylate 10 mg DAILY PO 03/27/24 10:00 04/04/24 08:32 10 MG Atorvastatin Calcium 20 mg HS PO 03/27/24 22:00 04/03/24 21:50 20 MG Carvedilol 6.25 mg Q12HR PO 03/27/24 10:00 04/04/24 08:33 6.25 MG Sevelamer HCl 800 mg TIDWM PO 03/27/24 08:00 04/04/24 08:34 800 MG Insulin Human Regular AC SC 03/28/24 17:00 04/04/24 05:36 12 UNITS Insulin Human Regular HS SC 03/28/24 22:00 04/03/24 22:00 6 UNITS Enteral Nutritional Formula 28.8 gm BID PO 03/28/24 22:00 04/02/24 10:00 28.8 GM Insulin Glargine 30 units HS SC 03/29/24 22:00 04/03/24 22:04 30 UNITS Hydralazine HCl 100 mg DAILY PO 03/30/24 10:00 04/04/24 08:33 100 MG Epoetin Damian-epbx 10,000 unit MWF@2100 SC 03/30/24 21:00 04/01/24 22:58 10,000 UNIT Ertapenem 0.5 gm/ Sodium Chloride 50 ml @ 100 mls/hr DAILY IV 04/03/24 10:00 Sodium Chloride 10 ml QSHIFT@10,22 IV 04/02/24 22:00 04/03/24 22:11 10 ML Laboratory Results Laboratory Tests 04/01/24 08:46 04/03/24 05:30 Microbiology Microbiology Date/Time Source Procedure Growth Status 03/30/24 14:25 Foot Left Anaerobic Culture - Preliminary Resulted 03/28/24 13:54 Blood Blood Culture - Final NO GROWTH AFTER 5 DAYS OF INCUBATION. Complete Labs and/or images reviewed: Labs reviewed by me, Image(s) reviewed by me Assessment/Plan Assessment/Plan Sepsis secondary to left foot infection: Blood cultures negative , wound cultures growing ESBL Klebsiella, on Invanz 0.5 g IV daily for six weeks Acute gangrene left 3rd and 5th toes status post incision and drainage, amputation by Dr. Ortiz, left foot bone biopsy result pending Status Post left 3rd 4th 5th metatarsal amputation by Dr. Ortiz Peripheral arterial disease left lower extremity ruled out Mild peripheral arterial disease right lower extremity consult by vascular surgeon , no intervention needed History of amputation left 4th toe History of osteomyelitis left foot ESRD on hemodialysis : Consult for Dr. Alexander appreciated Uncontrolled diabetes A1c 11.2: Insulin sliding scale Diabetic neuropathy nephropathy vasculopathy Hypertensive urgency Severe anemia hemoglobin 6.7, improved to 8.7 after 1 unit RBC transfusion stable Spoke with the patient's daughter lani on the phone, she lives in [place] Patient lives with her other daughter Caro [phone] in [facility] No [facility]ci facilities is willing to take the patient Plan discussed with: Patient My Orders Orders - CHARLIE RYAN MD Procedure Category Date Status Time Covid19 Antigen [facility] LAB 04/04/24 Logged Rapid Influenza A&B LAB 04/04/24 Logged 09:58 Pt Request For Service PT 04/04/24 Logged 09:58 Date of Service: Apr 04, 2024 Billing Provider: CHARLIE RYAN MD Common Visit Codes: [id number] INP/OBS CARE(HIGH) CHARLIE RYAN MD Apr 04, 2024 10:08
[2024-04-04 12:51] LABS: Rapid Influenza A Negative (Negative); Rapid Influenza B Negative (Negative)
[2024-04-04 12:52] LABS: COVID19 ANTIGEN SOFIA FIA NEGATIVE (NEGATIVE)
[2024-04-04 13:07] VITALS: BP 132/55; PULSE 65; RESP 20; TEMP 97.9; O2SAT 94
[2024-04-04 17:00] VITALS: BP 131/58; PULSE 68; RESP 18; TEMP 98; O2SAT 96
--- NOTE | 2024-04-04 18:55 | DVHPN2 ---
Progress Note Date Seen: Apr 04, 2024 Medical Necessity Reason Pt with a Central, PICC or Fol: No Subjective Patient reports: No new complaints Objective vital signs Vital Sign Date Time Temp Pulse Resp B/P (MAP) Pulse Ox O2 Delivery O2 Flow Rate FiO2 04/04/24 17:00 98.0 68 18 131/58 (82) 96 98.0 04/04/24 08:00 Room Air* 0 21 Total Intake and Output 04/03/24 04/03/24 04/04/24 15:00 23:00 07:00 Intake Total 290 ml 590 ml 400 ml Output Total 3 ml 2 ml Balance 290 ml 587 ml 398 ml medications Current Medications Medications Dose Ordered Sig/Lat[place] Route Start Time Stop Time Status Last Admin Dose Admin Acetaminophen/ Hydrocodone Bitart 1 tab Q4HP PRN PO 03/27/24 08:00 04/01/24 00:09 1 TAB Ondansetron HCl 4 mg Q4HP PRN IV 03/27/24 08:00 Acetaminophen 650 mg Q6HP PRN PO 03/27/24 08:00 04/02/24 15:12 650 MG Morphine Sulfate 2 mg Q4HPRN PRN IV 03/27/24 08:00 Diagnostic Test (Pha) 1 strip ACHS 03/27/24 11:30 04/04/24 17:25 1 STRIP Dextrose 50 ml UD PRN IV 03/27/24 08:00 Amlodipine Besylate 10 mg DAILY PO 03/27/24 10:00 04/04/24 08:32 10 MG Atorvastatin Calcium 20 mg HS PO 03/27/24 22:00 04/03/24 21:50 20 MG Carvedilol 6.25 mg Q12HR PO 03/27/24 10:00 04/04/24 08:33 6.25 MG Sevelamer HCl 800 mg TIDWM PO 03/27/24 08:00 04/04/24 17:41 800 MG Insulin Human Regular AC SC 03/28/24 17:00 04/04/24 17:41 8 UNITS Insulin Human Regular HS SC 03/28/24 22:00 04/03/24 22:00 6 UNITS Enteral Nutritional Formula 28.8 gm BID PO 03/28/24 22:00 04/02/24 10:00 28.8 GM Insulin Glargine 30 units HS SC 03/29/24 22:00 04/03/24 22:04 30 UNITS Hydralazine HCl 100 mg DAILY PO 03/30/24 10:00 04/04/24 08:33 100 MG Epoetin Damian-epbx 10,000 unit MWF@2100 SC 03/30/24 21:00 04/01/24 22:58 10,000 UNIT Ertapenem 0.5 gm/ Sodium Chloride 50 ml @ 100 mls/hr DAILY IV 04/03/24 10:00 04/04/24 11:08 100 MLS/HR Sodium Chloride 10 ml QSHIFT@10,22 IV 04/02/24 22:00 04/04/24 10:51 10 ML laboratory and microbiology Laboratory Tests 04/03/24 05:30 04/01/24 08:46 Test 04/03/24 05:30 Range/Units Serum Glucose 147 H 74-106 mg/dL Microbiology Date/Time Source Procedure Growth Status 03/30/24 14:25 Foot Left Anaerobic Culture - Final Complete 03/28/24 13:54 Blood Blood Culture - Final NO GROWTH AFTER 5 DAYS OF INCUBATION. Complete Problem List/Assessment/Plan Problem List/Assessment/Plan ESRD on HD Anemia of ckd Osteomyelitis recent left 4th toe amputation- on IV abx Hx of HTN- within target range Uncontrolled DM- on R insulin sliding scale Recommendations Dialysis today next dialysis Saturday if still here Stable for discharge from Nephrology standpoint Plan discussed with: Patient Dietary Evaluation Review Comments: 1. Continue current diet 2. Consider Luis Angel BID (180kcal, 5 gpro) for wound healing Expected Outcomes/Goals: Pt will continue to consume >75% of estimated needs within 3-5 days CC Plasma Assessment Blood Product Administration S: 1111 MIKAYLA FERRARI MD Apr 04, 2024 18:55
[2024-04-04 21:00] VITALS: BP 142/50; PULSE 70; RESP 18; TEMP 98.4; O2SAT 94
[2024-04-05] VITALS (7 sets, daily range): BP systolic 125–152; BP diastolic 55–67; PULSE 66–69; RESP 16–18; TEMP 97.5–98.6; O2SAT 94–99
--- NOTE | 2024-04-05 10:02 | DVHPN2 ---
Reviewed: Care Plan, H&P, Labs, Medications, Previous Orders, Radiology Changes from previous H/P or p: No Changes Eyes: No Pain, No Vision change, No Conjunctivae inflammation, No Eyelid inflammation, No Other, No Redness ENT: No Ear pain, No Ear discharge, No Nose pain, No Nose discharge, No Nose congestion, No Mouth pain, No Mouth swelling, No Throat pain, No Throat swelling, No Other Cardiovascular: No Chest Pain, No Palpitations, No Orthopnea, No Paroxysmal Noc. Dyspnea, No Edema, No Lt Headedness, No Other Respiratory: No Cough, No Dry, No Shortness of breath, No SOB with excertion, No Wheezing, No Hemoptysis, No Pleuritic Pain, No Sputum, No Other Gastrointestinal: Nausea; No Vomiting; Abdominal Pain; No Diarrhea, No Constipation, No Melena, No Hematochezia, No Other Genitourinary: No Dysuria, No Frequency, No Incontinence, No Hematuria, No Retention, No Other Musculoskeletal: No other, No neck pain, No shoulder pain, No arm pain, No back pain, No hand pain, No leg pain; foot pain Skin: No Rash, No Lesions, No Jaundice, No Bruising, No Other Objective Vitals Vital Signs Date Time Temp Pulse Resp B/P (MAP) Pulse Ox O2 Delivery O2 Flow Rate FiO2 04/05/24 09:36 66 157/67 04/05/24 05:00 98.2 18 96 98.2 04/04/24 19:58 Room Air* 0 21 Intake/Output Intake and Output 04/05/24 07:00 Intake Total 1750 ml Output Total 1 ml Balance 1749 ml Intake Oral 1700 ml IV Total 50 ml Stool Total 1 ml # Voids 4 Medications Current Medications Medications Dose Ordered Sig/Lat[place] Route Start Time Stop Time Status Last Admin Dose Admin Acetaminophen/ Hydrocodone Bitart 1 tab Q4HP PRN PO 03/27/24 08:00 04/01/24 00:09 1 TAB Ondansetron HCl 4 mg Q4HP PRN IV 03/27/24 08:00 Acetaminophen 650 mg Q6HP PRN PO 03/27/24 08:00 04/02/24 15:12 650 MG Morphine Sulfate 2 mg Q4HPRN PRN IV 03/27/24 08:00 Diagnostic Test (Pha) 1 strip ACHS 03/27/24 11:30 04/05/24 06:28 1 STRIP Dextrose 50 ml UD PRN IV 03/27/24 08:00 Amlodipine Besylate 10 mg DAILY PO 03/27/24 10:00 04/05/24 09:36 10 MG Atorvastatin Calcium 20 mg HS PO 03/27/24 22:00 04/04/24 21:16 20 MG Carvedilol 6.25 mg Q12HR PO 03/27/24 10:00 04/05/24 09:36 6.25 MG Sevelamer HCl 800 mg TIDWM PO 03/27/24 08:00 04/05/24 08:15 800 MG Insulin Human Regular AC SC 03/28/24 17:00 04/05/24 06:28 12 UNITS Insulin Human Regular HS SC 03/28/24 22:00 04/04/24 21:23 8 UNITS Enteral Nutritional Formula 28.8 gm BID PO 03/28/24 22:00 04/04/24 21:17 28.8 GM Insulin Glargine 30 units HS SC 03/29/24 22:00 04/04/24 21:24 30 UNITS Hydralazine HCl 100 mg DAILY PO 03/30/24 10:00 04/05/24 09:35 100 MG Epoetin Damian-epbx 10,000 unit MWF@2100 SC 03/30/24 21:00 04/01/24 22:58 10,000 UNIT Ertapenem 0.5 gm/ Sodium Chloride 50 ml @ 100 mls/hr DAILY IV 04/03/24 10:00 04/05/24 09:35 100 MLS/HR Sodium Chloride 10 ml QSHIFT@10,22 IV 04/02/24 22:00 04/05/24 09:37 10 ML Laboratory Results Laboratory Tests 04/01/24 08:46 04/03/24 05:30 Microbiology Microbiology Date/Time Source Procedure Growth Status 03/30/24 14:25 Foot Left Anaerobic Culture - Final Complete 03/28/24 13:54 Blood Blood Culture - Final NO GROWTH AFTER 5 DAYS OF INCUBATION. Complete Labs and/or images reviewed: Labs reviewed by me, Image(s) reviewed by me Assessment/Plan Assessment/Plan Sepsis secondary to left foot infection: Blood cultures negative , wound cultures growing ESBL Klebsiella, on Invanz 0.5 g IV daily for six weeks Acute gangrene left 3rd and 5th toes status post incision and drainage, amputation by Dr. Ortiz, left foot bone biopsy result pending Status Post left 3rd 4th 5th metatarsal amputation by Dr. Ortiz Peripheral arterial disease left lower extremity ruled out Mild peripheral arterial disease right lower extremity consult by vascular surgeon , no intervention needed History of amputation left 4th toe History of osteomyelitis left foot ESRD on hemodialysis : Consult for Dr. Alexander appreciated Uncontrolled diabetes A1c 11.2: Insulin sliding scale Diabetic neuropathy nephropathy vasculopathy Hypertensive urgency Severe anemia hemoglobin 6.7, improved to 8.7 after 1 unit RBC transfusion stable Spoke with the patient's daughter lani on the phone, she lives in [place] Patient lives with her other daughter Caro [phone] in [facility] No correction facilities is willing to take the patient Continue Current management Plan discussed with: Patient My Orders Orders - CHARLIE RYAN MD Procedure Category Date Status Time Discharge DISCHARGE 04/04/24 Transmitted 10:08 Date of Service: Apr 05, 2024 Billing Provider: CHARLIE RYAN MD Common Visit Codes: [id number] INP/OBS CARE(HIGH) CHARLIE RYAN MD Apr 05, 2024 10:02
--- NOTE | 2024-04-05 17:25 | DVHPN2 ---
Progress Note Date Seen: Apr 05, 2024 Medical Necessity Reason Pt with a Central, PICC or Fol: No Subjective Patient reports: No new complaints Review of Systems: Deferred Objective vital signs Vital Sign Date Time Temp Pulse Resp B/P (MAP) Pulse Ox O2 Delivery O2 Flow Rate FiO2 04/05/24 17:01 98.2 69 16 125/61 (82) 97 98.2 04/05/24 08:00 Room Air* 0 21 Total Intake and Output 04/04/24 04/04/24 04/05/24 15:00 23:00 07:00 Intake Total 350 ml 1000 ml 400 ml Output Total 1 ml Balance 350 ml 999 ml 400 ml medications Current Medications Medications Dose Ordered Sig/[place] Route Start Time Stop Time Status Last Admin Dose Admin Ondansetron HCl 4 mg Q4HP PRN IV 03/27/24 08:00 Acetaminophen 650 mg Q6HP PRN PO 03/27/24 08:00 04/02/24 15:12 650 MG Diagnostic Test (Pha) 1 strip ACHS 03/27/24 11:30 04/05/24 11:19 1 STRIP Dextrose 50 ml UD PRN IV 03/27/24 08:00 Amlodipine Besylate 10 mg DAILY PO 03/27/24 10:00 04/05/24 09:36 10 MG Atorvastatin Calcium 20 mg HS PO 03/27/24 22:00 04/04/24 21:16 20 MG Carvedilol 6.25 mg Q12HR PO 03/27/24 10:00 04/05/24 09:36 6.25 MG Sevelamer HCl 800 mg TIDWM PO 03/27/24 08:00 04/05/24 11:31 800 MG Insulin Human Regular AC SC 03/28/24 17:00 04/05/24 11:30 8 UNITS Insulin Human Regular HS SC 03/28/24 22:00 04/04/24 21:23 8 UNITS Enteral Nutritional Formula 28.8 gm BID PO 03/28/24 22:00 04/04/24 21:17 28.8 GM Insulin Glargine 30 units HS SC 03/29/24 22:00 04/04/24 21:24 30 UNITS Hydralazine HCl 100 mg DAILY PO 03/30/24 10:00 04/05/24 09:35 100 MG Epoetin Damian-epbx 10,000 unit MWF@2100 MA 03/30/24 21:00 04/01/24 22:58 10,000 UNIT Ertapenem 0.5 gm/ Sodium Chloride 50 ml @ 100 mls/hr DAILY IV 04/03/24 10:00 04/05/24 09:35 100 MLS/HR Sodium Chloride 10 ml QSHIFT@10,22 IV 04/02/24 22:00 04/05/24 09:37 10 ML laboratory and microbiology Laboratory Tests 04/03/24 05:30 04/01/24 08:46 Test 04/03/24 05:30 Range/Units Serum Glucose 147 H 74-106 mg/dL Microbiology Date/Time Source Procedure Growth Status 03/30/24 14:25 Foot Left Anaerobic Culture - Final Complete 03/28/24 13:54 Blood Blood Culture - Final NO GROWTH AFTER 5 DAYS OF INCUBATION. Complete Problem List/Assessment/Plan Problem List/Assessment/Plan ESRD on HD Anemia of ckd Osteomyelitis recent left 4th toe amputation- on IV abx Hx of HTN- within target range Uncontrolled DM- on R insulin sliding scale Recommendations next dialysis Saturday if still here Plan discussed with: Patient Dietary Evaluation Review Comments: 1. Continue current diet 2. Consider Luis Angel BID (180kcal, 5 gpro) for wound healing Expected Outcomes/Goals: Pt will continue to consume >75% of estimated needs within 3-5 days CC Plasma Assessment Blood Product Administration S: 1111 MIKAYLA FERRARI MD Apr 05, 2024 17:25
[2024-04-06] VITALS (7 sets, daily range): BP systolic 111–143; BP diastolic 54–74; PULSE 54–75; RESP 17–19; TEMP 97.4–98.7; O2SAT 96–100
[2024-04-06 12:31] LABS: Hepatitis B Surface Antigen Negative (Negative)
[2024-04-06 12:54] LABS: Hepatitis A Ab IgM Negative; Hepatitis B Core IgM Negative (Negative); Hepatitis C Antibody Negative (Negative)
--- NOTE | 2024-04-06 15:37 | DVHPN2 ---
Progress Note Date Seen: Apr 06, 2024 Medical Necessity Reason Pt with a Central, PICC or Fol: No Subjective Other Systems: Patient seen and examined on HD, BP stable Objective vital signs Vital Sign Date Time Temp Pulse Resp B/P (MAP) Pulse Ox O2 Delivery O2 Flow Rate FiO2 04/06/24 12:58 97.8 54 18 127/58 (81) 99 97.8 04/06/24 08:05 Room Air* 0 21 Total Intake and Output 04/05/24 04/05/24 04/06/24 15:00 23:00 07:00 Intake Total 50 ml 325 ml 600 ml Output Total 1 ml Balance 50 ml 325 ml 599 ml medications Current Medications Medications Dose Ordered Sig/Lat[place] Route Start Time Stop Time Status Last Admin Dose Admin Ondansetron HCl 4 mg Q4HP PRN IV 03/27/24 08:00 Acetaminophen 650 mg Q6HP PRN PO 03/27/24 08:00 04/02/24 15:12 650 MG Diagnostic Test (Pha) 1 strip ACHS 03/27/24 11:30 04/06/24 11:56 1 STRIP Dextrose 50 ml UD PRN IV 03/27/24 08:00 Amlodipine Besylate 10 mg DAILY PO 03/27/24 10:00 04/06/24 09:19 10 MG Atorvastatin Calcium 20 mg HS PO 03/27/24 22:00 04/05/24 21:50 20 MG Carvedilol 6.25 mg Q12HR PO 03/27/24 10:00 04/06/24 09:20 6.25 MG Sevelamer HCl 800 mg TIDWM PO 03/27/24 08:00 04/06/24 08:14 800 MG Insulin Human Regular AC SC 03/28/24 17:00 04/06/24 11:59 8 UNITS Insulin Human Regular HS SC 03/28/24 22:00 04/05/24 21:54 6 UNITS Enteral Nutritional Formula 28.8 gm BID PO 03/28/24 22:00 04/06/24 09:21 28.8 GM Insulin Glargine 30 units HS SC 03/29/24 22:00 04/05/24 21:55 30 UNITS Hydralazine HCl 100 mg DAILY PO 03/30/24 10:00 04/06/24 09:20 100 MG Epoetin Damian-epbx 10,000 unit MWF@2100 SC 03/30/24 21:00 04/01/24 22:58 10,000 UNIT Ertapenem 0.5 gm/ Sodium Chloride 50 ml @ 100 mls/hr DAILY IV 04/03/24 10:00 04/06/24 10:43 100 MLS/HR Sodium Chloride 10 ml QSHIFT@10,22 IV 04/02/24 22:00 04/06/24 09:21 10 ML Examination: LUNGS:Normal, CVS:Normal, MSK:Abnormal laboratory and microbiology Laboratory Tests 04/03/24 05:30 04/01/24 08:46 Test 04/03/24 05:30 Range/Units Serum Glucose 147 H 74-106 mg/dL Microbiology Date/Time Source Procedure Growth Status 03/30/24 14:25 Foot Left Anaerobic Culture - Final Complete 03/28/24 13:54 Blood Blood Culture - Final NO GROWTH AFTER 5 DAYS OF INCUBATION. Complete Problem List/Assessment/Plan Problem List/Assessment/Plan ESRD on HD Anemia of ckd Osteomyelitis recent left 4th toe amputation- on IV abx HTN Uncontrolled DM- on R insulin sliding scale REC: Continue with UF 2-3 L as tolerated FADI with HD Renal diet resume home meds f/u podiatry Plan discussed with: Patient Dietary Evaluation Review Comments: 1. Continue current diet 2. Consider Luis Angel BID (180kcal, 5 gpro) for wound healing Expected Outcomes/Goals: Pt will continue to consume >75% of estimated needs within 3-5 days CC Plasma Assessment Blood Product Administration S: 1111 MEY COLES MD Apr 06, 2024 15:37
== END 2024-04-06 23:00 | disposition home health service (06) | DRG 710 ==
LOC: ER 01:42 → EDBD 01:42 → OVERFLOW 07:48 → EAST 13:47
PROVIDERS: ADMIT Family Medicine; ATTEND Family Medicine
PROC: 30233N1 Transfusion of Nonautologous Red Blood Cells into Peripheral Vein, Percutaneous Approach (ICD-10-PCS; principal; 2024-03-27)
PROC: 5A1D70Z Performance of Urinary Filtration, Intermittent, Less than 6 Hours Per Day (ICD-10-PCS; 2024-03-29)
PROC: 0Y6U0Z0 Detachment at Left 3rd Toe, Complete, Open Approach (ICD-10-PCS; 2024-03-30)
PROC: 0Y6Y0Z0 Detachment at Left 5th Toe, Complete, Open Approach (ICD-10-PCS; 2024-03-30)
PROC: 0QBR3ZX Excision of Left Toe Phalanx, Percutaneous Approach, Diagnostic (ICD-10-PCS; 2024-03-30)
PROC: 0QBR3ZX Excision of Left Toe Phalanx, Percutaneous Approach, Diagnostic (ICD-10-PCS; 2024-03-30)
PROC: 5A1D70Z Performance of Urinary Filtration, Intermittent, Less than 6 Hours Per Day (ICD-10-PCS; 2024-03-31)
PROC: 0Y6N0ZC Detachment at Left Foot, Partial 3rd Ray, Open Approach (ICD-10-PCS; 2024-04-01)
PROC: 0Y6N0ZD Detachment at Left Foot, Partial 4th Ray, Open Approach (ICD-10-PCS; 2024-04-01)
PROC: 0Y6N0ZF Detachment at Left Foot, Partial 5th Ray, Open Approach (ICD-10-PCS; 2024-04-01)
PROC: 02HV33Z Insertion of Infusion Device into Superior Vena Cava, Percutaneous Approach (ICD-10-PCS; 2024-04-02)
PROC: B548ZZA Ultrasonography of Superior Vena Cava, Guidance (ICD-10-PCS; 2024-04-02)
PROC: 5A1D70Z Performance of Urinary Filtration, Intermittent, Less than 6 Hours Per Day (ICD-10-PCS; 2024-04-03)
PROC: 5A1D70Z Performance of Urinary Filtration, Intermittent, Less than 6 Hours Per Day (ICD-10-PCS; 2024-04-06)
DX: A41.9 Sepsis, unspecified organism (principal); E11.52 Type 2 diabetes mellitus with diabetic peripheral angiopathy with gangrene; I12.0 Hypertensive chronic kidney disease with stage 5 chronic kidney disease or end stage renal disease; E87.1 Hypo-osmolality and hyponatremia; D63.1 Anemia in chronic kidney disease; E11.22 Type 2 diabetes mellitus with diabetic chronic kidney disease; Z20.822 Contact with and (suspected) exposure to COVID-19; E11.69 Type 2 diabetes mellitus with other specified complication; J90 Pleural effusion, not elsewhere classified; D53.9 Nutritional anemia, unspecified; N18.6 End stage renal disease; E11.65 Type 2 diabetes mellitus with hyperglycemia; I16.0 Hypertensive urgency; L02.612 Cutaneous abscess of left foot; E11.621 Type 2 diabetes mellitus with foot ulcer; E11.40 Type 2 diabetes mellitus with diabetic neuropathy, unspecified; E87.6 Hypokalemia; L97.523 Non-pressure chronic ulcer of other part of left foot with necrosis of muscle; L03.116 Cellulitis of left lower limb; M86.8X7 Other osteomyelitis, ankle and foot; Z99.2 Dependence on renal dialysis; Z79.4 Long term (current) use of insulin; Z89.422 Acquired absence of other left toe(s); Z79.899 Other long term (current) drug therapy
CPT/HCPCS: 36415; 36569; 71045; 73620; 73700; 74176; 76937; 80048; 80053; 80061; 80074; 80202; 80320; 82040; 82306; 82310; 82565; 82607; 82728; 82746; 82947; 82962; 83010; 83036; 83540; 83550; 83605; 83690; 84075; 84155; 84443; 84450; 84460; 85014; 85018; 85025; 85045; 85610; 85652; 85730; 86141; 86850; 86880; 86900; 86901; 86920; 87040; 87070; 87075; 87077; 87186; 87205; 87426; 87804; 90935; 93925; 97110; 97116; 97163; 97530; G0378; J1335; J1642; J1815; J2250; J2405; J2704; J3490